=== PATIENT | female | born 1970 | race Caucasian/White ===

== ENCOUNTER → 2017-05-01 16:10 | Outpatient (CLI) | payer OTHER, SELFPAY ==
[2017-05-01 18:08] LABS: Amphetamine Urine VISTA NEGATIVE (<1000 ng/mL); Barbiturate Urine VISTA NEGATIVE (< 200 ng/mL); Benzodiazepine Urine VISTA NEGATIVE (< 200 ng/mL); Cocaine Urine VISTA NEGATIVE (< 300 ng/mL); Ecstacy Urine VISTA NEGATIVE (< 500 ng/mL); Methadone Urine VISTA NEGATIVE (< 300 ng/mL); PCP Urine VISTA NEGATIVE (< 25 ng/mL); THC Urine VISTA NEGATIVE (< 50 ng/mL); Vista UDS pH Range 5
[2017-05-02 08:36] LABS: OXY Internal Control LINE = VALID (VALID); Oxycodone Drug Screen Negative (<100 ng/mL)
== END ==
PROVIDERS: Family Provider Family Medicine; PCP Family Medicine; Visit Provider Family Medicine
DX: Z51.81 Encounter for therapeutic drug level monitoring (principal); Z79.899 Other long term (current) drug therapy
CPT/HCPCS: 80307; 80365; G0480

== ENCOUNTER → 2017-06-27 15:26 | Outpatient (CLI) | payer OTHER, SELFPAY ==
--- NOTE | 2017-06-27 15:30 | RAD_ITS ---
STUDY: X-RAY - ABDOMEN/PELVIS REASON FOR EXAM: Female, 46 years old. Left upper quadrant pain TECHNIQUE: Single AP view of the abdomen / pelvis. COMPARISON: None. FINDINGS: Normal visualized lung bases. There is an unremarkable bowel gas pattern. There is no demonstrated free abdominal air. The visualized liver, spleen and kidneys are grossly normal in size and morphology. Normal soft tissue structures. Normal visualized osseous structures. RAD/Abdomen Single View IMPRESSION: Normal x-ray examination of the abdomen and pelvis. Electronically Signed: Al Grady MD at 23:57 EDT , Service support ,
--- NOTE | 2017-06-27 15:30 | RAD_ITS ---
STUDY: X-RAY CHEST REASON FOR EXAM: Female, 46 years old. Short of breath and asthma. TECHNIQUE: Frontal and lateral views of the chest. COMPARISON: 02/16/2017. FINDINGS: The lungs are clear and expanded. There is no demonstrated pleural abnormality. Normal size heart. Normal mediastinum and jose. Normal visualized pulmonary arteries. Normal visualized aortic arch and descending thoracic aorta. There are diffuse degenerative changes of the visualized thoracic spine. Normal visualized ribs, clavicles, and shoulders. There is no demonstrated abnormality of the visualized soft tissue structures of the upper abdomen. RAD/Chest PA and Lateral IMPRESSION: No acute chest disease. Electronically Signed: Al Grady MD at 23:56 EDT , Service support ,
[2017-06-27 18:11] LABS: Absolute Lymphocyte Count 2.86 X10^3/ul (0.83-4.51); Absolute Neutrophil Count 4.2 X10^3/uL (2.0-7.7); Basophil# 0.03 X10^3/uL; Basophil% 0.4 % (0-1); Eosinophil# 0.32 X10^3/uL; Hematocrit 39.5 % (37-47); Hemoglobin 13.1 g/dl (12.0-15.0); Lymphocyte # 2.86 X10^3/ul (4.0); Lymphocyte % 35.3 % (19-41); Mean Corp Hgb Conc 33.2 g/gl (32-36); Mean Corpuscular Hgb 29.7 pg (27.0-32.0); Mean Corpuscular Volume 89.6 fL (81-99); Mean Platelet Vol. 9.1 fl (6.2-12.0); Monocyte# 0.62 X10^3/uL; Monocyte% 7.7 % (0-10); Neutrophil # 4.24 X10^3/uL (2.7-7.7); Neutrophil % 52.2 % (47-70); Platelet Count 344 K/mm3 (150-450); RBC Distribution Width CV 13.3 % (11.6-14.6); RBC Distribution Width SD 43.5 fl (35.1-43.9); Red Blood Count 4.41 M/mm3 (4.2-5.4); White Blood Count 8.1 K/mm3 (4.4-11.0)
[2017-06-27 18:17] LABS: AST(SGOT) 18 U/L (15-37); Alanine Aminotransfer ALT/SGPT 23 U/L (13-56); Albumin, Serum 3.9 g/dL (3.2-5.0); Alkaline Phosphatase 66 U/L (45-117); Anion Gap 9 (5-15); BUN 22 mg/dL (7-18); BUN/Creat Ratio 33.6 RATIO (10-20); CRP 4.38 mg/L (0.0-3.0); Calcium,Total 8.9 mg/dL (8.5-10.1); Chloride 104 mmol/L (98-107); Cholesterol 206 mg/dL (200); Creatinine, Serum 0.66 mg/dL (0.55-1.02); EST Glomerular Filtration Rate 104 mL/min (>60); Est Glom Filt Rate - Afr Amer 126 mL/min (>60); Glucose 122 mg/dL (74-106); High Density Lipoprotein 61 mg/dL; Potassium 3.5 mmol/L (3.5-5.1); Protein, Total 7.9 g/dL (6.4-8.2); Sodium Level 140 mmol/L (136-145); Triglycerides 251 mg/dL; Very Low Density Lipoprotein 50 mg/dL (5-40)
[2017-06-27 18:29] LABS: POSITIVE COUNT NO; POSITIVE DIFFERENTIAL NO; POSITIVE MORPHOLOGY NO
== END ==
LOC: MTRAD 15:28
PROVIDERS: Family Provider Family Medicine; PCP Family Medicine; Visit Provider Family Medicine
DX: J45.909 Unspecified asthma, uncomplicated (principal); R10.9 Unspecified abdominal pain; E78.5 Hyperlipidemia, unspecified; Z79.899 Other long term (current) drug therapy
CPT/HCPCS: 36415; 71046; 74018; 80053; 80061; 85025; 86140

== ENCOUNTER → 2017-07-10 10:50 | Outpatient (CLI) | payer OTHER, SELFPAY ==
--- NOTE | 2017-07-10 10:50 | DT_ITS ---
This patient was seen during an EMR downtime July 10, 2017 - July 17, 2017. This patient may have a combination of paper and electronic documentation or all paper documentation. All documentation is viewable within the e-chart portion of [employer] for each patient visit.
[2017-07-16 03:04] LABS: AST(SGOT) 20 U/L (15-37); Alanine Aminotransfer ALT/SGPT 28 U/L (13-56); Albumin, Serum 3.8 g/dL (3.2-5.0); Alkaline Phosphatase 62 U/L (45-117); BUN 15 mg/dL (7-18); BUN/Creat Ratio 23.1 RATIO (10-20); Calcium,Total 8.8 mg/dL (8.5-10.1); Creatinine, Serum 0.65 mg/dL (0.55-1.02); EST Glomerular Filtration Rate 105 mL/min (>60); Est Glom Filt Rate - Afr Amer 127 mL/min (>60); Glucose 104 mg/dL (74-106); Protein, Total 7.8 g/dL (6.4-8.2)
[2017-07-16 03:05] LABS: Anion Gap 7 (5-15); CRP 3.16 mg/L (0.0-3.0); Chloride 107 mmol/L (98-107); Cholesterol 252 mg/dL (200); High Density Lipoprotein 72 mg/dL; Potassium 3.9 mmol/L (3.5-5.1); Sodium Level 142 mmol/L (136-145); Triglycerides 263 mg/dL; Very Low Density Lipoprotein 53 mg/dL (5-40)
[2017-07-16 04:05] LABS: Absolute Neutrophil Count 5.4 X10^3/uL (2.0-7.7); Basophil% 0.5 % (0-1); Eosinophils% 2.1 % (0-5); Hematocrit 41.9 % (37-47); Hemoglobin 13.4 g/dl (12.0-15.0); Lymphocyte % 28.2 % (19-41); Mean Corpuscular Hgb 29.5 pg (27.0-32.0); Mean Corpuscular Volume 92.3 fL (81-99); Mean Platelet Vol. 9.7 fl (6.2-12.0); Monocyte% 7.4 % (0-10); Neutrophil # 5.43 X10^3/uL (2.7-7.7); Neutrophil % 61.3 % (47-70); POSITIVE COUNT NO; POSITIVE DIFFERENTIAL NO; POSITIVE MORPHOLOGY NO; Platelet Count 386 K/mm3 (150-450); RBC Distribution Width CV 13.9 % (11.6-14.6); RBC Distribution Width SD 46.3 fl (35.1-43.9); Red Blood Count 4.54 M/mm3 (4.2-5.4); White Blood Count 8.8 K/mm3 (4.4-11.0)
[2017-07-16 04:06] LABS: Absolute Lymphocyte Count 2.49 X10^3/ul (0.83-4.51); Basophil# 0.04 X10^3/uL; Eosinophil# 0.19 X10^3/uL; Lymphocyte # 2.49 X10^3/ul (4.0); Monocyte# 0.65 X10^3/uL
== END ==
PROVIDERS: Family Provider Family Medicine; PCP Family Medicine; Visit Provider Family Medicine
DX: R10.9 Unspecified abdominal pain (principal); E78.5 Hyperlipidemia, unspecified; Z79.899 Other long term (current) drug therapy
CPT/HCPCS: 36415; 80053; 80061; 85025; 86140

== ENCOUNTER → 2017-10-19 09:30 | Outpatient (CLI) | payer OTHER, SELFPAY | LOC: BFHLAB 09:30 | PROVIDERS: Family Provider Family Medicine; PCP Family Medicine; Visit Provider Family Medicine | DX: N39.0 Urinary tract infection, site not specified (principal) | CPT/HCPCS: 87086; 87088; 87186 ==

== ENCOUNTER 2017-11-01 21:37 | Emergency (ER) | payer OTHER, SELFPAY ==
[2017-11-01 21:37] VITALS: BP 138/87; PULSE 74; RESP 18; TEMP 36.6; O2SAT 98; BMI 26.4
[2017-11-01 22:10] LABS: Bacteria 0 SEEN /hpf (None Seen); Mucous, Urine 0 SEEN /hpf (<or=2+); White Blood Cells 0 SEEN /hpf (0-5)
[2017-11-01 22:15] LABS: Absolute Lymphocyte Count 2.97 X10^3/ul (0.83-4.51); Basophil# 0.03 X10^3/uL; Basophil% 0.3 % (0-1); Eosinophil# 0.25 X10^3/uL; Eosinophils% 2.8 % (0-5); Hematocrit 39.7 % (37-47); Hemoglobin 13.1 g/dl (12.0-15.0); Lymphocyte # 2.97 X10^3/ul (4.0); Lymphocyte % 33.3 % (19-41); Mean Corpuscular Hgb 29.6 pg (27.0-32.0); Mean Corpuscular Volume 89.8 fL (81-99); Mean Platelet Vol. 8.8 fl (6.2-12.0); Monocyte# 0.68 X10^3/uL; Monocyte% 7.6 % (0-10); Neutrophil # 4.98 X10^3/uL (2.7-7.7); Neutrophil % 55.8 % (47-70); POSITIVE COUNT NO; POSITIVE DIFFERENTIAL NO; POSITIVE MORPHOLOGY NO; Platelet Count 310 K/mm3 (150-450); RBC Distribution Width CV 12.8 % (11.6-14.6); RBC Distribution Width SD 42.1 fl (35.1-43.9); Red Blood Count 4.42 M/mm3 (4.2-5.4); White Blood Count 8.9 K/mm3 (4.4-11.0)
[2017-11-01 22:16] LABS: Color, Urine Yellow (Yellow); Glucose, Dipstick Normal (Normal); Ketone-Dipstick Negative (Negative); Leukocyte Esterase-Dipstick 25 /ul (Negative); Nitrite-Dipstick Negative (Negative); Occult Blood-Urine 150 /ul (Negative); Protein-Dipstick 15 mg/dl (Negative); Urine Bilirubin Dipstick Negative (Negative); Urine Clarity Clear (Clear); Urine Urobilinogen 1 mg/dl (Normal)
[2017-11-01 22:21] LABS: Red Blood Cells-Urine 0-5 SEEN /hpf (0-5); Squamous Epithelial Cells - UA 0-5 SEEN /hpf (5-10)
[2017-11-01 22:25] LABS: Anion Gap 6 (5-15); BUN 14 mg/dL (7-18); BUN/Creat Ratio 17.3 RATIO (10-20); Chloride 105 mmol/L (98-107); Creatinine, Serum 0.81 mg/dL (0.55-1.02); EST Glomerular Filtration Rate 81 mL/min (>60); Est Glom Filt Rate - Afr Amer 98 mL/min (>60); Estimated Creatinine Clearance 75.74 ml/min; Glucose 107 mg/dL (74-106); Potassium 3.7 mmol/L (3.5-5.1); Sodium Level 140 mmol/L (136-145)
[2017-11-01 22:30] LABS: Pregnancy, Serum, hCG Quali. NEGATIVE Negative (0-9 Nonpreg)
[2017-11-01] MEDS: Mag Hydrox/Al Hydrox/Simeth 30 ML UDC PO (22:44)
[2017-11-01 22:52] LABS: AST(SGOT) 17 U/L (15-37); Alanine Aminotransfer ALT/SGPT 24 U/L (13-56); Albumin, Serum 3.9 g/dL (3.2-5.0); Alkaline Phosphatase 58 U/L (45-117); Bilirubin, Direct 0.08 mg/dL (0.00-0.30); Globulin 3.9 g/dL (2.2-4.2); Protein, Total 7.8 g/dL (6.4-8.2)
[2017-11-01 22:56] LABS: Lipase 109 U/L (73-393)
--- NOTE | 2017-11-01 23:06 | ED.VISSUMM ---
- ER Visit Summary Date of Service: 11/01/17 Chief Complaint: Abdominal pain History of Present Illness: The patient is a 47 F who presents with abdominal pain. Over the past 3 weeks she complains of sharp epigastric and left upper quadrant abdominal pain. She currently rates this as a 7 out of 10. It is sometimes worse with food. She has noted some urinary frequency but no other urinary symptoms such as dysuria urgency or hematuria. She denies nausea vomiting or diarrhea. She does complain of feeling bloated. She complains of increased heartburn. She takes Zantac and occasionally takes Prilosec. She does note that she takes anti-inflammatories daily. She endorses occasional alcohol use but not frequent or daily use. He has a history of prior similar symptoms. No fevers. Physical Examination: Afebrile vitals are normal Resting comfortably in no distress Moist mucous membranes Heart regular rate and rhythm Lungs are clear Abdomen soft and nondistended she does have some epigastric tenderness without guarding without rebound no hepatosplenomegaly Test Results: CBC CMP lipase are all normal. Urinalysis shows 25 leukocyte esterase but otherwise normal. is negative. Emergency Department Course and Treatment: Patient was given a GI cocktail here. She really did not have much change in her symptoms. Given her description of symptoms and daily anti-inflammatory use I do believe this is gastritis. She was instructed on supportive care. She was advised to stop anti-inflammatories and stick to a bland diet. She was advised of the possible need for further outpatient workup if symptoms continue such as H pylori testing and/or EGD. He understands to return for new or worsening symptoms. She has Prilosec at home. She was advised to begin taking this daily. She is comfortable with this plan, all questions answered bedside, patient discharged Treatment Plan: [] Disposition: Discharge Impression: Gastritis This note was generated with [employer] dictation software. It may contain incorrect words, spelling, and punctuation that were not noted in review of the chart prior to signing ED Disposition - Plan for ED Patient: Chief Complaint: Abd Pain Referrals: Raad Armendariz DO [Primary Care Provider] -
--- NOTE | 2017-11-01 23:09 | ED.DEP ---
ED Disposition - Plan for ED Patient: Chief Complaint: Abd Pain Instructions: ED Gastritis Referrals: Raad Armendariz DO [Primary Care Provider] -
== END 2017-11-01 23:24 | disposition home or self-care (01) ==
PROVIDERS: Emergency Provider Emergency Medicine; Family Provider Family Medicine; PCP Family Medicine
DX: K29.70 Gastritis, unspecified, without bleeding (principal); J45.909 Unspecified asthma, uncomplicated; E78.00 Pure hypercholesterolemia, unspecified; M79.7 Fibromyalgia; Z72.0 Tobacco use; Z79.1 Long term (current) use of non-steroidal anti-inflammatories (NSAID); Z79.899 Other long term (current) drug therapy; Z79.51 Long term (current) use of inhaled steroids
CPT/HCPCS: 80048; 80076; 81001; 83690; 84703; 85025; 99284; J7030; A4216

== ENCOUNTER 2018-01-22 16:08 | Emergency (ER) | payer OTHER, SELFPAY ==
[2018-01-22 16:10] VITALS: BP 123/91; PULSE 88; RESP 16; TEMP 36.8; O2SAT 97; BMI 25.4
--- NOTE | 2018-01-22 16:55 | RAD_ITS ---
STUDY: X-RAY - UNILATERAL RIBS ( LEFT ) WITH CHEST REASON FOR EXAM: Female, 47 years old. Trauma TECHNIQUE - RIBS: 4 view(s) of the ribs. TECHNIQUE - CHEST: Single PA view of the chest. COMPARISON: Previous chest of 06/27/2017 FINDINGS - RIBS: Normal visualized ribs without a demonstrated fracture. FINDINGS - CHEST: The lungs are clear and expanded. There is no demonstrated pleural abnormality. Normal size heart. Normal mediastinum and jose. Normal visualized pulmonary arteries. Normal visualized aortic arch and descending thoracic aorta. Normal visualized thoracic spine. Normal visualized ribs, clavicles, and shoulders. There is no demonstrated abnormality of the visualized soft tissue structures of the upper abdomen. RAD/Ribs Uni Min 3V w/PA Chest IMPRESSION: RIBS: Normal x-ray examination of the ribs. CHEST: Normal x-ray examination of the chest. Electronically Signed: Mayco Cheek MD at 17:25 EST , Service support ,
[2018-01-22] MEDS: Lidocaine 5% Patch 1 PATCH TOPICAL (17:44)
--- NOTE | 2018-01-22 18:00 | ED.VISSUMM ---
- ER Visit Summary Date of Service: 01/22/18 Chief Complaint: Rib injury History of Present Illness: The patient is a 47 F presenting for evaluation secondary to a rib injury. Patient reports that she was lifting someone at work 6 days ago and suffered a injury to her left ribs where she felt a pop. She reports she has had continuous pain there that is worse with movement and palpation. Patient reports that she developed a cough in the last couple of days which is caused the pain to get worse. She denies any fevers or shortness of breath. Physical Examination: Physical exam unremarkable except for examination of the chest. Heart was regular rate and rhythm, lungs sounds were clear and equal. Left anterior chest tenderness to palpation over approximately the sixth to eighth ribs without crepitus step-off deformity or abnormal chest excursion Test Results: Rib series is negative Emergency Department Course and Treatment: Patient presented secondary to rib pain. X-ray was negative. Patient was recommended conservative treatment with ibuprofen heat and ice Disposition: Discharge Impression: 1. Left-sided rib sprain This note was generated with [employer] dictation software. It may contain incorrect words, spelling, and punctuation that were not noted in review of the chart prior to signing ED Disposition - Plan for ED Patient: Disposition: Home or Assisted Living Chief Complaint: Chest Other Diagnosis: Rib sprain Instructions: ED Strain Chest Wall Referrals: [facility] [GROUP OF PHYSICIANS] - As Needed
[2018-01-22 18:04] VITALS: PULSE 78; RESP 14; O2SAT 96
--- OUTSIDE RECORDS SUMMARY | 2018-04-26 09:41 | XMS RPT_ITS ---
:1970 Author Organization OH[employer] Name Relationship Address Phone [place] Unavailable [address] + [place] [address] JERAD FOYRICK Unavailable [address] + [place] [address] [place] Unavailable [address] + [place] [address] JERAD FOYRICK Unavailable [address] + [place] [address] [place] Unavailable [address] + [place] [address] JERAD FOYRICK Unavailable [address] + [place] [address] [place] Unavailable [address] + [place] [address] JERAD FOYRICK Unavailable [address] + [place] [address] [place] Unavailable [address] + [place] [address] JERAD FOYRICK Unavailable [address] + [place] [address] [place] Unavailable [address] + [place] [address] JERAD FOYRICK Unavailable [address] + [place] [address] [place] Unavailable [address] + [place] [address] JERAD FOYRICK Unavailable [address] + [place] [address] [place] Unavailable [address] + [place] [address] MARKO FOY Unavailable [address] + [place] [address] Care Team Providers Name Role Phone Raad Armendariz Primary Care Unavailable Anastacio Kiser Attending Unavailable Kala, Raad Attending Unavailable Kala, Raad Primary Care Unavailable Cielo Crump Attending Unavailable Kala, Raad Referring Unavailable Kala, Raad Primary Care Unavailable Kala, Raad Attending Unavailable Kala, Raad Referring Unavailable Kala, Raad Primary Care Unavailable Kala, Raad Attending Unavailable Kala, Raad Attending Unavailable Kala, Raad Referring Unavailable Kala, Raad Primary Care Unavailable Kala, Raad Attending Unavailable Kala, Raad Primary Care Unavailable Kala, Raad Primary Care Unavailable Tom Winchester Attending Unavailable PROBLEMS PROBLEMS DATE TYPE CONDITION / CODE ATTENDING STATUS SOURCE 10/19/2017 Unknown N39.0 - Urinary Raad Armendariz Active [place] tract infection, Community site not specified Hospital / N39.0(ICD-10) Repository 08/02/2017 Unknown R10.9 - Unspecified KalaRaad swift Active [place] abdominal pain / Community R10.9(ICD-10) Hospital Repository 06/27/2017 Unknown J45.909 - KalaRaad swift Active [place] Unspecified asthma, Community uncomplicated / Hospital J45.909(ICD-10) Repository 06/27/2017 Unknown Z79.899 - Other Raad Armendariz Active [facility] (current) Community drug therapy / Hospital Z79.899(ICD-10) Repository 06/27/2017 Unknown E78.5 - KalaRaad swift Active [facility] Hyperlipidemia, Community unspecified / Hospital E78.5(ICD-10) Repository 05/01/2017 Unknown Z51.81 - Encounter Raad Armendariz Active [place] for therapeutic Community drug level Hospital monitoring / Repository Z51.81(ICD-10) PROCEDURES PROCEDURES No Procedure Records FoundRESULTS RESULTS EMERGENCY DEPARTMENT Observed: 01/23/2018 Status: F Source: [place] SUMMARY 12:19 AM [facility] REPOSITORY Medical Records Department [address] [place] [address] Emergency Department Summary 01/22/18 1800 MR#: [id number] Acct: [id number] Name: ANNEL FOY Rep #: [id number] : 1970 47 From: Anastacio Kiser MD PCP: Raad Armendariz DO Status: DEP ER - ER Visit Summary Date of Service: 01/22/18 Chief Complaint: Rib injury History of Present Illness: The patient is a 47 F presenting for evaluation secondary to a rib injury. Patient reports that she was lifting someone at work 6 days ago and suffered a injury to her left ribs where she felt a pop. She reports she has had continuous pain there that is worse with movement and palpation. Patient reports that she developed a cough in the last couple of days which is caused the pain to get worse. She denies any fevers or shortness of breath. Physical Examination: Physical exam unremarkable except for examination of the chest. Heart was regular rate and rhythm, lungs sounds were clear and equal. Left anterior chest tenderness to palpation over approximately the sixth to eighth ribs without crepitus step-off deformity or abnormal chest excursion Test Results: Rib series is negative Emergency Department Course and Treatment: Patient presented secondary to rib pain. X-ray was negative. Patient was recommended conservative treatment with ibuprofen heat and ice Disposition: Discharge Impression: 1. Left-sided rib sprain This note was generated with [employer] dictation software. It may contain incorrect words, spelling, and punctuation that were not noted in review of the chart prior to signing ED Disposition - Plan for ED Patient: Disposition: Home or Assisted Living Chief Complaint: Chest Other Diagnosis: Rib sprain Instructions: ED Strain Chest Wall Referrals: [facility] [GROUP OF PHYSICIANS] - As Needed What to do if you have Problems For any increased pain, shortness of breath, bleeding, nausea or vomiting, chest pain, or any unexpected problems, contact your Primary Care Provider. Call [facility] ([phone]) or report to the closest Emergency Room. Call 911 if necessary. 01/23/18 0019 <Electronically signed by Anastacio Kiser MD> Date Anastacio Kiser MD Cosigner Signature (If Indicated): Date CC: Raad Armendariz DO RIBS UNI MIN 3V Observed: 01/22/2018 Status: F Source: [place] W/PA CHEST 4:42 PM [facility] REPOSITORY [place] [address] Ribs Uni Min 3V w/PA Chest MR#: [id number] Acct: [id number] Name: ANNEL FOY Rep #: [id number] : 1970 F 47 From: Mayco Cheek MD PCP: Raad Armendariz DO Status: REG ER Study: Ribs Uni Min 3V w/PA Chest Date of Exam: 01/22/18 Exam# [id number] Ordering Dr: Anastacio Kiser MD STUDY: X-RAY - UNILATERAL RIBS ( LEFT ) WITH CHEST REASON FOR EXAM: Female, 47 years old. Trauma TECHNIQUE - RIBS: 4 view(s) of the ribs. TECHNIQUE - CHEST: Single PA view of the chest. COMPARISON: Previous chest of 06/27/2017 FINDINGS - RIBS: Normal visualized ribs without a demonstrated fracture. FINDINGS - CHEST: The lungs are clear and expanded. There is no demonstrated pleural abnormality. Normal size heart. Normal mediastinum and jose. Normal visualized pulmonary arteries. Normal visualized aortic arch and descending thoracic aorta. Normal visualized thoracic spine. Normal visualized ribs, clavicles, and shoulders. There is no demonstrated abnormality of the visualized soft tissue structures of the upper abdomen. RAD/Ribs Uni Min 3V w/PA Chest IMPRESSION: RIBS: Normal x-ray examination of the ribs. CHEST: Normal x-ray examination of the chest. Electronically Signed: Mayco Cheek MD at 17:25 EST , Service support , CC: Raad Armendariz DO; Anastacio Kiser [employer] Guide: Signed EMERGENCY DEPARTMENT Observed: 11/01/2017 Status: F Source: [place] SUMMARY 11:09 PM [facility] REPOSITORY Medical Records Department [address] [place] [address] Emergency Department Summary 11/01/17 2306 MR#: [id number] Acct: [id number] Name: ANNEL FOY Rep #: [id number] : 1970 47 From: Tom Winchester MD PCP: Raad Armendariz DO Status: REG ER - ER Visit Summary Date of Service: 11/01/17 Chief Complaint: Abdominal pain History of Present Illness: The patient is a 47 F who presents with abdominal pain. Over the past 3 weeks she complains of sharp epigastric and left upper quadrant abdominal pain. She currently rates this as a 7 out of 10. It is sometimes worse with food. She has noted some urinary frequency but no other urinary symptoms such as dysuria urgency or hematuria. She denies nausea vomiting or diarrhea. She does complain of feeling bloated. She complains of increased heartburn. She takes Zantac and occasionally takes Prilosec. She does note that she takes anti-inflammatories daily. She endorses occasional alcohol use but not frequent or daily use. He has a history of prior similar symptoms. No fevers. Physical Examination: Afebrile vitals are normal Resting comfortably in no distress Moist mucous membranes Heart regular rate and rhythm Lungs are clear Abdomen soft and nondistended she does have some epigastric tenderness without guarding without rebound no hepatosplenomegaly Test Results: CBC CMP lipase are all normal. Urinalysis shows 25 leukocyte esterase but otherwise normal. is negative. Emergency Department Course and Treatment: Patient was given a GI cocktail here. She really did not have much change in her symptoms. Given her description of symptoms and daily anti-inflammatory use I do believe this is gastritis. She was instructed on supportive care. She was advised to stop anti-inflammatories and stick to a bland diet. She was advised of the possible need for further outpatient workup if symptoms continue such as H pylori testing and/or EGD. He understands to return for new or worsening symptoms. She has Prilosec at home. She was advised to begin taking this daily. She is comfortable with this plan, all questions answered bedside, patient discharged Treatment Plan: [] Disposition: Discharge Impression: Gastritis This note was generated with [employer] dictation software. It may contain incorrect words, spelling, and punctuation that were not noted in review of the chart prior to signing ED Disposition - Plan for ED Patient: Chief Complaint: Abd Pain Referrals: Raad Armendariz DO [Primary Care Provider] - What to do if you have Problems For any increased pain, shortness of breath, bleeding, nausea or vomiting, chest pain, or any unexpected problems, contact your Primary Care Provider. Call [facility] ([phone]) or report to the closest Emergency Room. Call 911 if necessary. 11/01/172308 <Electronically signed by Tom Winchester MD> Date oTm Winchester MD Cosigner Signature (If Indicated): Date CC: Raad Armendariz DO DISCHARGE INSTRUCTION Observed: 11/01/2017 Status: F Source: [place] 11:09 PM [facility] REPOSITORY Medical Records Department [address] [place] [address] Discharge Instruction 11/01/172308 MR#: [id number] Acct: [id number] Name: ANNEL FOY Rep #: [id number] : 1970 47 From: Tom Winchester MD PCP: Raad Armendariz DO Status: REG ER ED Disposition - Plan for ED Patient: Chief Complaint: Abd Pain Instructions: ED Gastritis Referrals: Raad Armendariz DO [Primary Care Provider] - What to do if you have Problems For any increased pain, shortness of breath, bleeding, nausea or vomiting, chest pain, or any unexpected problems, contact your Primary Care Provider. Call [facility] ([phone]) or report to the closest Emergency Room. Call 911 if necessary. 11/01/172308 <Electronically signed by Tom Winchester MD> Date Tom [place] Signature (If Indicated): Date CC: Raad Armendariz DO LIVER PROFILE Collected: 11/01/2017 Status: F Source: [place] 10:03 PM [facility] REPOSITORY TYPE CODE TESTS RESULT OUT OF RANGE REFERENCE UNITS LAB L501.1500 6.4-8.2 g/dL Normal T PROT 7.8 LAB L501.1800 3.2-5.0 g/dL Normal ALB 3.9 LAB L501.1950 2.2-4.2 g/dL Normal GLOB 3.9 LAB L501.4100 15-37 U/L Normal AST 17 LAB L501.4305 45-117 U/L Normal ALK P 58 LAB L501.4405 13-56 U/L Normal ALT 24 LAB L501.4600 0.20-1.00 mg/dL Normal T BILI 0.30 LAB L501.4700 0.00-0.30 mg/dL Normal D BILI 0.08 Performed By: #### L500.3400 #### [facility] [address] [place], [place], [address] LIPASE Collected: 11/01/2017 Status: F Source: [place] 10:03 PM [facility] REPOSITORY TYPE CODE TESTS RESULT OUT OF RANGE REFERENCE UNITS LAB L501.2450 73-393 U/L Normal LIPASE 109 Performed By: #### L501.2450 #### [facility] [address] [place], [address] CBC W/DIFF, AUTOMATED Collected: 11/01/2017 Status: F Source: [place] 9:53 PM [facility] REPOSITORY TYPE CODE TESTS RESULT OUT OF RANGE REFERENCE UNITS LAB L100.1000 4.4-11.0 K/mm3 Normal WBC 8.9 LAB L100.1200 4.2-5.4 M/mm3 Normal RBC 4.42 LAB L100.1300 12.0-15.0 g/dl Normal HGB 13.1 LAB L100.1400 37-47 % Normal HCT 39.7 LAB L100.1500 81-99 fL Normal MCV 89.8 LAB L100.1600 27.0-32.0 pg Normal MCH 29.6 LAB L100.1700 32-36 g/gl Normal MCHC 33.0 LAB L100.1810 11.6-14.6 % Normal RDW CV 12.8 LAB L100.1820 35.1-43.9 fl Normal RDW SD 42.1 LAB L100.1900 150-450 K/mm3 Normal PLT 310 LAB L100.2000 6.2-12.0 fl Normal MPV 8.8 LAB L100.2100 47-70 % Normal NEUT% 55.8 LAB L100.2200 19-41 % Normal LY% 33.3 LAB L100.2300 0-10 % Normal MONO% 7.6 LAB L100.2400 0-5 % Normal EO% 2.8 LAB L100.2500 0-1 % Normal BASO% 0.3 LAB L100.2550 0.0-0.9 % Normal IM GRAN % 0.200 Result Comment: IG% - Immature Granulocytes (promyelocytes, myelocytes and metamyelocytes) > 1% indicates that a LEFT SHIFT is Present. LAB L100.2620 2.0-7.7 X10 3/uL Normal Absolute Neut 5.0 LAB L100.2720 0.83-4.51 X10 3/ul Normal Absolute Lymph 2.97 Performed By: #### L100.0100 #### [facility] [address] [place], [address] URINALYSIS, COMPLETE Collected: 11/01/2017 Status: F Source: [place] 9:53 PM [facility] REPOSITORY Order Comment: Order Date: 11/01/17 How was Urine Obtained? MATERIAL [employer]OL ASSOCIATE TO SPECIFY TYPE CODE TESTS RESULT OUT OF RANGE REFERENCE UNITS LAB L400.3000 Yellow COLOR Normal Yellow LAB L400.3050 Clear Normal CLARITY Clear LAB L400.3200 Normal mg/dl Normal GLUCOSE, UR Normal LAB L400.3300 Negative mg/dL Normal BILIRUBIN URINE Negative LAB L400.3400 Negative mg/dl Normal KETONE UR Negative LAB L400.3465 1.002-1.030 Normal SP.GR. DIPSTX 1.020 LAB L400.3550 5.0 - 8.0 pH UR Normal 6.0 LAB L400.3600 Negative mg/dl High PROT 15 DIPSTX LAB L400.3700 Normal mg/dl High 1 UROBILI LAB L400.3750 Negative Normal NITRITE UR Negative LAB L400.3780 Negative /ul High OCCULT BLOOD-UR 150 LAB L400.3800 Negative /ul High LEUK 25 ESTERASE LAB L400.4050 0-5 /hpf WBC 0 Normal SEEN LAB L400.4100 0-5 /hpf Normal RBC-UA 0-5 SEEN LAB L400.4150 5-10 /hpf SQUAM Normal EPI 0-5 SEEN LAB L400.4300 None Seen /hpf 0 Normal BACTERIA SEEN LAB L400.4350 <or=2+ /hpf 0 Normal MUCUS, URINE SEEN Performed By: #### L400.0001 #### [facility] [address] [place], [address] BASIC METABOLIC Collected: 11/01/2017 Status: F Source: [place] PROFILE ([facility]) 9:53 PM [facility] REPOSITORY TYPE CODE TESTS RESULT OUT OF RANGE REFERENCE UNITS LAB L501.0100 74-106 mg/dL High GLU 107 Result Comment: Fasting Glucose result from 100 to 125 mg/dL suggests IMPAIRED HOMEOSTASIS per A.D.A. criteria. Please note revised GLUCOSE reference range effective 2017. LAB L501.1000 7-18 mg/dL Normal BUN 14 LAB L501.1100 0.55-1.02 mg/dL Normal CREAT,SERUM 0.81 Result Comment: The validity of the calculated GFR AND GFRAA in patients over 70 years has not been determined. Clinical correlation is essential. LAB L501.1110 >60 mL/min Normal EST GFR 81 Result Comment: Non- GFR Calc LAB L501.1115 >60 mL/min Normal EST GFR - AA 98 Result Comment: GFR Calc LAB L501.1255 ml/min Normal Estimated CRCL 75.74 LAB L501.1300 10-20 RATIO Normal BUN/CRE 17.3 LAB L501.2200 8.5-10 mg/dL Normal .1 CA 9.0 LAB L501.5300 136-14 mmol/L Normal 5 NA 140 LAB L501.5600 3.5-5. mmol/L Normal 1 K 3.7 LAB L501.5900 98-107 mmol/L Normal CL 105 LAB L501.6100 21.0-3 mmol/L Normal 2.0 CO2 29.0 LAB L501.6200 5-15 Normal GAP 6 Performed By: #### L500.2500 #### [facility] [address] [place], [address] ,SERUM,HCG QUALI. Collected: Status: F Source: [place] 11/01/2017 9:53 PM [facility] REPOSITORY TYPE CODE TESTS RESULT OUT OF REFERENCE UNITS RANGE LAB L700.7000 0-9 Nonpreg Negative Normal HCGSQUAL NEGATIVE LAB L700.6700 =>Qualitative mIU/mL Normal HCG Qual 3 triggr Performed By: #### L700.6800 #### [facility] [address] [facility] [place], [address] Observed: 10/19/2017 Status: F Source: [place] CULTURE, URINE 9:32 AM [facility] REPOSITORY Urine Culture ORGANISM 1: Presumptive E. coli Austin Count 25,000-50,000 Presumptive E. coli: REACTION Amoxacillin/Clavulanic Acid $ <=2 S Ampicillin $ <=2 S Ampicillin/Sulbactam $ <=2 S Cefazolin $ <=4 S Cefepime $ <=1 S Ceftriaxone $ <=1 S Ciprofloxacin $ <=0.25 S ESBL - Ertapenim $$$ <=0.5 S Gentamicin $ <=1 S Imipenem *NF <=0.25 S Levofloxacin $ <=0.12 S Nitrofurantoin $ <=16 S Piperacillin/Tazobactam $$ <=4 S Tobramycin $ <=1 S Trimethoprim/Sulfametho $ <=20 S (NF) indicates non-formulary drug at [facility]. Approval by Infectious Disease Specialist required before non-formulary drugs may be ordered and/or dispensed. Performed By: #### M100.0650 #### [facility] [address] [place], [address] DOWNTIME REPORT Observed: 07/27/2017 Status: F Source: [place] 1:14 PM [facility] REPOSITORY Medical Records Department [address] [place] [address] Downtime Report MR#: [id number] Acct: [id number] Name: ANNEL FOY Rep #: [id number] : 1970 46 From: Jeremy Monge PCP: Raad Armendariz DO Status: REG CLI This patient was seen during an EMR downtime July 10, 2017 - July 17, 2017. This patient may have a combination of paper and electronic documentation or all paper documentation. All documentation is viewable within the e-chart portion of [facility] for each patient visit. MISCELLANEOUS LAB Collected: 07/10/2017 Status: F Source: [place] PROCEDURE 10:50 AM [facility] REPOSITORY Order Comment: Comments: LC# [id number], DRUG SCREEN 16, WHOLE BLOOD Test(s) Ordered: LC# [id number], DRUG SCREEN 16, WHOLE BLOOD TYPE CODE TESTS RESULT OUT OF RANGE REFERENCE UNITS LAB L801.1541 Normal [facility] LAB TEST Result Comment: TEST RESULT UNITS REF INTERVAL Drug Screen 16 w/Conf, WB AMPHETAMINES, [place] Negative ng/mL Cutoff:50 BARBITURATES, [place] Negative ug/mL Cutoff:0.1 BENZODIAZEPINES, [place] Negative ng/mL Cutoff:20 COCAINE/METABOLITE,[place] Negative ng/mL Cutoff:25 PHENCYCLIDINE, [place] Negative ng/mL Cutoff:8 THC (MARIJUANA) MTB,[place] Negative ng/mL Cutoff:5 OPIATES, [place] ++POSITIVE++ ng/mL Cutoff:5 OXYCODONES, [place] Negative ng/mL Cutoff:5 METHADONE, [place] Negative ng/mL Cutoff:25 FENTANYL, [place] Negative ng/mL Cutoff:1.0 BUPRENORPHINE, [place] Negative ng/mL Cutoff:1.0 PROPOXYPHENE, [place] Negative ng/mL Cutoff:50 MEPERIDINE, [place] Negative ng/mL Cutoff:100 TRAMADOL, [place] Negative ng/mL Cutoff:50 GABAPENTIN, [place] Negative ug/mL Cutoff:1.0 CARISOPRODOL, [place] Negative ug/mL Cutoff:0.5 This test was developed and its performance characteristics determined by [facility]. It has not been cleared or approved by the Food and Drug Administration. OPIATES,MS,WB/SP RFX Opiate Confirmation Positive Codeine Negative ng/mL Morphine Negative ng/mL 6-Acetylmorphine Negative Hydrocodone 24.3 ng/mL Hydromorphone Negative ng/mL Dihydrocodeine 2.2 ng/mL Confirmation threshold: 1.0 ng/mL OXYCODONES,MS,WB/SP RFX Oxycodones Confirmation Negative Oxycodone Negative ng/mL Oxymorphone Negative ng/mL Confirmation threshold: 1.0 ng/mL TESTING PERFORMED AT [facility]. ORIGINAL REPORT ON FILE IN LAB CONTAINS ADDITIONAL TEST SITE INFORMATION. Performed By: #### L801.1541 #### [facility] [address] [place], [address] COMPREHENSIVE METABOLIC Collected: 07/10/2017 Status: F Source: [facility] 10:50 AM [facility] REPOSITORY Order Comment: RESULT(S) PREVIOUSLY REPORTED ON MANUAL REQUISITION DURING DOWNTIME. Comments: # [id number], DRUG SCREEN 16, WHOLE BLOOD TYPE CODE TESTS RESULT OUT OF RANGE REFERENCE UNITS LAB L501.0100 74-106 mg/dL Normal GLU 104 Result Comment: Fasting Glucose result from 100 to 125 mg/dL suggests IMPAIRED HOMEOSTASIS per A.D.A. criteria. Please note revised GLUCOSE reference range effective 2017. LAB L501.1000 7-18 mg/dL Normal BUN 15 LAB L501.1100 0.55-1.02 mg/dL Normal CREAT,SERUM 0.65 Result Comment: The validity of the calculated GFR AND GFRAA in patients over 70 years has not been determined. Clinical correlation is essential. LAB L501.1110 >60 mL/min Normal EST GFR 105 LAB L501.1115 >60 mL/min Normal EST GFR - AA 127 LAB L501.1300 10-20 RATIO High BUN/CRE 23.1 LAB L501.1500 6.4-8.2 g/dL Normal T PROT 7.8 LAB L501.1800 3.2-5.0 g/dL Normal ALB 3.8 LAB L501.1950 2.2-4.2 g/dL Normal GLOB 4.0 LAB L501.2000 0.9-2.4 RATIO Normal A/G 1.0 LAB L501.2200 8.5-10.1 mg/dL Normal CA 8.8 LAB L501.4100 15-37 U/L Normal AST 20 LAB L501.4305 45-117 U/L Normal ALK P 62 LAB L501.4405 13-56 U/L Normal ALT 28 LAB L501.4600 0.20-1.00 mg/dL Normal T BILI 0.30 LAB L501.5300 136-145 mmol/L Normal NA 142 LAB L501.5600 3.5-5.1 mmol/L Normal K 3.9 LAB L501.5900 98-107 mmol/L Normal CL 107 LAB L501.6100 21.0-32.0 mmol/L Normal CO2 28.0 LAB L501.6200 5-15 Normal GAP 7 Performed By: #### L500.4050, L500.4100, L501.6710 #### [facility] [address] [place], [address] LIPID PROFILE Collected: 07/10/2017 Status: F Source: [place] 10:50 AM [facility] REPOSITORY Order Comment: RESULT(S) PREVIOUSLY REPORTED ON MANUAL REQUISITION DURING DOWNTIME. Comments: # [id number], DRUG SCREEN 16, WHOLE BLOOD TYPE CODE TESTS RESULT OUT OF RANGE REFERENCE UNITS LAB L501.4900 200 mg/dL High CHOL 252 Result Comment: <200 mg/dL Desirable 200-240 mg/dL Borderline >240 mg/dL High Risk LAB L501.5000 mg/dL High TRIG 263 Result Comment: The drugs N-Acetylcysteine and Metamizole may falsely depress this assay. Serum Triglycerides Reference Interval Normal <150 mg/dL Borderline high 150 - 199 mg/dL High 200 - 499 mg/dL Very High > or = 500 mg/dL LAB L501.6400 mg/dL Normal HDL 72 Result Comment: The drugs N-Acetylcysteine and Metamizole may falsely depress this assay. Reference Range HDL <40 mg/dL Low HDL Cholesterol HDL >or= 60 mg/dL High HDL Cholesterol LAB L501.6500 0-130 mg/dL Normal LDL 127 LAB L501.6600 5-40 mg/dL High VLDL 53 Performed By: #### L500.4050, L500.4100, L501.6710 #### [facility] [address] [place], [address] CRP Collected: 07/10/2017 Status: F Source: [place] 10:50 AM [facility] REPOSITORY Order Comment: RESULT(S) PREVIOUSLY REPORTED ON MANUAL REQUISITION DURING DOWNTIME. Comments: # [id number], DRUG SCREEN 16, WHOLE BLOOD TYPE CODE TESTS RESULT OUT OF RANGE REFERENCE UNITS LAB L501.6710 0.0-3.0 mg/L High 3.16 C-REACTIVE PROT Result Comment: C-Reactive Protein (CRP) provides useful information for the diagnosis, therapy and monitoring of inflammatory processes and associated diseases. For the evaluation of Relative Risk for Cardiovascular Disease, a High Sensitivity CRP (HSCRP) should be ordered. Performed By: #### L500.4050, L500.4100, L501.6710 #### [facility] [address] [place], [place], [address] CBC W/DIFF, AUTOMATED Collected: 07/10/2017 Status: F Source: [place] 10:50 AM [facility] REPOSITORY Order Comment: RESULT(S) PREVIOUSLY REPORTED ON MANUAL REQUISITION DURING DOWNTIME. TYPE CODE TESTS RESULT OUT OF RANGE REFERENCE UNITS LAB L100.1000 4.4-11.0 K/mm3 Normal WBC 8.8 LAB L100.1200 4.2-5.4 M/mm3 Normal RBC 4.54 LAB L100.1300 12.0-15.0 g/dl Normal HGB 13.4 LAB L100.1400 37-47 % Normal HCT 41.9 LAB L100.1500 81-99 fL Normal MCV 92.3 LAB L100.1600 27.0-32.0 pg Normal MCH 29.5 LAB L100.1700 32-36 g/gl Normal MCHC 32.0 LAB L100.1810 11.6-14.6 % Normal RDW CV 13.9 LAB L100.1820 35.1-43.9 fl High RDW SD 46.3 LAB L100.1900 150-450 K/mm3 Normal PLT 386 LAB L100.2000 6.2-12.0 fl Normal MPV 9.7 LAB L100.2100 47-70 % Normal NEUT% 61.3 LAB L100.2200 19-41 % Normal LY% 28.2 LAB L100.2300 0-10 % Normal MONO% 7.4 LAB L100.2400 0-5 % Normal EO% 2.1 LAB L100.2500 0-1 % Normal BASO% 0.5 LAB L100.2550 0.0-0.9 % Normal IM GRAN % 0.500 Result Comment: IG% - Immature Granulocytes (promyelocytes, myelocytes and metamyelocytes) > 1% indicates that a LEFT SHIFT is Present. LAB L100.2620 2.0-7.7 X10 3/uL Normal Absolute Neut 5.4 LAB L100.2720 0.83-4.51 X10 3/ul Normal Absolute Lymph 2.49 Performed By: #### L100.0100 #### [facility] [address] [place], [address] CHEST PA AND LATERAL Observed: 06/27/2017 Status: F Source: [place] 3:30 PM [facility] REPOSITORY Imaging Services [address] [place] [address] Chest PA and Lateral MR#: [id number] Acct: [id number] Name: ANNEL FOY Joaquin Rep #: [id number] : 1970 F 46 From: Al Grady MD PCP: Raad Armendariz DO Status: REG CLI Study: Chest PA and Lateral Date of Exam: 06/27/17 Exam# [id number] Ordering Dr: Raad Armendariz DO STUDY: X-RAY CHEST REASON FOR EXAM: Female, 46 years old. Short of breath and asthma. TECHNIQUE: Frontal and lateral views of the chest. COMPARISON: 02/16/2017. FINDINGS: The lungs are clear and expanded. There is no demonstrated pleural abnormality. Normal size heart. Normal mediastinum and jose. Normal visualized pulmonary arteries. Normal visualized aortic arch and descending thoracic aorta. There are diffuse degenerative changes of the visualized thoracic spine. Normal visualized ribs, clavicles, and shoulders. There is no demonstrated abnormality of the visualized soft tissue structures of the upper abdomen. RAD/Chest PA and Lateral IMPRESSION: No acute chest disease. Electronically Signed: Al Grady MD at 23:56 EDT , Service support , CC: Raad Armendariz DO Sea Kayaking Guide: Signed ABDOMEN SINGLE VIEW Observed: 06/27/2017 Status: F Source: [place] 3:30 PM [facility] REPOSITORY Imaging Services [address] [place] [address] Abdomen Single View MR#: [id number] Acct: [id number] Name: GRACIASONYANNEL Rep #: [id number] : 1970 F 46 From: Al Grady MD PCP: Raad Armendariz DO Status: REG CLI Study: Abdomen Single View Date of Exam: 06/27/17 Exam# [id number] Ordering Dr: Raad Armendariz DO STUDY: X-RAY - ABDOMEN/PELVIS REASON FOR EXAM: Female, 46 years old. Left upper quadrant pain TECHNIQUE: Single AP view of the abdomen / pelvis. COMPARISON: None. FINDINGS: Normal visualized lung bases. There is an unremarkable bowel gas pattern. There is no demonstrated free abdominal air. The visualized liver, spleen and kidneys are grossly normal in size and morphology. Normal soft tissue structures. Normal visualized osseous structures. RAD/Abdomen Single View IMPRESSION: Normal x-ray examination of the abdomen and pelvis. Electronically Signed: Al Grady MD at 23:57 EDT , Service support , CC: Raad Armendariz DO Sea Kayaking Guide: Signed COMPREHENSIVE METABOLIC Collected: 06/27/2017 Status: F Source: [place] MINAY[place] 3:29 PM [facility] REPOSITORY TYPE CODE TESTS RESULT OUT OF RANGE REFERENCE UNITS LAB L501.0100 74-106 mg/dL High GLU 122 Result Comment: Fasting Glucose result from 100 to 125 mg/dL suggests IMPAIRED HOMEOSTASIS per A.D.A. criteria. Please note revised GLUCOSE reference range effective 2017. LAB L501.1000 7-18 mg/dL High BUN 22 LAB L501.1100 0.55-1.02 mg/dL Normal CREAT,SERUM 0.66 Result Comment: The validity of the calculated GFR AND GFRAA in patients over 70 years has not been determined. Clinical correlation is essential. LAB L501.1110 >60 mL/min Normal EST GFR 104 Result Comment: Non- GFR Calc LAB L501.1115 >60 mL/min Normal EST GFR - AA 126 Result Comment: GFR Calc LAB L501.1300 10-20 RATIO High BUN/CRE 33.6 LAB L501.1500 6.4-8.2 g/dL T Normal PROT 7.9 LAB L501.1800 3.2-5.0 g/dL Normal ALB 3.9 LAB L501.1950 2.2-4.2 g/dL Normal GLOB 4.0 LAB L501.2000 0.9-2.4 RATIO Normal A/G 1.0 LAB L501.2200 8.5-10.1 mg/dL CA Normal 8.9 LAB L501.4100 15-37 U/L Normal AST 18 LAB L501.4305 45-117 U/L Normal ALK P 66 LAB L501.4405 13-56 U/L Normal ALT 23 LAB L501.4600 0.20-1.00 mg/dL T Normal BILI 0.20 LAB L501.5300 136-145 mmol/L NA Normal 140 LAB L501.5600 3.5-5.1 mmol/L K Normal 3.5 LAB L501.5900 98-107 mmol/L CL Normal 104 LAB L501.6100 21.0-32.0 mmol/L Normal CO2 27.0 LAB L501.6200 5-15 Normal GAP 9 Performed By: #### L500.4050, L500.4100, L501.6710 #### [facility] [address] [place], [place], [id number] LIPID PROFILE Collected: 06/27/2017 Status: F Source: [place] 3:29 PM [facility] REPOSITORY TYPE CODE TESTS RESULT OUT OF RANGE REFERENCE UNITS LAB L501.4900 200 mg/dL High CHOL 206 Result Comment: <200 mg/dL Desirable 200-240 mg/dL Borderline >240 mg/dL High Risk LAB L501.5000 mg/dL High TRIG 251 Result Comment: The drugs N-Acetylcysteine and Metamizole may falsely depress this assay. Serum Triglycerides Reference Interval Normal <150 mg/dL Borderline high 150 - 199 mg/dL High 200 - 499 mg/dL Very High > or = 500 mg/dL LAB L501.6400 mg/dL Normal HDL 61 Result Comment: The drugs N-Acetylcysteine and Metamizole may falsely depress this assay. Reference Range HDL <40 mg/dL Low HDL Cholesterol HDL >or= 60 mg/dL High HDL Cholesterol LAB L501.6500 0-130 mg/dL Normal LDL 95 LAB L501.6600 5-40 mg/dL High VLDL 50 Performed By: #### L500.4050, L500.4100, L501.6710 #### [facility] [address] [place], [place], [id number] CRP Collected: 06/27/2017 Status: F Source: [place] 3:29 PM [facility] REPOSITORY TYPE CODE TESTS RESULT OUT OF RANGE REFERENCE UNITS LAB L501.6710 0.0-3.0 mg/L High 4.38 C-REACTIVE PROT Result Comment: C-Reactive Protein (CRP) provides useful information for the diagnosis, therapy and monitoring of inflammatory processes and associated diseases. For the evaluation of Relative Risk for Cardiovascular Disease, a High Sensitivity CRP (HSCRP) should be ordered. Performed By: #### L500.4050, L500.4100, L501.6710 #### [facility] [address] [place], [place], [address] CBC W/DIFF, AUTOMATED Collected: 06/27/2017 Status: F Source: [place] 3:29 PM [facility] REPOSITORY TYPE CODE TESTS RESULT OUT OF RANGE REFERENCE UNITS LAB L100.1000 4.4-11.0 K/mm3 Normal WBC 8.1 LAB L100.1200 4.2-5.4 M/mm3 Normal RBC 4.41 LAB L100.1300 12.0-15.0 g/dl Normal HGB 13.1 LAB L100.1400 37-47 % Normal HCT 39.5 LAB L100.1500 81-99 fL Normal MCV 89.6 LAB L100.1600 27.0-32.0 pg Normal MCH 29.7 LAB L100.1700 32-36 g/gl Normal MCHC 33.2 LAB L100.1810 11.6-14.6 % Normal RDW CV 13.3 LAB L100.1820 35.1-43.9 fl Normal RDW SD 43.5 LAB L100.1900 150-450 K/mm3 Normal PLT 344 LAB L100.2000 6.2-12.0 fl Normal MPV 9.1 LAB L100.2100 47-70 % Normal NEUT% 52.2 LAB L100.2200 19-41 % Normal LY% 35.3 LAB L100.2300 0-10 % Normal MONO% 7.7 LAB L100.2400 0-5 % Normal EO% 4.0 LAB L100.2500 0-1 % Normal BASO% 0.4 LAB L100.2550 0.0-0.9 % Normal IM GRAN % 0.400 Result Comment: IG% - Immature Granulocytes (promyelocytes, myelocytes and metamyelocytes) > 1% indicates that a LEFT SHIFT is Present. LAB L100.2620 2.0-7.7 X10 3/uL Normal Absolute Neut 4.2 LAB L100.2720 0.83-4.51 X10 3/ul Normal Absolute Lymph 2.86 Performed By: #### L100.0100 #### [facility] [address] [place], [address] MISCELLANEOUS LAB Collected: 06/27/2017 Status: F Source: [place] PROCEDURE 3:29 PM [facility] REPOSITORY Order Comment: Test(s) Ordered: #[id number] WB RT ROACH/LAV/HEPARIN TUBE TYPE CODE TESTS RESULT OUT OF RANGE REFERENCE UNITS LAB L801.1541 Normal [facility] LAB TEST Result Comment: TEST RESULT UNITS REF INTERVAL Drug Screen 16 w/Conf, WB AMPHETAMINES, [place] Negative ng/mL Cutoff:50 BARBITURATES, IA Negative ug/mL Cutoff:0.1 BENZODIAZEPINES, IA Negative ng/mL Cutoff:20 COCAINE/METABOLITE,IA Negative ng/mL Cutoff:25 PHENCYCLIDINE, [place] Negative ng/mL Cutoff:8 THC (MARIJUANA) MTB,IA Negative ng/mL Cutoff:5 OPIATES, IA ++POSITIVE++ ng/mL Cutoff:5 OXYCODONES, IA Negative ng/mL Cutoff:5 METHADONE, IA Negative ng/mL Cutoff:25 FENTANYL, IA Negative ng/mL Cutoff:1.0 BUPRENORPHINE, IA Negative ng/mL Cutoff:1.0 PROPOXYPHENE, IA Negative ng/mL Cutoff:50 MEPERIDINE, IA Negative ng/mL Cutoff:100 TRAMADOL, IA Negative ng/mL Cutoff:50 GABAPENTIN, [place] Negative ug/mL Cutoff:1.0 CARISOPRODOL, [place] Negative ug/mL Cutoff:0.5 This test was developed and its performance characteristics determined by [facility]. It has not been cleared or approved by the Food and Drug Administration. OPIATES,MS,WB/SP RFX Opiate Confirmation Positive Codeine Negative ng/mL Morphine Negative ng/mL 6-Acetylmorphine Negative Hydrocodone 5.1 ng/mL Hydromorphone Negative ng/mL Dihydrocodeine Negative ng/mL Confirmation threshold: 1.0 ng/mL OXYCODONES,MS,WB/SP RFX Oxycodones Confirmation Negative Oxycodone Negative ng/mL Oxymorphone Negative ng/mL Confirmation threshold: 1.0 ng/mL TESTING PERFORMED AT [facility]. ORIGINAL REPORT ON FILE IN LAB CONTAINS ADDITIONAL TEST SITE INFORMATION. Performed By: #### L801.1541 #### [facility] [address] [place], [address] DESULPHURIZER OPERATOR OFFICE VISIT Observed: 06/14/2017 Status: F Source: [place] REPORT 4:08 PM [facility] REPOSITORY [facility] [address] [place] [address] OFFICE VISIT Date of Service: 06/14/17 MR#: [id number] Acct: [id number] Name: ANNEL FOY Rep #: [id number] : 1970 Provider: LUKAS Crump Age/Sex: 46/F Location: [facility] Status: Signed Intake Vital Signs06/14/17 Height 5 ft 4 in 06/14/17 Weight: 147 lb 2 oz 06/14/17 Body Mass Index (BMI) 25.2 06/14/17 Blood Pressure 128/81 Intake Visit Reasons: painful vaginal bump Chief Complaint: Vaginal Irritation/Bump [employer]ra[employer] Worker Required: No Is patient in pain?: Yes Allergies diphenhydramine HCl [From Benadryl] Adverse Reaction (Verified 06/14/17 15:35) Other gabapentin [From Neurontin] Adverse Reaction (Verified 06/14/17 15:35) Other MUSCLE RELAXERS Adverse Reaction (Uncoded 06/14/17 15:35) Other Medications Omeprazole [Prilosec] 20 mg PO DAILY 01/26/13 [History Confirmed 06/14/17] Zolpidem Tartrate [Ambien] 10 mg PO QHS 01/17/14 [History Confirmed 06/14/17] Pravastatin [Pravachol] 40 mg PO QHS 09/03/14 [History Confirmed 06/14/17] albuterol sulfate HFA 90 mcg/actuation aerosol inhaler 2 puff INHALATION Q6H PRN 06/14/17 [History Confirmed 06/14/17] cephalexin 500 mg capsule 500 mg PO Q12H 7 Days #14 cap 06/14/17 [Rx Confirmed 06/14/17] Is last menstrual period known: No Post menopausal: No Patient : No : No PFSH Medical History Depression (Acute) Surgical History delivery delivered (Acute) History of tonsillectomy (Acute) Hx of appendectomy (Acute) brain tumor removed (Acute) Family History Mother Cancer lung Father Cancer lung Brother Cancer lung Sister Breast cancer Social History Smoking Status: Current some day smoker alcohol intake: current details: social substance use type: does not use caffeine: Yes what type of physical activity do you participate in: walking seatbelt use: always do you feel safe at home: Yes additional social history: Paul Stoddard Patient works at [employer] HPI painful vaginal bump: Details: ANNEL FOY is a 46 year old who presents for pain and swelling of labia X 2 days. history of lichen sclerosis and not using clobetesol, having some itching to labia Pregancy History 3 Elective abortions Hx Para 3 Spontaneous abortions Past Pregnancies Del. DatName GA/WeeksOutcome [facility] L[facility]FOB e ht en tn Unknown 1991 Jerrod h Unknown 1992 Dev in Unknown 2001 Anastacia h Exam Other: Left labia erythmatous and edematous. Small area of induration. Tender. Silver whitening noted around clitoral pena. Assessment AND Plan Problems 1. Vulvar abscess N76.4 2. Lichen sclerosus L90.0 Plan Keflex, naproxen, warm soaks. Restart clobetesol thin layer bid X 2 weeks then daily X 2 weeks Call if increase in size/pain of abscess. Medications New: Discontinued: Coding Level of Care Code Off vis,est,level 3 Diagnoses Vulvar abscess N76.4 Lichen sclerosus L90.0 06/14/17 1608 <Electronically signed by Cielo MANE> Date Cielo MANE Cosigner Signature: Date (if applicable) CC: URINE DRUG SCREEN Collected: 05/01/2017 Status: F Source: [place] (SANDRATA) 4:12 PM [facility] REPOSITORY Order Comment: List of Drugs Taken or Suspected? UNKNOWN TYPE CODE TESTS RESULT OUT OF RANGE REFERENCE UNITS LAB L505.0075 TO BE Normal CONFIRMED Result Comment: CONFIRMATORY TESTING FOR ALL POSITIVE URINE DRUG SCREEN RESULTS WILL ONLY BE SENT OUT UPON PHYSICIAN ORDER. VISTA Urine Drug Screen methods provide only preliminary analytical test results. A more specific alternate chemical method must be used in order to obtain a confirmed analytical result. Gas chromatography/mass spectrometery (GC/MS) is the preferred confirmatory method. Clinical consideration and professional judgement should be applied to any drug of abuse test result, particularly when preliminary positive results are used. URINE TCA TESTING MUST BE ORDERED SEPARATELY. USE TEST MNEMONIC: [facility] LAB L505.5005 VISTA UDS PH 5 Normal LAB L505.5015 <1000 ng/mL AMPHETAMINES Normal NEGATIVE LAB L505.5025 < 200 ng/mL BARBITIURATES Normal NEGATIVE LAB L505.5035 < 200 ng/mL BENZODIAZIPINE Normal NEGATIVE LAB L505.5045 < 300 ng/mL COCAINE Normal NEGATIVE LAB L505.5055 < 500 ng/mL ECSTACY Normal NEGATIVE LAB L505.5065 < 300 ng/mL METHADONE Normal NEGATIVE LAB L505.5075 < 300 ng/mL OPIATES Normal NEGATIVE LAB L505.5085 < 25 ng/mL PCP Normal NEGATIVE LAB L505.5095 < 50 ng/mL THC Normal NEGATIVE Performed By: #### L505.5000, L505.6200 #### [facility] [address] [place], [place], [address] OXYCODONE URINE DRUG Collected: 05/01/2017 Status: F Source: [place] SCREEN 4:12 PM [facility] REPOSITORY Order Comment: List of Drugs Taken or Suspected? UNKNOWN TYPE CODE TESTS RESULT OUT OF RANGE REFERENCE UNITS LAB L505.6210 TO BE Normal CONFIRMED Result Comment: CONFIRMATORY TESTING FOR ALL POSITIVE URINE DRUG SCREEN RESULTS WILL ONLY BE SENT OUT UPON PHYSICIAN ORDER. The results of Urine Drug Screen methods provide only preliminary analytical test results. A more specific alternate chemical method must be used in order to obtain a confirmed analytical result. Gas chromatography/mass spectrometery (GC/MS) is the preferred confirmatory method. Clinical consideration and professional judgement should be applied to any drug of abuse test result, particularly when preliminary positive results are used. LAB L505.6230 <100 ng/mL Normal OXY DRG Negative SCREEN Performed By: #### L505.5000, L505.6200 #### [facility] [address] [place], [address] ALLERGIES ALLERGIES DATE TYPE / CODE NAME / CODE REACTION SEVERITY SOURCE Drug diphenhydramine Other Unknown [place] 8 Allergy/999834007( HCl/[id number](RXNOR [facility] SNOMED CT) M) Hospital Repository Miscellaneous MUSCLE RELAXERS Other Unknown [place] [facility]60814613[facility] Drug gabapentin/[id number] Other Unknown [facility] 8 Allergy/406766394( 5(RXNORM) [facility] [place] ENCOUNTERS ENCOUNTERS ADMIT/DISCHARGE ACCOUNT ADMITTING ENCOUNTER LOCATION SOURCE NUMBER CLASS 01/22/2018/ [id number] Emergency [facility] [place] 8 5 [facility] ing:ED Repository 11/01/2017/ [id number] Emergency [place] [facility] [facility] 9 [facility] ing:ED Repository 10/19/2017 [id number] Ambulatory [facility] [place] 5 [facility] ing:BFHLAB Repository 07/10/2017 [id number] Ambulatory [facility] [facility] 3 [facility] ing:BFHLAB Repository 06/29/2017 [id number] Ambulatory [place] [facility] 6 [facility] ing:LAB.FUTUR Repository E 06/27/2017 [id number] Ambulatory [place] 1 [facility] ing:MTRAD Repository 06/14/2017/ [id number] Ambulatory BMSBuilding:B [facility] 8 9 [facility] Repository 05/01/2017 [id number] Ambulatory [place] [facility] 5 [facility] ing:BFHLAB Repository PAYERS PAYERS ENCOUNTER GUARANTOR PAYER SUBSCRIBER SOURCE 01/22/2018 ANNEL Nuñez Primary ANNEL Keys [id number] Insurance:OB EDINGERDOB: [address] Number: [id number] [id number] Repository [address]Pea: [phone]) Date:6938-32-19SC [phone] (HP) [id number], [place] [address]OA: 01/22/2018 Secondary Marko [place] Insurance:MEDICAL EdingerDOB: [facility] [id number] Hospital Number: Repository [id number] Date:9484-92-79KS [address] [place] [address]KM: 01/22/2018 Tertiary NOT GIVENUNK [place] Insurance:SELF PAY [facility] Number: Effective Repository Date:2018-01-22 11/01/2017 ANNEL Nuñez Primary Marko Choudhuryoster [id number] Insurance:MEDICAL EdingerDOB: [facility] [id number] Number: Repository [id number]: [phone] [id number] [phone] () Date:1887-47-28VV [address] [place] [phone]: 11/01/2017 Secondary NOT GIVENUNK [place] Insurance:SELF PAY [facility] Number: Effective Repository Date:2017-11-01 10/19/2017 ANNEL Nuñez Primary Marko Keys [id number] Insurance:MEDICAL EdingerDOB: [facility] [id number] Number: Repository [id number]: [phone] [id number] [phone] () Date:6296-91-07WK [address] [place] [address]TJ: 10/19/2017 Secondary NOT GIVENUNK [place] Insurance:SELF PAY [facility] Number: Effective Repository Date:2017-10-19 07/10/2017 ANNEL Nuñez Primary Marko [place] [id number] Insurance:MEDICAL EdingerDOB: [facility] [id number] Number: Repository [id number]: [phone] [id number] [phone] (HP) Date:0063-56-65JF [address] [address]JH: 07/10/2017 Secondary NOT GIVENUNK [place] Insurance:SELF PAY [facility] Number: Effective Repository Date:2017-07-10 06/29/2017 ANNEL Nuñez Primary Marko [place] [id number] Insurance:MEDICAL EdingerDOB: [facility] [id number] Number: Repository [id number]: [phone] [id number] [phone] (HP) Date:4024-67-05QS [address] [address]ET: 06/29/2017 Secondary NOT GIVENUNK [place] Insurance:SELF PAY [facility] Number: Effective Repository Date:2017-06-29 06/27/2017 ANNEL Nuñez Primary Marko [place] [id number] Insurance:MEDICAL EdingerDOB: [address] Number: Repository [id number]: [phone] [id number] [phone] (HP) Date:3157-03-74EX [address] [address]JY: 06/27/2017 Secondary NOT GIVENUNK [place] Insurance:SELF PAY [facility] Number: Effective Repository Date:2017-06-27 06/14/2017 ANNEL Nuñez Primary Marko [facility] [id number] Insurance:MEDICAL EdingerDOB: [address] Number: Repository [id number]: [phone] [id number] [phone] (HP) Date:5764-80-51FZ [address] [address]BP: 06/14/2017 Secondary NOT GIVENUNK [place] Insurance:SELF PAY [facility] Number: Effective Repository Date:2017-06-14 05/01/2017 Annel Bhardwaj Marko [place] [id number] Insurance:MEDICAL EdingerDOB: [facility] [id number] Number: Repository [id number]: [phone] [id number] [phone] () Date:5334-53-00[address], [place] [address]NM: 05/01/2017 Secondary NOT GIVENUNK [place] Insurance:SELF PAY [facility] Number: Effective Repository Date:2017-05-01
== END 2018-01-22 18:13 | disposition home or self-care (01) ==
PROVIDERS: Emergency Provider Emergency Medicine; Family Provider Family Medicine; PCP Family Medicine
DX: S23.41XA Sprain of ribs, initial encounter (principal); J44.9 Chronic obstructive pulmonary disease, unspecified; J45.909 Unspecified asthma, uncomplicated; Z79.51 Long term (current) use of inhaled steroids; Z79.899 Other long term (current) drug therapy; X50.0XXA Overexertion from strenuous movement or load, initial encounter; Y93.89 Activity, other specified; Y92.89 Other specified places as the place of occurrence of the external cause; Y99.0 Civilian activity done for income or pay
CPT/HCPCS: 71101; 99283

== ENCOUNTER 2018-05-25 10:54 | Emergency (ER) | payer OTHER, SELFPAY ==
[2018-05-25 10:56] VITALS: BP 105/78; PULSE 112; RESP 18; TEMP 36.2; O2SAT 98; BMI 24.0
--- NOTE | 2018-05-25 11:14 | ED.VIS.GEN ---
History of Present Illness Chief Complaint: Abd Pain Informant: Patient Onset: Weeks - Several weeks Timing: Intermittent, Waxes and wanes Quality: Pain and fullness Location: Left upper quadrant Current Severity: Mild Maximum Severity: Severe Worsened by: Possibly p.o. intake Relieved by: Nothing Associated Symptoms: Nausea Narrative: Patient is a middle-aged woman who smokes 1 cigarette at night and drinks a sixpack every other weekend. She presents with intermittent left upper quadrant pain for the past several weeks. There is family history of cirrhosis, cholelithiasis and pancreatitis. She denies history of any. She is status post appendectomy. She has had 3 C-sections. She is postmenopausal. She denies dysuria, frequency, urgency or hematuria. She denies history of renal ureterolithiasis. Prior similar symptoms: No Recent Illness/Hospitalization: No - Past Medical History (1) History of COPD Status: Chronic Past Medical History - Allergies and Home Meds Allergies/Adverse Reactions: Allergies diphenhydramine HCl [From Benadryl] Adverse Reaction (Verified 05/25/18 10:55) Other RESTLESS LEG GETS WORSE MUSCLE RELAXERS Adverse Reaction (Uncoded 05/25/18 10:55) Other RESTLESSNESS Primary Care Physician: Raad Armendariz DO [Primary Care Provider] - 3-5 Days Prior records reviewed: Yes Surgical History: appendectomy, - - , craniotomy removed meningioma Lives: Spouse/ Significant Other Smoking Status: Current some day smoker Alcohol: Occasional Drugs: None Review of Systems General: Denies: Chills, Fever, Sweats, Weight loss Eyes: Denies: Visual changes - bilaterally, Blurred Vision - bilaterally, Diplopia ENT: Denies: Rhinorrhea, Sore throat Cardiovascular: Denies: Chest pain, Palpitations Respiratory: Denies: Dyspnea, Cough, Dyspnea on exertion Gastrointestinal: Reports: Abdominal pain, Nausea. Denies: Vomiting, Diarrhea, Constipation, Melena, Hematochezia, -, - Genitourinary: Denies: Dysuria, Hematuria, Frequency Musculoskeletal: Denies: Myalgias, Arthralgias, Neck pain, Back pain, Extremity Pain Skin: Denies: Rash, Wounds Neurological: Denies: Headache, Weakness, Numbness Hematologic: Denies: Easy bruising, Easy bleeding Allergy: Denies: Uticaria Physical Exam Vital Signs/Narrative: Vital Signs Temp Pulse Resp BP Pulse Ox 05/25/18 10:56 97.2 F L 112 H 18 105/78 98 Inital Vital Signs reviewed: Yes General: Well nourished, Well developed, No Acute Distress Head: Normocephalic, Atraumatic Eyes: Perrl, EOMI ENT: Moist mucous membranes, No rhinorrhea Neck: Supple, Nontender Cardiovascular: Regular rate, Regular rhythm, No murmurs Respiratory: No distress, CTA bilaterally, Chest nontender Abdomen: Soft, Nondistended, Normal bowel sounds, Tender - Minimal discomfort to deep palpation left upper quadrant. Negative for: Hepatomegaly, Splenomegaly, Mass, Pulsatile mass, Ventral hernia, Umbilical hernia Back: Nontender, Normal Inspection. Negative for: CVA tenderness Extremities: Nontender, No edema Skin: Normal color, No rash Neurological: Alert, Oriented x3, Cranial nerves II-XII grossly intact, Normal Strength, Normal Sensation Psychological: Normal Mood, Depressed Diagnostic/Tx/Re-eval Laboratory Results 05/25/18 05/25/18 11:20 11:20 WBC 7.5 RBC 4.74 Hgb 13.8 Hct 41.7 MCV 88.0 MCH 29.1 MCHC 33.1 RDW 13.7 RDW Differential 44.0 H Plt Count 338 MPV 8.6 Immature Gran % (Auto) 0.300 Neut % (Auto) 55.2 Lymph % (Auto) 34.9 Bent % (Auto) 6.8 Eos % (Auto) 2.5 Baso % (Auto) 0.3 Absolute Neuts (auto) 4.1 Absolute Lymphs (auto) 2.60 Total Counted Not Reportable Sodium 142 Potassium 3.9 Chloride 109 H Carbon Dioxide 26.0 Anion Gap 7 BUN 14 Creatinine 0.62 Estim Creat Clear Calc 98.95 Est GFR (MDRD) Af Amer 134 Est GFR (MDRD) Non-Af 111 BUN/Creatinine Ratio 22.6 H Glucose 98 Calcium 8.8 Total Bilirubin 0.30 Direct Bilirubin 0.07 AST 16 ALT 24 Alkaline Phosphatase 61 Total Protein 8.4 H Albumin 4.2 Globulin 4.2 Lipase 98 - Medical Decision Making With history of left upper quadrant pain and alcohol use will obtain lipase to assess for pancreatitis. With family history cholelithiasis and symptoms made worse with food will obtain hepatic. Differential would include alcoholic cirrhosis, pancreatitis, peptic ulcer disease, cholelithiasis, cholecystitis. Patient was informed her workup did not show any abnormality. She was informed the cause of her pain is unknown. ED Disposition - Plan for ED Patient: Disposition: Home or Assisted Living Diagnosis: Abdominal pain, acute, left upper quadrant Instructions: ED Abdominal Pain Unkn Cause Prescriptions: Ondansetron [Zofran Odt] 4 mg PO Q8H PRN PRN #10 tablet PRN Reason: Nausea Dicyclomine HCl [Bentyl] 20 mg PO TIDAC #20 capsule Referrals: Raad Armendariz DO [Primary Care Provider] - 3-5 Days Additional Instructions: [facility] [place]
[2018-05-25] MEDS: Ondansetron 4 MG/2 ML Vial IV (11:27)
[2018-05-25 11:32] LABS: Absolute Neutrophil Count 4.1 X10^3/uL (2.0-7.7); Basophil# 0.02 X10^3/uL; Basophil% 0.3 % (0-1); Eosinophil# 0.19 X10^3/uL; Eosinophils% 2.5 % (0-5); Hematocrit 41.7 % (37-47); Hemoglobin 13.8 g/dl (12.0-15.0); Lymphocyte % 34.9 % (19-41); Mean Corp Hgb Conc 33.1 g/gl (32-36); Mean Corpuscular Hgb 29.1 pg (27.0-32.0); Mean Platelet Vol. 8.6 fl (6.2-12.0); Monocyte# 0.51 X10^3/uL; Monocyte% 6.8 % (0-10); Neutrophil # 4.12 X10^3/uL (2.7-7.7); Neutrophil % 55.2 % (47-70); Platelet Count 338 K/mm3 (150-450); RBC Distribution Width CV 13.7 % (11.6-14.6); Red Blood Count 4.74 M/mm3 (4.2-5.4); White Blood Count 7.5 K/mm3 (4.4-11.0)
[2018-05-25 11:33] LABS: POSITIVE COUNT NO; POSITIVE DIFFERENTIAL NO; POSITIVE MORPHOLOGY NO
[2018-05-25 11:46] LABS: AST(SGOT) 16 U/L (15-37); Alanine Aminotransfer ALT/SGPT 24 U/L (13-56); Albumin, Serum 4.2 g/dL (3.2-5.0); Alkaline Phosphatase 61 U/L (45-117); Anion Gap 7 (5-15); BUN 14 mg/dL (7-18); BUN/Creat Ratio 22.6 RATIO (10-20); Bilirubin, Direct 0.07 mg/dL (0.00-0.30); Calcium,Total 8.8 mg/dL (8.5-10.1); Chloride 109 mmol/L (98-107); Creatinine, Serum 0.62 mg/dL (0.55-1.02); EST Glomerular Filtration Rate 111 mL/min (>60); Est Glom Filt Rate - Afr Amer 134 mL/min (>60); Estimated Creatinine Clearance 98.95 ml/min; Globulin 4.2 g/dL (2.2-4.2); Glucose 98 mg/dL (74-106); Lipase 98 U/L (73-393); Potassium 3.9 mmol/L (3.5-5.1); Protein, Total 8.4 g/dL (6.4-8.2); Sodium Level 142 mmol/L (136-145)
[2018-05-25 13:06] VITALS: BP 134/95; PULSE 94; RESP 16; O2SAT 95
== END 2018-05-25 13:06 | disposition home or self-care (01) ==
PROVIDERS: Emergency Provider Emergency Medicine; Family Provider Family Medicine; PCP Family Medicine
DX: R10.12 Left upper quadrant pain (principal); F17.210 Nicotine dependence, cigarettes, uncomplicated; J44.9 Chronic obstructive pulmonary disease, unspecified; Z79.51 Long term (current) use of inhaled steroids
CPT/HCPCS: 80048; 80076; 83690; 85025; 96374; 99283; A4216; J2405

== ENCOUNTER → 2018-10-19 | Outpatient (CLI) | payer OTHER, SELFPAY ==
[2018-10-19 15:59] LABS: T4 Free Direct 0.91 ng/dL (0.76-1.46); Thyroid Stim Hormone (TSH) 1.81 uIU/mL (0.358-3.74)
== END | disposition home or self-care (01) ==
PROVIDERS: Family Provider Family Medicine; PCP Family Medicine; Visit Provider Family Medicine
DX: L65.9 Nonscarring hair loss, unspecified (principal); R53.83 Other fatigue
CPT/HCPCS: 36415; 84439; 84443

== ENCOUNTER 2019-01-11 15:04 | Emergency (ER) | payer OTHER, SELFPAY ==
[2019-01-11 15:05] VITALS: BP 123/85; PULSE 111; RESP 17; TEMP 37.1; O2SAT 97; BMI 24.0
[2019-01-11 15:09] VITALS: RESP 20; O2SAT 96
--- NOTE | 2019-01-11 15:10 | EKG12_ITS ---
Test Reason : CHEST TIGHTNESS/SOB Blood Pressure : / mmHG Vent. Rate : 107 BPM Atrial Rate : 107 BPM P-R Int : 146 ms QRS Dur : 076 ms QT Int : 322 ms P-R-T Axes : 073 050 062 degrees QTc Int : 429 ms Sinus tachycardia Nonspecific T wave abnormality Abnormal ECG Confirmed by CONNIE YOUNG, SARA ([id number]), fan mail editor LASHELL GUTIERRES ([id number]) on 01/13/2019 9:37:31 AM Referred By: VINICIO/ILDEFONSO Confirmed By:GREG ROSALES MD
--- NOTE | 2019-01-11 15:10 | RAD_ITS ---
STUDY: X-RAY CHEST REASON FOR EXAM: Female, 48 years old. Cough and shortness of breath. Intermittent fevers. TECHNIQUE: COMPARISON: Comparison is made with prior study dated January 22, 2018. FINDINGS: There now is evidence of focal infiltrate in the right upper lobe as well as in the lingular segment of the left upper lobe follow-up is recommended. There is no demonstrated pleural abnormality. Normal size heart. Normal mediastinum and jose. Normal visualized pulmonary arteries. Normal visualized aortic arch and descending thoracic aorta. Normal visualized thoracic spine. Normal visualized ribs, clavicles, and shoulders. There is no demonstrated abnormality of the visualized soft tissue structures of the upper abdomen. RAD/Chest 1 View IMPRESSION: Focal right upper lobe and lingular infiltrates. Follow-up is recommended. Electronically Signed: Andrew Demarco, at 15:33 EST , Service support ,
--- NOTE | 2019-01-11 15:58 | ED.VISSUMM ---
- ER Visit Summary Date of Service: 01/11/19 Chief Complaint: [Fever and cough] History of Present Illness: The patient is a 48 F [presents to the emergency department with a fever that started yesterday. Patient also started with a cough today. Cough is mostly nonproductive. Patient's been using an inhaler intermittently and nebulizer at home. Patient has history of COPD as well as asthma. She had a fever yesterday up to 102. Patient also states that her sons had a cough about 3 weeks at home. She does complain of body aches and headache as well.] Physical Examination: [HEENT-PERRLA, EOMI. Cranial nerves II through XII grossly intact. TMs clear. Mucous membranes moist. No adenopathy. Cardiovascular-regular and tachycardic. No murmurs auscultated. Lungs-aeration bilaterally with expiratory wheezes bilaterally. No accessory muscle use or retractions. No conversational dyspnea. Abdomen-normoactive bowel sounds, soft, nontender, no rebound or rigidity, no peritoneal signs. Extremities-intact ?4, normal range of motion, normal pulses, atraumatic] Test Results: [Chest x-ray obtained was read by radiology as right upper lobe and lingular patchy infiltrates.] Emergency Department Course and Treatment: [He was given a DuoNeb aerosol. Patient was given prednisone 40 mg p.o. Patient was started on Levaquin 750 mg p.o.] Treatment Plan: [Patient looks well and nontoxic appearing I suspect she can be treated as an outpatient at this time. She will be advised to return if increasing shortness of breath or condition should worsen anyway. Patient will be treated with prednisone as well as Levaquin.] Disposition: [Discharged home in stable condition] Impression: [Pneumonia] This note was generated with [employer] dictation software. It may contain incorrect words, spelling, and punctuation that were not noted in review of the chart prior to signing ED Disposition - Plan for ED Patient: Referrals: Raad Armendariz DO [Primary Care Provider] -
--- NOTE | 2019-01-11 16:01 | ED.DEP ---
ED Disposition - Plan for ED Patient: Instructions: PNEUMONIA (Adult) Prescriptions: Prednisone [Deltasone] 20 mg PO BID #10 tab Prescription Printed Levofloxacin [Levaquin] 750 mg PO DAILY #7 tab Prescription Printed Referrals: Raad Armendariz DO [Primary Care Provider] - 3-5 Days
[2019-01-11] MEDS: predniSONE 20 MG Tablet 40 MG PO (16:11)
[2019-01-11] MEDS: levoFLOXacin 750 MG Tablet PO (16:11)
== END 2019-01-11 16:26 | disposition home or self-care (01) ==
LOC: ED 15:30
PROVIDERS: Emergency Provider Emergency Medicine; Family Provider Family Medicine; PCP Family Medicine
DX: J18.9 Pneumonia, unspecified organism (principal); J44.0 Chronic obstructive pulmonary disease with (acute) lower respiratory infection; Z72.0 Tobacco use
CPT/HCPCS: 71045; 87804; 93005; 94760; 99283

== ENCOUNTER 2019-08-13 05:17 | Emergency (ER) | payer OTHER, SELFPAY ==
[2019-08-13 05:17] VITALS: BP 155/99; PULSE 93; RESP 16; TEMP 36.4; O2SAT 97; BMI 23.9
--- NOTE | 2019-08-13 05:21 | EKG12_ITS ---
Test Reason : CHEST PAIN Blood Pressure : / mmHG Vent. Rate : 086 BPM Atrial Rate : 086 BPM P-R Int : 144 ms QRS Dur : 072 ms QT Int : 374 ms P-R-T Axes : 042 036 054 degrees QTc Int : 447 ms Normal sinus rhythm Normal ECG Confirmed by KASSIE YOUNG, DARRYL ([id number]), offline editor GORDO SCHMITT ([id number]) on 08/14/2019 10:15:04 AM Referred By: BRENDAN Confirmed By:DARRYL FERNANDO MD
--- NOTE | 2019-08-13 05:21 | RAD_ITS ---
STUDY: X-RAY CHEST REASON FOR EXAM: Female, 48 years old. Intermittent rt sided cp for a day or so TECHNIQUE: Single AP portable view of the chest. COMPARISON: January 11, 2019 chest x-ray FINDINGS: The lungs are clear and expanded. There is no demonstrated pleural abnormality. Normal size heart. Normal mediastinum and jose. Normal visualized pulmonary arteries. Normal visualized aortic arch and descending thoracic aorta. There are diffuse degenerative changes of the visualized thoracic spine. Normal visualized ribs, clavicles, and shoulders. There is no demonstrated abnormality of the visualized soft tissue structures of the upper abdomen. RAD/Chest 1 View (Portable) IMPRESSION: No demonstrated acute cardiopulmonary process. Electronically Signed: Avis Moore MD at 5:54 EDT Tel , Service support ,
[2019-08-13 05:29] LABS: Absolute Lymphocyte Count 3.33 X10^3/uL (0.83-4.51); Absolute Neutrophil Count 5.1 X10^3/uL (2.0-7.7); Basophil# 0.06 X10^3/uL; Basophil% 0.6 % (0-1); Eosinophil# 0.59 X10^3/uL; Hematocrit 44.4 % (37-47); Hemoglobin 14.6 g/dL (12.0-15.0); Lymphocyte # 3.33 X10^3/ul (4.0); Lymphocyte % 34.1 % (19-41); Mean Corp Hgb Conc 32.9 g/dL (32-36); Mean Corpuscular Hgb 30.3 pg (27.0-32.0); Mean Corpuscular Volume 92.1 fL (81-99); Mean Platelet Vol. 8.7 fl (6.2-12.0); Monocyte% 6.1 % (0-10); NRBC Flagged by Analyzer 0 % (0-5); Neutrophil # 5.14 X10^3/uL (2.7-7.7); Neutrophil % 52.8 % (47-70); Platelet Count 341 K/mm3 (150-450); RBC Distribution Width CV 12.9 % (11.6-14.6); Red Blood Count 4.82 M/mm3 (4.2-5.4); White Blood Count 9.8 K/mm3 (4.4-11.0)
--- NOTE | 2019-08-13 05:29 | ED.DCSUM_ITS ---
History of Present Illness Chief Complaint: Chest Pain Informant: Patient Onset: Yesterday Context: Gradual Onset Timing: Waxes and wanes Current Severity: Mild Maximum Severity: Moderate Narrative: Patient presents with right-sided chest pain that started last evening. She describes it as sharp in nature. She does report some shortness of breath. She recently injured her right shoulder and was not sure if this was related. She denies any personal history of cardiac disease but states her brother did have a heart attack at age of 50. She denies risk factors for DVT or PE. - Past Medical History (1) GERD (gastroesophageal reflux disease) Status: Chronic (2) Asthma Status: Chronic (3) History of COPD Status: Chronic (4) Tobacco use Status: Chronic Past Medical History - Allergies and Home Meds Allergies/Adverse Reactions: Allergies diphenhydramine HCl [From Benadryl] Adverse Reaction (Verified 08/13/19 05:21) Other RESTLESS LEG GETS WORSE MUSCLE RELAXERS Adverse Reaction (Uncoded 08/13/19 05:21) Other RESTLESSNESS Primary Care Physician: Raad Armendariz DO [Primary Care Provider] - Prior records reviewed: Yes Surgical History: appendectomy, - - , craniotomy removed meningioma Smoking Status: Current some day smoker Review of Systems General: Denies: Chills, Fever Eyes: Denies: Visual changes - bilaterally ENT: Denies: Bilateral ear pain Cardiovascular: Reports: Chest pain Respiratory: Reports: Dyspnea. Denies: Cough Gastrointestinal: Denies: Abdominal pain, Vomiting, Diarrhea Musculoskeletal: Reports: Extremity Pain Skin: Denies: Rash Neurological: Denies: Headache Hematologic: Denies: Easy bruising, Easy bleeding Allergy: Denies: Uticaria Physical Exam Vital Signs/Narrative: Vital Signs Temp Pulse Resp BP Pulse Ox 08/13/19 05:17 97.6 F L 93 16 155/99 H 97 Inital Vital Signs reviewed: Yes General: Well nourished, Well developed Head: Normocephalic ENT: Moist mucous membranes Neck: Supple Cardiovascular: Regular rate, Regular rhythm Respiratory: No distress, CTA bilaterally, Chest nontender Abdomen: Soft, Nontender Skin: Normal color Neurological: Alert, Oriented x3 Psychological: Normal affect Diagnostic/Tx/Re-eval Impressions Chest X-Ray 08/13/19 05:21 IMPRESSION: No demonstrated acute cardiopulmonary process. Electronically Signed: Avis Moore MD at 5:54 EDT Tel , Service support , 08/13/19 05:21 Chest 1 View (Portable) [RAD] Stat Laboratory Results 08/13/19 08/13/19 08/13/19 05:22 05:22 05:22 WBC 9.8 RBC 4.82 Hgb 14.6 Hct 44.4 MCV 92.1 MCH 30.3 MCHC 32.9 RDW Std Deviation 43.0 RDW Coeff of [place] 12.9 Plt Count 341 MPV 8.7 Immature Gran % (Auto) 0.400 Neut % (Auto) 52.8 Lymph % (Auto) 34.1 [place] % (Auto) 6.1 Eos % (Auto) 6.0 H Baso % (Auto) 0.6 Absolute Neuts (auto) 5.1 Absolute Lymphs (auto) 3.33 Nucleated RBC % 0 D-Dimer Quant (PE/DVT) <= 0.27 Sodium 136 Potassium 3.5 Chloride 101 Carbon Dioxide 29.0 Anion Gap 6 BUN 13 Creatinine 0.70 Estim Creat Clear Calc 86.72 Est GFR (MDRD) Af Amer 116 Est GFR (MDRD) Non-Af 96 BUN/Creatinine Ratio 18.7 Glucose 109 H Calcium 8.9 Troponin I < 0.015 - EKG Initial EKG Interpretation: Sinus Rhythm - Sinus 86 with no acute ischemia. - Medical Decision Making Patient was given aspirin on arrival. Test results are discussed with her. She is reassured with these findings. My suspicion is that this is related to her shoulder injury. She will be given a work note for today. She is to follow-up with her primary care physician in the next 3 to 5 days if not improving. She is given return instructions. ED Disposition - Plan for ED Patient: Disposition: Home or Assisted Living Diagnosis: Atypical chest pain Instructions: ED Chest Pain Atypical Unkn Cause Referrals: Raad Armendariz, DO [Primary Care Provider] - 3-5 Days if not improving
[2019-08-13] MEDS: Aspirin 81 MG TAB.CHEW 324 MG PO (05:30)
[2019-08-13 05:43] LABS: D-Dimer Quantitative (DVT/PE) <= 0.27 FEU/ug/m (0.27-0.49)
[2019-08-13] MEDS: 0.9% Normal Saline 1,000 ML 150 ML IV (05:45)
[2019-08-13 05:48] LABS: Anion Gap 6 (5-15); BUN 13 mg/dL (7-18); BUN/Creat Ratio 18.7 RATIO (10-20); Calcium,Total 8.9 mg/dL (8.5-10.1); Chloride 101 mmol/L (98-107); EST Glomerular Filtration Rate 96 mL/min (>60); Est Glom Filt Rate - Afr Amer 116 mL/min (>60); Estimated Creatinine Clearance 86.72 ml/min; Glucose 109 mg/dL (74-106); Potassium 3.5 mmol/L (3.5-5.1); Sodium Level 136 mmol/L (136-145)
[2019-08-13 06:08] VITALS: BP 129/83; PULSE 96; RESP 16; O2SAT 97
== END 2019-08-13 06:08 | disposition home or self-care (01) ==
PROVIDERS: Emergency Provider Emergency Medicine; PCP Family Medicine
DX: R07.89 Other chest pain (principal); F17.200 Nicotine dependence, unspecified, uncomplicated
CPT/HCPCS: 71045; 80048; 84484; 85025; 85379; 93005; 99285

== ENCOUNTER → 2019-11-20 | Outpatient (CLI) | payer OTHER, SELFPAY ==
--- NOTE | 2019-11-20 11:14 | RAD_ITS ---
HISTORY: pain, no injury ADDITIONAL HISTORY: None provided. EXAMINATION/TECHNIQUE: XR Spine Lumbar Min 4 Views Number of images including paperwork: 5 COMPARISON: None FINDINGS: VERTEBRAE: No acute fracture. VERTEBRAL ALIGNMENT: No traumatic subluxation. DISKS AND JOINTS: Disc heights are maintained. SOFT TISSUES: Unremarkable paraspinous soft tissues. RAD/L/S Spine Min 4 Views IMPRESSION: Unremarkable lumbar spine. at 0735 Reported and signed by: Edwina Arroyo MD Electronically Signed: Edwina Arroyo MD at 7:35 EDT Tel , Service support ,
--- NOTE | 2019-11-20 11:14 | RAD_ITS ---
HISTORY: pain particularly at night, no injury ADDITIONAL HISTORY: None provided. EXAMINATION/TECHNIQUE: XR Hips Bilateral with Pelvis when performed; 2 Views Bilateral Number of images including paperwork: 5 COMPARISON: CT 01/17/2014 FINDINGS: BONES: No acute fracture. Sclerosis in the femoral head bilaterally with some lucency on the left, unchanged compared to previous CT and compatible with remote avascular necrosis. JOINTS: No subluxation. No significant joint space narrowing. SOFT TISSUES: No distinct foreign body. Tubal ligation clip on the left. RAD/Hips B/L min 2 views w/ Pelvis IMPRESSION: No acute osseous abnormality. 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 at 0732 Reported and signed by: Edwina Arroyo MD Electronically Signed: Edwina Arroyo MD at 7:32 EDT Tel , Service support ,
--- NOTE | 2019-11-20 11:14 | RAD_ITS ---
STUDY: X-RAY - RIGHT ELBOW REASON FOR EXAM: Female, 49 years old. Pain, no injury TECHNIQUE: 3 view(s) of the elbow. COMPARISON: None. FINDINGS: Normal visualized humerus, radius and ulna. Normal radiocapitellar and ulnotrochlear articulations. The soft tissue structures are unremarkable. RAD/Elbow min 3 Views IMPRESSION: Normal x-ray examination of the elbow. Electronically Signed: Avis Moore MD at 4:30 EDT Tel , Service support ,
--- NOTE | 2019-11-20 11:15 | RAD_ITS ---
STUDY: X-RAY - CERVICAL SPINE REASON FOR EXAM: Female, 49 years old. Pain, no injury TECHNIQUE: 5 view(s) of the cervical spine were obtained. COMPARISON: February 21, [address] FINDINGS: There are degenerative changes of the anterior atlantoaxial articulation. Normal odontoid process. Normal cervical lordosis. There is multi-level endplate spondylosis, C4 C5 C5 C6 C6 C7.. Normal disc space heights. Allowing for the amount of obliquity there is a suggestion of mild narrowing of the left greater than right neural foramen. The soft tissue structures are unremarkable. RAD/Cerv Spine 4 or 5 Views IMPRESSION: Degenerative change. No significant interval change since prior study. Electronically Signed: Avis Moore MD at 6:24 EDT Tel , Service support ,
== END | disposition home or self-care (01) ==
PROVIDERS: PCP Family Medicine; Referring Provider Family Medicine; Visit Provider Family Medicine
DX: M25.521 Pain in right elbow (principal); M25.552 Pain in left hip; M25.551 Pain in right hip; M54.2 Cervicalgia
CPT/HCPCS: 72050; 72110; 73080; 73521

== ENCOUNTER 2020-10-16 08:39 | Emergency (ER) | payer OTHER, SELFPAY ==
[2020-10-16 08:39] VITALS: BP 142/93; PULSE 75; RESP 20; TEMP 36.6; BMI 23.8
--- NOTE | 2020-10-16 08:52 | EKG12_ITS ---
Test Reason : CP Blood Pressure : / mmHG Vent. Rate : 067 BPM Atrial Rate : 067 BPM P-R Int : 140 ms QRS Dur : 080 ms QT Int : 382 ms P-R-T Axes : 041 042 051 degrees QTc Int : 403 ms Normal sinus rhythm Normal ECG Confirmed by KASSIE YOUNG, DARRYL ([id number]), primer expeditor and drier JOSE CHAVARRIA ([id number]) on 10/19/2020 2:13:13 PM Referred By: Confirmed By:DARRYL FERNANDO MD
[2020-10-16 08:59] VITALS: O2SAT 94
--- NOTE | 2020-10-16 09:07 | EDS_ITS ---
HPI History of Present Illness Chief Complaint: Chest Pain Informant: patient Narrative Narrative: Persistent right-sided chest pain for the past 10 days. Pain worse to the back and worse with laying down. Denies dyspnea or cough. States today pain going to the left side. History of COPD and asthma reports occasional tobacco. Denies family history of MIs at a young age. Denies hypertension, diabetes. History of hypercholesterolemia. Denies family history of MIs at young age. However states multiple family members with lung cancer. No recent travel, surgeries, or immobilizations. No history of PE or DVT. Denies any trauma or any heavy lifting. Prior Similar Symptoms: No PFSH PFSH Medical History Depression Home Medications zolpidem 10 mg PO QHS 01/17/14 [History Last Taken 07/27/15] pravastatin 40 mg PO QHS 09/03/14 [History Last Taken 07/27/15] albuterol sulfate 90 mcg/actuation aerosol inhaler 2 puff INHALATION Q6H PRN 06/14/17 [History Last Taken Unknown] hydrocodone-acetaminophen [[place] 5-325 Tablet] 1 ea PO DAILY PRN PRN 05/25/18 [ History Last Taken Unknown] Allergy/AdvReac Type Severity Reaction Status Date / Time diphenhydramine HCl AdvReac Other Verified 10/16/20 08:52 [From Benadryl] MUSCLE RELAXERS AdvReac Other Uncoded 10/16/20 08:52 Family History (Updated 06/14/17 @ 15:38 by Edwina Whitlock) Mother Cancer lung Father Cancer lung Brother Cancer lung Sister Breast cancer Surgical History brain tumor removed delivery delivered History of tonsillectomy Hx of appendectomy Social History (Updated 06/14/17 @ 16:08 by Cielo Crump NP, PROTOZOOLOGIST-C) Smoking Status: Current some day smoker tobacco type: cigarettes alcohol intake: current details: social substance use type: does not use caffeine: Yes what type of physical activity do you participate in: walking seatbelt use: always do you feel safe at home: Yes additional social history: Paul Stoddard Patient works at [employer] ROS ROS ED Constitutional Constitutional ED: Denies chills, fever(s) or sweats Eyes Eyes: Denies change in vision ENT ENT ED: Denies dysphagia or sore throat Cardiovascular Cardiovascular: Reports chest pain; Denies leg edema, palpitations or racing heartbeat Respiratory/Chest Respiratory/Chest: Denies cough, dyspnea or dyspnea on exertion Gastrointestinal Gastrointestinal: Denies abdominal pain, diarrhea, nausea or vomiting Genitourinary Genitourinary ED: Denies dysuria, hematuria or urinary frequency Musculoskeletal Musculoskeletal: Denies back pain, extremity pain or neck pain Integumentary Denies rash or wounds Neurologic Neurologic: Denies headache(s), paresthesias or weakness EXAM Physical Exam Const Vital Signs: 10/16/20 08:39 10/16/20 08:59 Temperature 97.8 F Temperature Source Oral Pulse Rate 75 Respiratory Rate 20 H Blood Pressure 142/93 H Blood Pressure Mean 109 Pulse Ox 94 Oxygen Delivery Method Room Air Positive well nourished and well developed General Appearance ED: well developed and NAD HEENT Reports moist mucous membranes normocephalic and atraumatic Eyes PERRL, EOMs intact bilaterally and conjunctivae normal General Eye ED: Yes normal appearance of both eyes Neck no lymphadenopathy and supple General: Negative for tenderness Chest Wall Chest Narrative: There is right upper chest wall tenderness there is no rash or ecchymosis. No crepitus. Chest: tenderness Resp normal respiratory effort and normal air movement Effort and Inspection: symmetric chest movement; Negative for respiratory distress Cardio regular rate, regular rhythm and no murmurs Peripheral Pulses: pulses 2+ throughout GI normal to inspection, nondistended, normoactive bowel sounds and non-tender Palpation: Negative for guarding or rebound tenderness present Back/Spine no CVA tenderness and no thoracic nor lumbar tenderness Extremity normal to inspection General Extremety ED: Negative for edema or tenderness General Extremity: Negative for edema Neuro oriented x3 and no sensory deficits noted Sensorium / Orientation: awake and alert Skin no rashes or lesions noted and no wounds Heart Score History: Slightly/Non-Suspicious ECG: Normal Age: >45 - <65 years Risk Factors: 1 or 2 Risk Factors Troponin: </= Normal Limit Score: 2 MDM MDM MDM Narrative Medical decision making narrative: Patient right-sided chest pain reporting pleuritic symptoms. Also smoking history with strong family history of cancers. Work-up initiated. Chest x-ray negative. EKG sinus rhythm. Cardiac work-up high-sensitivity troponin negative x2. D-dimer negative. She is given Toradol. Discussed using NSAIDs as needed with follow-up instructions. Return precautions. All questions answered. Lab Data Attestation: I reviewed the patient's lab results. Labs: Laboratory Results - last 24 hr 10/16/20 10/16/20 10/16/20 09:25 09:25 09:25 WBC 8.7 RBC 4.39 Hgb 13.3 Hct 40.4 MCV 92.0 MCH 30.3 MCHC 32.9 RDW Std Deviation 43.1 RDW Coeff of [place] 12.8 Plt Count 339 MPV 8.9 Immature Gran % (Auto) 0.600 Neut % (Auto) 65.3 Lymph % (Auto) 22.4 [place] % (Auto) 5.9 Eos % (Auto) 5.3 H Baso % (Auto) 0.5 Absolute Neuts (auto) 5.7 Absolute Lymphs (auto) 1.96 Nucleated RBC % 0 D-Dimer Quant (PE/DVT) <= 0.27 Sodium 139 Potassium 4.2 Chloride 105 Carbon Dioxide 30.0 Anion Gap 4 L BUN 12 Creatinine 0.61 Estim Creat Clear Calc 97.39 Est GFR (MDRD) Af Amer 135 Est GFR (MDRD) Non-Af 111 BUN/Creatinine Ratio 19.7 Glucose 104 Calcium 8.7 Troponin I High Sens 4 Serum , Qual 10/16/20 10/16/20 09:25 11:38 WBC RBC Hgb Hct MCV MCH MCHC RDW Std Deviation RDW Coeff of [place] Plt Count MPV Immature Gran % (Auto) Neut % (Auto) Lymph % (Auto) [place] % (Auto) Eos % (Auto) Baso % (Auto) Absolute Neuts (auto) Absolute Lymphs (auto) Nucleated RBC % D-Dimer Quant (PE/DVT) Sodium Potassium Chloride Carbon Dioxide Anion Gap BUN Creatinine Estim Creat Clear Calc Est GFR (MDRD) Af Amer Est GFR (MDRD) Non-Af BUN/Creatinine Ratio Glucose Calcium Troponin I High Sens 5 Serum , Qual NEGATIVE Radiography Chest X-Ray - ED: 1 View, Read by ED Physician and Read by Radiologist Diagnostic Testing: Radiology Impression Chest X-Ray 10/16/20 09:40 IMPRESSION: Normal x-ray examination of the chest. Electronically Signed: David Cerrato MD at 9:58 EDT Tel , Service support , EKG Initial EKG: Attestation: I personally reviewed and interpreted this EKG as follows: Comments: Sinus rate of 67, no ST or T wave changes. Discharge Plan Triage Chief Complaint: Chest Pain ED Provider: Humberto Castro Dx/Rx/DC Orders Clinical Impression: Chest pain, pleuritic Instructions: ED Chest Pain, Noncardiac, ED Pleurisy Prescriptions: No Action albuterol sulfate [ProAir HFA] 90 mcg/actuation HFA aerosol inhaler 2 puff INHALATION Q6H PRN (Reason: Sob &/Or Wheezing) RF: 0 zolpidem 10 MG tablet 10 mg PO QHS RF: 0 pravastatin 40 MG tablet 40 mg PO QHS RF: 0 hydrocodone-acetaminophen [[place]] 1 EACH tablet 1 ea PO DAILY PRN PRN (Reason: Pain) RF: 0 Stand Alone Forms: ED Work / School Excuse Primary Care Provider: Raad Armendariz Referrals: Raad Armendariz DO [Primary Care Provider] - 3-5 Days Disposition Disposition: Home, Self Care
[2020-10-16 09:34] LABS: Absolute Lymphocyte Count 1.96 X10^3/uL (0.83-4.51); Absolute Neutrophil Count 5.7 X10^3/uL (2.0-7.7); Basophil# 0.04 X10^3/uL; Basophil% 0.5 % (0-1); Eosinophil# 0.46 X10^3/uL; Eosinophils% 5.3 % (0-5); Hematocrit 40.4 % (37-47); Hemoglobin 13.3 g/dL (12.0-15.0); Lymphocyte # 1.96 X10^3/ul (0.83-4.51); Lymphocyte % 22.4 % (19-41); Mean Corp Hgb Conc 32.9 g/dL (32-36); Mean Corpuscular Hgb 30.3 pg (27.0-32.0); Mean Platelet Vol. 8.9 fl (6.2-12.0); Monocyte# 0.52 X10^3/uL; Monocyte% 5.9 % (0-10); NRBC Flagged by Analyzer 0 % (0-5); Neutrophil # 5.71 X10^3/uL (2.7-7.7); Neutrophil % 65.3 % (47-70); Platelet Count 339 K/mm3 (150-450); RBC Distribution Width CV 12.8 % (11.6-14.6); RBC Distribution Width SD 43.1 fl (35.1-43.9); Red Blood Count 4.39 M/mm3 (4.2-5.4); White Blood Count 8.7 K/mm3 (4.4-11.0)
--- NOTE | 2020-10-16 09:40 | RAD_ITS ---
STUDY: X-RAY CHEST REASON FOR EXAM: Female, 50 years old. chest pain TECHNIQUE: Single AP portable view of the chest. COMPARISON: 08/13/2019 FINDINGS: The lungs are clear and expanded. There is no demonstrated pleural abnormality. Normal size heart. Normal mediastinum and jose. Normal visualized pulmonary arteries. Normal visualized aortic arch and descending thoracic aorta. Normal visualized thoracic spine. Normal visualized ribs, clavicles, and shoulders. There is no demonstrated abnormality of the visualized soft tissue structures of the upper abdomen. RAD/Chest 1 View (Portable) IMPRESSION: Normal x-ray examination of the chest. Electronically Signed: David Cerrato MD at 9:58 EDT Tel , Service support ,
[2020-10-16 09:45] LABS: Internal QC Validated? YES +Cl - CLEAR BKGD; Pregnancy, Serum, hCG Quali. NEGATIVE Negative
[2020-10-16 09:46] LABS: D-Dimer Quantitative (DVT/PE) <= 0.27 FEU/ug/m (0.27-0.49)
[2020-10-16 09:49] LABS: Anion Gap 4 (5-15); BUN 12 mg/dL (7-18); BUN/Creat Ratio 19.7 RATIO (10-20); Calcium,Total 8.7 mg/dL (8.5-10.1); Chloride 105 mmol/L (98-107); Creatinine, Serum 0.61 mg/dL (0.55-1.02); EST Glomerular Filtration Rate 111 mL/min (>60); Est Glom Filt Rate - Afr Amer 135 mL/min (>60); Estimated Creatinine Clearance 97.39 ml/min; Glucose 104 mg/dL (74-106); Potassium 4.2 mmol/L (3.5-5.1); Sodium Level 139 mmol/L (136-145); Troponin-I HS 4 pg/mL (3.0-54.0)
[2020-10-16] MEDS: Ketorolac 15 MG/ML Vial IV (10:01)
[2020-10-16 12:08] LABS: Troponin-I HS 5 pg/mL (3.0-54.0)
[2020-10-16 12:48] VITALS: BP 134/79; PULSE 81; RESP 16; O2SAT 97
--- NOTE | 2020-10-16 12:49 | ED.RN ---
THIS NURSE REVIEWED D/C INSTRUCTIONS WITH PT. PT VERBALIZED UNDERSTANDING OF INSTRUCTIONS. IV D/C. IV CATHETER INTACT. PT TOLERATED WELL. PT DENIES FURTHER NEEDS OR QUESTIONS AT THIS TIME. PT AMBULATES FROM ROOM ON OWN WITHOUT ASSISTANCE FROM STAFF
== END 2020-10-16 12:50 | disposition home or self-care (01) ==
PROVIDERS: Emergency Provider Emergency Medicine; PCP Family Medicine
DX: R07.81 Pleurodynia (principal); J45.909 Unspecified asthma, uncomplicated; E78.00 Pure hypercholesterolemia, unspecified; F32.9 Major depressive disorder, single episode, unspecified; F17.210 Nicotine dependence, cigarettes, uncomplicated; Z79.51 Long term (current) use of inhaled steroids; Z79.899 Other long term (current) drug therapy
CPT/HCPCS: 71045; 80048; 84484; 84703; 85025; 85379; 93005; 96374; 99284; A4216

== ENCOUNTER 2021-04-29 16:25 | Outpatient (CLI) | payer OTHER, SELFPAY ==
--- NOTE | 2021-04-29 16:29 | RAD_ITS ---
STUDY: CHEST SERIES-CHEST PA AND LATERAL VIEWS OF 1633 HOURS ON 04/29/2021 REASON FOR EXAM: 50-year-old female with dyspnea. TECHNIQUE: A standard 2 view chest x-ray series was performed per protocol. COMPARISON: 10/16/2020. FINDINGS: The osseous and surrounding soft tissue structures, heart, jose, diaphragm, and lungs have a normal appearance. No infiltrates, atelectasis, or effusion. No pulmonary mass lesions. No emphysema. No significant fibrotic changes. No interval change since previous study of 10/16/2020. RAD/Chest PA and Lateral IMPRESSION: 1. No active cardiopulmonary disease. 2. No evidence of emphysema. 3. No interval change since previous study of 10/16/2020. Electronically Signed: Emmanuel Montana MD at 0:56 EDT ,
[2021-04-29 17:51] LABS: D-Dimer Quantitative (DVT/PE) < 0.27 FEU/ug/m (0.27-0.49)
== END 2021-04-29 23:59 | disposition home or self-care (01) ==
LOC: MTLAB 16:27
PROVIDERS: PCP Family Medicine; Referring Provider Family Medicine; Visit Provider Family Medicine
DX: R06.00 Dyspnea, unspecified (principal); J45.909 Unspecified asthma, uncomplicated; Z86.16 Personal history of COVID-19
CPT/HCPCS: 36415; 71046; 85379

== ENCOUNTER 2021-05-17 16:06 | Outpatient (CLI) | payer OTHER, SELFPAY ==
--- NOTE | 2021-05-17 16:10 | RAD_ITS ---
EXAM: XR LUMBOSACRAL SPINE, 4 OR 5 VIEWS CLINICAL INDICATION: LUMBAR DISCOGENIC PAIN TECHNIQUE: Frontal, lateral and bilateral oblique views of the lumbar spine. This report was created using [employer] report generation technology. COMPARISON: None. FINDINGS: VERTEBRAE: Unremarkable. Preserved vertebral body height. No fracture. No spondylolisthesis. Preservation of the normal lumbar lordosis. No significant facet arthropathy. DISC SPACES: No acute findings. Disc spaces are maintained. GASTROINTESTINAL TRACT: Unremarkable as visualized. Included bowel gas pattern is non-obstructive. Metallic clip identified in the left pelvis. RAD/L/S Spine Min 4 Views IMPRESSION: No evidence of lumbar spinal fracture or spondylolisthesis. Electronically Signed: Iglesia Holloway MD at 4:58 EDT ,
== END 2021-05-17 23:59 | disposition home or self-care (01) ==
LOC: MTRAD 16:08
PROVIDERS: PCP Family Medicine; Referring Provider Nurse Practitioner Family; Visit Provider Nurse Practitioner Family
DX: M51.26 Other intervertebral disc displacement, lumbar region (principal)
CPT/HCPCS: 72110

== ENCOUNTER 2021-06-14 11:15 | Emergency (ER) | payer OTHER, SELFPAY ==
[2021-06-14 11:16] VITALS: BP 135/81; PULSE 103; RESP 16; TEMP 37; O2SAT 95; BMI 24.2
[2021-06-14 11:28] VITALS: BP 115/83; PULSE 100; RESP 16; O2SAT 90
--- NOTE | 2021-06-14 11:29 | ED.VIS.GI ---
HPI <Dr. Tre Hankins MD - Last Filed: 06/14/21 14:26> HPI - GI History of Present Illness Chief Complaint: Abd Pain Detail of Chief Complaint: Epigastric right upper quadrant pain radiating through the back and heartbu Informant: patient Abdominal Pain/Flank Pain Onset: Days (Monday evening at 10 PM) Context: Sudden Onset Timing: Continuous Quality: Aching (Right upper quadrant) and Burning (Burning pain is in the mid central chest) Location: Epigastric, RUQ and - (And burning pain in chest) Current Severity: Mild Maximum Severity: Moderate Worsened by: Food Relieved by: Nothing Nausea/Vomiting/Emesis GI Symptom: Positive for Nausea and Vomiting (Vomited several times on Monday) Onset: Days (Monday and Monday) Severity: Mild Diarrhea/Melena/Hematochezia GI Symptom: Positive for Diarrhea; Negative for Melena and Hematochezia Associated Symptoms Associated Symptoms: Negative for Dysuria, Frequency and Hematuria LMP: 6 years ago, patient postmenopausal Narrative Narrative: Patient is a 50-year-old woman who smokes 1 cigarette before going to bed. She also admits to drinking a couple times a week On Monday she had 3 beers. She presents because of epigastric right upper quadrant pain that radiates to her back. She reports intolerance to greasy and fried foods. Twin brother had a cholecystectomy. She denies black or maroon-colored stool. She does endorse nausea, vomiting diarrhea. She denies headache, visual, ocular auditory symptoms. She denies trouble with speech or swallowing. She denies shortness of breath. She denies dysuria, frequency, urgency or hematuria. She denies history of renal or ureterolithiasis. She denies history of trauma. She does endorse history of GERD and on medication. Prior similar symptoms: No Recent Illness/Hospitalization: No PFSH <Dr. Tre Hankins MD - Last Filed: 06/14/21 14:26> PFS Medical History Depression Home Medications zolpidem 10 mg PO QHS 01/17/14 [History Last Taken 07/27/15] pravastatin 40 mg PO QHS 09/03/14 [History Last Taken 07/27/15] albuterol sulfate 90 mcg/actuation aerosol inhaler 2 puff INHALATION Q6H PRN 06/14/17 [History Last Taken Unknown] hydrocodone-acetaminophen [[place] 5-325 Tablet] 1 ea PO DAILY PRN PRN 05/25/18 [History Last Taken Unknown] pantoprazole 20 mg PO DAILY 06/14/21 [History Last Taken Unknown] Allergy/AdvReac Type Severity Reaction Status Date / Time amitriptyline AdvReac Other Verified 06/14/21 11:18 diphenhydramine HCl AdvReac Other Verified 06/14/21 11:18 [From Benadryl] MUSCLE RELAXERS AdvReac Other Uncoded 06/14/21 11:18 Family History (Updated 06/14/17 @ 15:38 by Edwina Whitlock) Mother Cancer lung Father Cancer lung Brother Cancer lung Sister Breast cancer Surgical History brain tumor removed delivery delivered History of tonsillectomy Hx of appendectomy Social History (Updated 06/14/17 @ 16:08 by Cielo Crump NP, PHARMACY CUSTOMER CARE SPECIALIST-C) Smoking Status: Current some day smoker tobacco type: cigarettes alcohol intake: current details: social substance use type: does not use caffeine: Yes what type of physical activity do you participate in: walking seatbelt use: always do you feel safe at home: Yes additional social history: Paul Stoddard Patient works at [employer] [[email or web address]] ROS <Dr. Tre Hankins MD - Last Filed: 06/14/21 14:26> ROS ED Constitutional Constitutional ED: Denies chills, fever(s), subjective, sweats or weight loss ENT ENT ED: Denies ear pain, rhinorrhea or sore throat Cardiovascular Cardiovascular: Denies chest pain, orthopnea, palpitations or racing heartbeat Respiratory/Chest Respiratory/Chest: Denies cough, dyspnea, dyspnea on exertion, orthopnea or sputum Gastrointestinal Gastrointestinal: Reports abdominal pain, diarrhea, nausea and vomiting; Denies constipation or melena Genitourinary Genitourinary ED: Denies dysuria, hematuria or urinary frequency Musculoskeletal Musculoskeletal: Reports back pain; Denies arthralgias, myalgias or neck pain Integumentary Denies Abrasions or rash Neurologic Neurologic: Denies headache(s), paresthesias or weakness Hematologic/Lymphatic Hematologic/Lymphatic: Denies easy bleeding or easy bruising EXAM <Dr. Tre Hankins MD - Last Filed: 06/14/21 14:26> Physical Exam Const Vital Signs: 06/14/21 11:16 06/14/21 11:28 06/14/21 16:00 Temperature 98.6 F Temperature Source Temporal Pulse Rate 103 H 100 79 Respiratory Rate 16 16 16 Blood Pressure 135/81 H 115/83 H 107/68 Blood Pressure Mean 99 93 81 Pulse Ox 95 90 94 Oxygen Delivery Method Room Air Room Air Positive well nourished and well developed General Appearance ED: well developed and NAD; Negative for pallor HEENT Reports TM's clear and moist mucous membranes HEENT Narrative: Uvula midline. There is no erythema or exudate. normocephalic and atraumatic Tympanic Membrane ED: Yes TM's clear Eyes PERRL and EOMs intact bilaterally General Eye ED: Negative for pale conjunctiva or scleral icterus Neck no lymphadenopathy, supple and no JVD Resp normal respiratory effort and clear to auscultation bilaterally Cardio regular rate, regular rhythm, S1 normal heart sound, S2 normal heart sound and no murmurs GI non-distended and no masses; Negative for non-tender Inspection: Negative for abdominal distention Auscultation: hypoactive bowel sounds; Negative for normoactive bowel sounds or hyperactive bowel sounds Palpation: soft, tender epigastric and RUQ and guarding RUQ; Negative for rigid, hepatomegaly, splenomegaly, hernia, mass, pulsatile mass or rebound tenderness present Back/Spine no CVA tenderness Cervical Spine: Negative for cervical spine tenderness Thoracic Spine / Upper Back: Negative for thoracic spinal tenderness Lumbar Spine / Lower Back: Negative for lumbar spinal tenderness Extremity full ROM General Extremety ED: Negative for edema or tenderness General Extremity: Negative for edema Neuro CN's II-XII intact bilaterally and no sensory deficits noted Sensorium / Orientation: alert, oriented to person, oriented to place and oriented to time Motor Exam: strength 5/5 throughout Psych mental status grossly normal and thought process normal Skin no wounds General Skin Exam: Negative for jaundice or pallor Lesions: no lesions Rashes: no rashes <Dr. Tyler Marsh DO - Last Filed: 06/14/21 18:08> Physical Exam Const Vital Signs: 06/14/21 11:16 06/14/21 11:28 06/14/21 16:00 Temperature 98.6 F Temperature Source Temporal Pulse Rate 103 H 100 79 Respiratory Rate 16 16 16 Blood Pressure 135/81 H 115/83 H 107/68 Blood Pressure Mean 99 93 81 Pulse Ox 95 90 94 Oxygen Delivery Method Room Air Room Air [facility] <Dr. Tre Hankins MD - Last Filed: 06/14/21 14:26> [facility] Narrative Medical decision making narrative: Differential diagnosis would be abdominal pain unknown etiology, biliary colic due to cholelithiasis, a calculus cholecystitis, gastritis/esophagitis. Not able to obtain ultrasound until 4 PM since patient had chicken noodle soup approximately 1 hour prior to presentation. The chicken noodle soup that was homemade made her pain worse. I was informed at 1425 by patient's nurse that she was still having pain and that the Toradol had no effect. 4 mg of morphine was ordered. Lab Data Attestation: I reviewed the patient's lab results. Lab results narrative: Laboratory tests are remarkable for elevated glucose of 152. There is no family history of diabetes. Patient had no improvement after GI cocktail. She still has pain in the right upper quadrant with tenderness in the right upper quadrant. Ultrasound was ordered of the gallbladder to be performed after 1600. Labs: Laboratory Results - last 24 hr 06/14/21 06/14/21 11:20 11:20 WBC 8.8 RBC 4.67 Hgb 13.8 Hct 42.5 MCV 91.0 MCH 29.6 MCHC 32.5 RDW Std Deviation 44.2 H RDW Coeff of [place] 13.2 Plt Count 322 MPV 9.0 Immature Gran % (Auto) 0.200 Neut % (Auto) 52.3 Lymph % (Auto) 34.2 [place] % (Auto) 9.3 Eos % (Auto) 3.7 Baso % (Auto) 0.3 Absolute Neuts (auto) 4.6 Absolute Lymphs (auto) 3.02 Nucleated RBC % 0 Sodium 138 Potassium 3.5 Chloride 105 Carbon Dioxide 27.0 Anion Gap 6 BUN 14 Creatinine 0.78 Estim Creat Clear Calc 76.17 Est GFR (MDRD) Af Amer 101 Est GFR (MDRD) Non-Af 83 BUN/Creatinine Ratio 17.9 Glucose 152 H Calcium 8.8 Total Bilirubin 0.40 AST 21 ALT 24 Alkaline Phosphatase 55 Total Protein 7.8 Albumin 3.7 Globulin 4.1 Albumin/Globulin Ratio 0.9 Lipase 134 Radiography Diagnostic Testing: Clinical Impression(s) from Imaging Studies Gallbladder Ultrasound 06/14/21 16:00 IMPRESSION: Small echogenic debris/sludge in the gallbladder. No evidence of biliary obstruction or cholecystitis. Electronically Signed: Benedict Baker MD ([place]) at 17:19 EDT , <Dr. Tyler Marsh, DO - Last Filed: 06/14/21 18:08> [facility] Narrative Medical decision making narrative: Care of the patient was turned over to me pending gallbladder ultrasound. This was obtained and showed small echogenic debris/sludge in the gallbladder. There is no evidence of biliary obstruction or cholecystitis. This was interpreted by the radiologist and reviewed by myself. Patient was advised of her findings. Since her labs are all normal as well, I do not feel the patient needs to be admitted for emergent cholecystectomy. Patient was given a prescription for a short course of [place]. Patient was instructed to avoid fried foods fatty foods, greasy foods. Patient was instructed to follow-up with her primary care physician in 3 to 5 days. Patient understood and was agreeable with the plan. All questions were answered. Lab Data Labs: Laboratory Results - last 24 hr 06/14/21 06/14/21 11:20 11:20 WBC 8.8 RBC 4.67 Hgb 13.8 Hct 42.5 MCV 91.0 MCH 29.6 MCHC 32.5 RDW Std Deviation 44.2 H RDW Coeff of [place] 13.2 Plt Count 322 MPV 9.0 Immature Gran % (Auto) 0.200 Neut % (Auto) 52.3 Lymph % (Auto) 34.2 [place] % (Auto) 9.3 Eos % (Auto) 3.7 Baso % (Auto) 0.3 Absolute Neuts (auto) 4.6 Absolute Lymphs (auto) 3.02 Nucleated RBC % 0 Sodium 138 Potassium 3.5 Chloride 105 Carbon Dioxide 27.0 Anion Gap 6 BUN 14 Creatinine 0.78 Estim Creat Clear Calc 76.17 Est GFR (MDRD) Af Amer 101 Est GFR (MDRD) Non-Af 83 BUN/Creatinine Ratio 17.9 Glucose 152 H Calcium 8.8 Total Bilirubin 0.40 AST 21 ALT 24 Alkaline Phosphatase 55 Total Protein 7.8 Albumin 3.7 Globulin 4.1 Albumin/Globulin Ratio 0.9 Lipase 134 Radiography Diagnostic Testing: Clinical Impression(s) from Imaging Studies Gallbladder Ultrasound 06/14/21 16:00 IMPRESSION: Small echogenic debris/sludge in the gallbladder. No evidence of biliary obstruction or cholecystitis. Electronically Signed: Benedict Baker MD ([place]) at 17:19 EDT Reading Location ID and State: [facility] / [place] , Service support , Discharge Plan Triage Chief Complaint: Abd Pain ED Provider: Tre Hankins Dx/Rx/DC Orders Clinical Impression: Right upper quadrant abdominal pain, History of COPD Instructions: ED Abdominal Pain Gallstone Poss Prescriptions: No Action albuterol sulfate [ProAir HFA] 90 mcg/actuation HFA aerosol inhaler 2 puff INHALATION Q6H PRN (Reason: Sob &/Or Wheezing) RF: 0 zolpidem 10 MG tablet 10 mg PO QHS RF: 0 pravastatin 40 MG tablet 40 mg PO QHS RF: 0 hydrocodone-acetaminophen [[place]] 1 EACH tablet 1 ea PO DAILY PRN PRN (Reason: Pain) RF: 0 pantoprazole 20 mg Tablet,Delayed Release (Dr/Ec) 20 mg PO DAILY RF: 0 Primary Care Provider: Raad Armendariz Referrals: Raad Armendariz DO [Primary Care Provider] - 3-5 Days Activity Restrictions/Additional Instructions: Continue to take the [place] that was prescribed for you 1 week ago as needed for pain. Avoid fried foods, fatty foods, and greasy foods. Disposition Disposition: Home, Self Care
[2021-06-14] MEDS: Mag Hydrox/Al Hydrox/Simeth 30 ML UDC PO (11:38)
[2021-06-14 11:40] LABS: Absolute Lymphocyte Count 3.02 X10^3/uL (0.83-4.51); Absolute Neutrophil Count 4.6 X10^3/uL (2.0-7.7); Basophil# 0.03 X10^3/uL; Basophil% 0.3 % (0-1); Eosinophil# 0.33 X10^3/uL; Eosinophils% 3.7 % (0-5); Hematocrit 42.5 % (37-47); Hemoglobin 13.8 g/dL (12.0-15.0); Lymphocyte # 3.02 X10^3/ul (0.83-4.51); Lymphocyte % 34.2 % (19-41); Mean Corp Hgb Conc 32.5 g/dL (32-36); Mean Corpuscular Hgb 29.6 pg (27.0-32.0); Monocyte# 0.82 X10^3/uL; Monocyte% 9.3 % (0-10); NRBC Flagged by Analyzer 0 % (0-5); Neutrophil % 52.3 % (47-70); Platelet Count 322 K/mm3 (150-450); RBC Distribution Width CV 13.2 % (11.6-14.6); RBC Distribution Width SD 44.2 fl (35.1-43.9); Red Blood Count 4.67 M/mm3 (4.2-5.4); White Blood Count 8.8 K/mm3 (4.4-11.0)
[2021-06-14 11:56] LABS: ALB/GLOB Ratio 0.9 RATIO (0.9-2.4); AST(SGOT) 21 U/L (15-37); Alanine Aminotransfer ALT/SGPT 24 U/L (13-56); Albumin, Serum 3.7 g/dL (3.2-5.0); Alkaline Phosphatase 55 U/L (45-117); Anion Gap 6 (5-15); BUN 14 mg/dL (7-18); BUN/Creat Ratio 17.9 RATIO (10-20); Calcium,Total 8.8 mg/dL (8.5-10.1); Chloride 105 mmol/L (98-107); Creatinine, Serum 0.78 mg/dL (0.55-1.02); EST Glomerular Filtration Rate 83 mL/min (>60); Est Glom Filt Rate - Afr Amer 101 mL/min (>60); Estimated Creatinine Clearance 76.17 ml/min; Globulin 4.1 g/dL (2.2-4.2); Glucose 152 mg/dL (74-106); Lipase 134 U/L (73-393); Potassium 3.5 mmol/L (3.5-5.1); Protein, Total 7.8 g/dL (6.4-8.2); Sodium Level 138 mmol/L (136-145)
[2021-06-14] MEDS: Ketorolac 15 MG/ML Vial IV (13:00)
[2021-06-14] MEDS: Morphine 4 MG/ML Syringe IV (14:28)
[2021-06-14 16:00] VITALS: BP 107/68; PULSE 79; RESP 16; O2SAT 94
--- NOTE | 2021-06-14 16:00 | US_ITS ---
EXAM: US ABDOMEN LIMITED, RIGHT UPPER QUADRANT CLINICAL INDICATION: Right upper quadrant pain, intolerance to greasy food TECHNIQUE: Real-time ultrasound of the right upper quadrant with image documentation. This report was created using [employer] report [employer] technology. COMPARISON: None. FINDINGS: LIVER: Unremarkable. There is normal echotexture. No focal hepatic lesion. No intrahepatic biliary ductal dilation. GALLBLADDER: Small echogenic debris/sludge in the gallbladder. No shadowing gallstone. No gallbladder wall thickening is demonstrated. No pericholecystic fluid. Negative sonographic Alvarenga''s sign. COMMON BILE DUCT: Unremarkable as visualized. The proximal common bile duct is within normal limits for the patient''s age. PANCREAS: Unremarkable as visualized. No focal abnormality is demonstrated in the pancreas. No pancreatic ductal dilatation. RIGHT KIDNEY: Unremarkable. There is no hydronephrosis. No shadowing calculus. No focal lesion or perinephric collection is demonstrated. US/Gallbladder IMPRESSION: Small echogenic debris/sludge in the gallbladder. No evidence of biliary obstruction or cholecystitis. Electronically Signed: Benedict Baker MD ([place]) at 17:19 EDT ,
== END 2021-06-14 18:17 | disposition home or self-care (01) ==
PROVIDERS: Emergency Provider Emergency Medicine; PCP Family Medicine; Visit Provider Emergency Medicine
DX: R10.11 Right upper quadrant pain (principal); J44.9 Chronic obstructive pulmonary disease, unspecified; R19.7 Diarrhea, unspecified; F17.210 Nicotine dependence, cigarettes, uncomplicated; Z79.899 Other long term (current) drug therapy; K83.8 Other specified diseases of biliary tract
CPT/HCPCS: 76705; 80053; 83690; 85025; 96374; 96375; 99284

== ENCOUNTER 2021-07-06 07:00 | Day surgery (SDC) | payer OTHER, SELFPAY ==
[2021-07-06 07:20] VITALS: BP 139/98; PULSE 98; RESP 18; TEMP 36.4; O2SAT 100; BMI 24.6
--- NOTE | 2021-07-06 07:20 | PCM.HP.BLA ---
History and Physical Date of Admission: 07/06/21 Intake Visit Reasons: UPPER ENDOSCOPY; UNCONTROLLED REFLUX Chief Complaint: EGD Consult/Epigastric pain/GERD Pants Busheler Required: No Is patient in pain?: Yes Allergies amitriptyline Adverse Reaction (Verified 07/02/21 12:54) Other diphenhydramine HCl [From Benadryl] Adverse Reaction (Verified 07/02/21 12:54) Other MUSCLE RELAXERS Adverse Reaction (Uncoded 06/14/21 11:18) Other Medications albuterol sulfate 90 mcg/actuation aerosol inhaler 2 puff INHALATION Q6H PRN 06/14/17 [History Confirmed 07/02/21] famotidine 40 mg tablet 40 mg PO DAILY 07/02/21 [History Confirmed 07/02/21] hydrocodone-acetaminophen 5-325mg 5mg-325mg 1 tab PO TID PRN tab 07/02/21 [History Confirmed 07/02/21] pantoprazole 20 mg tablet,delayed release 40 mg PO DAILY tab 07/02/21 [History Confirmed 07/02/21] pravastatin 40 mg tablet 10 mg PO QHS tab 07/02/21 [History Confirmed 07/02/21] PFS Medical History Depression Surgical History (Updated 07/02/21 @ 12:50 by Shelia Martin) brain tumor removed delivery delivered History of dermoid cyst excision History of excision of mass History of tonsillectomy Hx of appendectomy Family History (Updated 07/02/21 @ 12:52 by Shelia Martin) Mother Cancer lung Father Cancer lung Brother Cancer lung Diabetes Heart disease Sister Breast cancer Brother Heart disease Hypertension High cholesterol Social History (Updated 06/14/17 @ 16:08 by Cielo Crump NP, [employer] ENGINEER-C) Smoking Status: Current some day smoker tobacco type: cigarettes alcohol intake: current details: social substance use type: does not use caffeine: Yes what type of physical activity do you participate in: walking seatbelt use: always do you feel safe at home: Yes additional social history: Marko- Marleymiguelina Patient works at [employer] HPI HPI HPI: CANDY FOY, is a 50 F who presents to the office today for surgical consultation regarding reflux disease. The patient is referred by Dr. Raad Armendariz and a written compromise surgical consult recommendations will return to him. The patient's been complaining of epigastric pain and uncontrolled reflux disease. Pertinent problem list includes asthma, chronic pain syndrome, chronic opioid use, cervical spinal stenosis, cervical radiculopathy. Her previous abdominal surgery includes an appendectomy and C-sections x3. By medication list she is on pantoprazole 40 mg twice daily. She does smoke cigarettes. She was seen in the emergency room gallbladder ultrasound showed a very small amount of sludge. Spaghetti sauce aggravated her condition. She was started on Carafate at that time. As of her emergency room visit June 14, 2021 her white blood cell count was 8.8 with a hemoglobin 13.8 hematocrit 42.5 and a platelet count of 322,000. BUN 14 and creatinine 0.78. Liver function tests were normal. Patient states that she currently takes pantoprazole 40 mg daily and famotidine 40 mg daily however despite this has intractable heartburn and reflux. She elevates the head of her bed. She tries not to eat within 2 hours of going to sleep. She was prescribed Carafate but when she went to the store apparently it was approximately $500 and she could not afford that so she actually is not currently on that medication. She infrequently takes NSAIDs. She states that her twin brother had gallbladder disease. But this does not particularly correlate with her symptoms of retrosternal discomfort. She does not make comment of any particular treatment that helps alleviate this discomfort. ROS General General: Yes weight change and fatigue; No appetite, colon cancer, breast cancer or weakness HEENT HEENT: No difficulty swallowing, eye injury, eye surgery, swollen glands or hoarseness Endo Endocrine: No thyroid disease, diabetes mellitus, thyroid cancer, Hair loss, heat intolerance or cold intolerance Skin Skin: No rash or changing moles Breast Breast: No left breast lump, right breast lump, nipple discharge, breast pain, abnormal mammogram, abnormal US or breast enlargement Musc Musculoskeletal: Yes back problems, arthritis and rheumatoid arthritis; No gout or joint pain Cardio Cardiovascular: No murmur, pacemaker, heart disease, atrial fibrillation, high blood pressure, heart attack, heart stent, palpitations, shortness of breat with exertion or chest pain Psych Psychiatric: Yes depression; No anxiety or hearing voices Resp Respiratory: Yes shortness of breath, No sleep apnea, Yes cough, Yes COPD, Yes asthma, No emphysema and No wheezing Gastro Gastrointestinal: Yes abdominal pain, No nausea or vomiting, No diarrhea, Yes constipation, Yes blood in stool, Yes acid reflux, No hemorrhoids, No ulcers, No gallbladder problem and No black,tarry stools Gómez Hematologic: No blood thinners, No blood disorders, No bleeding, No anemia and No blood clots Neuro Neurologic: No system reviewed and no additional complaints, except as documented, No as per HPI, No abnormal gait, No abnormal hearing, No abnormal movements, No abnormal speech, No behavioral changes, No burning sensations, No confusion, No convulsions, No disequilibrium, No dizziness, No localized weakness, No frequent falls, No headache(s), No lack of coordination, No loss of vision, No memory loss, Yes numbness, No other visual disturbances, No radicular pain, No restless legs, No sensory deficit, No syncope, Yes tingling, No tremor(s), No weakness and No other Exam Const General: cooperative, comfortable and no acute distress Nutritional Appearance: overweight Orientation: alert and awake [facility] Head: normal to inspection Eyes General: appearance normal, both eyes and all related structures Resp Effort & Inspection: normal respiratory effort Auscultation: clear to auscultation bilaterally Cardio Rate: regular rate Rhythm: regular rhythm GI Palpation: soft and no hepatosplenomegaly Auscultation: normal bowel sounds Musc Cervical Spine: normal cervical lordosis Skin Other: Multiple tiny scratches bilateral forearms reportedly secondary to young dogs Neuro General: patient alert Extrem General: no calf tenderness Psych Appearance: grossly normal Assessment and Plan Assessment and Plan (1) GERD (gastroesophageal reflux disease): Status: Acute Qualifiers: Esophagitis presence: esophagitis presence not specified Qualified Code(s): K21.9 - Gastro-esophageal reflux disease without esophagitis (2) Right upper quadrant abdominal pain: Status: Inactive Plan - Dr. Zafar Carney MD: The patient's symptoms certainly sound like gastroesophageal reflux disease but it seems quite odd that a PPI and H2 derrick failed to make any improvement in her discomfort. She had a mild finding on gallbladder ultrasound with minimal sludge. She has a twin brother who required previous cholecystectomy. I recommend to her that we obtain a hepatobiliary scan as well as recommend proceeding with esophagogastroduodenoscopy with possible biopsy or polypectomy as indicated. She is aware of the technique, benefit, risk, alternatives. As noted above she is unable to afford the Carafate. It is not clear to me what therapeutic option we will have if severe reflux is truly identified. We will clearly be inspecting for potential H. pylori and or fungus and/or if need be eosinophilic esophagitis. I appreciate the opportunity of assisting with the surgical care Copy: Dr. Raad Carney M.D., F.A.C.S. I have re-examined the patient. There are no clinical changes since date of exam.
[2021-07-06] MEDS: Lactated Ringers 1,000 ML 15 ML IV (07:28)
[2021-07-06 07:55] VITALS: BP 111/95; BP 139/98; PULSE 103; RESP 18; TEMP 36.4; O2SAT 98
--- NOTE | 2021-07-06 07:58 | OP.EGD_ITS ---
Patient Name: Annel Heard Procedure Date: 07/06/2021 7:28 AM Date of : 1970 Age: 50 Procedure: Upper GI endoscopy Indications: Heartburn Providers: Zafar Carney MD Medicines: See the Anesthesia note for documentation of the administered medications Complications: No immediate complications. Procedure: Pre-Anesthesia Assessment: - Prior to the procedure, a History and Physical was performed, and patient medications and allergies were reviewed. The patient's tolerance of previous anesthesia was also reviewed. The risks and benefits of the procedure and the sedation options and risks were discussed with the patient. All questions were answered, and informed consent was obtained. Prior Anticoagulants: The patient has taken no previous anticoagulant or antiplatelet agents. ASA Grade Assessment: II - A patient with mild systemic disease. After reviewing the risks and benefits, the patient was deemed in satisfactory condition to undergo the procedure. After obtaining informed consent, the endoscope was passed under direct vision. Throughout the procedure, the patient's blood pressure, pulse, and oxygen saturations were monitored continuously. The Endoscope was introduced through the mouth, and advanced to the second part of duodenum. The upper GI endoscopy was accomplished without difficulty. The patient tolerated the procedure well. Scope In: 7:38:54 AM Scope Out: 7:50:07 AM Total Procedure Duration Time 0 hours 11 minutes 13 seconds Findings: LA Grade A (one or more mucosal breaks less than 5 mm, not extending between tops of 2 mucosal folds) esophagitis with no bleeding was found 38 cm from the incisors. Biopsies were taken with a cold forceps for histology. One superficial esophageal ulcer with no bleeding and no stigmata of recent bleeding was found 32 cm from the incisors. The lesion was 4 mm in largest dimension. Biopsies were taken with a cold forceps for histology. Verification of patient identification for the specimen was done. A small hiatal hernia was present. Diffuse mildly erythematous mucosa without bleeding was found in the gastric antrum. Biopsies were taken with a cold forceps for histology. A single 6 mm papule (nodule) with no bleeding and no stigmata of recent bleeding was found in the gastric antrum. Biopsies were taken with a cold forceps for histology. A single 5 mm sessile polyp with no bleeding and no stigmata of recent bleeding was found in the gastric antrum. The polyp was removed with a cold biopsy forceps. Resection and retrieval were complete. The examined duodenum was normal. Biopsies were taken with a cold forceps for histology. Impression: - LA Grade A reflux esophagitis. Biopsied. - Non-bleeding esophageal ulcer. Biopsied. Very superficial and c/w reflux. - Small hiatal hernia. - Erythematous mucosa in the antrum. Biopsied. - A single papule (nodule) found in the stomach. Biopsied. - A single gastric polyp. Resected and retrieved. - Normal examined duodenum. Biopsied. Recommendation: - Await pathology results. - Repeat upper endoscopy after studies are complete for surveillance based on pathology results. - Telephone my office for pathology results in 1 week. Pt very tearful at start of procedure. Suspect very sensitive. - Continue present medications. Procedure Code(s): --- Professional --- 82415, Esophagogastroduodenoscopy, flexible, transoral; with biopsy, single or multiple Diagnosis Code(s): --- Professional --- K21.0, Gastro-esophageal reflux disease with esophagitis K22.10, Ulcer of esophagus without bleeding K44.9, Diaphragmatic hernia without obstruction or gangrene K31.89, Other diseases of stomach and duodenum K31.7, Polyp of stomach and duodenum R12, Heartburn CPT copyright 2017 [employer]. All rights reserved. The codes documented in this report are preliminary and upon chute loader review may be revised to meet current compliance requirements. Zafar Carney MD 07/06/2021 7:57:56 AM This report has been signed electronically. Number of Addenda: 0 Note Initiated On: 07/06/2021 7:28 AM
--- NOTE | 2021-07-06 07:59 | OP.CCLET_ITS ---
07/06/2021 Raad Armendariz [address] [facility] [place] [address] Re : Upper GI endoscopy procedure for Annel Heard Dear Dr. Armendariz This procedure was performed on Tuesday, July 06, 2021. My impressions and recommendations are as follows: Impressions : - LA Grade A reflux esophagitis. Biopsied. - Non-bleeding esophageal ulcer. Biopsied. Very superficial and c/w reflux. - Small hiatal hernia. - Erythematous mucosa in the antrum. Biopsied. - A single papule (nodule) found in the stomach. Biopsied. - A single gastric polyp. Resected and retrieved. - Normal examined duodenum. Biopsied. Recommendations : - Await pathology results. - Repeat upper endoscopy after studies are complete for surveillance based on pathology results. - Telephone my office for pathology results in 1 week. Pt very tearful at start of procedure. Suspect very sensitive. - Continue present medications. My findings are described in the full procedure note, which is enclosed. If I can be of further assistance, please feel free to contact me at Doctor phone number(s): Work: . Sincerely, Zafar Carney MD 07/06/2021 7:57:56 AM This report has been signed electronically.
[2021-07-06 08:00] VITALS: BP 108/74; BP 139/98; PULSE 95; RESP 18; O2SAT 100
[2021-07-06 08:05] VITALS: BP 108/81; BP 139/98; PULSE 88; RESP 18; O2SAT 98
[2021-07-06 08:10] VITALS: BP 116/86; BP 139/98; PULSE 90; RESP 18; TEMP 36.3; O2SAT 97
--- NOTE | 2021-07-06 08:15 | IMM_PTH ---
PATIENT: CANDY FOY LOC: [facility] U#:[id number] AGE/SX: 50/F ROOM: RE07/06/[address]: Dr. Zafar Carney MD : 1970 BED: DIS: 07/06/2021 SPEC #: [id number] RECD: 07/06/21 11:28 STATUS: YUMIKO RENirav #: [id number] MIGUELANGEL: 07/06/21 08:[address]: Zafar Carney DEPT: IMMUNOHISTOCHEMISTRY RECD BY: Nati Rapp ENTERED: 07/06/21 11:29 SP TYPE: IMMUNO OTHR DR: Dr. Raad Armendariz, Tissues: C - Stomach, NOS Procedures: H Pylori (initial) PHYSICIAN & INSTITUTION [place] [id number] SPECIMEN INFORMATION: Tissue Source: C ? Antrum biopsy Clinical Info: GERD, right upper quadrant abdominal pain Specimen Number: [id number] CPT code: 52053 METHODOLOGY: Deparaffinized sections of prefer/formalin-fixed tissue or PAP/DQ stained slides are incubated with monoclonal/polyclonal antibodies/oligonucleotide probes. Localization is made via biotin free immunoperoxidase method. Appropriate controls are performed and reacted as expected. Results on target cell population are indicated in the following table: RESULTS: ANTIBODY / CLONE RESULT Block C H Pylori (polyclonal) negative These tests were developed and their performance characteristics determined by [facility]. They may not have been cleared or approved by the U.S. Food and Drug Administration. The FDA has determined that such clearance or approval is not necessary. The above immunohistochemical/dualISH markers are ordered and reviewed by the Pathologist. INTERPRETATION: C. Antrum, biopsy: Negative for Helicobacter pylori organisms. AM:hari 07/07/2021
--- NOTE | 2021-07-06 08:15 | EGD_PTH ---
PATIENT: CANDY FOY LOC: [facility] U#:[id number] AGE/SX: 50/F ROOM: RE07/06/[address]: Dr. Zafar Carney MD : 1970 BED: DIS: 07/06/2021 SPEC #: [id number] RECD: 07/06/21 09:39 STATUS: YUMIKO SÁNCHEZ #: [id number] MIGUELANGEL: 07/06/21 08:[address]: Zafar Carney DEPT: SURGICAL PATHOLOGY RECD BY: Haydee Nicholas ENTERED: 07/06/21 10:43 SP TYPE: EGD BIOPSY OT DR: Dr. Raad Armendariz DO Tissues: A - Duodenum, NOS B - COLON BIOPSY C - Gastric mucous membrane D - Gastric mucous membrane E - Esophagus, NOS F - Esophagus, NOS G - Esophagus, NOS Procedures: Special Stain Group II Surgery Specimen Level IV Alcian Blue/PAS (control) HEADER OPERATION: EGD with biopsy and polypectomy (MAC) PRE-OP DIAGNOSIS: GERD, right upper quadrant abdominal pain TISSUE SUBMITTED: A ? Duodenal biopsy, B ? Pancreatic rest biopsy, C ? Antrum biopsy for H. pylori and path, D ? Antrum polyp, E ? Distal esophagus biopsy, F ? Mid distal esophagus biopsy, G ? Proximal esophagus biopsy MICROSCOPIC DIAGNOSIS A. Duodenum, biopsy: No pathologic change. B. Pancreatic rest, biopsy: Fragment of gastric mucosa with mild chronic inflammation. C. Gastric antrum, biopsy: Minimal chronic inflammation. See comment. D. Gastric antral polyp, biopsy: Polypoid fragment of benign gastric mucosa with mild chronic inflammation. E. Distal esophagus, biopsy: Gastroesophageal junctional mucosa with mild chronic inflammation. Focal changes of reflux. No evidence of goblet cell metaplasia. See comment. F. Mid distal esophagus, biopsy: Focal changes of reflux. G. Proximal esophagus, biopsy: No pathologic change. AM:hari 07/07/2021 COMMENT C. The results of immunohistochemistry for Helicobacter pylori will be reported separately ([id number]). E. Alcian blue/PAS stain with matched control supports the above diagnosis. MICROSCOPIC DESCRIPTION Slides are reviewed. GROSS DESCRIPTION A - Received in fixative is one container labeled with the patient's name and designated duodenum biopsy. The specimen consists of one irregular fragment of light robb soft tissue that measures 0.5 x 0.3 x 0.1 cm. The specimen is totally submitted in one cassette. B - Received in fixative is one container labeled with the patient's name and designated pancreatic rest biopsy. The specimen consists of one irregular fragment of light robb soft tissue that measures 0.5 x 0.2 x 0.1 cm. The specimen is totally submitted in one cassette. C - Received in fixative is one container labeled with the patient's name and designated gastric antrum. The specimen consists of one irregular fragment of light robb soft tissue that measures 0.5 x 0.3 x 0.1 cm. The specimen is totally submitted in one cassette. D - Received in fixative is one container labeled with the patient's name and designated antrum polyp. The specimen consists of one irregular fragment of light robb soft tissue that measures 0.5 x 0.3 x 0.1 cm. The specimen is totally submitted in one cassette. E - Received in fixative is one container labeled with the patient's name and designated distal esophagus. The specimen consists of multiple irregular fragments of light robb soft tissue that in aggregate measure 1.5 x 0.7 x 0.1 cm. The specimen is totally submitted in one cassette. F - Received in fixative is one container labeled with the patient's name and designated mid distal esophagus. The specimen consists of one irregular fragment of light robb soft tissue that measures 0.8 x 0.3 x 0.1 cm. The specimen is totally submitted in one cassette. G - Received in fixative is one container labeled with the patient's name and designated proximal esophagus. The specimen consists of one irregular fragment of light robb soft tissue that measures 0.7 x 0.2 x 0.1 cm. The specimen is totally submitted in one cassette. / AM:hari 07/06/2021 TC:3 CPT: 18805 x7, 24044
[2021-07-06 08:28] VITALS: BP 139/98
== END 2021-07-06 08:29 | disposition home or self-care (01) ==
LOC: EN 07:01 → AC 07:02
PROVIDERS: PCP Family Medicine; Referring Provider Family Medicine; Visit Provider Surgery
PROC: 0DJ08ZZ Inspection of Upper Intestinal Tract, Via Natural or Artificial Opening Endoscopic (ICD-10-PCS; CPT 43235; principal; 2021-07-06 08:10)
DX: R10.11 Right upper quadrant pain (principal); K21.00 Gastro-esophageal reflux disease with esophagitis, without bleeding; K83.8 Other specified diseases of biliary tract; K22.10 Ulcer of esophagus without bleeding; J45.909 Unspecified asthma, uncomplicated; G89.4 Chronic pain syndrome; F17.210 Nicotine dependence, cigarettes, uncomplicated; K44.9 Diaphragmatic hernia without obstruction or gangrene; M54.12 Radiculopathy, cervical region; M48.02 Spinal stenosis, cervical region; K31.7 Polyp of stomach and duodenum
CPT/HCPCS: 43239; 88305; 88313; 88342; J7120; J2405

== ENCOUNTER 2021-11-02 00:09 | Emergency (ER) | payer OTHER, SELFPAY ==
[2021-11-02 00:13] VITALS: BP 126/83; PULSE 110; RESP 20; TEMP 36.7; O2SAT 93; BMI 25.4
[2021-11-02 00:16] VITALS: O2SAT 96
--- NOTE | 2021-11-02 00:21 | EDS_ITS ---
HPI History of Present Illness Chief Complaint: Asthma Informant: patient Narrative Narrative: 51-year-old female presenting to the emergency room with shortness of breath. Patient states that she was sleeping and woke up gasping. She states that she took a couple breathing treatments primary inhaler and a nebulizer. EMS gave 2 duo nebs. She states that lately she has been using her rescue inhaler a lot more than normal. She states that she is unable to afford her previous regimen and has now been using an inhaler about every 2 weeks. She states her and her doctor have tried numerous ways to get her the medication but has been prohibitively expensive. She denies any fevers. She states that she is feeling better than what she did at home. EMS notes that she was 87% at home. [facility] Medical History Abdominal pain Alcohol use Arthritis Asthma Bipolar disorder COPD (chronic obstructive pulmonary disease) Depression Easy bruising Epigastric pain Gastric reflux GERD (gastroesophageal reflux disease) High cholesterol History of back problems History of COPD History of diverticulitis History of IBS Hypercholesterolemia Restless legs Shortness of breath on exertion Smoker Tobacco use Wears glasses Home Medications albuterol sulfate 90 mcg/actuation aerosol inhaler (ProAir HFA) 2 puff inhalation Q6H PRN Sob &/Or Wheezing 06/14/17 [History Last Taken Unknown] famotidine 40 mg tablet (Pepcid) 40 mg PO DAILY 07/02/21 [History Last Taken Unknown] hydrocodone-acetaminophen 5-325mg 5mg-325mg ([place]) 1 tab PO TID 07/02/21 [History Last Taken Unknown] pravastatin 40 mg tablet 10 mg PO QHS 07/02/21 [History Last Taken Unknown] zolpidem 10 mg tablet 10 mg PO QHS 07/02/21 [History Last Taken Unknown] albuterol sulfate 2.5 mg/3 mL (0.083 %) solution for nebulization 2.5 mg (3 mL) inhalation Q4H PRN #25 vials 11/02/21 [Rx Last Taken Unknown] prednisone 20 mg tablet See Rx Instructions .Route .COMPLEX #24 TABLETS 11/02/21 [Rx Last Taken Unknown] Allergy/AdvReac Type Severity Reaction Status Date / Time amitriptyline AdvReac Other Verified 07/06/21 07:18 diphenhydramine HCl AdvReac Other Verified 07/06/21 07:18 [From Benadryl] MUSCLE RELAXERS AdvReac Other Uncoded 07/06/21 07:18 Family History Mother Cancer lung Father Cancer lung Brother Cancer lung Diabetes Heart disease Sister Breast cancer Brother Heart disease Hypertension High cholesterol Surgical History brain tumor removed delivery delivered History of dermoid cyst excision History of excision of mass History of tonsillectomy Hx of appendectomy Social History Smoking Status: Current some day smoker tobacco type: cigarettes alcohol intake: current details: social substance use type: does not use caffeine: Yes what type of physical activity do you participate in: walking seatbelt use: always do you feel safe at home: Yes additional social history: Paul Stoddard Patient works at [employer] ROS ROS ED Constitutional Constitutional ED: Denies chills or weight loss Eyes Eyes: Denies change in vision or diplopia ENT ENT ED: Denies ear pain, rhinorrhea or sore throat Cardiovascular Cardiovascular: Denies chest pain, orthopnea, palpitations or racing heartbeat Respiratory/Chest Respiratory/Chest: Reports dyspnea; Denies cough or orthopnea Gastrointestinal Gastrointestinal: Denies abdominal pain, diarrhea, nausea or vomiting Genitourinary Genitourinary ED: Denies dysuria, hematuria or urinary frequency Musculoskeletal Musculoskeletal: Denies arthralgias or myalgias Integumentary Denies abscess or rash Neurologic Neurologic: Denies headache(s) or weakness Psychiatric Psychiatric: Denies anxiety, depression, suicidal ideation or suicidal thoughts Endocrine Endocrinology: Denies polydipsia, polyphagia or polyuria Allergic/Immunologic Allergic/Immunologic ED: Denies mouth swelling, tongue swelling or urticaria EXAM Physical Exam Const Vital Signs: 11/02/21 00:13 11/02/21 00:16 11/02/21 00:28 Temperature 98.0 F Temperature Source Oral Pulse Rate 110 H 95 Respiratory Rate 20 H 12 Respiratory Effort Non-Labored Respiratory Depth Normal Respiratory Pattern Normal Blood Pressure 126/83 H 126/83 H Blood Pressure Mean 97 97 Pulse Ox 93 94 Oxygen Delivery Method Room Air Room Air Room Air 11/02/21 00:45 Temperature Temperature Source Pulse Rate 96 Respiratory Rate 11 L Respiratory Effort Respiratory Depth Respiratory Pattern Blood Pressure Blood Pressure Mean Pulse Ox Oxygen Delivery Method Positive well nourished and well developed General Appearance ED: well developed HEENT Reports normocephalic, head/scalp atraumatic and moist mucous membranes Eyes PERRL and EOMs intact bilaterally Neck no lymphadenopathy, supple and no JVD Resp normal respiratory effort Auscultation: wheezes expiratory wheezes and throughout and diminished lung sounds Cardio regular rate, regular rhythm and no murmurs Rate: tachycardic GI normal to inspection, nondistended, normoactive bowel sounds and non-tender Palpation: soft Back/Spine no CVA tenderness and normal ROM Extremity normal to inspection General Extremety ED: Negative for edema General Extremity: Negative for edema Neuro oriented x3 and CN's II-XII intact bilaterally Sensorium / Orientation: alert Motor Exam: strength 5/5 throughout Psych mental status grossly normal Mood & Affect: Negative for depressed or tearful Skin no rashes or lesions noted and no wounds MDM MDM MDM Narrative Medical decision making narrative: My interpretation of the plain film of the chest x-ray is no acute process. Radiology concurs. Patient received prednisone and a DuoNeb. Repeat examination shows her lungs are now clear she is doing much better. She is not currently 95% on room air. We will place her on a prednisone taper and also write for her to have some more albuterol solution. She has access to a new inhaler tomorrow. Radiography Diagnostic Testing: Clinical Impression(s) from Imaging Studies Chest X-Ray 11/02/21 00:21 IMPRESSION: No radiographic evidence of acute cardiopulmonary disease. Electronically Signed: Iglesia Holloway MD at 0:42 EDT , Discharge Plan Triage Chief Complaint: Asthma ED Provider: Tay Rosario Dx/Rx/DC Orders Clinical Impression: Asthma exacerbation, Acute dyspnea Instructions: ED Asthma, Acute (Adult) Prescriptions: New prednisone 20 mg tablet See Rx Instructions .ROUTE .COMPLEX Qty: 24 0RF Rx Instructions: 3 tabs p.o. daily days 1 through 4, then 2 tabs p.o. daily days 5 through 8, then 1 tab p.o. daily day 9 through 12 albuterol sulfate 2.5 mg /3 mL (0.083 %) solution for nebulization 2.5 mg inhalation Q4H PRN Qty: 25 0RF Rx Instructions: Use q4 hours and PRN for wheezing No Action albuterol sulfate [ProAir HFA] 90 mcg/actuation HFA aerosol inhaler 2 puff INHALATION Q6H PRN (Reason: Sob &/Or Wheezing) famotidine [Pepcid] 40 mg tablet 40 mg PO DAILY pravastatin 40 mg tablet 10 mg PO QHS hydrocodone-acetaminophen [[place]] 5-325 mg tablet 1 tab PO TID zolpidem 10 mg tablet 10 mg PO QHS Label Comments: TAKE 1 TABLET BY MOUTH EVERYDAY AT BEDTIME Primary Care Provider: Raad Armendariz Referrals: Raad Armendariz DO [Primary Care Provider] - As Needed Disposition Disposition: Home, Self Care
--- NOTE | 2021-11-02 00:21 | RAD_ITS ---
EXAM: XR CHEST, 1 VIEW CLINICAL INDICATION: dyspnea TECHNIQUE: Frontal view of the chest. This report was created using [employer] report generation technology. COMPARISON: 04/29/2021 FINDINGS: LUNGS AND PLEURAL SPACES: Unremarkable. No consolidation or edema. No pneumothorax. No effusion. HEART: Unremarkable. Cardiac silhouette not enlarged. MEDIASTINUM: Central airways and mediastinal contour are unremarkable. BONES/JOINTS: Unremarkable. SOFT TISSUES: Unremarkable. RAD/Chest 1 View (Portable) IMPRESSION: No radiographic evidence of acute cardiopulmonary disease. Electronically Signed: Iglesia Holloway MD at 0:42 EDT ,
[2021-11-02] MEDS: predniSONE 20 MG Tablet 60 MG PO (00:27)
[2021-11-02 00:28] VITALS: BP 126/83; PULSE 95; RESP 12; O2SAT 94
[2021-11-02] MEDS: Ipratropium/Albuterol Sulfate 3 ML AMPUL.NEB INHALATION (00:44)
[2021-11-02 00:45] VITALS: PULSE 96; RESP 11
[2021-11-02 01:22] VITALS: BP 127/83; PULSE 90; RESP 15; O2SAT 94
== END 2021-11-02 01:22 | disposition home or self-care (01) ==
LOC: ED 00:52
PROVIDERS: Emergency Provider Emergency Medicine; PCP Family Medicine; Visit Provider Emergency Medicine
DX: J45.901 Unspecified asthma with (acute) exacerbation (principal); J44.9 Chronic obstructive pulmonary disease, unspecified; E78.00 Pure hypercholesterolemia, unspecified; F17.210 Nicotine dependence, cigarettes, uncomplicated; R06.02 Shortness of breath; Z79.52 Long term (current) use of systemic steroids; Z79.899 Other long term (current) drug therapy
CPT/HCPCS: 71045; 94640; 99284

== ENCOUNTER 2022-04-03 12:30 | Emergency (ER) | payer OTHER, SELFPAY ==
[2022-04-03] VITALS (7 sets, daily range): BP systolic 121–133; BP diastolic 74–91; PULSE 76–104; RESP 11–22; TEMP 36.1–36.8; O2SAT 87–99; BMI 25.0
[2022-04-03] MEDS: predniSONE 20 MG Tablet 60 MG PO (13:45)
--- NOTE | 2022-04-03 13:49 | EX.ED.DYSGE1 ---
HPI <ALHAJI Rios - Last Filed: 04/03/22 14:20> History of Present Illness Chief Complaint: Shortness of Breath Narrative Narrative: Patient is a 51-year-old female with history of GERD, asthma, COPD who still smokes occasionally presents to the emergency department with 1 to 2 hours of worsening cough, increased shortness of breath. Patient states she used her inhalers however she did not have any relief. She denies any specific chest pain. Patient states that she just felt like she could not get enough air. She denies any recent fever, chills, infectious-like symptoms. Patient denies any nausea or vomiting. Patient is not been on steroids for several months. PFSH <ALHAJI Rios - Last Filed: 04/03/22 14:20> [facility] Medical History Abdominal pain Alcohol use Arthritis Asthma Bipolar disorder COPD (chronic obstructive pulmonary disease) Depression Easy bruising Epigastric pain Gastric reflux GERD (gastroesophageal reflux disease) High cholesterol History of back problems History of COPD History of diverticulitis History of IBS Hypercholesterolemia Restless legs Shortness of breath on exertion Smoker Tobacco use Wears glasses Home Medications albuterol sulfate 90 mcg/actuation aerosol inhaler (ProAir HFA) 2 puff inhalation Q6H PRN Sob &/Or Wheezing 06/14/17 [History Last Taken Unknown] famotidine 40 mg tablet (Pepcid) 40 mg PO DAILY 07/02/21 [History Last Taken Unknown] hydrocodone-acetaminophen 5-325mg 5mg-325mg ([place]) 1 tab PO TID 07/02/21 [History Last Taken Unknown] pravastatin 40 mg tablet 10 mg PO QHS 07/02/21 [History Last Taken Unknown] zolpidem 10 mg tablet 10 mg PO QHS 07/02/21 [History Last Taken Unknown] albuterol sulfate 2.5 mg/3 mL (0.083 %) solution for nebulization 2.5 mg (3 mL) inhalation Q4H PRN #25 vials 11/02/21 [Rx Last Taken Unknown] prednisone 20 mg tablet See Rx Instructions .Route .COMPLEX #24 TABLETS 11/02/21 [Rx Last Taken Unknown] prednisone 50 mg tablet 50 mg PO DAILY #5 tabs 04/03/22 [Rx Last Taken Unknown] Allergy/AdvReac Type Severity Reaction Status Date / Time amitriptyline AdvReac Other Verified 04/03/22 12:47 diphenhydramine HCl AdvReac Other Verified 04/03/22 12:47 [From Benadryl] MUSCLE RELAXERS AdvReac Other Uncoded 04/03/22 12:47 Family History Mother Cancer lung Father Cancer lung Brother Cancer lung Diabetes Heart disease Sister Breast cancer Brother Heart disease Hypertension High cholesterol Surgical History brain tumor removed delivery delivered History of dermoid cyst excision History of excision of mass History of tonsillectomy Hx of appendectomy Social History Smoking Status: Current some day smoker tobacco type: cigarettes alcohol intake: current details: social substance use type: does not use caffeine: Yes what type of physical activity do you participate in: walking seatbelt use: always do you feel safe at home: Yes additional social history: Paul Stoddard Patient works at [employer] ROS <ALHAJI Rios - Last Filed: 04/03/22 14:20> [facility] ROS Narrative Constitutional: Negative for fever, chills, weight loss, weakness Eyes: Negative for vision loss, vision change, double vision ENT: Negative for any sore throat, ear pain, congestion Cardiovascular: Negative for any chest pain, tightness, palpitations Respiratory: Negative for any cough, sputum production, hemoptysis. Positive for dyspnea, dyspnea on exertion Gastrointestinal: Negative for any abdominal pain, nausea, vomiting, diarrhea, constipation, blood in stool, blood in vomit : Negative for any urinary frequency, dysuria, retention, blood in urine Muscle skeletal: Negative for any muscle joint pain, stiffness, myalgias, arthralgias, neck pain, back pain Neurological: Negative for any headache, syncope, numbness or tingling, dizziness Skin: Negative for any rashes, lumps, itching, abrasions, lacerations Psychiatric: Negative for any depression, anxiety, stress, suicidal ideation, homicidal ideation Hematologic: Negative for any easy bruising, excessive bruising, easy bleeding Allergies: Negative for any eczema, hives, rash EXAM <Rogelio RosalesLUKAS verdugo-C - Last Filed: 04/03/22 14:20> Physical Exam Narrative Exam Narrative: Vital signs reviewed. Patient is 97% on room air. Patient is in no obvious distress. HEET: Head normocephalic atraumatic, TMs clear bilaterally. Posterior pharynx is clear, moist mucous membranes. Nares clear bilaterally. Neck: Supple with no lymphadenopathy or tenderness. No signs of meningismus, negative jolt sign. Cardiac: Regular rate and rhythm no murmurs gallops or rubs, equal peripheral pulses bilaterally. Respiratory: Patient had expiratory wheeze to the left middle lobe. Diminished lung sounds in bilateral bases.. No chest tenderness. Abdomen: Soft, nontender, nondistended. No abdominal bruit or pulsatile masses. No hepatosplenomegaly Extremities: No peripheral edema, no signs of gross trauma or deformity. Active full range of motion of all extremities. Neuro: Cranial nerves II through XII intact, no focal neurological deficits. Skin: Clean dry and intact with no rash, purpura, petechiae, vesicles or pustules. Backs/flank: No CVA tenderness, no midline spinal tenderness, no deformity. Psych: Normal mood and affect. No SI, HI or acute psychosis. Const Vital Signs: 04/03/22 12:30 04/03/22 12:46 04/03/22 12:46 Temperature 96.9 F L Temperature Source Temporal Pulse Rate 104 H Respiratory Rate 22 H Respiratory Effort Respiratory Depth Respiratory Pattern Blood Pressure 121/87 H Blood Pressure Mean 98 Pulse Ox 93 87 99 Oxygen Delivery Method Room Air Room Air Nasal Cannula Oxygen Flow Rate (L/min) 2 04/03/22 12:46 04/03/22 12:48 04/03/22 12:49 Temperature 96.9 F L Temperature Source Temporal Pulse Rate 92 91 Respiratory Rate 12 11 L Respiratory Effort Short of Breath Labored Accessory Muscle Use Respiratory Depth Normal Respiratory Pattern Normal Blood Pressure 133/91 H 133/91 H Blood Pressure Mean 105 105 Pulse Ox 99 94 Oxygen Delivery Method Nasal Cannula Nasal Cannula Nasal Cannula Oxygen Flow Rate (L/min) 1 1 1 04/03/22 13:44 04/03/22 13:56 04/03/22 14:23 Temperature 98.3 F Temperature Source Oral Pulse Rate 90 76 93 Respiratory Rate 14 12 12 Respiratory Effort Respiratory Depth Respiratory Pattern Blood Pressure 123/74 H 124/75 H Blood Pressure Mean 90 Pulse Ox 95 94 Oxygen Delivery Method Room Air Oxygen Flow Rate (L/min) Positive well nourished and well developed General Appearance ED: well developed <Dr. Humberto Castro DO - Last Filed: 04/03/22 22:39> Physical Exam Const Vital Signs: 04/03/22 12:30 04/03/22 12:46 04/03/22 12:46 Temperature 96.9 F L Temperature Source Temporal Pulse Rate 104 H Respiratory Rate 22 H Respiratory Effort Respiratory Depth Respiratory Pattern Blood Pressure 121/87 H Blood Pressure Mean 98 Pulse Ox 93 87 99 Oxygen Delivery Method Room Air Room Air Nasal Cannula Oxygen Flow Rate (L/min) 2 04/03/22 12:46 04/03/22 12:48 04/03/22 12:49 Temperature 96.9 F L Temperature Source Temporal Pulse Rate 92 91 Respiratory Rate 12 11 L Respiratory Effort Short of Breath Labored Accessory Muscle Use Respiratory Depth Normal Respiratory Pattern Normal Blood Pressure 133/91 H 133/91 H Blood Pressure Mean 105 105 Pulse Ox 99 94 Oxygen Delivery Method Nasal Cannula Nasal Cannula Nasal Cannula Oxygen Flow Rate (L/min) 1 1 1 04/03/22 13:44 04/03/22 13:56 04/03/22 14:23 Temperature 98.3 F Temperature Source Oral Pulse Rate 90 76 93 Respiratory Rate 14 12 12 Respiratory Effort Respiratory Depth Respiratory Pattern Blood Pressure 123/74 H 124/75 H Blood Pressure Mean 90 Pulse Ox 95 94 Oxygen Delivery Method Room Air Oxygen Flow Rate (L/min) [facility] <ALHAJI Rios - Last Filed: 04/03/22 14:20> [facility] Treatment and Re-Evaluation Narrative: All radiologic examinations were read, reviewed by the emergency department attending. From these reads, a plan of care will be put in place. Patient appears generally well, patient is in no distress. Patient presents emergency department for worsening shortness of breath over the last 1 to 2 hours. Patient does have history of asthma and believes she is having exacerbation. Patient's physical examination yields no red flag signs, there is no evidence of suspect any infectious process such as pneumonia or influenza or COVID-19. Patient was given breathing treatments, steroids here. On reassessment, the patient felt much better. She does have breathing treatments as well as albuterol inhaler at home, I will add prednisone 50 mg for 5 days. Patient will follow-up closely with her PCP. She was given return precaution. Patient is happy with the plan of care and is stable for discharge. <Dr. Humberto Castro, DO - Last Filed: 04/03/22 22:39> MDM MDM Narrative Medical decision making narrative: Interventions / MDM: Differential diagnosis: Asthma exacerbation, URI Diagnosis considered but do not suspect: Pneumonia however no rales My EKG interpretation: N/A Imaging independently reviewed and interpreted by myself: N/A External documents reviewed: N/A Test considered but not ordered:N/A ED course: Attending note: Patient seen and evaluated with environmental professional. I perform my own [id number] evaluation. I agree with the plan of work-up. Sudden dyspnea wheeze 2 hours prior to arrival tobacco history. History of asthma. No history of diabetes. Examined after breathing treatment steroids no current wheezing clinically improved symptoms. Discharged with burst steroids. She has nebulizer inhaler to use as needed. Return precautions. Tobacco cessation. All questions were answered. Re-evaluation: stable Disposition discussed with patient/family/significant other: Patient Case discussed with consulting clinician: N/A. Discharge Plan Triage Chief Complaint: Shortness of Breath ED Midlevel Provider: Rogelio Vela ED Provider: Humberto Castro Dx/Rx/DC Orders Clinical Impression: Asthma Instructions: Asthma and COPD Prescriptions: New prednisone 50 mg tablet 50 mg PO DAILY Qty: 5 0RF No Action albuterol sulfate [ProAir HFA] 90 mcg/actuation HFA aerosol inhaler 2 puff INHALATION Q6H PRN (Reason: Sob &/Or Wheezing) famotidine [Pepcid] 40 mg tablet 40 mg PO DAILY pravastatin 40 mg tablet 10 mg PO QHS hydrocodone-acetaminophen [[place]] 5-325 mg tablet 1 tab PO TID zolpidem 10 mg tablet 10 mg PO QHS Label Comments: TAKE 1 TABLET BY MOUTH EVERYDAY AT BEDTIME prednisone 20 mg tablet See Rx Instructions .ROUTE .COMPLEX Qty: 24 0RF Rx Instructions: 3 tabs p.o. daily days 1 through 4, then 2 tabs p.o. daily days 5 through 8, then 1 tab p.o. daily day 9 through 12 albuterol sulfate 2.5 mg /3 mL (0.083 %) solution for nebulization 2.5 mg inhalation Q4H PRN Qty: 25 0RF Rx Instructions: Use q4 hours and PRN for wheezing Primary Care Provider: Raad Armendariz Referrals: Raad Armendariz, DO [Primary Care Provider] - Activity Restrictions/Additional Instructions: Please take prednisone until finished. Use your inhalers. Return for any worsening symptoms Disposition Disposition: Home, Self Care Discharge Date/Time: 04/03/22 14:27
[2022-04-03] MEDS: Ipratropium/Albuterol Sulfate 3 ML AMPUL.NEB INHALATION (13:55)
[2022-04-03] MEDS: Albuterol 2.5 MG/3 ML VIAL.NEB. INHALATION (13:55)
--- NOTE | 2022-04-03 14:11 | ED.RN ---
PER DR. DEAL, OKAY TO DISCONTINUE SEPSIS CHECKS.
== END 2022-04-03 14:27 | disposition home or self-care (01) ==
PROVIDERS: Emergency Provider Emergency Medicine; PCP Family Medicine; Visit Provider Emergency Medicine
DX: J44.9 Chronic obstructive pulmonary disease, unspecified (principal); E78.00 Pure hypercholesterolemia, unspecified; F17.210 Nicotine dependence, cigarettes, uncomplicated; Z79.52 Long term (current) use of systemic steroids
CPT/HCPCS: 94640; 99252; 99283; G0463

== ENCOUNTER → 2022-09-09 | Outpatient (CLI) | payer OTHER, SELFPAY ==
[2022-09-12 13:07] LABS: ANTINUCLEAR ANTIBODIES DIRECT Negative (Negative)
== END | disposition home or self-care (01) ==
LOC: MTLAB 10:50
PROVIDERS: PCP Family Medicine; Referring Provider Family Medicine; Visit Provider Family Medicine
DX: R23.1 Pallor (principal); R21 Rash and other nonspecific skin eruption
CPT/HCPCS: 36415; 86038; 86225; 86235

== ENCOUNTER 2023-02-15 10:57 | Emergency (ER) | payer OTHER, SELFPAY ==
[2023-02-15 10:58] VITALS: BP 128/90; PULSE 75; RESP 18; TEMP 35.5; O2SAT 96; BMI 25.4
--- NOTE | 2023-02-15 12:18 | EDS_ITS ---
HPI History of Present Illness Chief Complaint: Abscess Narrative Narrative: Presents with a lesion on her nose for about 3 days. No fevers chills. No drainage. No known trauma. She states it started crusty and yellow. Now it seems more red and discomfort. No nausea vomiting. PFSH PFSH Medical History Abdominal pain Alcohol use Arthritis Asthma Bipolar disorder COPD (chronic obstructive pulmonary disease) Depression Easy bruising Epigastric pain Gastric reflux GERD (gastroesophageal reflux disease) High cholesterol History of back problems History of COPD History of diverticulitis History of IBS Hypercholesterolemia Restless legs Shortness of breath on exertion Smoker Tobacco use Wears glasses Home Medications albuterol sulfate 90 mcg/actuation aerosol inhaler (ProAir HFA) 2 puff inhalation Q6H PRN Sob &/Or Wheezing 06/14/17 [History Last Taken Unknown] famotidine 40 mg tablet (Pepcid) 40 mg PO DAILY 07/02/21 [History Last Taken Unknown] hydrocodone-acetaminophen 5-325mg 5mg-325mg ([place]) 1 tab PO TID 07/02/21 [History Last Taken Unknown] pravastatin 40 mg tablet 10 mg PO QHS 07/02/21 [History Last Taken Unknown] zolpidem 10 mg tablet 10 mg PO QHS 07/02/21 [History Last Taken Unknown] albuterol sulfate 2.5 mg/3 mL (0.083 %) solution for nebulization 2.5 mg (3 mL) inhalation Q4H PRN #25 vials 11/02/21 [Rx Last Taken Unknown] prednisone 20 mg tablet See Rx Instructions .Route .COMPLEX #24 TABLETS 11/02/21 [Rx Last Taken Unknown] prednisone 50 mg tablet 50 mg PO DAILY #5 tabs 04/03/22 [Rx Last Taken Unknown] doxycycline monohydrate 100 mg capsule 100 mg PO BID #20 CAPSULES 02/15/23 [Rx Last Taken Unknown] mupirocin 2 % topical ointment 1 applic topical BID 10 days #22 grams 02/15/23 [Rx Last Taken Unknown] Allergy/AdvReac Type Severity Reaction Status Date / Time amitriptyline AdvReac Other Verified 04/03/22 12:47 diphenhydramine HCl AdvReac Other Verified 04/03/22 12:47 [From Benshaylaryl] Family History Mother Cancer lung Father Cancer lung Brother Cancer lung Diabetes Heart disease Sister Breast cancer Brother Heart disease Hypertension High cholesterol Surgical History brain tumor removed delivery delivered History of dermoid cyst excision History of excision of mass History of tonsillectomy Hx of appendectomy Social History Smoking Status: Current some day smoker tobacco type: cigarettes alcohol intake: current details: social substance use type: does not use caffeine: Yes what type of physical activity do you participate in: walking seatbelt use: always do you feel safe at home: Yes additional social history: Paul Stoddard Patient works at [employer] ED Constitutional Constitutional ED: Denies chills or fever(s) Eyes Eyes: Denies blurry vision, change in vision or diplopia ENT ENT ED: Reports other Details: See history of present illness Cardiovascular Cardiovascular: Denies chest pain Respiratory/Chest Respiratory/Chest: Reports other Details: Patient has asthma but is not wheezing now ; Denies cough Gastrointestinal Gastrointestinal: Denies nausea or vomiting Musculoskeletal Musculoskeletal: Denies myalgias Integumentary Reports rash Neurologic Neurologic: Denies headache(s) Hematologic/Lymphatic Hematologic/Lymphatic: Denies easy bleeding or easy bruising Allergic/Immunologic Allergic/Immunologic ED: Denies urticaria EXAM Physical Exam Narrative Exam Narrative: CONSTITUTIONAL: Patient is nontoxic in appearance. The patient looks comfortable. Work of breathing looks normal. HEENT: Patient does have some crusting of a carmona nature around the naris. Really just in the center. It is erythematous. It does seem a little bit full but there is no drainable abscess. I can look up into her nasal passages pretty easily. This all seems to be distal. She has a upper denture in but I do not see any abscess under the lip. There is nothing that I can drain. No sinus tenderness. EYES: No conjunctival injection. No proptosis. No pain with motion. NECK:No JVD. No stridor. CARDIOVASCULAR: Regular rate. Regular rhythm. No notable murmur. No JVD. RESPIRATORY: No respiratory distress. Despite her history of asthma, her lungs sound very clear and her saturations are normal at 96% on room air. GASTROINTESTINAL: Not distended. Bowel sounds are normal. No tenderness. MUSCULOSKELETAL: Atraumatic. No peripheral swelling. NEUROLOGICAL: Patient is alert and appropriate. No focal deficit noted. SKIN: See above. PSYCHIATRIC: Patient is calm. Mood is appropriate. Const Vital Signs: 02/15/23 10:58 Temperature 96 F L Temperature Source Temporal Pulse Rate 75 Respiratory Rate 18 Blood Pressure 128/90 H Blood Pressure Mean 102 Pulse Ox 96 Oxygen Delivery Method Room Air MDM MDM MDM Narrative Medical decision making narrative: Patient showed me pictures when this started and was very carmona crusty. It is now a little bit more erythematous. But considering the location, the crusting, the erythema this is likely staph infection. I will start mupirocin ointment. But due to the swelling and progression over 3 days I will also initiate oral antibiotics. We discussed reasons to return that primarily would include further swelling or drainable abscess. Discharge Plan Triage Chief Complaint: Abscess ED Provider: Olegario Basilio Dx/Rx/DC Orders Clinical Impression: Staphylococcus infection of nose Instructions: ED Cellulitis, Facial Prescriptions: New doxycycline monohydrate 100 mg capsule 100 mg PO BID Qty: 20 0RF mupirocin 2 % ointment 1 applic topical BID 10 Days Qty: 22 0RF No Action albuterol sulfate [ProAir HFA] 90 mcg/actuation HFA aerosol inhaler 2 puff INHALATION Q6H PRN (Reason: Sob &/Or Wheezing) famotidine [Pepcid] 40 mg tablet 40 mg PO DAILY pravastatin 40 mg tablet 10 mg PO QHS hydrocodone-acetaminophen [[place]] 5-325 mg tablet 1 tab PO TID zolpidem 10 mg tablet 10 mg PO QHS Patient Comments: TAKE 1 TABLET BY MOUTH EVERYDAY AT BEDTIME prednisone 20 mg tablet See Rx Instructions .ROUTE .COMPLEX Qty: 24 0RF Rx Instructions: 3 tabs p.o. daily days 1 through 4, then 2 tabs p.o. daily days 5 through 8, then 1 tab p.o. daily day 9 through 12 albuterol sulfate 2.5 mg /3 mL (0.083 %) solution for nebulization 2.5 mg inhalation Q4H PRN Qty: 25 0RF Rx Instructions: Use q4 hours and PRN for wheezing prednisone 50 mg tablet 50 mg PO DAILY Qty: 5 0RF Primary Care Provider: Raad Armendariz Referrals: Raad Armendariz, [Primary Care Provider] - 3-5 Days if not improving Disposition Disposition: Home, Self Care
--- OUTSIDE RECORDS SUMMARY | 2023-02-15 13:31 | XMS RPT_ITS | CCD ---
Author Name Unknown Address [address] [place] [address] Organization [facility] Results Test Name Value Interpretation Reference Range Facil ity Summary Purpose Family History No Family History Records FoundNo Family History Records Found Advance Directives No Advanced Directives Records FoundNo Advanced Directives Records Found Additional Source Comments INFORMATION SOURCE (unrecogn ized section and content) DATE CREATED AUTHOR AUTHOR'S PO LAFLEUR 05/28/2020 [facility] ([place]) FOR RECORDS PERTAINING TO PATIENTS WHO ARE OR HAVE BEEN ENROLLED IN A CHEMICAL DEPENDENCY/SUBSTANCEABUSE PROGRAM, SOME INFORMATION MAY BE OMITTED. This clinical summary was aggregated from multiple sources. Caution should be exercised in using it in the provision of clinical care. This summary normalizes information from multiple sources, and as a consequence, information in this document may materially change the coding, format and clinical context of patient data. In addition, data may be omitted in some cases. CLINICAL DECISIONS SHOULD BE BASED ON THE PRIMARY CLINICAL RECORDS. [facility] [employer] [facility]. provides no warranty or guarantee of the accuracy or completeness of information in this document.
== END 2023-02-15 12:33 | disposition home or self-care (01) ==
LOC: ED 13:12
PROVIDERS: Emergency Provider Emergency Medicine; PCP Family Medicine; Visit Provider Emergency Medicine
DX: J34.0 Abscess, furuncle and carbuncle of nose (principal); J44.9 Chronic obstructive pulmonary disease, unspecified; F17.210 Nicotine dependence, cigarettes, uncomplicated; E78.00 Pure hypercholesterolemia, unspecified; B95.8 Unspecified staphylococcus as the cause of diseases classified elsewhere
CPT/HCPCS: 99282

== ENCOUNTER 2023-03-12 13:36 | Emergency (ER) | payer SELFPAY ==
[2023-03-12 13:37] VITALS: BP 139/96; PULSE 125; RESP 20; TEMP 36.3; O2SAT 92; BMI 24.9
[2023-03-12] MEDS: Ipratropium/Albuterol Sulfate 3 ML AMPUL.NEB INHALATION (13:59)
[2023-03-12] MEDS: Albuterol 2.5 MG/3 ML VIAL.NEB. INHALATION ×3 (14:00→14:08)
[2023-03-12 14:01] VITALS: PULSE 86; RESP 20
--- NOTE | 2023-03-12 14:09 | EX.ED.DYSGE1 ---
HPI <WINSTON Cade - Last Filed: 03/12/23 18:14> History of Present Illness Chief Complaint: Shortness of Breath Narrative Narrative: Patient presenting today due to shortness of breath and cold-like symptoms. She reports that on Monday she developed a nonproductive cough, nasal congestion, and a headache. Today, she developed a fever and began having increased coughing, wheezing, and feeling short of breath. She reports a history of COPD and asthma. She reports multiple people at work have been sick with similar symptoms. She developed some nausea today but has not had any vomiting, abdominal pain, or diarrhea. She denies any chest pain. PFS <WINSTON Cade - Last Filed: 03/12/23 18:14> [facility] Medical History Abdominal pain Alcohol use Arthritis Asthma Bipolar disorder COPD (chronic obstructive pulmonary disease) Depression Easy bruising Epigastric pain Gastric reflux GERD (gastroesophageal reflux disease) High cholesterol History of back problems History of COPD History of diverticulitis History of IBS Hypercholesterolemia Restless legs Shortness of breath on exertion Smoker Tobacco use Wears glasses Home Medications albuterol sulfate 90 mcg/actuation aerosol inhaler (ProAir HFA) 2 puff inhalation Q6H PRN Sob &/Or Wheezing 06/14/17 [History Last Taken Unknown] famotidine 40 mg tablet (Pepcid) 40 mg PO DAILY 07/02/21 [History Last Taken Unknown] hydrocodone-acetaminophen 5-325mg 5mg-325mg ([place]) 1 tab PO TID 07/02/21 [History Last Taken Unknown] pravastatin 40 mg tablet 10 mg PO QHS 07/02/21 [History Last Taken Unknown] zolpidem 10 mg tablet 10 mg PO QHS 07/02/21 [History Last Taken Unknown] albuterol sulfate 2.5 mg/3 mL (0.083 %) solution for nebulization 2.5 mg (3 mL) inhalation Q4H PRN #25 vials 11/02/21 [Rx Last Taken Unknown] prednisone 20 mg tablet See Rx Instructions .Route .COMPLEX #24 TABLETS 11/02/21 [Rx Last Taken Unknown] prednisone 50 mg tablet 50 mg PO DAILY #5 tabs 04/03/22 [Rx Last Taken Unknown] doxycycline monohydrate 100 mg capsule 100 mg PO BID #20 CAPSULES 02/15/23 [Rx Last Taken Unknown] mupirocin 2 % topical ointment 1 applic topical BID 10 days #22 grams 02/15/23 [Rx Last Taken Unknown] hydrocodone 7.5 mg-acetaminophen 325 mg tablet 1 tab PO Q6H 03/12/23 [History Last Taken Unknown] loratadine 10 mg tablet 10 mg PO Q24H 03/12/23 [History Last Taken Unknown] ondansetron 4 mg disintegrating tablet 4 mg PO Q8H PRN PRN Nausea #10 tabs 03/12/23 [Rx Last Taken Unknown] oseltamivir 75 mg capsule (Tamiflu) 75 mg PO BID 5 days #10 caps 03/12/23 [Rx Last Taken Unknown] pantoprazole 40 mg tablet,delayed release 40 mg PO Q12H 03/12/23 [History Last Taken Unknown] prednisone 20 mg tablet 40 mg (2 x 20 mg) PO DAILY 4 days #8 TABLETS 03/12/23 [Rx Last Taken Unknown] Allergy/AdvReac Type Severity Reaction Status Date / Time amitriptyline AdvReac Other Verified 03/12/23 13:39 diphenhydramine HCl AdvReac Other Verified 03/12/23 13:39 [From Benadryl] Family History Mother Cancer lung Father Cancer lung Brother Cancer lung Diabetes Heart disease Sister Breast cancer Brother Heart disease Hypertension High cholesterol Surgical History brain tumor removed delivery delivered History of dermoid cyst excision History of excision of mass History of tonsillectomy Hx of appendectomy Social History Smoking Status: Current some day smoker tobacco type: cigarettes alcohol intake: current details: social substance use type: does not use caffeine: Yes what type of physical activity do you participate in: walking seatbelt use: always do you feel safe at home: Yes additional social history: Paul Stoddard Patient works at [employer] ROS <WINSTON Cade - Last Filed: 03/12/23 18:14> ROS ED Constitutional Constitutional ED: Reports fever(s); Denies chills Cardiovascular Cardiovascular: Denies chest pain or palpitations Respiratory/Chest Respiratory/Chest: Reports cough, dyspnea on exertion and wheezing Gastrointestinal Gastrointestinal: Reports nausea; Denies abdominal pain or vomiting Musculoskeletal Musculoskeletal: Denies arthralgias or myalgias Integumentary Denies rash Neurologic Neurologic: Denies weakness EXAM <Tamanna Lema PA - Last Filed: 03/12/23 18:14> Physical Exam Const Vital Signs: 03/12/23 13:37 03/12/23 13:51 03/12/23 14:01 Temperature 97.4 F L Temperature Source Temporal Pulse Rate 125 H 86 Respiratory Rate 20 H 20 H Respiratory Effort Short of Breath Respiratory Depth Shallow Respiratory Pattern Normal Tachypnea Blood Pressure 139/96 H Blood Pressure Mean 110 Pulse Ox 92 Oxygen Delivery Method Room Air 03/12/23 14:36 03/12/23 15:36 03/12/23 17:50 Temperature Temperature Source Pulse Rate 109 H Respiratory Rate 16 16 Respiratory Effort Respiratory Depth Respiratory Pattern Blood Pressure 128/76 H 108/52 L Blood Pressure Mean 93 70 Pulse Ox 99 Oxygen Delivery Method Room Air Room Air Positive well nourished, well developed and no apparent distress General Appearance ED: well developed HEENT Reports normocephalic, head/scalp atraumatic and TM's clear Tympanic Membrane ED: Yes TM's clear bilateral Mouth ED: Yes moist mucous membranes normal Throat: posterior oropharynx normal and uvula midline Eyes PERRL and EOMs intact bilaterally Neck full ROM and supple Chest Wall inspection of chest normal Resp normal respiratory effort and clear to auscultation bilaterally Auscultation: wheezes expiratory wheezes, inspiratory wheezes and throughout Cardio regular rate and regular rhythm GI soft to palpation, non-tender, non-distended and no masses Back/Spine normal ROM and normal to inspection Extremity normal to inspection and full ROM Neuro oriented x3, CN's II-XII intact bilaterally, moves all extremities, no focal motor deficits and no sensory deficits noted Sensorium / Orientation: awake and alert Psych mental status grossly normal and thought process normal Skin no rashes or lesions noted and no wounds <Dr. Maulik Young DO - Last Filed: 03/12/23 21:44> Physical Exam Const Vital Signs: 03/12/23 13:37 03/12/23 13:51 03/12/23 14:01 Temperature 97.4 F L Temperature Source Temporal Pulse Rate 125 H 86 Respiratory Rate 20 H 20 H Respiratory Effort Short of Breath Respiratory Depth Shallow Respiratory Pattern Normal Tachypnea Blood Pressure 139/96 H Blood Pressure Mean 110 Pulse Ox 92 Oxygen Delivery Method Room Air 03/12/23 14:36 03/12/23 15:36 03/12/23 17:50 Temperature Temperature Source Pulse Rate 109 H Respiratory Rate 16 16 Respiratory Effort Respiratory Depth Respiratory Pattern Blood Pressure 128/76 H 108/52 L Blood Pressure Mean 93 70 Pulse Ox 99 Oxygen Delivery Method Room Air Room Air MDM <WINSTON Cade - Last Filed: 03/12/23 18:14> [facility] Narrative Medical decision making narrative: Patient presenting with cold-like symptoms that she has had since Monday. Multiple people have been sick in her workplace with similar symptoms. Initially, she is tachycardic and oxygen saturation is 92% on room air. She was placed on supplemental O2. She has inspiratory and expiratory wheezes on exam, Solu-Medrol and breathing treatments have been given. COVID, flu, and RSV swabs will be obtained as well as lab work to rule out ACS. During her breathing treatment she did have an episode of vomiting, she was given Zofran and IV fluids. Labs do show slight hypokalemia at 3.2. High-sensitivity troponin WNL. She is influenza B+ and within the window for Tamiflu, this will be given as well as a prescription for prednisone and Zofran. On reexamination she reports improvement of her symptoms and feels well enough to go home. She was ambulated and did not become hypoxic. Supportive care measures given, and she has been given return instructions. She will be discharged home in stable condition and is comfortable with plan. Lab Data Attestation: I reviewed the patient's lab results. Labs: Laboratory Results - last 24 hr 03/12/23 14:39 WBC 8.7 RBC 4.63 Hgb 13.5 Hct 40.1 MCV 86.6 MCH 29.2 MCHC 33.7 RDW Std Deviation 42.8 RDW Coeff of [place] 13.6 Plt Count 294 MPV 8.9 Immature Gran % (Auto) 0.300 Neut % (Auto) 73.2 H Lymph % (Auto) 16.9 L [place] % (Auto) 9.2 Eos % (Auto) 0.1 Baso % (Auto) 0.3 Absolute Neuts (auto) 6.4 Absolute Lymphs (auto) 1.47 Nucleated RBC % 0 Sodium 136 Potassium 3.2 L Chloride 104 Carbon Dioxide 26.0 Anion Gap 6 BUN 13 Creatinine 0.65 Estim Creat Clear Calc 96.69 Est GFR (MDRD) Af Amer 123 Est GFR (MDRD) Non-Af 102 BUN/Creatinine Ratio 19.9 Glucose 156 H Calcium 8.4 L Troponin I High Sens < 3 L Radiography X-Ray: Read by ED Physician and Read by Radiologist Diagnostic Testing: Clinical Impression(s) from Imaging Studies Chest X-Ray 03/12/23 14:38 IMPRESSION: No radiographic evidence of acute cardiopulmonary disease. Electronically Signed: Mayco Arellano MD at 15:03 EST , EKG Initial EKG: Comments: 107 bpm, sinus tachycardia, no ST elevation no signs of cardiac ischemia, reviewed and interpreted by attending ED physician <Dr. Maulik Young, DO - Last Filed: 03/12/23 21:44> [facility] MDM Narrative Medical decision making narrative: Patient presenting with cold-like symptoms that she has had since Monday. Multiple people have been sick in her workplace with similar symptoms. Initially, she is tachycardic and oxygen saturation is 92% on room air. She was placed on supplemental O2. She has inspiratory and expiratory wheezes on exam, Solu-Medrol and breathing treatments have been given. COVID, flu, and RSV swabs will be obtained as well as lab work to rule out ACS. During her breathing treatment she did have an episode of vomiting, she was given Zofran and IV fluids. Labs do show slight hypokalemia at 3.2. High-sensitivity troponin WNL. She is influenza B+ and within the window for Tamiflu, this will be given as well as a prescription for prednisone and Zofran. On reexamination she reports improvement of her symptoms and feels well enough to go home. She was ambulated and did not become hypoxic. We discussed her persistent tachycardia. Offered additional fluids, ED observation possible admission however patient was alert and orient x 3 and chose to be discharged home. She understood the risk of premature discharge including risk of missed diagnosis, delayed diagnosis stroke she has been capacity make medical decisions and chose to be discharged home. Supportive care measures given, and she has been given return instructions. She will be discharged home in stable condition and is comfortable with plan. Lab Data Labs: Laboratory Results - last 24 hr 03/12/23 14:39 WBC 8.7 RBC 4.63 Hgb 13.5 Hct 40.1 MCV 86.6 MCH 29.2 MCHC 33.7 RDW Std Deviation 42.8 RDW Coeff of [place] 13.6 Plt Count 294 MPV 8.9 Immature Gran % (Auto) 0.300 Neut % (Auto) 73.2 H Lymph % (Auto) 16.9 L [place] % (Auto) 9.2 Eos % (Auto) 0.1 Baso % (Auto) 0.3 Absolute Neuts (auto) 6.4 Absolute Lymphs (auto) 1.47 Nucleated RBC % 0 Sodium 136 Potassium 3.2 L Chloride 104 Carbon Dioxide 26.0 Anion Gap 6 BUN 13 Creatinine 0.65 Estim Creat Clear Calc 96.69 Est GFR (MDRD) Af Amer 123 Est GFR (MDRD) Non-Af 102 BUN/Creatinine Ratio 19.9 Glucose 156 H Calcium 8.4 L Troponin I High Sens < 3 L Radiography Diagnostic Testing: Clinical Impression(s) from Imaging Studies Chest X-Ray 03/12/23 14:38 IMPRESSION: No radiographic evidence of acute cardiopulmonary disease. Electronically Signed: Mayco Arellano MD at 15:03 EST Reading Location ID and State: [facility] / [place] , Service support , Discharge Plan Triage Chief Complaint: Shortness of Breath ED Midlevel Provider: Tamanna Lema ED Provider: Maulik Young Dx/Rx/DC Orders Clinical Impression: History of COPD, Influenza B Instructions: ED Influenza (Adult) Prescriptions: New oseltamivir [Tamiflu] 75 mg capsule 75 mg PO BID 5 Days Qty: 10 0RF prednisone 20 mg tablet 40 mg PO DAILY 4 Days Qty: 8 0RF ondansetron 4 mg tablet,disintegrating 4 mg PO Q8H PRN PRN (Reason: Nausea) Qty: 10 0RF No Action albuterol sulfate [ProAir HFA] 90 mcg/actuation HFA aerosol inhaler 2 puff INHALATION Q6H PRN (Reason: Sob &/Or Wheezing) famotidine [Pepcid] 40 mg tablet 40 mg PO DAILY pravastatin 40 mg tablet 10 mg PO QHS hydrocodone-acetaminophen [[place]] 5-325 mg tablet 1 tab PO TID zolpidem 10 mg tablet 10 mg PO QHS Patient Comments: TAKE 1 TABLET BY MOUTH EVERYDAY AT BEDTIME prednisone 20 mg tablet See Rx Instructions .ROUTE .COMPLEX Qty: 24 0RF Rx Instructions: 3 tabs p.o. daily days 1 through 4, then 2 tabs p.o. daily days 5 through 8, then 1 tab p.o. daily day 9 through 12 albuterol sulfate 2.5 mg /3 mL (0.083 %) solution for nebulization 2.5 mg inhalation Q4H PRN Qty: 25 0RF Rx Instructions: Use q4 hours and PRN for wheezing prednisone 50 mg tablet 50 mg PO DAILY Qty: 5 0RF doxycycline monohydrate 100 mg capsule 100 mg PO BID Qty: 20 0RF mupirocin 2 % ointment 1 applic topical BID 10 Days Qty: 22 0RF hydrocodone-acetaminophen 7.5-325 mg tablet 1 tab PO Q6H Rx Instructions: FOR CHRONIC INTRACTABLE PAIN loratadine 10 mg tablet 10 mg PO Q24H pantoprazole 40 mg tablet,delayed release (DR/EC) 40 mg PO Q12H Primary Care Provider: Raad Armendariz Referrals: Raad Armendariz DO [Primary Care Provider] - 3-5 Days Activity Restrictions/Additional Instructions: Please return for any worsening of your symptoms. Follow-up with your PCP. Disposition Disposition: Home, Self Care Discharge Date/Time: 03/12/23 17:54
[2023-03-12] MEDS: Ondansetron 4 MG/2 ML Vial IV (14:36)
[2023-03-12] MEDS: 0.9% Normal Saline (500mL Bag) 500 ML 999 ML IV (14:36)
--- NOTE | 2023-03-12 14:38 | RAD_ITS ---
EXAM: XR CHEST, 2 VIEWS CLINICAL INDICATION: shortness of breath TECHNIQUE: Frontal and lateral views of the chest. COMPARISON: 11.02.21 FINDINGS: LUNGS AND PLEURAL SPACES: Unremarkable. No consolidation or edema. No pneumothorax. No effusion. HEART: Unremarkable. Cardiac silhouette not enlarged. MEDIASTINUM: Central airways and mediastinal contour are unremarkable. BONES/JOINTS: Unremarkable. No acute fracture. SOFT TISSUES: Unremarkable. RAD/Chest PA and Lateral IMPRESSION: No radiographic evidence of acute cardiopulmonary disease. Electronically Signed: Mayco Arellano MD at 15:03 EST ,
[2023-03-12] MEDS: MethylPREDNISolone 125 MG/2 ML Vial IV (14:44)
[2023-03-12 14:46] LABS: Absolute Lymphocyte Count 1.47 X10^3/uL (0.83-4.51); Absolute Neutrophil Count 6.4 X10^3/uL (2.0-7.7); Basophil# 0.03 X10^3/uL; Basophil% 0.3 % (0-1); Eosinophil# 0.01 X10^3/uL; Eosinophils% 0.1 % (0-5); Hematocrit 40.1 % (37-47); Hemoglobin 13.5 g/dL (12.0-15.0); Lymphocyte # 1.47 X10^3/ul (0.83-4.51); Lymphocyte % 16.9 % (19-41); Mean Corp Hgb Conc 33.7 g/dL (32-36); Mean Corpuscular Hgb 29.2 pg (27.0-32.0); Mean Corpuscular Volume 86.6 fL (81-99); Mean Platelet Vol. 8.9 fl (6.2-12.0); Monocyte% 9.2 % (0-10); NRBC Flagged by Analyzer 0 % (0-5); Neutrophil # 6.38 X10^3/uL (2.7-7.7); Neutrophil % 73.2 % (47-70); Platelet Count 294 K/mm3 (150-450); RBC Distribution Width CV 13.6 % (11.6-14.6); RBC Distribution Width SD 42.8 fl (35.1-43.9); Red Blood Count 4.63 M/mm3 (4.2-5.4); White Blood Count 8.7 K/mm3 (4.4-11.0)
[2023-03-12 15:03] LABS: Anion Gap 6 (5-15); BUN 13 mg/dL (7-18); BUN/Creat Ratio 19.9 RATIO (10-20); Calcium,Total 8.4 mg/dL (8.5-10.1); Chloride 104 mmol/L (98-107); Creatinine, Serum 0.65 mg/dL (0.55-1.02); EST Glomerular Filtration Rate 102 mL/min (>60); Est Glom Filt Rate - Afr Amer 123 mL/min (>60); Estimated Creatinine Clearance 96.69 ml/min; Glucose 156 mg/dL (74-106); Potassium 3.2 mmol/L (3.5-5.1); Sodium Level 136 mmol/L (136-145); Troponin-I HS < 3 pg/mL (3.0-54.0)
[2023-03-12 15:36] VITALS: BP 128/76; PULSE 109; RESP 16; O2SAT 99
--- OUTSIDE RECORDS SUMMARY | 2023-03-12 15:37 | XMS RPT_ITS | CCD ---
Author Name Unknown Address [address] [place] [address] Organization [facility] Results Test Name Value Interpretation Reference Range Facil ity Summary Purpose Family History No Family History Records FoundNo Family History Records Found Advance Directives No Advanced Directives Records FoundNo Advanced Directives Records Found Additional Source Comments INFORMATION SOURCE (unrecogn ized section and content) DATE CREATED AUTHOR AUTHOR'S PO LAFLEUR 05/28/2020 [facility] ([place]) FOR RECORDS PERTAINING TO PATIENTS WHO ARE [...] BE BASED ON THE PRIMARY CLINICAL RECORDS. [facility] [employer] [facility]. provides no warranty or guarantee of the accuracy or completeness of information in this document.
[2023-03-12] MEDS: Ketorolac 15 MG/ML Vial IV (16:45)
[2023-03-12 16:47] VITALS: O2SAT 92
[2023-03-12 17:50] VITALS: BP 108/52; RESP 16
== END 2023-03-12 17:54 | disposition home or self-care (01) ==
PROVIDERS: Emergency Provider Emergency Medicine; PCP Family Medicine; Visit Provider Emergency Medicine
DX: J10.1 Influenza due to other identified influenza virus with other respiratory manifestations (principal); J44.9 Chronic obstructive pulmonary disease, unspecified; F17.210 Nicotine dependence, cigarettes, uncomplicated; E87.6 Hypokalemia; E78.00 Pure hypercholesterolemia, unspecified; Z79.899 Other long term (current) drug therapy
CPT/HCPCS: 71046; 80048; 84484; 85025; 87631; 93005; 94640; 96361; 96374; 96375; 99284; J7040; A4216; J2405

== ENCOUNTER → 2023-05-15 | Outpatient (CLI) | payer OTHER, SELFPAY | END | disposition home or self-care (01) | LOC: BFHLAB 10:42 | PROVIDERS: PCP Family Medicine; Visit Provider Family Medicine | DX: R05.9 Cough, unspecified (principal) | CPT/HCPCS: 87633; 87635 ==

== ENCOUNTER 2023-05-29 10:30 | Emergency (ER) | payer OTHER, SELFPAY ==
[2023-05-29 10:31] VITALS: BP 141/90; PULSE 84; RESP 16; TEMP 36; O2SAT 97; BMI 23.6
--- NOTE | 2023-05-29 10:46 | CT_ITS ---
STUDY: CT SOFT TISSUE NECK WITH CONTRAST REASON FOR EXAM: Female, 52 years old. Left neck mass. RADIATION DOSAGE (If Supplied By Facility): CTDIvol = ( 14.51 ) mGy, DLP = ( 373.32 ) mGycm TECHNIQUE: The patient was scanned in a multi-detector CT scanner. High resolution transaxial imaging was performed following intravenous administration of IV 75mL [id number]-300. Sagittal and coronal images were reconstructed. Individualized dose optimization techniques were used for this CT. COMPARISON: None. FINDINGS: Normal bilateral parotid glands. Normal bilateral glue spreader spaces. Normal bilateral parapharyngeal spaces. Normal bilateral carotid spaces. Normal bilateral sublingual and submandibular glands and spaces. Normal visualized nasopharynx. Normal retropharyngeal space. Normal perivertebral space. Normal visualized bilateral faucial tonsils. The visualized tongue, tongue base and oropharynx are normal. The visualized cervical lymph nodes (levels I-) are within normal size limits, and maintain normal morphology. There is no demonstrated solid or cystic mass lesion. There is no abnormal contrast enhancement. Normal epiglottis, bilateral vallecula and hypopharynx. The pre-epiglottic and paraglottic adipose spaces are normal. Normal visualized bilateral piriform sinuses, aryepiglottic folds, vocal cords, and arytenoid-cricoid articulations. Normal subglottic trachea. Diffuse heterogeneous enlargement of the left lobe of the thyroid gland with the substernal extension. This measures 2.4 cm by 2.1 cm x 2.7 cm. Normal visualized pulmonary apices. Partial opacification of the left sphenoid sinus and posterior right ethmoid sinus. There is multilevel degenerative changes of the cervical spine. Common origin of the right and left common carotid arteries. CT/Soft Tissue Neck WITH Contrast IMPRESSION: Heterogeneous diffuse enlargement of the left lobe of the thyroid gland with a substernal extension. This measures 2.4 cm x 2.1 cm x 2.7 cm. Electronically Signed: Andrew Demarco MD at 11:38 EDT ,
--- NOTE | 2023-05-29 10:47 | EDS_ITS ---
HPI History of Present Illness Chief Complaint: Sore Throat Detail of Chief Complaint: Sore throat Informant: patient Narrative Narrative: Patient with sore throat and fullness to the left neck that started about 8 or 9 days ago. Pain severe with trying to swallow. She had subjective fever over the last 2 or 3 days. Patient has had prior tonsils and adenoids resected. Denies significant cough. [facility] Medical History Abdominal pain Alcohol use Arthritis Asthma Bipolar disorder COPD (chronic obstructive pulmonary disease) Depression Easy bruising Epigastric pain Gastric reflux GERD (gastroesophageal reflux disease) High cholesterol History of back problems History of COPD History of diverticulitis History of IBS Hypercholesterolemia Restless legs Shortness of breath on exertion Smoker Tobacco use Wears glasses Home Medications albuterol sulfate 90 mcg/actuation aerosol inhaler (ProAir HFA) 2 puff inhalation Q6H PRN Sob &/Or Wheezing 06/14/17 [History Last Taken Unknown] famotidine 40 mg tablet (Pepcid) 40 mg PO DAILY 07/02/21 [History Last Taken Unknown] hydrocodone-acetaminophen 5-325mg 5mg-325mg ([place]) 1 tab PO TID 07/02/21 [History Last Taken Unknown] pravastatin 40 mg tablet 10 mg PO QHS 07/02/21 [History Last Taken Unknown] zolpidem 10 mg tablet 10 mg PO QHS 07/02/21 [History Last Taken Unknown] albuterol sulfate 2.5 mg/3 mL (0.083 %) solution for nebulization 2.5 mg (3 mL) inhalation Q4H PRN #25 vials 11/02/21 [Rx Last Taken Unknown] hydrocodone 7.5 mg-acetaminophen 325 mg tablet 1 tab PO Q6H 03/12/23 [History Last Taken Unknown] loratadine 10 mg tablet 10 mg PO Q24H 03/12/23 [History Last Taken Unknown] pantoprazole 40 mg tablet,delayed release 40 mg PO Q12H 03/12/23 [History Last Taken Unknown] Allergy/AdvReac Type Severity Reaction Status Date / Time amitriptyline AdvReac Other Verified 05/29/23 10:31 diphenhydramine HCl AdvReac Other Verified 05/29/23 10:31 [From Kavitha] Family History Mother Cancer lung Father Cancer lung Brother Cancer lung Diabetes Heart disease Sister Breast cancer Brother Heart disease Hypertension High cholesterol Surgical History brain tumor removed delivery delivered History of dermoid cyst excision History of excision of mass History of tonsillectomy Hx of appendectomy Social History Smoking Status: Current some day smoker tobacco type: cigarettes alcohol intake: current details: social substance use type: does not use caffeine: Yes what type of physical activity do you participate in: walking seatbelt use: always do you feel safe at home: Yes additional social history: Paul Stoddard Patient works at [employer] ROS ROS ED Review of Systems ROS Unobtainable: other Constitutional Constitutional ED: Reports lethargy; Denies chills, fever(s), sweats or weight loss Eyes Eyes: Denies blurry vision, change in vision or diplopia ENT ENT ED: Reports sore throat; Denies rhinorrhea Cardiovascular Cardiovascular: Denies chest pain, orthopnea or racing heartbeat Respiratory/Chest Respiratory/Chest: Denies cough, dyspnea, dyspnea on exertion, orthopnea or sputum Gastrointestinal Gastrointestinal: Denies abdominal pain, diarrhea, nausea or vomiting Genitourinary Genitourinary ED: Denies dysuria, hematuria or urinary frequency Musculoskeletal Musculoskeletal: Denies arthralgias, back pain, myalgias or neck pain Integumentary Denies abscess, Abrasions or rash Neurologic Neurologic: Denies headache(s) or weakness Psychiatric Psychiatric: Denies anxiety, depression or suicidal thoughts Endocrine Endocrinology: Denies polydipsia, polyphagia or polyuria Hematologic/Lymphatic Hematologic/Lymphatic: Denies easy bleeding, easy bruising or lymphadenopathy Allergic/Immunologic Allergic/Immunologic ED: Denies mouth swelling, tongue swelling or urticaria EXAM Physical Exam Const Vital Signs: 05/29/23 10:31 Temperature 96.8 F L Temperature Source Temporal Pulse Rate 84 Respiratory Rate 16 Blood Pressure 141/90 H Blood Pressure Mean 107 Pulse Ox 97 Oxygen Delivery Method Room Air Positive well nourished and well developed General Appearance ED: well developed and NAD HEENT Reports TM's clear and moist mucous membranes HEENT Narrative: No significant pharyngeal erythema. No trismus on exam. Evaluation of the anterior neck on the left side just superior to the clavicle there is a soft tissue mass that is tender to palpation. There is no cellulitic changes noted to the skin. No stridor on exam normocephalic and atraumatic; Negative for trauma or tenderness Tympanic Membrane ED: Yes TM's clear Eyes PERRL and EOMs intact bilaterally General Eye ED: Negative for pale conjunctiva or scleral icterus Neck no lymphadenopathy, supple and no JVD General: Negative for tenderness Chest Wall inspection of chest normal and palpation of chest normal Chest: Negative for tenderness Resp normal respiratory effort and clear to auscultation bilaterally Effort and Inspection: Negative for respiratory distress or pain with movement Auscultation: Negative for rhonchi, wheezes or diminished lung sounds Cardio regular rate, regular rhythm, S1 normal heart sound, S2 normal heart sound and no murmurs Peripheral Pulses: pulses 2+ throughout GI normal to inspection, nondistended, normoactive bowel sounds, soft to palpation, non-tender, non-distended and no masses Back/Spine no CVA tenderness and no thoracic nor lumbar tenderness Extremity normal to inspection General Extremety ED: Negative for edema General Extremity: Negative for edema Neuro oriented x3, CN's II-XII intact bilaterally, no sensory deficits noted and gait normal Sensorium / Orientation: awake, alert, oriented to person, oriented to place and oriented to time Motor Exam: strength 5/5 throughout and strength abnormal Psych mental status grossly normal Skin no rashes or lesions noted and no wounds MDM MDM MDM Narrative Medical decision making narrative: Patient presents with soft tissue swelling to the left side of the neck and painful swallowing. On exam there does seem to be a left-sided anterior neck mass. Tender to palpation. There is no cellulitic changes. IV line established. CBC with differential obtained showed a white count of 10.9 with hemoglobin 13.6 and platelet count of 398. Chemistries unremarkable. TSH obtained was normal at 2.23. Free T4 was 0.94 and free T3 was normal at 2.6. Total T3 was 0.91. Initially obtained a CT scan of the soft tissue neck to evaluate the mass. This was felt to be an enlarged left lobe of the thyroid. I discussed case with endocrinology on-call Dr. Pardeep Encarnacion who recommended obtaining a thyroid ultrasound to evaluate further. She recommended follow-up with general surgery as she may require a biopsy based on ultrasound findings. Discussed case with Dr. Sena who recommended that we refer her to Dr. Cannon or ENT to have biopsy of thyroid. Ultrasound did show a cystic mass within the left side of the thyroid and recommended tissue sampling. Patient will be given referrals. She did not anything for pain. Also will refer to Dr. Pardeep Encarnacion endocrinology. Lab Data Attestation: I reviewed the patient's lab results. Labs: Laboratory Results - last 24 hr 05/29/23 05/29/23 10:55 12:28 WBC 10.9 RBC 4.73 Hgb 13.6 Hct 42.3 MCV 89.4 MCH 28.8 MCHC 32.2 RDW Std Deviation 44.3 H RDW Coeff of [place] 13.5 Plt Count 398 MPV 9.3 Immature Gran % (Auto) 0.600 Neut % (Auto) 62.5 Lymph % (Auto) 27.6 Ransom % (Auto) 5.2 Eos % (Auto) 3.5 Baso % (Auto) 0.6 Absolute Neuts (auto) 6.8 Absolute Lymphs (auto) 3.00 Nucleated RBC % 0 Sodium 137 Potassium 4.1 Chloride 104 Carbon Dioxide 29.0 Anion Gap 4 L BUN 9 Creatinine 0.72 Estim Creat Clear Calc 80.72 Est GFR (MDRD) Af Amer 109 Est GFR (MDRD) Non-Af 90 BUN/Creatinine Ratio 12.4 Glucose 98 Calcium 9.0 TSH 2.23 Free T4 0.94 Thyroxine (T4) 8.3 Free T3 pg/dL 2.6 Total T3 0.91 Radiography Diagnostic Testing: Clinical Impression(s) from Imaging Studies Soft Tissue Neck CT 05/29/23 10:46 IMPRESSION: Heterogeneous diffuse enlargement of the left lobe of the thyroid gland with a substernal extension. This measures 2.4 cm x 2.1 cm x 2.7 cm. Electronically Signed: Andrew Demarco MD at 11:38 EDT , Discharge Plan Triage Chief Complaint: Sore Throat ED Provider: Geo Donaldson Dx/Rx/DC Orders Clinical Impression: Thyroid mass, Enlarged thyroid Instructions: Diagnosing a Thyroid Problem Prescriptions: No Action albuterol sulfate [ProAir HFA] 90 mcg/actuation HFA aerosol inhaler 2 puff INHALATION Q6H PRN (Reason: Sob &/Or Wheezing) famotidine [Pepcid] 40 mg tablet 40 mg PO DAILY pravastatin 40 mg tablet 10 mg PO QHS hydrocodone-acetaminophen [[place]] 5-325 mg tablet 1 tab PO TID zolpidem 10 mg tablet 10 mg PO QHS Patient Comments: TAKE 1 TABLET BY MOUTH EVERYDAY AT BEDTIME albuterol sulfate 2.5 mg /3 mL (0.083 %) solution for nebulization 2.5 mg inhalation Q4H PRN Qty: 25 0RF Rx Instructions: Use q4 hours and PRN for wheezing hydrocodone-acetaminophen 7.5-325 mg tablet 1 tab PO Q6H Rx Instructions: FOR CHRONIC INTRACTABLE PAIN loratadine 10 mg tablet 10 mg PO Q24H pantoprazole 40 mg tablet,delayed release (DR/EC) 40 mg PO Q12H Primary Care Provider: Raad Armendariz Referrals: Brian Rawls MD [Med Staff - Active Staff] - As soon as possible Anastacio Cannon MD [Med Staff - Active Staff] - As soon as possible Raad Armendariz DO [Primary Care Provider] - Pardeep Encarnacion MD [Med Staff - Courtesy Staff] - As Needed Disposition Disposition: Home, Self Care
[2023-05-29 11:02] LABS: Absolute Neutrophil Count 6.8 X10^3/uL (2.0-7.7); Basophil# 0.07 X10^3/uL; Basophil% 0.6 % (0-1); Eosinophil# 0.38 X10^3/uL; Eosinophils% 3.5 % (0-5); Hematocrit 42.3 % (37-47); Hemoglobin 13.6 g/dL (12.0-15.0); Lymphocyte % 27.6 % (19-41); Mean Corp Hgb Conc 32.2 g/dL (32-36); Mean Corpuscular Hgb 28.8 pg (27.0-32.0); Mean Corpuscular Volume 89.4 fL (81-99); Mean Platelet Vol. 9.3 fl (6.2-12.0); Monocyte# 0.57 X10^3/uL; Monocyte% 5.2 % (0-10); NRBC Flagged by Analyzer 0 % (0-5); Neutrophil % 62.5 % (47-70); Platelet Count 398 K/mm3 (150-450); RBC Distribution Width CV 13.5 % (11.6-14.6); RBC Distribution Width SD 44.3 fl (35.1-43.9); Red Blood Count 4.73 M/mm3 (4.2-5.4); White Blood Count 10.9 K/mm3 (4.4-11.0)
[2023-05-29 11:15] LABS: Anion Gap 4 (5-15); BUN 9 mg/dL (7-18); BUN/Creat Ratio 12.4 RATIO (10-20); Chloride 104 mmol/L (98-107); Creatinine, Serum 0.72 mg/dL (0.55-1.02); EST Glomerular Filtration Rate 90 mL/min (>60); Est Glom Filt Rate - Afr Amer 109 mL/min (>60); Estimated Creatinine Clearance 80.72 ml/min; Glucose 98 mg/dL (74-106); Potassium 4.1 mmol/L (3.5-5.1); Sodium Level 137 mmol/L (136-145)
[2023-05-29 12:13] LABS: Thyroid Stim Hormone (TSH) 2.23 uIU/mL (0.358-3.74)
--- NOTE | 2023-05-29 12:34 | US_ITS ---
STUDY: THYROID ULTRASOUND REASON FOR EXAM: Female, 52 years old. Thyroid mass/ enlargement -- SORE THROAT X 9 DAYS TECHNIQUE: Ultrasound evaluation of the thyroid was performed with real-time and static hernandez-scale imaging. COMPARISON: Comparison is made with prior CT scan of the neck done earlier today. FINDINGS: RIGHT LOBE: The right lobe of the thyroid gland measures 4.2 cm x 1.8 cm x 1.2 cm. There is a homogeneous echotexture. There are no demonstrated solid, cystic or complex lesions. LEFT LOBE: The left lobe of the thyroid gland is enlarged and measures 5.2 cm x 1.8 cm x 2.1 cm. There is a homogeneous echotexture. There is a 2.7 cm x 2.6 cm x 2.1 cm complex cystic mass in the mid and lower poles of the left lobe. Biopsy recommended. ISTHMUS: The isthmus measures 4 mm. The regional lymph nodes are normal. US/Thyroid IMPRESSION: Enlarged left lobe of the thyroid with a 2.7 cm x 2.6 cm x 2.1 cm complex cystic nodule involving the mid and lower poles. Tissue diagnosis is recommended. Electronically Signed: Andrew Demarco MD at 14:01 EDT ,
[2023-05-29 12:49] LABS: Free T3 2.6 pg/mL (2.18-3.98); T4 Free Direct 0.94 ng/dL (0.76-1.46); T4 Total, Thyroxin 8.3 ug/dL (4.8-13.9)
[2023-05-29 12:52] LABS: T3 Total - Triiodothyronine 0.91 ng/mL (0.6-1.81)
[2023-05-29 14:30] VITALS: BP 134/78; PULSE 78; RESP 16; TEMP 36.4; O2SAT 98; O2SAT 99
== END 2023-05-29 14:40 | disposition home or self-care (01) ==
PROVIDERS: Emergency Provider Emergency Medicine; PCP Family Medicine; Visit Provider Emergency Medicine
DX: E04.2 Nontoxic multinodular goiter (principal); J44.9 Chronic obstructive pulmonary disease, unspecified; F17.210 Nicotine dependence, cigarettes, uncomplicated; K21.9 Gastro-esophageal reflux disease without esophagitis; E78.00 Pure hypercholesterolemia, unspecified; I10 Essential (primary) hypertension
CPT/HCPCS: 70491; 76536; 80048; 84436; 84439; 84443; 84480; 84481; 85025; 87651; 99283; Q9967; A4216

== ENCOUNTER → 2023-06-07 | Outpatient (CLI) | payer OTHER, SELFPAY ==
--- NOTE | 2023-06-07 | FLU_PTH ---
PATIENT: CANDY FOY LOC: [facility] U#:[id number] AGE/SX: 52/F ROOM: RE06/07/[address]: Dr. Anastacio Cannon MD : 1970 BED: DIS: 06/07/2023 SPEC #: [id number] RECD: 06/07/23 13:41 STATUS: YUMIKO PRINCESS #: [id number] MIGUELANGEL: 06/07/23 00:[address]: Anastacio Cannon DEPT: CYTOLOGY RECD BY: Jason Marquez ENTERED: 06/07/23 13:42 SP TYPE: Fluid OTHR DR: Dr. Raad Armendariz DO Tissues: A - Thyroid gland, NOS B - Thyroid gland, NOS C - Thyroid gland, NOS D - Thyroid gland, NOS Procedures: Special Stain Group II Surgery Specimen Level IV Cytospin Fluid HEADER OPERATION: Fine needle aspiration of left thyroid nodule PRE-OP DIAGNOSIS: Left thyroid nodule TISSUE SUBMITTED: A- Left thyroid nodule fluid, B- Left thyroid nodule (slides), C- Left thyroid cyst, D- Left thyroid cyst DIAGNOSIS CYTOLOGY A. Fine needle aspiration, left thyroid nodule (cytospin and cellblock): Atypia of undetermined significance ([place] Category III). See comment. B. Fine needle aspiration, left thyroid nodule (smears): Suspicious for malignancy ([place] Category V). See comment. C. Fine needle aspiration, left thyroid cyst (cytospin and cellblock): Macrophages consistent with benign cyst contents. D. Fine needle aspiration left thyroid cyst (cytospin and cellblock): Consistent with benign cyst contents. AM/ 06/08/23 COMMENT A. The [place] System for thyroid diagnostic categorization was used in the evaluation of this case. Per recommendations and a clinician-approved plan (a call was made to the referring doctor about the recommendation), genomic testing (Afirma) has been submitted. Results will be reported as an addendum and faxed to clinician. B. The [place] System for thyroid diagnostic categorization was used in the evaluation of this case. Vague papillary structures are present. Focal nuclear grooving noted. Excision of lesion is recommended for definite classification. Clinical consult by Dr. Roldan. 06/15/23 CYTOLOGY STUDY Slides are reviewed. CYTOLOGY GROSS A. Received is 30 ml of pink-brown fluid labeled with the patient's name and and designated per the requisition as Left thyroid nodule. Submitted for cytology preparation including cell block. B. Received are 4 smears labeled with the patient's name and designated per the requisition as Left thyroid nodule. Submitted for staining. C. Received is 2 ml of brown cloudy fluid labeled with the patient's name and and designated per the requisition as Left thyroid cyst. Submitted for cytology preparation including cell block. D. Received is 2 ml of brown cloudy fluid labeled with the patient's name and and designated per the requisition as Left thyroid cyst. Submitted for cytology preparation including cell block. Mr 06/07/23 TC:0 CPT: [id number] x3 ADDENDUM ADDENDUM ADDENDUM ADDENDUM ADDENDUM ADDENDUM ADDENDUM 08/22/2023 08:35 ADDENDUM 08/22/2023 08:35 ADDENDUM 08/22/2023 08:35 ADDENDUM 08/22/2023 08:35 ADDENDUM 08/22/2023 08:35 AFIRMA RESULTS REPORT RESULTS INTERPRETATION: The result of this 2.7 cm [place] III nodule A is Afirma GSC suspicious which suggests a risk of cancer of approximately 50%. Please see complete report in e-chart or EMR
== END | disposition home or self-care (01) ==
LOC: LABSPEC 13:32
PROVIDERS: PCP Family Medicine; Visit Provider Surgery
DX: E04.1 Nontoxic single thyroid nodule (principal)
CPT/HCPCS: 88108; 88305; 88313

== ENCOUNTER 2023-06-20 02:53 | Emergency (ER) | payer OTHER, SELFPAY ==
--- NOTE | 2023-06-20 07:34 | EDS_ITS ---
HPI HPI - URI History of Present Illness Chief Complaint: Cold Sx Informant: patient Narrative Narrative: 53-year-old female presenting for anxiety. She states she does not have a history of panic or anxiety, however she has been very congested nasally for the past couple days is worse tonight, she was having trouble breathing through her nose and was making her panic and feel very anxious. She denies coughing. She has asthma, she has been wheezing some but controlling it with her albuterol inhaler. The nasal congestion is a much bigger issue acutely right now. She denies sinus pain, major headaches, fevers. She denies any coughing. ROS [facility] ED Constitutional Constitutional ED: Denies chills or fever(s) ENT ENT ED: Reports nasal congestion, rhinorrhea and sore throat; Denies ear pain Cardiovascular Cardiovascular: Denies chest pain or palpitations Respiratory/Chest Respiratory/Chest: Reports dyspnea and wheezing; Denies cough Gastrointestinal Gastrointestinal: Denies abdominal pain, diarrhea, nausea or vomiting Genitourinary Genitourinary ED: Denies dysuria or hematuria Musculoskeletal Musculoskeletal: Denies myalgias or neck pain Integumentary Denies abscess or rash Neurologic Neurologic: Denies headache(s), paresthesias or weakness Psychiatric Psychiatric: Reports anxiety; Denies depression or suicidal thoughts Endocrine Endocrinology: Denies polydipsia or polyuria [facility] Medical History Wears glasses Bipolar disorder Alcohol use High cholesterol Easy bruising Restless legs History of diverticulitis History of IBS Gastric reflux Smoker COPD (chronic obstructive pulmonary disease) Shortness of breath on exertion Abdominal pain Depression Arthritis History of back problems Epigastric pain Hypercholesterolemia GERD (gastroesophageal reflux disease) History of COPD Tobacco use Asthma Home Medications ?Medication ?Instructions ?Recorded ?Last Taken ?Type albuterol sulfate 90 mcg/actuation 2 puff inhalation Q6H PRN Sob &/Or 06/14/17 Unknown History aerosol inhaler (ProAir HFA) Wheezing famotidine 40 mg tablet (Pepcid) 40 mg PO DAILY 07/02/21 Unknown History hydrocodone-acetaminophen 5-325mg 1 tab PO TID 07/02/21 Unknown History 5mg-325mg ([place]) pravastatin 40 mg tablet 10 mg PO QHS 07/02/21 Unknown History zolpidem 10 mg tablet 10 mg PO QHS 07/02/21 Unknown History albuterol sulfate 2.5 mg/3 mL 2.5 mg (3 mL) inhalation Q4H PRN 11/02/21 Unknown Rx (0.083 %) solution for nebulization #25 vials hydrocodone 7.5 mg-acetaminophen 1 tab PO Q6H 03/12/23 Unknown History 325 mg tablet loratadine 10 mg tablet 10 mg PO Q24H 03/12/23 Unknown History pantoprazole 40 mg tablet,delayed 40 mg PO Q12H 03/12/23 Unknown History release Allergy/AdvReac Type Severity Reaction Status Date / Time amitriptyline AdvReac Other Verified 06/07/23 08:47 diphenhydramine HCl (From AdvReac Other Verified 06/07/23 08:47 Benadryl) Family History Mother Cancer lung Father Cancer lung Brother Cancer lung Diabetes Heart disease Sister Breast cancer Brother Heart disease Hypertension High cholesterol Surgical History brain tumor removed delivery delivered History of dermoid cyst excision History of excision of mass History of tonsillectomy Hx of appendectomy Social History Smoking Status: Current some day smoker tobacco type: cigarettes alcohol intake: current details: social substance use type: does not use caffeine: Yes what type of physical activity do you participate in: walking seatbelt use: always do you feel safe at home: Yes additional social history: Marko- Richi Patient works at [employer] EXAM Physical Exam Narrative Exam Narrative: Audible nasal congestion with bilateral nasal turbinate edema, no purulent discharge, no sinus tenderness. No cervical lymphadenopathy normal posterior pharynx. Lungs with slight end expiratory wheezes, no rales or rhonchi, no respiratory distress, speaking in full sentences. A little anxious and tearful, not suicidal. Abdomen soft nontender nondistended. No peripheral edema no JVD. Const Positive well nourished and well developed General Appearance ED: well developed and NAD HEENT Reports moist mucous membranes normocephalic and atraumatic Throat: Negative for posterior oropharynx abnormal Eyes PERRL and EOMs intact bilaterally Neck no lymphadenopathy, supple and no meningeal signs Resp normal respiratory effort and clear to auscultation bilaterally Cardio no murmurs Rate: regular rate Rhythm: regular rhythm Neuro oriented x3, CN's II-XII intact bilaterally and no sensory deficits noted Sensorium / Orientation: alert Motor Exam: strength 5/5 throughout Skin Lesions: no lesions Rashes: no rashes MDM MDM MDM Narrative Medical decision making narrative: Patient given Afrin nasal spray 2 sprays each nostril and on reevaluation she is breathing well through each side, feeling much less anxious. Reassured this is probably viral, seasonal allergies are in the differential, flaring her asthma. Her asthma exacerbation is mild. We discussed a [id number] prescription for prednisone, she agrees that is reasonable she was given a 6-day burst prescription and instructions regarding oxymetazoline use for her congestion symptoms. No clinical evidence of bacterial sinusitis at this time. Discharge Plan Triage Chief Complaint: Cold Sx ED Provider: Max Calvin Dx/Rx/DC Orders Clinical Impression: Acute asthma exacerbation, Viral URI Prescriptions: No Action albuterol sulfate [ProAir HFA] 90 mcg/actuation HFA aerosol inhaler 2 puff INHALATION Q6H PRN (Reason: Sob &/Or Wheezing) famotidine [Pepcid] 40 mg tablet 40 mg PO DAILY pravastatin 40 mg tablet 10 mg PO QHS hydrocodone-acetaminophen [[place]] 5-325 mg tablet 1 tab PO TID zolpidem 10 mg tablet 10 mg PO QHS Patient Comments: TAKE 1 TABLET BY MOUTH EVERYDAY AT BEDTIME albuterol sulfate 2.5 mg /3 mL (0.083 %) solution for nebulization 2.5 mg inhalation Q4H PRN Qty: 25 0RF Rx Instructions: Use q4 hours and PRN for wheezing hydrocodone-acetaminophen 7.5-325 mg tablet 1 tab PO Q6H Rx Instructions: FOR CHRONIC INTRACTABLE PAIN loratadine 10 mg tablet 10 mg PO Q24H pantoprazole 40 mg tablet,delayed release (DR/EC) 40 mg PO Q12H Primary Care Provider: Raad Armendariz Activity Restrictions/Additional Instructions: (Patient seen during EMR downtime and given paper discharge instructions and prescription) Print Language: Latvian Disposition Disposition: Home, Self Care Discharge Date/Time: 06/20/23 03:52
== END 2023-06-20 03:52 | disposition home or self-care (01) ==
LOC: ED 06:27
PROVIDERS: Emergency Provider Emergency Medicine; PCP Family Medicine; Visit Provider Emergency Medicine
DX: J45.901 Unspecified asthma with (acute) exacerbation (principal); F17.210 Nicotine dependence, cigarettes, uncomplicated; J06.9 Acute upper respiratory infection, unspecified; F41.9 Anxiety disorder, unspecified; K21.9 Gastro-esophageal reflux disease without esophagitis

== ENCOUNTER 2023-08-22 09:15 | Day surgery (SDC) | payer OTHER, SELFPAY ==
[2023-08-22] VITALS (13 sets, daily range): BP systolic 125–161; BP diastolic 84–110; PULSE 84–110; RESP 16–20; TEMP 36.2–36.8; O2SAT 88–99; BMI 24.2
--- NOTE | 2023-08-22 | IMM_PTH ---
PATIENT: CANDY FOY LOC: [facility] – [place] U#:[id number] AGE/SX: 52/F ROOM: RE08/22/[address]: Dr. Anastacio Cannon MD : 1970 BED: DIS: 08/22/2023 SPEC #: [id number] RECD: 08/24/23 10:45 STATUS: YUMIKO REQ #: [id number] MIGUELANGEL: 08/22/23 00:[address]: Anastacio Cannon DEPT: IMMUNOHISTOCHEMISTRY RECD BY: Noel Galeano ENTERED: 08/24/23 10:45 SP TYPE: IMMUNO OTHR DR: Dr. Raad Armendariz DO Tissues: C - Thyroid gland, NOS Procedures: HBME (initial) CD56 (add) CK19 (add) GAL-3 (add) PHYSICIAN & INSTITUTION [place] [id number] SPECIMEN INFORMATION: Tissue Source: C- Left thyroid lobe with isthmus Clinical Info: Thyroid nodule Specimen Number: [id number] CPT code: 07491,80877e5 METHODOLOGY: Deparaffinized sections of prefer/formalin-fixed tissue or PAP/DQ stained slides are incubated with monoclonal/polyclonal antibodies/oligonucleotide probes. Localization is made via biotin free immunoperoxidase method. Appropriate controls are performed and reacted as expected. Results on target cell population are indicated in the following table: RESULTS: ANTIBODY / CLONE RESULT Block C5 HBME1 (HBME-1) negative CK19 (A53-B/A2.26) positive GAL3 (9C4) negative CD56 (123C3.D5) positive These tests were developed and their performance characteristics determined by [facility]. They may not have been cleared or approved by the U.S. Food and Drug Administration. The FDA has determined that such clearance or approval is not necessary. The above immunohistochemical/dualISH markers are ordered and reviewed by the Pathologist. INTERPRETATION: C. Left thyroid lobe and isthmus, biopsy: Consistent with multinodular goiter. SJ/mr 08/25/2023 Case has been reviewed in consultation with Dr. Jimenez who concurs with the above diagnosis. IDC:[id number]
[2023-08-22] MEDS: Lactated Ringers 1,000 ML 15 ML IV (10:08)
--- NOTE | 2023-08-22 10:22 | PRE.ANES_ITS ---
ASA Classification* ASA Classification ASA Classification: 2 Assessment & Plan Anesthesia* Anesthesia Assessment Anesthesia Assessment: Discussed sedation and/or anesthesia options, risks, benefits, and alternatives with patient/parents/legal guardian/POA. Questions invited. The patient/parents/legal guardian/POA seems to understand and agrees to proceed with anesthesia plan. Reviewed the physical assessment, medical history, allergy history and patient home medications list prior to surgery/procedure/anesthetic and documented any changes. Performed airway and anesthesia risk assessments. Anesthesia Type Anesthesia Type: General History Source History Obtained from:: Patient and Chart Anesthesia Focused Assessment* Temperature: 97.2 F Pulse Rate: 91 Blood Pressure: 153/90 Respiratory Rate: 16 Pulse Ox: 99 Oxygen Delivery Method: Room Air Airway Assessment Mouth opens: >3 cm Mallampati Score: I Teeth Condition: Partial (Upper partials out) Neck Range of motion (ROM): Full ROM Pertinent Findings EKG Pertinent Findings:: March 12, 2023. Sinus tachycardia at 107 bpm. Focused Labs Anesthesia Preop lab: 2 CBC WBC 10.9 K/mm3 (4.4-11.0) 05/29/23 10:55 RBC 4.73 M/mm3 (4.2-5.4) 05/29/23 10:55 Hgb 13.6 g/dL (12.0-15.0) 05/29/23 10:55 Hct 42.3 % (37-47) 05/29/23 10:55 Plt Count 398 K/mm3 (150-450) 05/29/23 10:55 CHEMISTRY Potassium 4.1 mmol/L (3.5-5.1) 05/29/23 10:55 Sodium 137 mmol/L (136-145) 05/29/23 10:55 BUN 9 mg/dL (7-18) 05/29/23 10:55 Creatinine 0.72 mg/dL (0.55-1.02) 05/29/23 10:55 Glucose 98 mg/dL (74-106) 05/29/23 10:55 TSH 2.23 uIU/mL (0.358-3.74) 05/29/23 10:55 COAG PT 13.0 SECONDS (11.9-14.4) 01/03/12 04:30 Urine Test Negative Negative 01/17/14 17:25 Pre-Assessment Diagnosis/Proposed Procedure Planned Operative Procedure(s): LEFT THYROIDECTOMY WITH ISTHMULSECTOMY AND ULTRA OPERATIVE NERVE MONITORING Anesthesia History 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 When Was Last Pacemaker Check QUESTION #4 FULL TEXT: You/Your Family Experience fever (hyperthermia) with Anesthesia Last Oral Intake Last Oral intake: Last Oral Intake NPO since 22:00 08/22/23 10:02 Meds taken in AM with sips of No 08/22/23 10:02 water? Meds patient instructed to take am of surgery PONV PONV - business practices supervisor: PONV - business practices supervisor Female Yes 08/18/23 08:54 HX of Motion Sickness Yes 08/18/23 08:54 HX of N/V After Surgery No 08/18/23 08:54 Non-Smoker No 08/18/23 08:54 Duration of Surgery greater Yes 08/18/23 08:54 than 60 minutes Number of Risk Factors 3 08/18/23 08:54 PONV Score Moderate Risk 08/18/23 08:54 Height & Weight Height & Weight: Anesthesia: Height & Weight Height 5 ft 4 in 08/22/23 10:02 Weight: 64 kg 08/22/23 10:02 Body Mass Index (BMI) 24.2 08/22/23 10:02 Respiratory Assessment Respiratory Assessment - business practices supervisor: Respiratory Tract Infection Hx - business practices supervisor Hx Respiratory Tract Infection No 08/18/23 08:54 STOP Sleep Apnea STOP Sleep Apnea - business practices supervisor: STOP Sleep Apnea - business practices supervisor Hx Hypertension No 08/18/23 08:54 Hx Sleep Apnea No 08/18/23 08:54 CPAP BIPAP Do you snore loudly (louder No 08/18/23 08:54 than talking or can be heard Do you often feel tired/ No 08/18/23 08:54 fatigued/ sleepy during daytime? Has anyone observed you stop No 08/18/23 08:54 breathing during sleep? STOP Results Negative 08/18/23 08:54 QUESTION #5 FULL TEXT : Do you snore loudly (louder than talking or can be heard through closed doors)? 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 Specify any problems Hx of Preganancy in last 3 No 08/18/23 08:54 Months Nurse Filling Out Transfusion SFRANTZ 08/18/23 08:54 & Questions: Date: 08/18/23 08/18/23 08:54 Time: 08:58 08/18/23 08:54 Patient unable to answer at this time (ie. confused, unrespo /Reproduction History /Reproductive History - business practices supervisor: /Reproductive Hx- business practices supervisor Hx Now No 08/18/23 08:54 Gestational Age (in weeks): EDC: Hx Hx Para Hx Section SAB No 08/18/23 08:54 Active Medications Active Medications: Current Medications Generic Name Dose Route Start Last Admin Trade Name Freq PRN Reason Stop Dose Admin Lactated Ringer's 1,000 mls @ 15 mls/hr 08/22/23 09:30 08/22/23 10:08 IV 15 mls/hr .Q48H NII Administration PFSH Medical History Thyroid nodule Wears glasses Bipolar disorder Alcohol use High cholesterol Easy bruising Restless legs History of diverticulitis History of IBS Gastric reflux Smoker COPD (chronic obstructive pulmonary disease) Shortness of breath on exertion Depression Arthritis History of back problems Epigastric pain Hypercholesterolemia GERD (gastroesophageal reflux disease) History of COPD Tobacco use Asthma Home Medications ?Medication ?Instructions ?Recorded ?Last Taken ?Type albuterol sulfate 90 mcg/actuation 2 puff inhalation Q6H PRN Sob &/Or 06/14/17 08/22/23 History aerosol inhaler (ProAir HFA) Wheezing famotidine 40 mg tablet (Pepcid) 40 mg PO DAILY 07/02/21 08/21/23 History pravastatin 40 mg tablet 10 mg PO QHS 07/02/21 08/21/23 History zolpidem 10 mg tablet 10 mg PO QHS 07/02/21 08/19/23 History albuterol sulfate 2.5 mg/3 mL 2.5 mg (3 mL) inhalation Q4H PRN 11/02/21 08/21/23 Rx (0.083 %) solution for nebulization #25 vials hydrocodone 7.5 mg-acetaminophen 1 tab PO Q6H 03/12/23 08/19/23 History 325 mg tablet loratadine 10 mg tablet 10 mg PO Q24H 03/12/23 08/08/23 History Allergy/AdvReac Type Severity Reaction Status Date / Time amitriptyline AdvReac Other Verified 08/22/23 09:57 diphenhydramine HCl (From AdvReac Other Verified 08/22/23 09:57 Benadryl) Family History Mother Cancer lung Father Cancer lung Brother Cancer lung Diabetes Heart disease Sister Breast cancer Brother Heart disease Hypertension High cholesterol Surgical History History of brain surgery History of excision of mass History of dermoid cyst excision History of tonsillectomy Hx of appendectomy brain tumor removed delivery delivered Social History Smoking Status: Current some day smoker tobacco type: cigarettes alcohol intake: current details: social substance use type: does not use caffeine: Yes what type of physical activity do you participate in: walking seatbelt use: always do you feel safe at home: Yes additional social history: Paul Stoddard Patient works at [employer] Review of Systems (Anesthesia) ROS Narrative System reviewed and no additional complaints, except as documented.
--- NOTE | 2023-08-22 10:49 | HP.PCM_ITS ---
History and Physical Date of Admission: 08/22/23 Date of Service: 07/10/23 MR#: [id number] Acct: [id number] Name: CANDY HEARD Rep #: [id number] : 1970 Provider: Dr. 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 Accompanied by: Unknown Is patient in pain?: No Allergies amitriptyline Adverse Reaction (Verified 07/10/23 07:55) Otherdiphenhydramine HCl (From Benadryl) Adverse Reaction (Verified 07/10/23 07:55) Other Medications ?Medication ?Instructions ?Recorded ?Confirmed ?Type albuterol sulfate 90 mcg/actuation 2 puff inhalation Q6H PRN Sob &/Or 06/14/17 07/10/23 History aerosol inhaler (ProAir HFA) Wheezing famotidine 40 mg tablet (Pepcid) 40 mg PO DAILY 07/02/21 07/10/23 History hydrocodone-acetaminophen 5-325mg 1 tab PO TID 07/02/21 07/10/23 History 5mg-325mg ([place]) pravastatin 40 mg tablet 10 mg PO QHS 07/02/21 07/10/23 History zolpidem 10 mg tablet 10 mg PO QHS 07/02/21 07/10/23 History albuterol sulfate 2.5 mg/3 mL 2.5 mg (3 mL) inhalation Q4H PRN 11/02/21 07/10/23 Rx (0.083 %) solution for nebulization #25 vials hydrocodone 7.5 mg-acetaminophen 1 tab PO Q6H 03/12/23 07/10/23 History 325 mg tablet loratadine 10 mg tablet 10 mg PO Q24H 03/12/23 07/10/23 History pantoprazole 40 mg tablet,delayed 40 mg PO Q12H 03/12/23 07/10/23 History release PFSH Medical History Thyroid nodule Wears glasses Bipolar disorder Alcohol use High cholesterol Easy bruising Restless legs History of diverticulitis History of IBS Gastric reflux Smoker COPD (chronic obstructive pulmonary disease) Shortness of breath on exertion Abdominal pain Depression Arthritis History of back problems Epigastric pain Hypercholesterolemia GERD (gastroesophageal reflux disease) History of COPD Tobacco use Asthma Surgical History History of excision of mass History of dermoid cyst excision History of tonsillectomy Hx of appendectomy brain tumor removed delivery delivered Family History Mother Cancer lungFather Cancer lungBrother Cancer lung Diabetes Heart diseaseSister Breast cancerBrother Heart disease Hypertension High cholesterol Social History Smoking Status: Current some day smoker tobacco type: cigarettes alcohol intake: current details: social substance use type: does not use caffeine: Yes what type of physical activity do you participate in: walking seatbelt use: always do you feel safe at home: Yes additional social history: Paul Stoddard Patient works at [employer] HPI HPI HPI: Patient is a 52-year-old female who presents for evaluation of a left thyroid cyst. They are referred for surgical consultation from emergency medicine and Dr. Armendariz after an emergency room visit on 05/29/2023. This represents patient's second office visit after initial consultation visit on 06/07/2023 where she underwent FNA biopsy of the suspicious thyroid lesion. Via telephone she was communicated that both the cytopathology and the ensuing genomic sequencing assay were considered suspicious. Today she is here to discuss surgical options. She presents today with her sister as a support person. She denies any particular concerns but does have some questions related to her expected postoperative recovery and wishes to inform me that she is due to vacation in [place] starting August 10. She wishes to know whether I advise proceeding with surgery now or waiting until after she returns. Below is recapitulated from patient's prior visit for ease of review: She shares she presented to the emergency department after 9 days of not feeling very well. She notes presence of a sore throat with a cough. The sore throat was so severe that she recalls having to hold her neck simply due to the discomfort. During her exam in the ER she was noted to have some irregular swelling of her neck so a CT scan was performed followed by an ultrasound. She confirms that both the sore throat and cough are resolved at this point. She shares that she was unaware of any swelling in her neck before that point. She denies any pain to her neck at this point. Lastly she denies any sick contacts at home but confesses that she works in a [employer]. They do not experience difficulty with swallowing. They do not complain of a new cough. They do not appreciate new voice changes. They do have a history of snoring/sleep apnea. Additionally, their weight has been stable and they do not have a history of weight gain/loss or an inability to lose despite intentional effort. There is no history of recent fatigue. They do have a history of heat intolerance and sweating which they share started month ago. There is no particular time of day that this symptom is worse. Other symptoms include: Some heart racing (due to recent anxiety) and some moodiness. They do not have a family history of thyroid disorders or endocrinopathies. There is no history of prior radiation exposure. Previous work-up has included thyroid ultrasound. This study was performed on 05/29/2023 and showed a right thyroid lobe measuring 4.2 x 1.8 x 1.2 cm. Within this lobe radiology identified no nodules. The left thyroid lobe measured 5.2 x 1.8 x 2.1 cm. Within this lobe radiology identified a nodule measuring 2.7 x 2.6 x 2.1 cm with a complex cystic appearance and biopsy was recommended. An FNA has not been performed. Other tests include: TSH: 2.23 (05/29/2023) ROS General General: No weight change, appetite, fatigue, colon cancer, breast cancer or weakness HEENT HEENT: No difficulty swallowing, eye injury, eye surgery, swollen glands or hoarseness Endo Endocrine: No thyroid disease, diabetes mellitus, thyroid cancer, Hair loss, heat intolerance or cold intolerance Skin Skin: No rash or changing moles Cardio Cardiovascular: No murmur, pacemaker, heart disease, atrial fibrillation, high blood pressure, heart attack, heart stent, palpitations, shortness of breat with exertion or chest pain Psych Psychiatric: No depression, anxiety or hearing voices Resp Respiratory: Yes shortness of breath, No sleep apnea, No cough, Yes COPD, Yes asthma, No emphysema and No wheezing Gastro Gastrointestinal: No abdominal pain, No nausea or vomiting, No diarrhea, No constipation, No blood in stool, Yes acid reflux, No hemorrhoids, No ulcers, No gallbladder problem and No black,tarry stools Gó[place] Hematologic: No blood thinners, No blood disorders, No bleeding, No anemia and No blood clots Neuro Neurologic: No numbness, No tingling and No weakness Exam Const General: cooperative and anxious Neck Other: No signs of bruising or evidence from prior biopsy. Patient's left thyroid lobe is not noticeably enlarged. There is no tenderness with palpation. Assessment and Plan Assessment and Plan (1) Thyroid nodule: Status: Acute Comment: Patient is a 52-year-old, euthyroid, patient who presents with signs and symptoms of an acute onset left thyroid cystic mass. Given patient's antecedent history this is suspicious for a subacute thyroiditis versus involuted level 6 lymph node. The mass was indeed predominantly fluid?filled on ultrasound. I extended radiology's recommendation to pursue tissue diagnosis and offered a fine-needle aspiration under ultrasound guidance. Patient was receptive and procedure was undertaken in uncomplicated fashion during today's visit. I did perform a selective aspiration of the patient's cystic content to try to improve the yield for cellularity and diagnostic material. Even still only a scant specimen was obtained, grossly. This was plated and patient was given wound care instructions. Will plan to follow-up with patient regarding cytopathology and cytology once resulted. Update 07/10/2023: Patient's FNA [place] cytopathology was concerning for possible malignancy but given the presence of atypia and some discordance and pathologic opinion a specimen was [facility] This result also returned suspicious and patient presented today for discussion around her surgical options. I presented those options as either left thyroid lobectomy with isthmusectomy versus total thyroidectomy. I shared with Mrs. Heard that I recommended the former as it would be oncologically?sound and also balance the risk of the operation with the results of her pathology. Despite this expressed recommendation I did try to present a balanced review of the pros and cons of each surgical option. I then discussed thyroid surgery more generally but highlighted the surgery?specific risks of recurrent laryngeal nerve injury and hypoparathyroidism. I shared that each of these risks was effectively halved by proceeding with a thyroid lobectomy but also shared the challenges with thyroid cancer surveillance (should that be determined to be the final pathology) in the setting of a lobectomy. Ultimately patient agrees with my recommendation but after being reassured that a month- long weight would not contribute serious risk to her pathology wishes to wait to undergo surgery until she returns from her vacation. Plan: Left thyroid lobectomy with isthmusectomy and intraoperative nerve monitoring to be planned for with outpatient disposition. Patient opting for an operative date following her return from vacation middle of August. I have examined the patient and the H&P has been reviewed. There are no clinical changes since date of exam. Expectations of the procedure as well as postprocedure recovery were reviewed. Patient and her family deny any questions. Proceed to the operating room for planned left thyroid lobectomy with isthmusectomy as discussed in greater detail above.
--- NOTE | 2023-08-22 12:50 | PARA_PTH ---
PATIENT: CANDY FOY [place] [facility] [place][id number] AGE/SX: 52/F ROOM: RE08/22/[address]: Dr. Anastacio Cannon MD : 1970 BED: DIS: 08/22/2023 SPEC #: [id number] RECD: 08/22/23 12:56 STATUS: YUMIKO PRINCESS #: [id number] MIGUELANGEL: 08/22/23 12:[address]: Anastacio Cannon DEPT: SURGICAL PATHOLOGY RECD BY: Noel Galeano ENTERED: 08/22/23 12:56 SP TYPE: PARATHY OTHR DR: Dr. Raad Armendariz DO Tissues: A - Parathyroid B - Parathyroid C - Thyroid gland, NOS Procedures: Frozen Section (charge) Surgery Specimen Level IV Surgery Specimen Level V HEADER OPERATION: Left thyroidectomy with isthmus and IONM PRE-OP DIAGNOSIS: Thyroid nodule TISSUE SUBMITTED: A- Parathyroid, B- Left superior parathyroid , C- Left thyroid lobe with isthmus FROZEN SECTION DIAGNOSIS A. Rule out parathyroid, biopsy: A piece of fibroadipose tissue. B. Rule out superior parathyroid, biopsy: Parathyroid tissue. / 08/22/2023 MICROSCOPIC DIAGNOSIS A. Rule out parathyroid, biopsy: A piece of fibroadipose tissue. B. Rule out superior parathyroid, biopsy: Unremarkable parathyroid tissue (0.003gm). C. Left thyroid lobe with isthmus, lobectomy and isthmectomy: Multinodular goiter. Unremarkable parathyroid tissue. Changes consistent with previous biopsy. One perithyroidal benign lymph node. See comment. / 08/25/2023 COMMENT C. Immunohistochemistry ([id number]) supports the above diagnosis. Please make reference to previous specimen [id number] fine needle aspiration left thyroid lobe fluid with diagnosis of atypia of undetermined significance and fine needle aspiration left thyroid nodule smears with diagnosis of suspicious for malignancy and fine needle aspiration left thyroid cyst with diagnosis of macrophages consistent with benign cyst content and fine needle aspiration left thyroid cyst fluid and smears with diagnosis of consistent benign cyst content. Case has been reviewed in consultation with Dr. Jimenez who concurs with the above diagnosis. IDC:AM MICROSCOPIC DESCRIPTION Slides are reviewed. GROSS DESCRIPTION A. Received fresh for frozen section diagnosis labeled with the patient's name is a specimen designated Rule out parathyroid. The specimen consists of a piece of robb-pink soft tissue weighing 0.009gm and measuring 0.2 x 0.1 x 0.1cm. The entire specimen is submitted for frozen section diagnosis in one cassette. [facility] 08/22/2023 B. Received fresh for frozen section diagnosis labeled with the patient's name is a specimen designated Rule out superior parathyroid. The specimen consists of a piece of pink soft tissue weighing 0.003gm and measuring 0.2 x 0.1 x 0.1cm. The entire specimen is submitted in one cassette. [facility] 08/22/2023 C. Received in fixative is one container labeled with the patient's name and designated Left thyroid lobe with isthmus, stitch-left superior pole. The specimen consists of a thyroid lobectomy specimen weighing 3.9gm and the right lobe measures 3.2 x 1.5 x 1.2 and the isthmus measures 1.5 x 0.5 x 0.4cm. The specimen is inked as follows: anterior surface thyroid lobe and isthmus- black, posterior surface thyroid lobe and isthmus- blue, isthmic resection margin- yellow. Sections reveal a dark red solid nodule in the lower portion of the thyroid lobe measuring 1.2 x 1.0 x 0.6cm. The entire specimen is submitted in six cassettes as follows: 1- isthmus, 2-6- thyroid lobe (cassette 2 contains the most superior portion and cassette 6 contains the most inferior portion). [facility] 08/23/2023 TC:5 CPT:[id number]
[2023-08-22] MEDS: Bupivacaine 0.25% 30 ML Vial (14:02)
[2023-08-22] MEDS: Albuterol 2.5 MG/3 ML VIAL.NEB. INHALATION (14:16)
--- NOTE | 2023-08-22 14:21 | PCM.POST.ANE ---
Anesthesia: Postop Eval I Current Vital Signs Temperature: 98.2 F Pulse Rate: 109 Blood Pressure: 151/103 Respiratory Rate: 20 Pulse Ox: 91 Oxygen Delivery Method: Room Air Assessment Airway patent: Yes Spontaneous unlabored respirations: Yes Mental status: Awake and Calm nausea: No Vomiting: No Anesthesia Complication: No Fluid Hydration Crystalloid volume administer (ml): 1,300 Total IV fluid infused: 1,300 Progress Note Anesthesia document: Postop Eval 1 completed: Yes
--- NOTE | 2023-08-22 14:45 | OP.PCM_ITS ---
Report of Operation Date of Procedure: 08/22/23 Pre-Operative Diagnosis: Biopsy?suspicious left thyroid nodule Post-Operative Diagnosis: Same Surgery/Procedure Performed:: Left thyroid lobectomy with isthmusectomy Surgeon: Anastacio Cannon industrial seamstress: Collins Forbes Anesthesiologist: Brian Bautista Specimen's removed: 1. Left thyroid lobe and isthmus 2. Rule out parathyroid 3. Rule out superior parathyroid Drains: None Estimated Blood Loss (mL): 20 Description of Procedure: After appropriate identification in the preoperative holding area, the patient was brought to the operating room where she was positioned supine on the operating room table. Induction of general endotracheal anesthetic was begun and a NIMS tube was placed under glidescope view to confirm coaptation with the vocal cords anteriorly. Tube was then secured and the patient was positioned with a shoulder roll so that her head was in extension but supported. The Nims electrodes were placed and connected to the monitor. We had appropriate resistance showing on the monitor and tapping at the level of the cricoid produce a graphical representation of the impulse on the monitor. Patient's neck was then prepped and draped in usual sterile fashion and a formal timeout was conducted from those present. The lowest skin fold to the sternal notch was sought for incision site however, this resided approximately 3 fingerbreadths cephalad to the notch and was too far cephalad for the operation so a interval skin crease was made with pressure applied to a 3-0 silk and a 4 cm cervical incision was made after instillation of local anesthetic. Electrocautery was used to deepen this incision through the level of the platysma. Subplatysmal flaps were raised with the use of electrocautery and blunt dissection. There was some slight bleeding from a branch of the anterior jugular vein that was promptly addressed with our LigaSure energy device. The strap muscles were then divided along the median raphe bringing us down to the level of the thyroid. Capsular attachments to the thyroid were divided with the use of LigaSure or bluntly swept away. Retractors were placed providing excellent visualization of the left superior pole of the thyroid. The vessels of the superior pole were sequentially ligated with the use of the LigaSure device. We then moved inferiorly and divided those polar vessels with LigaSure. What appeared to be the left inferior parathyroid gland appeared adherent to the thyroid capsule inferior laterally and I felt as though I would need to fully remove the gland and perform autotransplantation if it were to be salvaged. Given that cancer has not been excluded as patient's diagnosis I also did not want to leave behind tissue without proving via biopsy that it was benign so I elected to send a frozen section of the specimen to the lab after first placing a medium vascular clip across the lesion. Ultimately this would return is consistent with just a piece of fibrofatty tissue and a second specimen was sent to frozen section for rule out superior parathyroid gland. The second specimen did return consistent with parathyroid tissue. With the poles freed the thyroid was mobilized medially by dividing the middle thyroid vein and then bluntly the remaining strap muscle fibers from the thyroid capsule. Using blunt dissection parallel to the presumed course of the recurrent laryngeal nerve I exposed the tracheoesophageal groove. Here I encountered a positive signal for the left recurrent laryngeal nerve and was shortly thereafter able to visualize the nerve. The nerve positively identified, I relieved the attachments of the thyroid gland to the underlying trachea with the use of LigaSure. As we again approached the nerve insertion of the cricothyroid membrane, I attempted to leave a thyroid remnant but found the tissue exceptionally dense and upon rechecking the nerve signal could clearly confirm the insertion to the cricothyroid joint. Thus I resolved to use limited cautery to remove the thyroid from the anterior surface of the trachea. The area around the ligament of Brody was highly vascular and this process resulted in some oozing. The thyroid was divided beyond the isthmic portion of the gland using LigaSure and was oriented with a stitch through the left superior pole for pathology. Returning to the surgical cavity there was persistent oozing in the region of the ligament of Brody despite application of Surgicel gauze so again selective electrocautery was required for hemostasis. The recurrent laryngeal nerve signal was checked prior to application of cautery. This did result in significantly improved hemostasis and several other areas were selectively cauterized before once again irrigating placing a swatch of Surgicel into the cavity. This time the hemostatic agent remained white in color. We also confirmed the presence of both the clipped superior parathyroid gland as well as a well-functioning recurrent laryngeal nerve. Satisfied with this result, the strap muscles were closed with a running 3-0 Vicryl stitch leaving a small gap at the inferior aspect of the suture line. The platysmal flaps were closed with interrupted 3-0 Vicryl. Some additional local anesthetic was infiltrated throughout the dermis and the skin was closed in a subcuticular fashion using 4- 0 Monocryl. Steri-Strips were applied. Telfa and Tegaderm were used as a dressing. The patient was then awakened from anesthetic without event and was taken to PACU for ongoing recovery. Grafts/Implants Used: None Complications None Admit VTE Documentation VTE Mechan Device Prophylaxis: SCD's Procedures Endocrine CF Procedures [id number]: [id number] Partial thyroid excision
--- NOTE | 2023-08-22 14:47 | DCINST_ITS ---
Discharge Instructions Diet Discharge Diet: No restrictions (However recommend a liquid to soft diet initially postoperatively) Activity Discharge Activity: May Not Drive (While it remains difficult to check blind spots quickly) May shower in (days): 2 Ice area for (Minutes): 20 Lifting Restrictions: No lifting greater than 15 pounds for 2 weeks after surgery Dressing / Incision Call your doctor if your incision/area has: Continuous Slow Oozing, Sudden Increased Bleeding, Increased Pain/ Swelling, Increased Redness and Swelling at the incision site Call your doctor if you observe: Numbness or Tingling Remove Dressing in: 2 days (Please leave Steri-Strips intact until they fall off spontaneously or are taken off at your follow-up visit) Cleanse incision/area with: Soap & Water Follow Up Care Please Follow Up With: Anastacio Cannon MD When: 7-10 days postop Test Results: Test results from this visit will be discussed in further detail at your follow- up appointment, if applicable. Discharge Plan Admission Primary Reason for Your Visit: Left thyroid lobectomy Attending Provider: Anastacio Cannon Primary Care Provider: Raad Armendariz Instructions Print Language: Moroccan Discharge Orders/Prescriptions Prescriptions: Continued albuterol sulfate [ProAir HFA] 90 mcg/actuation HFA aerosol inhaler 2 puff INHALATION Q6H PRN (Reason: Sob &/Or Wheezing) famotidine [Pepcid] 40 mg tablet 40 mg PO DAILY pravastatin 40 mg tablet 10 mg PO QHS zolpidem 10 mg tablet 10 mg PO QHS Patient Comments: TAKE 1 TABLET BY MOUTH EVERYDAY AT BEDTIME albuterol sulfate 2.5 mg /3 mL (0.083 %) solution for nebulization 2.5 mg inhalation Q4H PRN Qty: 25 0RF Rx Instructions: Use q4 hours and PRN for wheezing hydrocodone-acetaminophen 7.5-325 mg tablet 1 tab PO Q6H Rx Instructions: FOR CHRONIC INTRACTABLE PAIN loratadine 10 mg tablet 10 mg PO Q24H Referrals / Follow Up: Raad Armendariz DO [Primary Care Provider] - Disposition Disposition (needs filled in before D/C Order can be placed): Home, Self Care
[2023-08-22] MEDS: Acetaminophen 500 MG Tablet 1000 MG PO (15:39)
[2023-08-22] MEDS: oxyCODONE 5 MG Tablet PO (16:32)
--- NOTE | 2023-08-22 17:02 | POSTOPAN2_ITS ---
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 Anesthesia Postop Eval I: Fluid Summary Crystalloid volume administer 1,300 08/22/23 14:23 MINING AND QUARRYING 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.SCHR (ml) Colloids volume administered ( ml) Blood Product volume administered (ml) Total IV fluid infused 1,300 08/22/23 14:23 MINING AND QUARRYING 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.SCHR Anesthesia Postop Eval I: Summary Notes Anesthesia Complication No 08/22/23 14:23 MINING AND QUARRYING 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.[facility] Anesthesia Complication Comment: Post-operative progress note Anesthesia: Postop Eval II Evaluation Mental status: Awake and Calm Pain Level: 1 nausea: No Vomiting: No Complications Anesthesia Complication: No
--- NOTE | 2023-08-22 17:02 | PCM.POSTANE2 ---
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 Spontaneous unlabored Yes 08/22/23 14:23 CRADLE SLIDE [email or web address] respirations Mental status Awake,Calm 08/22/23 14:23 CRADLE [email or web address] [email or web address] nausea No 08/22/23 14:23 CRADLE SLIDE [email or web address] Vomiting No 08/22/23 14:23 CRADLE SLIDE [email or web address] Anesthesia Postop Eval I: Fluid Summary Crystalloid volume administer 1,300 08/22/23 14:23 CRADLE SLIDE [email or web address].SCHR (ml) Colloids volume administered ( ml) Blood Product volume administered (ml) Total IV fluid infused 1,300 08/22/23 14:23 CRADLE SLIDE [email or web address] Anesthesia Postop Eval I: Summary Notes Anesthesia Complication No 08/22/23 14:23 [email or web address] Anesthesia Complication Comment: Post-operative progress note Anesthesia: Postop Eval II Evaluation Mental status: Awake and Calm Pain Level: 1 nausea: No Vomiting: No Complications Anesthesia Complication: No
== END 2023-08-22 17:04 | disposition home or self-care (01) ==
LOC: SDC 09:17 → AC 09:18
PROVIDERS: PCP Family Medicine; Referring Provider Surgery; Visit Provider Surgery
PROC: (CPT 60210; principal; 2023-08-22 10:45)
DX: E04.1 Nontoxic single thyroid nodule (principal); F31.9 Bipolar disorder, unspecified; J44.9 Chronic obstructive pulmonary disease, unspecified; F17.210 Nicotine dependence, cigarettes, uncomplicated; E78.00 Pure hypercholesterolemia, unspecified; K21.9 Gastro-esophageal reflux disease without esophagitis; Z79.51 Long term (current) use of inhaled steroids; Z79.899 Other long term (current) drug therapy
CPT/HCPCS: 60210; 00320; 88305; 88307; 88331; 88341; 88342; 94640; A4648; J7120; J2405

== ENCOUNTER 2023-12-28 15:22 | Emergency (ER) | payer OTHER, SELFPAY ==
[2023-12-28 15:22] VITALS: BP 129/82; PULSE 85; RESP 16; TEMP 37; O2SAT 96; BMI 24.3
[2023-12-28 15:24] VITALS: BP 129/82; PULSE 83; RESP 16; TEMP 37; O2SAT 98
--- NOTE | 2023-12-28 15:33 | EDS_ITS ---
HPI History of Present Illness Chief Complaint: Shortness of Breath Detail of Chief Complaint: Shortness of breath Informant: patient Narrative Narrative: Patient presents with shortness of breath that has been lingering for the last 2 weeks. Patient does have a cough that is nonproductive. She has had no fever. She was tested for COVID yesterday and was negative. She does have history of COPD and asthma. Denies recent travel or surgery. No history of PE or DVT. Her last surgery was a partial thyroidectomy in September of this year. Intermittent sharp stabbing pains with breathing but she states is not there all the time. She has been using her inhalers and nebulizer more frequently. She has an appointment to see her primary care physician tomorrow for a general checkup. [facility] Medical History Thyroid nodule Wears glasses Bipolar disorder Alcohol use High cholesterol Easy bruising Restless legs History of diverticulitis History of IBS Gastric reflux Smoker COPD (chronic obstructive pulmonary disease) Shortness of breath on exertion Depression Arthritis History of back problems Epigastric pain Hypercholesterolemia GERD (gastroesophageal reflux disease) History of COPD Tobacco use Asthma Home Medications ?Medication ?Instructions ?Recorded ?Last Taken ?Type albuterol sulfate 90 mcg/actuation 2 puff inhalation Q6H PRN Sob &/Or 06/14/17 08/22/23 History aerosol inhaler (ProAir HFA) Wheezing famotidine 40 mg tablet (Pepcid) 40 mg PO DAILY 07/02/21 08/21/23 History pravastatin 40 mg tablet 10 mg PO QHS 07/02/21 08/21/23 History zolpidem 10 mg tablet 10 mg PO QHS 07/02/21 08/19/23 History albuterol sulfate 2.5 mg/3 mL 2.5 mg (3 mL) inhalation Q4H PRN 11/02/21 08/21/23 Rx (0.083 %) solution for nebulization #25 vials hydrocodone 7.5 mg-acetaminophen 1 tab PO Q6H 03/12/23 08/19/23 History 325 mg tablet loratadine 10 mg tablet 10 mg PO Q24H 03/12/23 08/08/23 History doxycycline monohydrate 100 mg 100 mg PO BID #20 CAPSULES 12/28/23 Unknown Rx capsule prednisone 20 mg tablet 20 mg PO BID #10 tabs 12/28/23 Unknown Rx Allergy/AdvReac Type Severity Reaction Status Date / Time amitriptyline AdvReac Other Verified 12/28/23 15:22 diphenhydramine HCl (From AdvReac Other Verified 12/28/23 15:22 Benadryl) Family History Mother Cancer lung Father Cancer lung Brother Cancer lung Diabetes Heart disease Sister Breast cancer Brother Heart disease Hypertension High cholesterol Surgical History History of brain surgery History of excision of mass History of dermoid cyst excision History of tonsillectomy Hx of appendectomy brain tumor removed delivery delivered Social History Smoking Status: Current some day smoker tobacco type: cigarettes alcohol intake: current details: social substance use type: does not use caffeine: Yes what type of physical activity do you participate in: walking seatbelt use: always do you feel safe at home: Yes additional social history: Paul Stoddard Patient works at [employer] ROS ROS ED Review of Systems ROS Unobtainable: other Constitutional Constitutional ED: Reports lethargy; Denies chills, fever(s), sweats or weight loss Eyes Eyes: Denies blurry vision, change in vision or diplopia ENT ENT ED: Denies rhinorrhea or sore throat Cardiovascular Cardiovascular: Reports chest pain; Denies orthopnea or racing heartbeat Respiratory/Chest Respiratory/Chest: Reports dyspnea and dyspnea on exertion; Denies cough, orthopnea or sputum Gastrointestinal Gastrointestinal: Denies abdominal pain, diarrhea, nausea or vomiting Genitourinary Genitourinary ED: Denies dysuria, hematuria or urinary frequency Musculoskeletal Musculoskeletal: Denies arthralgias, back pain, myalgias or neck pain Integumentary Denies abscess, Abrasions or rash Neurologic Neurologic: Denies headache(s) or weakness Psychiatric Psychiatric: Denies anxiety, depression or suicidal thoughts Endocrine Endocrinology: Denies polydipsia, polyphagia or polyuria Hematologic/Lymphatic Hematologic/Lymphatic: Denies easy bleeding, easy bruising or lymphadenopathy Allergic/Immunologic Allergic/Immunologic ED: Denies mouth swelling, tongue swelling or urticaria EXAM Physical Exam Const Vital Signs: 12/28/23 15:22 12/28/23 15:24 12/28/23 15:58 Temperature 98.6 F 98.6 F Temperature Source Temporal Temporal Pulse Rate 85 83 79 Respiratory Rate 16 16 18 Respiratory Effort Respiratory Depth Respiratory Pattern Normal Blood Pressure 129/82 H 129/82 H Blood Pressure Mean 97 97 Pulse Ox 96 98 Oxygen Delivery Method Room Air Room Air 12/28/23 16:22 12/28/23 17:07 Temperature 98.2 F Temperature Source Pulse Rate 80 Respiratory Rate 19 H Respiratory Effort Normal Non-Labored Respiratory Depth Normal Respiratory Pattern Normal Blood Pressure 129/72 H Blood Pressure Mean 91 Pulse Ox 97 Oxygen Delivery Method Room Air Positive well nourished and well developed General Appearance ED: well developed and NAD HEENT Reports TM's clear and moist mucous membranes normocephalic and atraumatic; Negative for trauma or tenderness Tympanic Membrane ED: Yes TM's clear Eyes PERRL and EOMs intact bilaterally General Eye ED: Negative for pale conjunctiva or scleral icterus Neck no lymphadenopathy, supple and no JVD General: Negative for tenderness Chest Wall inspection of chest normal and palpation of chest normal Chest: Negative for tenderness Resp normal respiratory effort and clear to auscultation bilaterally Resp Narrative: No conversational dyspnea. No accessory muscle use or retractions noted. She does have expiratory wheezes noted bilaterally. No significant tachypnea. She is not hypoxic. Effort and Inspection: Negative for respiratory distress or pain with movement Auscultation: wheezes; Negative for rhonchi or diminished lung sounds Cardio regular rate, regular rhythm, S1 normal heart sound, S2 normal heart sound and no murmurs Peripheral Pulses: pulses 2+ throughout GI normal to inspection, nondistended, normoactive bowel sounds, soft to palpation, non-tender, non-distended and no masses Back/Spine no CVA tenderness and no thoracic nor lumbar tenderness Extremity normal to inspection General Extremety ED: Negative for edema General Extremity: Negative for edema Neuro oriented x3, CN's II-XII intact bilaterally, no sensory deficits noted and gait normal Sensorium / Orientation: awake, alert, oriented to person, oriented to place and oriented to time Motor Exam: strength 5/5 throughout and strength abnormal Psych mental status grossly normal Skin no rashes or lesions noted and no wounds MDM MDM MDM Narrative Medical decision making narrative: Patient presents with cough and increasing shortness of breath over the last 2 weeks. Clinically she looks well and vital signs are stable. She is not hypoxic. She does have wheezing on exam and has history of asthma and COPD. Patient had a chest x-ray that showed no evidence of infiltrate. She was given a DuoNeb aerosol and started on prednisone. I will start patient on doxycycline and treat with prednisone. She is to keep her appointment with her primary care physician tomorrow. She is advised return if increasing shortness of breath or condition should worsen anyway. Radiography Diagnostic Testing: Clinical Impression(s) from Imaging Studies Chest X-Ray 12/28/23 15:40 IMPRESSION: No radiographic evidence of acute cardiopulmonary disease. Electronically Signed: Pk Hanson DO at 17:15 EST Reading Location ID and State: [facility] / [place] Tel [phone], Service support , 2 view x-rays of the chest obtained interpreted by myself as no evidence of infiltrate or pneumothorax or acute disease process. Radiology report pending. Discharge Plan Triage Chief Complaint: Shortness of Breath ED Provider: Geo Donaldson Dx/Rx/DC Orders Clinical Impression: Asthmatic bronchitis Instructions: ED Bronchitis with Wheezing (Adult) Prescriptions: New doxycycline monohydrate 100 mg capsule 100 mg PO BID Qty: 20 0RF prednisone 20 mg tablet 20 mg PO BID Qty: 10 0RF No Action albuterol sulfate [ProAir HFA] 90 mcg/actuation HFA aerosol inhaler 2 puff INHALATION Q6H PRN (Reason: Sob &/Or Wheezing) famotidine [Pepcid] 40 mg tablet 40 mg PO DAILY pravastatin 40 mg tablet 10 mg PO QHS zolpidem 10 mg tablet 10 mg PO QHS Patient Comments: TAKE 1 TABLET BY MOUTH EVERYDAY AT BEDTIME albuterol sulfate 2.5 mg /3 mL (0.083 %) solution for nebulization 2.5 mg inhalation Q4H PRN Qty: 25 0RF Rx Instructions: Use q4 hours and PRN for wheezing hydrocodone-acetaminophen 7.5-325 mg tablet 1 tab PO Q6H Rx Instructions: FOR CHRONIC INTRACTABLE PAIN loratadine 10 mg tablet 10 mg PO Q24H Primary Care Provider: Raad Armendariz Referrals: Raad Armendariz DO [Primary Care Provider] - 1 Day Print Language: Chinese Disposition Disposition: Home, Self Care Discharge Date/Time: 12/28/23 17:08
[2023-12-28] MEDS: predniSONE 20 MG Tablet 60 MG PO (15:35)
--- NOTE | 2023-12-28 15:40 | RAD_ITS ---
INDICATION: dyspnea EXAMINATION/TECHNIQUE: X-RAY - XR Chest 2 Views COMPARISON: March 12, 2023 FINDINGS: LINES/DEVICES: None. LUNGS: No consolidation, edema or effusion. No pneumothorax. MEDIASTINUM AND CARDIOVASCULAR STRUCTURES: Cardiac silhouette not enlarged. Central airways and mediastinal contour are unremarkable. BONES AND SOFT TISSUES: Unremarkable. RAD/Chest PA and Lateral IMPRESSION: No radiographic evidence of acute cardiopulmonary disease. Electronically Signed: Pk Hanson DO at 17:15 EST ,
[2023-12-28 15:58] VITALS: PULSE 79; RESP 18
[2023-12-28] MEDS: Ipratropium/Albuterol Sulfate 3 ML AMPUL.NEB INHALATION (15:58)
[2023-12-28 16:22] VITALS: O2SAT 95
[2023-12-28] MEDS: Doxycycline 100 MG CAPSULE PO (17:05)
[2023-12-28 17:07] VITALS: BP 129/72; PULSE 80; RESP 19; TEMP 36.8; O2SAT 97
== END 2023-12-28 17:08 | disposition home or self-care (01) ==
PROVIDERS: Emergency Provider Emergency Medicine; PCP Family Medicine; Referring Provider Emergency Medicine; Visit Provider Emergency Medicine
DX: J45.909 Unspecified asthma, uncomplicated (principal); E78.00 Pure hypercholesterolemia, unspecified; E89.0 Postprocedural hypothyroidism; K21.9 Gastro-esophageal reflux disease without esophagitis; Z79.52 Long term (current) use of systemic steroids; F17.210 Nicotine dependence, cigarettes, uncomplicated; R07.9 Chest pain, unspecified
CPT/HCPCS: 71046; 94640; 99283

== ENCOUNTER → 2023-12-29 | Outpatient (CLI) | payer OTHER, SELFPAY ==
[2023-12-29 17:54] LABS: Free T3 1.5 pg/mL (2.18-3.98); T4 Free Direct 0.68 ng/dL (0.76-1.46)
== END | disposition home or self-care (01) ==
LOC: BFHLAB 16:08
PROVIDERS: Surgery; PCP Family Medicine; Referring Provider Family Medicine; Visit Provider Family Medicine
DX: E01.0 Iodine-deficiency related diffuse (endemic) goiter (principal)
CPT/HCPCS: 36415; 84439; 84443; 84481

== ENCOUNTER 2024-03-17 08:47 | Emergency (ER) | payer OTHER, SELFPAY ==
[2024-03-17] VITALS (8 sets, daily range): BP systolic 108–142; BP diastolic 76–101; PULSE 87–115; RESP 10–18; TEMP 36.1–37; O2SAT 91–97; BMI 29.9
--- NOTE | 2024-03-17 08:59 | ED.VIS.DYS ---
HPI History of Present Illness Chief Complaint: Shortness of Breath PFSH PFSH Medical History Thyroid nodule Wears glasses Bipolar disorder Alcohol use High cholesterol Easy bruising Restless legs History of diverticulitis History of IBS Gastric reflux Smoker COPD (chronic obstructive pulmonary disease) Shortness of breath on exertion Depression Arthritis History of back problems Epigastric pain Hypercholesterolemia GERD (gastroesophageal reflux disease) History of COPD Tobacco use Asthma Home Medications ?Medication ?Instructions ?Recorded ?Last Taken ?Type albuterol sulfate 90 mcg/actuation 2 puff inhalation Q6H PRN Sob &/Or 06/14/17 08/22/23 History aerosol inhaler (ProAir HFA) Wheezing famotidine 40 mg tablet (Pepcid) 40 mg PO DAILY 07/02/21 08/21/23 History pravastatin 40 mg tablet 10 mg PO QHS 07/02/21 08/21/23 History zolpidem 10 mg tablet 10 mg PO QHS 07/02/21 08/19/23 History albuterol sulfate 2.5 mg/3 mL 2.5 mg (3 mL) inhalation Q4H PRN 11/02/21 08/21/23 Rx (0.083 %) solution for nebulization #25 vials hydrocodone 7.5 mg-acetaminophen 1 tab PO Q6H 03/12/23 08/19/23 History 325 mg tablet loratadine 10 mg tablet 10 mg PO Q24H 03/12/23 08/08/23 History ipratropium 0.5 mg-albuterol 3 mg 3 ml inhalation Q4H PRN wheezing 03/17/24 Unknown Rx (2.5 mg base)/3 mL nebulization #90 mL soln prednisone 50 mg tablet 50 mg PO DAILY 5 days #5 tabs 03/17/24 Unknown Rx Allergy/AdvReac Type Severity Reaction Status Date / Time amitriptyline AdvReac Other Verified 03/17/24 08:51 diphenhydramine HCl (From AdvReac Other Verified 03/17/24 08:51 Benadryl) Family History Mother Cancer lung Father Cancer lung Brother Cancer lung Diabetes Heart disease Sister Breast cancer Brother Heart disease Hypertension High cholesterol Surgical History History of brain surgery History of excision of mass History of dermoid cyst excision History of tonsillectomy Hx of appendectomy brain tumor removed delivery delivered Social History Smoking Status: Current some day smoker tobacco type: cigarettes alcohol intake: current details: social substance use type: does not use caffeine: Yes what type of physical activity do you participate in: walking seatbelt use: always do you feel safe at home: Yes additional social history: Paul Stoddard Patient works at [employer] EXAM Physical Exam Const Vital Signs: 03/17/24 08:48 03/17/24 08:51 03/17/24 08:53 Temperature 98.6 F 98.6 F Temperature Source Oral Oral Pulse Rate 115 H 106 H Respiratory Rate 18 18 Respiratory Effort Normal Respiratory Pattern Blood Pressure 142/100 H 142/101 H Blood Pressure Mean 114 114 Pulse Ox 95 95 Oxygen Delivery Method Room Air Room Air Room Air 03/17/24 09:37 03/17/24 09:51 03/17/24 09:51 Temperature 98.6 F Temperature Source Oral Pulse Rate 93 95 Respiratory Rate 16 12 Respiratory Effort Respiratory Pattern Normal Blood Pressure 112/76 Blood Pressure Mean 88 Pulse Ox 91 Oxygen Delivery Method Room Air Room Air 03/17/24 11:00 03/17/24 12:00 03/17/24 12:00 Temperature 98.6 F 96.9 F L Temperature Source Oral Temporal Pulse Rate 90 87 Respiratory Rate 17 10 L Respiratory Effort Respiratory Pattern Blood Pressure 108/77 126/85 H 126/85 H Blood Pressure Mean 87 98 98 Pulse Ox 93 95 Oxygen Delivery Method Room Air Room Air 03/17/24 12:20 Temperature 96.9 F L Temperature Source Pulse Rate 90 Respiratory Rate 12 Respiratory Effort Respiratory Pattern Blood Pressure 129/92 H Blood Pressure Mean 104 Pulse Ox 97 Oxygen Delivery Method MDM MDM MDM Narrative Medical decision making narrative: HISTORY OF PRESENT ILLNESS: 53-year-old female history of COPD, tobacco abuse GERD hyperlipidemia presented shortness of breath. She is doing abdominal care this morning started feeling short of breath. Wheezing reported per EMS. Received DuoNeb per EMS. Patient endorses acute onset of shortness of breath occurred just prior to arrival. Denies any chest pain currently. Denies leg swelling. Denies any bleeding diathesis. Denies any sick contacts. The patient denies recent surgery in the last 4 weeks or immobilization in the last 3 days, denies previous diagnosis of DVT or PE, hemoptysis, unilateral leg swelling or malignancy with treatment the last 6 months or palliative. No estrogen use noted. Denies vomiting or diarrhea. No she last about 4 days ago. REVIEW OF SYSTEMS: Pertinent positives: Short of breath, cough Pertinent negatives: Chest pain, bleeding diathesis PHYSICAL EXAM: Nursing triage notes reviewed, Vital signs reviewed Constitutional: please see mdm HENT: MMM Eyes: Pupils equal round and reactive to light, Extraocular muscles intact Neck: No stridor, no JVD, full neck ROM Lungs: [] No increased work of breathing, no conversational dyspnea, no accessory muscle use, no nasal flaring. No respiratory distress noted Heart: Regular rate and rhythm, No murmurs, No rubs and No gallops, 2+ distal pulses (radial, femoral, posterior tibial) in all extremities Abdomen: Soft, there is no tenderness, rigidity, rebound or guarding, no obvious peritoneal signs, no palpable pulsatile abdominal masses, no auscultated abdominal bruit : No CVAT Extremities: No edema Neuro: No new focal neurological deficits, cranial nerves II through XII intact, 5/5 strength in all present extremities. Intact sensation to light touch in all present extremities, 2+ reflexes bilateral patella tendons. Skin: No rash or lesions noted MEDICAL DECISION MAKING: Chief Complaint: Short of breath External records reviewed: Reviewed prior imaging studies Factors affecting care: COPD, asthma, Social determinants of health: tobacco abuse History obtained from others: EMS Consults: none. None [facility] Narrative: Patient was initially tachycardic rate of 115 otherwise afebrile and nontoxic-appearing saturating 95% on room air. Lungs with bilateral wheezing. I considered the following differential diagnosis: COPD/asthma exacerbation, pneumonia, COVID flu, RSV, anemia, electro disturbance, ACS, arrhythmia, PE Exam most consistent with COPD/asthma exacerbation. While I considered pulmonary embolism as a potential etiology given the patient reported shortness of breath and initial tachycardia the patient low risk Wells score. Asthma/COPD exacerbation is a more possible diagnosis. I considered obtaining a CTA of the chest due to failure rule out PE however thought this was not indicated the time given history and physical exam. I continue breathing treatments here, gave 125 mg of Solu-Medrol empirically. I also obtained a broad lab and imaging workup to further elucidate the etiology of the patient's complaints. ALL IMAGES (IF OBTAINED) HAVE BEEN PERSONALLY REVIEWED AND INTERPRETED BY MYSELF. EKG with normal sinus rhythm rate 89, normal axis, normal intervals, QTc 442, no STEMI CBC without leukocytosis, severe anemia, no thrombocytopenia. BMP without evidence of significant electrolyte abnormalities, no anion gap, no acute kidney injury. High-sensitivity troponin is negative, no evidence of myocardial ischemia x 2 I have personally reviewed the patient's chest x-ray. Chest x-ray is unremarkable for pulmonary edema, pneumothorax, pneumonia or focal cardiopulmonary abnormality. After breathing treatments and steroids patient's vital signs improved with a heart rate of 90. Saturations remained stable at 93% Patient was able to ambulate here without hypoxia. Maintain saturations above 92%. She is likely suffering from a COPD exacerbation. Will prescribe prednisone and and encouraged her to continue to take inhaler as needed. Strict return precautions were discussed. The patient and/or family, caregivers express understanding. The patient and/or family, caregivers agrees with the plan. Shared decision making: I will have a discussion with the patient and or visitors regarding risk/benefits of further testing or admission. They will be made aware of of the risk/benefits inherent in this decision they will be given the opportunity to voice understanding. Total critical care time today provided was at least 0 minutes. This excludes separately billable procedures. Critical care time (if documented) is secondary to the patient having high probability of clinically significant/life threatening deterioration in the patient's condition which required my urgent intervention. Impression: 1. Acute dyspnea 2. COPD exacerbation 3. History of tobacco abuse Dispo: Discharge home This note was generated with [employer] dictation software. It may contain incorrect words, spelling, and punctuation that were not noted in review of the chart prior to signing. Lab Data Labs: Laboratory Results - last 24 hr 03/17/24 03/17/24 09:11 11:45 WBC 10.1 RBC 4.59 Hgb 13.3 Hct 41.5 MCV 90.4 MCH 29.0 MCHC 32.0 RDW Std Deviation 45.1 H RDW Coeff of Mariana 13.5 Plt Count 425 MPV 9.0 Immature Gran % (Auto) 0.400 Neut % (Auto) 57.5 Lymph % (Auto) 29.8 Mcmullen % (Auto) 6.0 Eos % (Auto) 5.6 H Baso % (Auto) 0.7 Absolute Neuts (auto) 5.8 Absolute Lymphs (auto) 2.99 Nucleated RBC % 0 Sodium 141 Potassium 3.6 Chloride 101 Carbon Dioxide 30.0 Anion Gap 10 BUN 15 Creatinine 0.84 Estim Creat Clear Calc 80.73 Est GFR (MDRD) Af Amer 91 Est GFR (MDRD) Non-Af 75 BUN/Creatinine Ratio 17.8 Glucose 155 H Calcium 8.8 Troponin I High Sens < 3 L < 3 L Radiography Diagnostic Testing: Clinical Impression(s) from Imaging Studies Chest X-Ray 03/17/24 09:58 IMPRESSION: NEGATIVE SINGLE VIEW OF THE CHEST. Reading Location: [facility] Discharge Plan Triage Chief Complaint: Shortness of Breath ED Provider: Maulik Young Dx/Rx/DC Orders Clinical Impression: Asthma Instructions: ED Asthma, Acute (Adult) Prescriptions: New ipratropium-albuterol 0.5 mg-3 mg(2.5 mg base)/3 mL solution for nebulization 3 ml inhalation Q4H PRN (Reason: wheezing) Qty: 90 0RF prednisone 50 mg tablet 50 mg PO DAILY 5 Days Qty: 5 0RF No Action albuterol sulfate [ProAir HFA] 90 mcg/actuation HFA aerosol inhaler 2 puff INHALATION Q6H PRN (Reason: Sob &/Or Wheezing) famotidine [Pepcid] 40 mg tablet 40 mg PO DAILY pravastatin 40 mg tablet 10 mg PO QHS zolpidem 10 mg tablet 10 mg PO QHS Patient Comments: TAKE 1 TABLET BY MOUTH EVERYDAY AT BEDTIME albuterol sulfate 2.5 mg /3 mL (0.083 %) solution for nebulization 2.5 mg inhalation Q4H PRN Qty: 25 0RF Rx Instructions: Use q4 hours and PRN for wheezing hydrocodone-acetaminophen 7.5-325 mg tablet 1 tab PO Q6H Rx Instructions: FOR CHRONIC INTRACTABLE PAIN loratadine 10 mg tablet 10 mg PO Q24H Primary Care Provider: Raad Armendariz Referrals: Raad Armendariz DO [Primary Care Provider] - Activity Restrictions/Additional Instructions: Thank you for trusting us with your care today! Your labs images were reassuring. There is no sign of damage to your heart, significant issue with your blood counts, signs of viral infection. I suspect you are suffering from a COPD/asthma exacerbation. This is treated with breathing treatments and steroids. Please take Tylenol (2 pills, 650 mg), ibuprofen (2 pills, 400 mg) every 6 hours as needed for pain and fever control. Please use nebulized breathing treatments as needed for wheezing. Please take prednisone as needed. Please return to the emergency department if your symptoms change or worsen. Please follow with your primary care physician for further outpatient evaluation and management. Print Language: Bengali Disposition Disposition: Home, Self Care Discharge Date/Time: 03/17/24 12:39
--- NOTE | 2024-03-17 09:37 | EKG12_ITS ---
Test Reason : SOB Blood Pressure : */* mmHG Vent. Rate : 89 BPM Atrial Rate : 89 BPM P-R Int : 168 ms QRS Dur : 66 ms QT Int : 364 ms P-R-T Axes : 62 22 59 degrees QTcB Int : 442 ms Normal sinus rhythm Normal ECG Confirmed by GORGE YOUNG, JUAN DANIEL ([id number]), commissioning editor EDMUND GIVENS ([id number]) on 03/18/2024 11:07:25 AM Referred By: Confirmed By: JUAN DANIEL PENNINGTON MD
[2024-03-17] MEDS: MethylPREDNISolone 125 MG/2 ML Vial IV (09:42)
--- NOTE | 2024-03-17 09:48 | EKG12_ITS ---
Test Reason : SOB Blood Pressure : */* mmHG Vent. Rate : 89 BPM Atrial Rate : 89 BPM P-R Int : 168 ms QRS Dur : 66 ms QT Int : 364 ms P-R-T Axes : 62 22 59 degrees QTcB Int : 442 ms Normal sinus rhythm Normal ECG When compared with ECG of 17-Mar-2024 09:48, MANUAL COMPARISON REQUIRED DATA IS UNCONFIRMED Confirmed by Anastacio Aguero ([id number]), business editor JOSE CHAVARRIA ([id number]) on 03/20/2024 7:01:25 AM Referred By: Confirmed By: Anastacio Aguero
[2024-03-17] MEDS: Ipratropium/Albuterol Sulfate 3 ML AMPUL.NEB INHALATION (09:50)
--- NOTE | 2024-03-17 09:58 | RAD_ITS ---
PROCEDURE: CHEST 1 VIEW (PORTABLE) REASON FOR EXAM: Short of breath TECHNIQUE: Frontal view of the chest. COMPARISON: None. FINDINGS: The cardiac and mediastinal contours are normal. The lungs are clear. RAD/Chest 1 View (Portable) IMPRESSION: NEGATIVE SINGLE VIEW OF THE CHEST. Reading Location: [facility]
[2024-03-17 10:00] LABS: Absolute Lymphocyte Count 2.99 X10^3/uL (0.83-4.51); Absolute Neutrophil Count 5.8 X10^3/uL (2.0-7.7); Basophil# 0.07 X10^3/uL; Basophil% 0.7 % (0-1); Eosinophil# 0.56 X10^3/uL; Eosinophils% 5.6 % (0-5); Hematocrit 41.5 % (37-47); Hemoglobin 13.3 g/dL (12.0-15.0); Lymphocyte # 2.99 X10^3/ul (0.83-4.51); Lymphocyte % 29.8 % (19-41); Mean Corpuscular Volume 90.4 fL (81-99); NRBC Flagged by Analyzer 0 % (0-5); Neutrophil # 5.79 X10^3/uL (2.7-7.7); Neutrophil % 57.5 % (47-70); Platelet Count 425 K/mm3 (150-450); RBC Distribution Width CV 13.5 % (11.6-14.6); RBC Distribution Width SD 45.1 fl (35.1-43.9); Red Blood Count 4.59 M/mm3 (4.2-5.4); White Blood Count 10.1 K/mm3 (4.4-11.0)
[2024-03-17 10:13] LABS: Anion Gap 10 (5-15); BUN 15 mg/dL (7-18); BUN/Creat Ratio 17.8 RATIO (10-20); Calcium,Total 8.8 mg/dL (8.5-10.1); Chloride 101 mmol/L (98-107); Creatinine, Serum 0.84 mg/dL (0.55-1.02); EST Glomerular Filtration Rate 75 mL/min (>60); Est Glom Filt Rate - Afr Amer 91 mL/min (>60); Estimated Creatinine Clearance 80.73 ml/min; Glucose 155 mg/dL (74-106); Potassium 3.6 mmol/L (3.5-5.1); Sodium Level 141 mmol/L (136-145); Troponin-I HS < 3 pg/mL (3.0-54.0)
[2024-03-17 12:17] LABS: Troponin-I HS < 3 pg/mL (3.0-54.0)
== END 2024-03-17 12:39 | disposition home or self-care (01) ==
PROVIDERS: Emergency Provider Emergency Medicine; PCP Family Medicine; Visit Provider Emergency Medicine
DX: J44.1 Chronic obstructive pulmonary disease with (acute) exacerbation (principal); E78.00 Pure hypercholesterolemia, unspecified; K21.9 Gastro-esophageal reflux disease without esophagitis; F17.210 Nicotine dependence, cigarettes, uncomplicated; R06.00 Dyspnea, unspecified
CPT/HCPCS: 71045; 80048; 84484; 85025; 87631; 93005; 94640; 96374; 99285; A4216

== ENCOUNTER 2024-06-22 15:53 | Emergency (ER) | payer OTHER, SELFPAY ==
[2024-06-22 15:54] VITALS: BP 133/91; PULSE 111; RESP 21; TEMP 36.6; O2SAT 96; BMI 24.0
--- NOTE | 2024-06-22 16:12 | ED.VIS.DYS ---
HPI History of Present Illness Chief Complaint: Asthma Onset/Context/Timing Onset: Today Context: gradual and onset (30 minutes prior to arrival) Timing: Continuous Quality: Positive for Wheezing Worsened by: Nothing Relieved by: Nothing Associated Symptoms Negative for cough, rhinorrhea, ear pain, fever, sore throat, chills, sweats, clear sputum, white sputum, yellow sputum or green sputum Chest Pain: Positive for None Narrative Narrative: Patient presents with shortness of breath that began approximately 30 minutes prior to arrival. Patient states she was cleaning her carpets when her breathing became worse. Patient states that she used this body cleaner in the past and denies any abnormal fumes or odors. Patient states it feels similar to prior flareups of her asthma. Patient states she took albuterol at home with minimal improvement. Patient states nothing makes her breathing better nothing makes it worse. Patient denies any cough. Patient denies any chest pain. Patient denies any fevers or chills. Patient denies any sore throat or rhinorrhea. PE Risk Factors: Negative for Cancer, OCP + Smoking + > 35, Prior DVT or PE, Recent immobilization, Recent surgery or Recent travel [facility] Medical History Thyroid nodule Wears glasses Bipolar disorder Alcohol use High cholesterol Easy bruising Restless legs History of diverticulitis History of IBS Gastric reflux Smoker COPD (chronic obstructive pulmonary disease) Shortness of breath on exertion Depression Arthritis History of back problems Epigastric pain Hypercholesterolemia GERD (gastroesophageal reflux disease) History of COPD Tobacco use Asthma Home Medications ?Medication ?Instructions ?Recorded ?Last Taken ?Type albuterol sulfate 90 mcg/actuation 2 puff inhalation Q6H PRN Sob &/Or 06/14/17 08/22/23 History aerosol inhaler (ProAir HFA) Wheezing famotidine 40 mg tablet (Pepcid) 40 mg PO DAILY 07/02/21 08/21/23 History pravastatin 40 mg tablet 10 mg PO QHS 07/02/21 08/21/23 History zolpidem 10 mg tablet 10 mg PO QHS 07/02/21 08/19/23 History albuterol sulfate 2.5 mg/3 mL 2.5 mg (3 mL) inhalation Q4H PRN 11/02/21 08/21/23 Rx (0.083 %) solution for nebulization #25 vials hydrocodone 7.5 mg-acetaminophen 1 tab PO Q6H 03/12/23 08/19/23 History 325 mg tablet loratadine 10 mg tablet 10 mg PO Q24H 03/12/23 08/08/23 History ipratropium 0.5 mg-albuterol 3 mg 3 ml inhalation Q4H PRN wheezing 03/17/24 Unknown Rx (2.5 mg base)/3 mL nebulization #90 mL soln prednisone 50 mg tablet 50 mg PO DAILY 5 days #5 tabs 03/17/24 Unknown Rx Allergy/AdvReac Type Severity Reaction Status Date / Time amitriptyline AdvReac Other Verified 06/22/24 15:56 diphenhydramine HCl (From AdvReac Other Verified 06/22/24 15:56 Benadryl) Family History Mother Cancer lung Father Cancer lung Brother Cancer lung Diabetes Heart disease Sister Breast cancer Brother Heart disease Hypertension High cholesterol Surgical History History of brain surgery History of excision of mass History of dermoid cyst excision History of tonsillectomy Hx of appendectomy brain tumor removed delivery delivered Social History Smoking Status: Current some day smoker tobacco type: cigarettes alcohol intake: current details: social substance use type: does not use caffeine: Yes what type of physical activity do you participate in: walking seatbelt use: always do you feel safe at home: Yes additional social history: [employer] Patient works at [employer] [facility] ROS ROS ED Constitutional Constitutional ED: Denies chills or fever(s) Eyes Eyes: Denies blurry vision or change in vision ENT ENT ED: Denies rhinorrhea or sore throat Cardiovascular Cardiovascular: Denies chest pain or palpitations Respiratory/Chest Respiratory/Chest: Reports dyspnea; Denies cough Gastrointestinal Gastrointestinal: Denies nausea or vomiting Genitourinary Genitourinary ED: Denies dysuria or hematuria Musculoskeletal Musculoskeletal: Denies back pain or neck pain Integumentary Denies abscess or rash Neurologic Neurologic: Denies headache(s) or weakness Allergic/Immunologic Allergic/Immunologic ED: Denies mouth swelling or urticaria EXAM Physical Exam Const Vital Signs: 06/22/24 15:53 06/22/24 15:54 06/22/24 16:25 Temperature 97.8 F Temperature Source Temporal Pulse Rate 111 H 94 Respiratory Rate 21 H 18 Respiratory Effort Normal Non-Labored Respiratory Depth Normal Respiratory Pattern Normal Normal Blood Pressure 133/91 H Blood Pressure Mean 105 Pulse Ox 96 Oxygen Delivery Method Room Air Room Air Positive well nourished and well developed General Appearance ED: well developed and NAD HEENT Reports moist mucous membranes atraumatic Neck supple and no JVD Resp normal respiratory effort Auscultation: wheezes scattered wheezes Cardio regular rhythm Rate: tachycardic GI non-tender and non-distended Palpation: soft Extremity normal to inspection Neuro oriented x3, CN's II-XII intact bilaterally and no sensory deficits noted Amira Coma Scale: document GCS findings Spontaneous Obeys Commands Oriented 15 Sensorium / Orientation: alert Speech: speech normal Motor Exam: strength 5/5 throughout Psych mental status grossly normal MDM MDM MDM Narrative Medical decision making narrative: Differential diagnosis includes asthma exacerbation, pneumonia, bronchitis, cardiac dysrhythmia, viral illness, and upper respiratory infection. EKG will be obtained to assess for cardiac dysrhythmia and cardiac ischemia. Chest x-ray will be obtained to assess for pneumonia and bronchitis. CBC will be obtained to assess for leukocytosis and anemia. Basic metabolic profile will be obtained to assess for electrolyte abnormality renal function. Lab Data Attestation: I reviewed the patient's lab results. Lab results narrative: CBC was reviewed and was within normal limits. Basic metabolic profile was reviewed and was within normal limits. Labs: Laboratory Results - last 24 hr 06/22/24 16:05 WBC 7.9 RBC 4.75 Hgb 14.0 Hct 41.9 MCV 88.2 MCH 29.5 MCHC 33.4 RDW Std Deviation 44.4 H RDW Coeff of Mariana 13.7 Plt Count 354 MPV 8.9 Immature Gran % (Auto) 0.400 Neut % (Auto) 45.6 L Lymph % (Auto) 41.3 H Williams % (Auto) 6.7 Eos % (Auto) 5.4 H Baso % (Auto) 0.6 Absolute Neuts (auto) 3.6 Absolute Lymphs (auto) 3.27 Nucleated RBC % 0 Sodium 139 Potassium 4.1 Chloride 103 Carbon Dioxide 22.6 Anion Gap 13 BUN 17 Creatinine 0.70 Estim Creat Clear Calc 82.10 Est GFR (MDRD) Non-Af 105 BUN/Creatinine Ratio 24.0 H Glucose 115 H Calcium 8.9 Radiography Diagnostic Testing: Patient declined x-ray. EKG Initial EKG: Attestation: I personally reviewed and interpreted this EKG as follows: Interpretation: No Acute Injury Pattern and Sinus Tachycardia (104) Comments: EKG was obtained. On my independent interpretation, it showed a sinus tachycardia with a rate of 104. IN interval, QRS interval, and QTc intervals were all normal. [place] was normal. There are no acute ST or T wave changes. Prior EKG tracings: available for review Prior: Unchanged (March 17, 2024) Treatment and Re-Evaluation :: Patient was given a DuoNeb aerosol here. Patient was feeling better on reevaluation. Patient does not want to have the x-ray done. Patient was instructed to continue her inhalers and aerosols at home as needed. Patient was instructed to return if worse in any way. Patient understood and was agreeable with plan. All questions were answered. Discharge Plan Triage Chief Complaint: Asthma ED Provider: Tyler Marsh Dx/Rx/DC Orders Clinical Impression: Asthma, Tobacco use Instructions: ED Asthma, Acute (Adult) Prescriptions: No Action albuterol sulfate [ProAir HFA] 90 mcg/actuation HFA aerosol inhaler 2 puff INHALATION Q6H PRN (Reason: Sob &/Or Wheezing) famotidine [Pepcid] 40 mg tablet 40 mg PO DAILY pravastatin 40 mg tablet 10 mg PO QHS zolpidem 10 mg tablet 10 mg PO QHS Patient Comments: TAKE 1 TABLET BY MOUTH EVERYDAY AT BEDTIME albuterol sulfate 2.5 mg /3 mL (0.083 %) solution for nebulization 2.5 mg inhalation Q4H PRN Qty: 25 0RF Rx Instructions: Use q4 hours and PRN for wheezing hydrocodone-acetaminophen 7.5-325 mg tablet 1 tab PO Q6H Rx Instructions: FOR CHRONIC INTRACTABLE PAIN loratadine 10 mg tablet 10 mg PO Q24H ipratropium-albuterol 0.5 mg-3 mg(2.5 mg base)/3 mL solution for nebulization 3 ml inhalation Q4H PRN (Reason: wheezing) Qty: 90 0RF prednisone 50 mg tablet 50 mg PO DAILY 5 Days Qty: 5 0RF Primary Care Provider: Raad Armendariz Referrals: Raad Armendariz DO [Primary Care Provider] - 3-5 Days Print Language: Pashto Disposition Disposition: Home, Self Care
--- NOTE | 2024-06-22 16:20 | EKG12_ITS ---
Test Reason : SOB Blood Pressure : */* mmHG Vent. Rate : 104 BPM Atrial Rate : 104 BPM P-R Int : 132 ms QRS Dur : 60 ms QT Int : 326 ms P-R-T Axes : 81 67 75 degrees QTcB Int : 428 ms Sinus tachycardia Otherwise normal ECG Confirmed by GORGE YOUNG, JUAN DANIEL ([id number]), editor house organ EDMUND GIVENS ([id number]) on 06/24/2024 9:16:39 AM Referred By: Tyler Marsh Confirmed By: JUAN DANIEL PENNINGTON MD
[2024-06-22] MEDS: Ipratropium/Albuterol Sulfate 3 ML AMPUL.NEB INHALATION (16:23)
[2024-06-22 16:25] VITALS: PULSE 94; RESP 18
[2024-06-22 16:31] LABS: Absolute Lymphocyte Count 3.27 X10^3/uL (0.83-4.51); Absolute Neutrophil Count 3.6 X10^3/uL (2.0-7.7); Basophil# 0.05 X10^3/uL; Basophil% 0.6 % (0-1); Eosinophil# 0.43 X10^3/uL; Eosinophils% 5.4 % (0-5); Hematocrit 41.9 % (37-47); Lymphocyte # 3.27 X10^3/ul (0.83-4.51); Lymphocyte % 41.3 % (19-41); Mean Corp Hgb Conc 33.4 g/dL (32-36); Mean Corpuscular Hgb 29.5 pg (27.0-32.0); Mean Corpuscular Volume 88.2 fL (81-99); Mean Platelet Vol. 8.9 fl (6.2-12.0); Monocyte# 0.53 X10^3/uL; Monocyte% 6.7 % (0-10); NRBC Flagged by Analyzer 0 % (0-5); Neutrophil # 3.61 X10^3/uL (2.7-7.7); Neutrophil % 45.6 % (47-70); Platelet Count 354 K/mm3 (150-450); RBC Distribution Width CV 13.7 % (11.6-14.6); RBC Distribution Width SD 44.4 fl (35.1-43.9); Red Blood Count 4.75 M/mm3 (4.2-5.4); White Blood Count 7.9 K/mm3 (4.4-11.0)
--- NOTE | 2024-06-22 16:38 | ED.RN ---
pt tells respiratory therapy that she feels much better after her breathing treatment and she does not want her xray because it will cost me money. pt requesting to go home at this time. dr mcdowell notified.
[2024-06-22 16:46] LABS: Anion Gap 13 (5-15); BUN 17 mg/dL (4-19); Calcium,Total 8.9 mg/dL (7.6-11.0); Carbon Dioxide 22.6 mmol/L (21.0-32.0); Chloride 103 mmol/L (98-108); EST Glomerular Filtration Rate 105 (>60); Glucose 115 mg/dL (70-99); Potassium 4.1 mmol/L (3.3-5.1); Sodium Level 139 mmol/L (133-145)
== END 2024-06-22 17:12 | disposition home or self-care (01) ==
PROVIDERS: Emergency Provider Emergency Medicine; PCP Family Medicine; Referring Provider Emergency Medicine; Visit Provider Emergency Medicine
DX: J44.9 Chronic obstructive pulmonary disease, unspecified (principal); E78.00 Pure hypercholesterolemia, unspecified; K21.9 Gastro-esophageal reflux disease without esophagitis; F17.210 Nicotine dependence, cigarettes, uncomplicated
CPT/HCPCS: 80048; 85025; 93005; 94640; 99283; A4216

== ENCOUNTER → 2024-07-30 | Outpatient (CLI) | payer OTHER, SELFPAY ==
[2024-07-30 12:21] LABS: Color, Urine Yellow (Yellow); Glucose, Dipstick Normal (Normal); Ketone-Dipstick Negative (Negative); Nitrite-Dipstick Negative (Negative); Occult Blood-Urine 150 /ul (Negative); Protein-Dipstick 15 mg/dl (Negative); Urine Bilirubin Dipstick Negative (Negative); Urine Clarity Clear (Clear); Urine Urobilinogen Normal (Normal)
[2024-07-30 12:30] LABS: Leukocyte Esterase-Dipstick 25 /ul (Negative)
[2024-07-30 13:14] LABS: Amphetamine Urine NEGATIVE (<1000 ng/mL); Barbiturate Urine NEGATIVE (< 200 ng/mL); Benzodiazepine Urine NEGATIVE (< 200 ng/mL); Buprenorphine Urine NEGATIVE (< 200 ng/mL); Cocaine Urine NEGATIVE (< 300 ng/mL); Fentanyl, Urine NEGATIVE; Methadone Urine NEGATIVE (< 300 ng/mL); Opiates Urine PRESUMPTIVE POSITIVE (< 300 ng/mL); Oxycodone, Urine NEGATIVE (< 100 ng/mL); PCP Urine NEGATIVE (< 25 ng/mL); THC Urine PRESUMPTIVE POSITIVE (< 50 ng/mL)
[2024-07-30 13:29] LABS: Cholesterol 263 mg/dL (<=200); High Density Lipoprotein 72 mg/dL; Low Density Lipoprotein Calc. 139 mg/dL; Triglycerides 263 mg/dL; Very Low Density Lipoprotein 53 mg/dL (5-40); cholesterol:hdl ratio screen 3.68
== END | disposition home or self-care (01) ==
LOC: BFHLAB 09:28
PROVIDERS: PCP Family Medicine; Visit Provider Family Medicine
DX: Z00.00 Encounter for general adult medical examination without abnormal findings (principal); R35.0 Frequency of micturition; R79.89 Other specified abnormal findings of blood chemistry; Z79.899 Other long term (current) drug therapy
CPT/HCPCS: 36415; 80061; 80307; 81002; 84439; 84443; 87077; 87086; 87088; 87186

== ENCOUNTER 2024-09-28 18:13 | Emergency (ER) | payer OTHER, SELFPAY ==
[2024-09-28 18:14] VITALS: BP 155/89; PULSE 107; RESP 16; TEMP 36.9; O2SAT 98; BMI 25.3
--- NOTE | 2024-09-28 18:40 | ED.VIS.CHEST ---
HPI History of Present Illness Chief Complaint: Chest Pain [facility] Medical History Thyroid nodule Wears glasses Bipolar disorder Alcohol use High cholesterol Easy bruising Restless legs History of diverticulitis History of IBS Gastric reflux Smoker COPD (chronic obstructive pulmonary disease) Shortness of breath on exertion Depression Arthritis History of back problems Epigastric pain Hypercholesterolemia GERD (gastroesophageal reflux disease) History of COPD Tobacco use Asthma Home Medications ?Medication ?Instructions ?Recorded ?Last Taken ?Type albuterol sulfate 90 mcg/actuation 2 puff inhalation Q6H PRN Sob &/Or 06/14/17 08/22/23 History aerosol inhaler (ProAir HFA) Wheezing famotidine 40 mg tablet (Pepcid) 40 mg PO DAILY 07/02/21 08/21/23 History pravastatin 40 mg tablet 10 mg PO QHS 07/02/21 08/21/23 History zolpidem 10 mg tablet 10 mg PO QHS 07/02/21 08/19/23 History albuterol sulfate 2.5 mg/3 mL 2.5 mg (3 mL) inhalation Q4H PRN 11/02/21 08/21/23 Rx (0.083 %) solution for nebulization #25 vials hydrocodone 7.5 mg-acetaminophen 1 tab PO Q6H 03/12/23 08/19/23 History 325 mg tablet loratadine 10 mg tablet 10 mg PO Q24H 03/12/23 08/08/23 History ipratropium 0.5 mg-albuterol 3 mg 3 ml inhalation Q4H PRN wheezing 03/17/24 Unknown Rx (2.5 mg base)/3 mL nebulization #90 mL soln prednisone 50 mg tablet 50 mg PO DAILY 5 days #5 tabs 03/17/24 Unknown Rx Allergy/AdvReac Type Severity Reaction Status Date / Time amitriptyline AdvReac Other Verified 06/22/24 15:56 diphenhydramine HCl (From AdvReac Other Verified 06/22/24 15:56 Benadryl) Family History Mother Cancer lung Father Cancer lung Brother Cancer lung Diabetes Heart disease Sister Breast cancer Brother Heart disease Hypertension High cholesterol Surgical History History of brain surgery History of excision of mass History of dermoid cyst excision History of tonsillectomy Hx of appendectomy brain tumor removed delivery delivered Social History Smoking Status: Current some day smoker tobacco type: cigarettes alcohol intake: current details: social substance use type: does not use caffeine: Yes what type of physical activity do you participate in: walking seatbelt use: always do you feel safe at home: Yes additional social history: Paul Stoddard Patient works at [employer] EXAM Physical Exam Const Vital Signs: 09/28/24 18:14 09/28/24 18:31 09/28/24 18:50 Temperature 98.5 F Temperature Source Oral Pulse Rate 107 H Respiratory Rate 16 Respiratory Effort Normal Non-Labored Blood Pressure 155/89 H Blood Pressure Mean 111 Pulse Ox 98 97 Oxygen Delivery Method Room Air Room Air 09/28/24 19:19 09/28/24 20:05 Temperature Temperature Source Pulse Rate 94 88 Respiratory Rate 18 Respiratory Effort Blood Pressure 131/88 H 112/68 Blood Pressure Mean 82 Pulse Ox 97 Oxygen Delivery Method Room Air MDM MDM MDM Narrative Medical decision making narrative: HISTORY OF PRESENT ILLNESS: Chief complaint: Chest pain 54-year-old female history of asthma, tobacco use, COPD, GERD, hyperlipidemia presents with chest pain. Has been intermittent for last few weeks however getting more frequent and more intense over the last few days. She further states [close The patient denies recent surgery in the last 4 weeks or immobilization in the last 3 days, denies previous diagnosis of DVT or PE, hemoptysis, unilateral leg swelling or malignancy with treatment the last 6 months or palliative. No estrogen use noted. Patient denies sudden onset of pain, no tearing sensation, no migratory symptoms, no new numbness, weakness or loss of sensation. Patient denies family history or personal history of Connective tissue disorders (Marfan's Syndrome, Didi Danlos etc) REVIEW OF SYSTEMS: Pertinent positives: Chest pain Pertinent negatives: As per HPI PHYSICAL EXAM: Nursing triage notes reviewed, Vital signs reviewed Constitutional: please see mdm HENT: MMM Eyes: Pupils equal round and reactive to light, Extraocular muscles intact Neck: No stridor, no JVD, full neck ROM Lungs: Slight wheezing throughout but no or rales. No increased work of breathing, no conversational dyspnea, no accessory muscle use, no nasal flaring. No respiratory distress noted Heart: Regular rate and rhythm, No murmurs, No rubs and No gallops, 2+ distal pulses (radial, femoral, posterior tibial) in all extremities Abdomen: Soft, there is no tenderness, rigidity, rebound or guarding, no obvious peritoneal signs, no palpable pulsatile abdominal masses, no auscultated abdominal bruit : No CVAT Extremities: No edema Neuro: No new focal neurological deficits, cranial nerves II through XII intact, 5/5 strength in all present extremities. Intact sensation to light touch in all present extremities, 2+ reflexes bilateral patella tendons. Skin: No rash or lesions noted MEDICAL DECISION MAKING: Chief Complaint: please see [facility] External records reviewed: Reviewed prior cardiovascular testing: No recent cardiac catheterizations, cardiograms noted in the chart Factors affecting care: as per [facility] Social determinants of health: none History obtained from others: none Consults: none [facility] Narrative: The patient was initially hemodynamically stable, afebrile and nontoxic-appearing. Exam with slight wheezing but no obvious cardiopulmonary abnormalities. No stigmata of VTE, CHF or dissection. I considered the following differential diagnosis: ACS, anemia, arrhythmia, electrolyte disturbance, pneumothorax, pericarditis, PE, aortic dissection I obtained broad lab and imaging to further determine if the patient was suffering from a life-threatening etiology. While I considered PE the patient's Wells score is low risk and as such I did not pursue CTA or D-dimer at this time. The patient history and clinical exam not consistent with aortic dissection. ALL IMAGES (IF OBTAINED) HAVE BEEN PERSONALLY REVIEWED AND INTERPRETED BY MYSELF. EKG with normal sinus rhythm rate of 99, normal axis, normal intervals, no STEMI High-sensitivity troponin is negative, no evidence of myocardial ischemiax2 CBC with leukocytosis suggestive of systemic inflammation (no evidence of pneumonia or other pulmonary infection, likely not clinically significant), no anemia or thrombocytopenia BMP with no significant electrode abnormalities, noted marginal elevation anion gap (likely not clinically significant), no MATHEUS I have personally reviewed the patient's chest x-ray. Chest x-ray is unremarkable for pulmonary edema, pneumothorax, pneumonia or focal cardiopulmonary abnormality. The synthesis of the patient's history, physical exam, labs images suggest no acute life or limb threatening etiology. Unclear recommended outpatient stress testing confirmatory testing per PCP guidance. The patient and/or family, caregivers express understanding. The patient and/or family, caregivers agrees with the plan. Shared decision making: I will have a discussion with the patient and or visitors regarding risk/benefits of further testing or admission. They will be made aware of of the risk/benefits inherent in this decision they will be given the opportunity to voice understanding. Total critical care time today provided was at least 0 minutes. This excludes separately billable procedures. Critical care time (if documented) is secondary to the patient having high probability of clinically significant/life threatening deterioration in the patient's condition which required my urgent intervention. Impression: 1. Chest pain 2. History of COPD 3. Leukocytosis Dispo: Discharge home This note was generated with [employer] dictation software. It may contain incorrect words, spelling, and punctuation that were not noted in review of the chart prior to signing. Lab Data Labs: Laboratory Results - last 24 hr 09/28/24 09/28/24 18:30 20:30 WBC 14.4 H RBC 4.57 Hgb 13.8 Hct 40.6 MCV 88.8 MCH 30.2 MCHC 34.0 RDW Std Deviation 42.7 RDW Coeff of [place] 13.2 Plt Count 392 MPV 9.0 Immature Gran % (Auto) 0.500 Neut % (Auto) 70.6 H Lymph % (Auto) 21.8 [place] % (Auto) 5.9 Eos % (Auto) 0.6 Baso % (Auto) 0.6 Absolute Neuts (auto) 10.2 H Absolute Lymphs (auto) 3.14 Nucleated RBC % 0 Sodium 139 Potassium 3.6 Chloride 99 Carbon Dioxide 23.7 Anion Gap 16 H BUN 13 Creatinine 0.65 L Estim Creat Clear Calc 95.29 Est GFR (MDRD) Non-Af 106 BUN/Creatinine Ratio 19.6 Glucose 106 H Calcium 8.9 Troponin T High Sens < 6 Troponin T Hi Sens 2 Hr < 6 Radiography Diagnostic Testing: Clinical Impression(s) from Imaging Studies Chest X-Ray 09/28/24 18:50 IMPRESSION: No acute process detected. Reading [facility] Discharge Plan Triage Chief Complaint: Chest Pain ED Provider: Maulik Young Dx/Rx/DC Orders Instructions: ED Chest Pain, Noncardiac Prescriptions: No Action albuterol sulfate [ProAir HFA] 90 mcg/actuation HFA aerosol inhaler 2 puff INHALATION Q6H PRN (Reason: Sob &/Or Wheezing) famotidine [Pepcid] 40 mg tablet 40 mg PO DAILY pravastatin 40 mg tablet 10 mg PO QHS zolpidem 10 mg tablet 10 mg PO QHS Patient Comments: TAKE 1 TABLET BY MOUTH EVERYDAY AT BEDTIME albuterol sulfate 2.5 mg /3 mL (0.083 %) solution for nebulization 2.5 mg inhalation Q4H PRN Qty: 25 0RF Rx Instructions: Use q4 hours and PRN for wheezing hydrocodone-acetaminophen 7.5-325 mg tablet 1 tab PO Q6H Rx Instructions: FOR CHRONIC INTRACTABLE PAIN loratadine 10 mg tablet 10 mg PO Q24H ipratropium-albuterol 0.5 mg-3 mg(2.5 mg base)/3 mL solution for nebulization 3 ml inhalation Q4H PRN (Reason: wheezing) Qty: 90 0RF prednisone 50 mg tablet 50 mg PO DAILY 5 Days Qty: 5 0RF Primary Care Provider: Raad Armendariz Referrals: Laureano Wesley MD [Med Staff - Active Staff] - Raad Armendariz DO [Primary Care Provider] - Activity Restrictions/Additional Instructions: Thank you for trusting us with your care today! Your labs images are reassuring. No signs of damage to your heart or heart attacks. Please return to the emergency department if your symptoms change or worsen. Please follow with your primary care physician for further outpatient evaluation and management. Specifically for echocardiogram and stress test as your PCP directs. He can also follow with cardiology for further outpatient evaluation. Print Language: [place] Disposition Disposition: Home, Self Care
[2024-09-28 18:50] VITALS: O2SAT 97
--- NOTE | 2024-09-28 18:50 | EKG12_ITS ---
Test Reason : CP Blood Pressure : */* mmHG Vent. Rate : 99 BPM Atrial Rate : 99 BPM P-R Int : 138 ms QRS Dur : 68 ms QT Int : 356 ms P-R-T Axes : 32 33 35 degrees QTcB Int : 456 ms Normal sinus rhythm Normal ECG Confirmed by GORGE YOUNG, JUAN DANIEL ([id number]), editor producer EDMUND GIVENS ([id number]) on 09/30/2024 1:05:31 PM Referred By: Confirmed By: JUAN DANIEL PNENINGTON MD
--- NOTE | 2024-09-28 18:50 | RAD_ITS ---
PROCEDURE: CHEST 1 VIEW (PORTABLE) 09/28/2024 REASON FOR EXAM: CHEST PAIN TECHNIQUE: Frontal view of the chest. COMPARISON: Chest radiograph March 17, 2024 FINDINGS: Hardware: None Heart: Normal size and appearance Lungs: Clear and expanded Bones: No bony process identified. Other: RAD/Chest 1 View (Portable) IMPRESSION: No acute process detected. Reading Location[facility]
[2024-09-28 19:19] VITALS: BP 131/88; PULSE 94
[2024-09-28] MEDS: Nitroglycerin SL (ED/IMG/CATH) 0.4 MG TABLET SL (19:19)
--- OUTSIDE RECORDS SUMMARY | 2024-09-28 19:19 | XMS RPT_ITS | CCD ---
Author Organization [facility] CliniSynh Care Team Providers Care Assistant Director Of Financial Aid Name Role Phone Dr. Raad Armendariz Primary Care Provider Dr. Raad Armendariz Referring Provider [phone] Anastacio Cannon Attending Provider Dr. Raad Armendariz DO Primary Care Provider Dr. Maulik Young DO Attending Provider Dr. Maulik Young DO Emergency Provider Dr. Tyler Marsh DO Referring Provider Dr. Tyler Marsh DO Emergency Provider Dr. Raad Armendariz DO Primary Care Provider Dr. Tyler Marsh DO Attending Provider Dr. Raad Armendariz DO Attending Provider Raad Armendariz Primary Care Unavailable Anastacio Cannon Attending Unavailable Anastacio Cannon Referring Unavailable Anastacio Cannon Consulting Unavailable KalaRaad swift Primary Care Unavailable Raad Armendariz Attending Unavailable Tyler Marsh Attending Unavailable Tyler Marsh Referring Unavailable KalaRaad swift Primary Care Unavailable KalaRaad swift Primary Care Unavailable KalaRaad swift Attending Unavailable KalaRaad swift Referring Unavailable Kala, Raad Primary Care Unavailable KalaRaad swift Attending Unavailable Kala, Raad Referring Unavailable Kala, Raad Primary Care Unavailable KalaRaad pathak Attending Unavailable KalaRaad swift Referring Unavailable Ungur, Remus Attending Unavailable Ungur, Remus Referring Unavailable Kala, Raad Primary Care Unavailable Maulik Young Attending Unavailable Kala, Raad Primary Care Unavailable Kala, Raad Primary Care Unavailable Anastacio Cannon Attending Unavailable Anastacio Cannon Referring Unavailable Raad Armendariz Referring Unavailable Raad Armendariz Primary Care Unavailable Anastacio Cannon Attending Unavailable Raad Armendariz Referring Unavailable Raad Armendariz Primary Care Unavailable Anastacio Cannon Attending Unavailable Raad Armendariz Primary Care Unavailable Anastacio Cannon Attending Unavailable Raad Armendariz Referring Unavailable Allergies Allergy Classification Reported Allergen(s) Allergy Type Date of Onset Reaction(s) Facility (13 sources) diphenhydrAMINE; Translations: [diphenhydramine HCl] Drug Allergy 1 Other [facility] Comment on above: RESTLESS LEG GETS WO RSE (5 sources) MUSCLE RELAXERS Propensity to adverse reactions 1 Other [facility] (10 sources) Amitriptyline Drug Allergy 2 [facility] Comment on above: restless legs (1 source) Amitriptyline Drug Allergy 5 [facility] Repository Medications Current Medications Medication Drug Class(es) Dates Sig (Normalized) Sig (Original) acetaminophen 325 mg / HYDROcodone bitartrate 7.5 mg oral tablet (20 sources) Opioid Agonist Start: 03-12-2023 Hydrocodone-Acetami nophen 7.5-325 mg tablet Active 1 {tbl} PO EVERY 6 HOURS March 12, 2023 1:00am FOR CHRONIC INTRACTABLE PAIN Start: 03-12-2023 take 1 tablet by yamel th every six hours for pain Hydrocodone-Acetaminophen Active 1 TABLE T PO EVERY 6 HOURS March 12, 2023 1:00am FOR CHRONIC INTRACTABLE PAIN Start: 07-02-2021 End: 08-18-2023 Hydrocodone-Acetaminophen (N orco) 5-325 mg tablet Discontinued 1 {tbl} PO THREE TIMES A DAY July 02, 2021 12:55pm August 18, 2023 8:49am Start: 05-25-2018 End: 07-02-2021 Hydrocodone-Acetaminophen (N orco 5-325 Tablet) 1 EACH tablet Discontinued 1 NMA PO DAILY NEEDED as needed for Pain May 25, 2018 12:00am July 02, 2021 12:57pm albuterol 0.83 mg/ml inhalation solution (20 sources) beta2-Adrenergic Agonist Start: 11-02-2021 take 2.5 mg by inhalation every four hours as needed for wheezing Albuterol Sulfate 2.5 mg /3 mL (0.083 %) solution for nebulization Active 2.5 mg INHALATION EVERY 4 HOURS NEEDED 25 0 November 02, 2021 12:00am Use q4 hours and PRN for wheezing Start: 06-14-2017 Albuterol Sulf ate (Proair Hfa) 90 mcg/actuation HFA aerosol inhaler Active 2 NMA INHALATION EVERY 6 HOURS as needed for Sob &/Or Wheezing June 14, 2017 12:00am Start: 06-14-2017 take 1 puff(s) by in halation every six hours Albuterol Sulfate (Proair Hfa) 90 mcg/actuation HFA aerosol inhaler Active 2 PUFF INHALATION EVERY 6 HOURS June 14, 2017 12:00am albuterol 0.833 mg/ml / ipratropium bromide 0.167 mg/ml inhalation solution (2 sources) Anticholinergic, beta2-Adrenergic Agonist Start: 03-17-2024 take 1 mL by inhalation every four hours as needed for wheezing Ipratropium-Albuterol 0.5 mg-3 mg(2.5 mg base)/3 mL solution for nebulization Active 3 mL INHALATION Q4H as needed for wheezing 90 0 March 17, 2024 1:00am famotidine 40 mg oral tablet (9 sources) Histamine-2 Receptor Antagonist Start: 07-02-2021 take 1 tablet by mouth once daily Famotidine (Pepcid) 40 mg tablet Active 40 mg PO DAILY July 02, 2021 12:00am loratadine 10 mg oral tablet (6 sources) Start: 03-12-2023 take 1 tablet by mouth every twenty-four hours Loratadine 10 mg tablet Active 10 mg PO Q24H March 12, 2023 1:00am pravastatin sodium 40 mg oral tablet (20 sources) HMG-CoA Reductase Inhibitor Start: 07-02-2021 take 10 mg by mouth at bedtime Pravastatin 40 mg tablet Active 10 mg PO AT BEDTIME July 02, 2021 12:54pm Start: 07-02-2021 take 10 mg by mouth at bedtime Pravastatin Active 10 MG PO AT BEDTIME July 02, 2021 12:54pm Start: 09-03-2014 End: 07-02-2021 take 1 tablet by mouth at bedtime Pravastatin 40 MG tablet Discontinued 40 mg PO AT BEDTIME September 03, 2014 12:00am July 02, 2021 12:57pm predniSONE 50 mg oral tablet (20 sources) Start: 03-17-2024 take 1 tablet by mouth once daily Prednisone 50 mg tablet Active 50 mg PO DAILY 5 5 0 March 17, 2024 1:00am Start: 12-28-2023 End: 03-17-2024 take 1 tablet by mouth twice daily Prednisone 20 mg tablet Discontinued 20 mg PO TWICE A DAY 10 December 28, 2023 1:00am March 17, 2024 10:59am Start: 03-12-2023 End: 05-29-2023 take 2 tablets by mouth once daily Prednisone 20 mg tablet Discontinued 40 mg PO DAILY 8 4 March 12, 2023 1:00am May 29, 2023 10:56am Start: 04-03-2022 End: 05-29-2023 take 1 tablet by mouth once daily Prednisone 50 mg tablet Discontinued 50 mg PO DAILY 5 0 April 03, 2022 1:00am May 29, 2023 10:56am Start: 11-02-2021 End: 05-29-2023 Prednisone 20 mg tablet Disc ontinued 0 .ROUTE .COMPLEX 24 0 November 02, 2021 12:00am May 29, 2023 10:56am 3 tabs p.o. daily days 1 through 4, then 2 tabs p.o. daily days 5 through 8, then 1 tab p.o. daily day 9 through 12 Start: 11-02-2021 End: 05-29-2023 take 40 mg by mouth once daily Prednisone Discontinued 40 MG PO DAILY 8 4 March 12, 2023 1:00am May 29, 2023 10:56am Start: 11-10-2014 End: 11-10-2014 take 3 tablets by mouth once daily Prednisone 20 MG tablet Discontinued 60 mg PO DAILY 15 November 10, 2014 12:00am November 10, 2014 8:12pm Start: 11-10-2014 End: 11-10-2014 take 60 mg by mouth once daily Prednisone Discontinued 60 MG PO DAILY November 10, 2014 12:00am November 10, 2014 8:12pm zolpidem tartrate 10 mg oral tablet (20 sources) gamma-Aminobutyric Acid-ergic Agonist Start: 01-17-2014 End: 07-02-2021 take 1 tablet by mouth at bedtime Zolpidem 10 mg tablet Active 10 mg PO AT BEDTIME July 02, 2021 12:00am Completed/Discontinued Medications Medication Drug Class(es) Dates Sig (Normalized) Sig (Original) cephalexin 500 mg oral capsule (12 sources) Cephalosporin Antibacterial Start: 06-14-2017 End: 06-21-2017 take 1 capsule by mouth every twelve hours Cephalexin (Keflex) 500 mg capsule Discontinued 500 mg PO Q12H 14 7 0 June 14, 2017 12:00am June 20, 2017 12:00am June 21, 2017 12:05am doxycycline monohydrate 100 mg oral capsule (9 sources) Tetracycline-class Drug Start: 12-28-2023 End: 03-17-2024 take 1 capsule by mouth twice daily Doxycycline Monohydrate 100 mg capsule Discontinued 100 mg PO TWICE A DAY December 28, 2023 1:00am March 17, 2024 11:00am Start: 02-15-2023 End: 05-29-2023 take 1 capsule by mouth twice daily Doxycycline Monohydrate 100 mg capsule Discontinued 100 mg PO TWICE A DAY February 15, 2023 1:00am May 29, 2023 10:57am mupirocin 0.02 mg/mg topical ointment (7 sources) RNA Synthetase Inhibitor Antibacterial Start: 02-15-2023 End: 05-29-2023 Mupirocin 2 % ointment Discontinued 1 NMA TOPICAL TWICE A DAY February 15, 2023 1:00am May 29, 2023 10:56am naproxen 500 mg oral tablet (12 sources) Nonsteroidal Anti-inflammatory Drug Start: 11-11-2015 End: 06-14-2017 take 1 tablet by mouth twice daily Naproxen 500 MG tablet Discontinued 500 mg PO TWICE A DAY November 11, 2015 12:00am June 14, 2017 3:36pm ondansetron 4 mg disintegrating oral tablet (6 sources) Serotonin-3 Receptor Antagonist Start: 03-12-2023 End: 05-29-2023 take 1 tablet by mouth every eight hours as needed for nausea Ondansetron 4 mg tablet,disintegra ting Discontinued 4 mg PO EVERY 8 HOURS NEEDED as needed for Nausea March 12, 2023 1:00am May 29, 2023 10:56am oseltamivir 75 mg oral capsule (6 sources) Neuraminidase Inhibitor Start: 03-12-2023 End: 05-29-2023 take 1 capsule by mouth twice daily Oseltamivir (Tamiflu) 75 mg capsule Discontinued 75 mg PO TWICE A DAY 10 5 0 March 12, 2023 1:00am May 29, 2023 10:56am oxyCODONE hydrochloride 5 mg oral tablet (2 sources) Opioid Agonist Start: 08-22-2023 End: 08-25-2023 take 1 tablet by mouth every six hours as needed for pain Oxycodone 5 mg tablet Discontinued 5 mg PO EVERY 6 HOURS as needed for pain 10 3 0 August 22, 2023 August 24, 2023 12:00am August 25, 2023 12:05am History of lobectomy of thyroid 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 pantoprazole 40 mg delayed release oral tablet (16 sources) Proton Pump Inhibitor Start: 03-12-2023 End: 08-18-2023 take 1 tablet by mouth every twelve hours Pantoprazole 40 mg tablet,delayed release (DR/EC) Discontinued 40 mg PO Q12H March 12, 2023 1:00am August 18, 2023 8:51am Start: 06-14-2021 End: 07-02-2021 take 1 tablet by mouth once daily Pantoprazole 20 mg Tablet,Delayed Release (Dr/Ec) Discontinued 20 mg PO DAILY June 14, 2021 12:00am July 02, 2021 12:57pm sucralfate 1000 mg oral tablet (9 sources) Aluminum Complex Start: 07-12-2021 End: 08-17-2021 take 1 tablet by mouth twice daily Sucralfate (Carafate) 1 gram tablet Discontinued 1 g PO TWICE A DAY 60 0 July 12, 2021 12:00am August 17, 2021 5:08am Problems Active Problems Problem Classification Problem Date Documented Date Episodic/Chronic Abdominal pain (20 sources) Left upper quadrant pain; Translations: [Left upper quadrant pain] 06-22-2021 Episodic Asthma (20 sources) Asthma; Translations: [Unspecified asthma, uncomplicated] 11-10-2021 Chronic Chronic obstructive pulmonary disease and bronchiectasis (1 source) Chronic obstructive pulmonary disease, unspecified; Translations: [Chronic obstructive pulmonary disease, unspecified] Onset: 06-26-2024 Chronic Disorders of lipid metabolism (10 sources) Hypercholesterolemia; Translations: [Pure hypercholesterolemia, unspecified] 07-02-2021 Chronic Esophageal disorders (20 sources) Gastroesophageal reflux disease; Translations: [Gastro-esophageal reflux disease without esophagitis] 07-02-2021 Chronic Influenza (6 sources) Influenza due to Influenza B virus; Translations: [Influenza due to other identified influenza virus with other respiratory manifestations] 03-12-2023 Episodic Nonspecific chest pain (12 sources) Atypical chest pain; Translations: [Other chest pain] 08-14-2019 Episodic Other lower respiratory disease (12 sources) History of chronic obstructive airway disease; Translations: [Personal history of other diseases of the respiratory system] 07-02-2021 Episodic Other lower respiratory disease (12 sources) Pleuritic pain; Translations: [Pleurodynia] 10-24-2020 Episodic Other lower respiratory disease (9 sources) Dyspnea; Translations: [Dyspnea, unspecified] 11-10-2021 Episodic Other screening for suspected conditions (not mental disorders or infectious disease) (1 source) Encounter for screening mammogram for malignant neoplasm of breast; Translations: [Encounter for screening mammogram for malignant neoplasm of breast] Onset: 08-02-2024 Episodic Other upper respiratory disease (7 sources) Nasal infection; Translations: [Other specified disorders of nose and nasal sinuses] 02-15-2023 Episodic Other upper respiratory infections (2 sources) Viral upper respiratory tract infection; Translations: [Acute upper respiratory infection, unspecified] 06-28-2023 Episodic Residual codes; unclassified (12 sources) Tobacco use and exposure - finding; Translations: [Tobacco use] 07-02-2021 Episodic Residual codes; unclassified (2 sources) History of thyroid lobectomy; Translations: [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] 09-07-2023 Episodic Comment on above: Patient is a 52-year -old female who is approximately 2 weeks status post left thyroid lobectomy with intraoperative nerve monitoring. Postoperatively she has done well and remarks of only mild, improving, postoperative discomfort. She denies any hoarseness or swallowing difficulty. She is well-healing on exam. There is some persistent swelling, however, given the appearance I would expect not only resolution of the swelling but also an excellent cosmetic result. At this point I have instructed patient to begin application of triple antibiotic ointment twice a day through the rest of this week and then begin application of either vitamin E oil or cocoa butter twice a day beginning next week. 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 She is pleased and relieved to hear this information. Lastly, I discussed with patient that I would need to see what her postoperative thyroid function testing shows at her earliest 5 weeks postop. Thus we will plan for pre-clinic lab testing and a clinic visit in 3 weeks. Sprains and strains (12 sources) Chondrocostal joint sprain; Translations: [Sprain of ribs, initial encounter] 01-23-2018 Episodic Thyroid disorders (11 sources) Goiter; Translations: [Nontoxic goiter, unspecified] Onset: 09-04-2023 05-29-2023 Chronic Comment on above: Patient is a 52-year -old, euthyroid, patient who presents with signs and symptoms of an acute onset left thyroid cystic mass. Given patient's antecedent history this is suspicious for a subacute thyroiditis versus involuted level 6 lymph node. The mass was indeed predominantly fluid filled on ultrasound. I extended radiology's recommendation to pursue tissue diagnosis and offered a fine-needle aspiration under ultrasound guidance. Patient was receptive and procedure was undertaken in uncomplicated fashion during today's visit. I did perform a selective aspiration of the patient's cystic content to try to improve the yield for cellularity and diagnostic material. Even still only a scant specimen was obtained, grossly. This was plated and patient was given wound care instructions. Will plan to follow-up with patient regarding cytopathology and cytology once resulted.Update 07/10/2023: Patient's FNA [place] cytopathology was concerning for possible malignancy but given the presence of atypia and some discordance and pathologic opinion a specimen was submitted for next generation sequencing with Aly. This result also returned suspicious and patient presented today for discussion around her surgical options. I presented those options as either left thyroid lobectomy with isthmusectomy versus total thyroidectomy. I shared with Mrs. Heard that I recommended the former as it would be oncologically sound and also balance the risk of the operation with the results of her pathology. Despite this expressed recommendation I did try to present a balanced review of the pros and cons of each surgical option. I then discussed thyroid surgery more generally but highlighted the surgery specific risks of recurrent laryngeal nerve injury and hypoparathyroidism. I shared that each of these risks was effectively halved by proceeding with a thyroid lobectomy but also shared the challenges with thyroid cancer surveillance (should that be determined to be the final pathology) in the setting of a lobectomy. Ultimately patient agrees with my recommendation but after being reassured that a month-long weight would not contribute serious risk to her pathology wishes to wait to undergo surgery until she returns from her vacation. 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; Translations: [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] Onset: 09-07-2023 Episodic Unclassified (9 sources) brain tumor removed 08-26-2021 Comment on above: 2004 Results Test Name Value Interpretation Reference Range Facility Urine Cultureon 08-01-2024 [facility] Urine Culture Escherichia coli [place] Count 80,000-100,000 Escherichia coli: REACTION Ampicillin Islt NARDA >=32 Ampicillin+Sulbac Islt NARDA 16 I Cefepime Islt NARDA <=0.12 S cefTRIAXone Islt NARDA <=0.25 S Ciprofloxacin Islt NARDA 0.5 I B-Lactamase Extended Susc Islt NEG Gentamicin Islt NARDA 2 S levoFLOXacin Islt NARDA 1 I Meropenem Islt NARDA <=0.25 S Nitrofurantoin Islt NARDA <=16 S Pip+Tazo Islt NARDA <=4 S TMP SMX Islt NARDA >=320 R Normal [facility] Comment on above: Performed By: #### L [id number], L506.0400, M100.2200, L500.4100, L400.2011, L505.5000 ####[facility] [id number] [place], [address] Amphetamine detection with 1 000 ng/mL as cutoffOrdered By: Raad Armendariz on 07-30-2024 Amphetamines Screen method >1000 ng/mL Ql (U) Negative < 200 ng/mL [facility] Bilirubin Test strip Ql (U)O rdered By: Raad Armendariz on 07-30-2024 Bilirubin Ql (U) Negative Negative [facility] Calculated very low density lipoprotein (VLDL) cholesterol measurementOrdered By: Raad Armendariz on 07-30-2024 Calculated very low density lipoprotein (VLDL) cholesterol measurement 53 mg/dL High 5-40 [facility] Ketones Test strip Ql (U)Ord ered By: Raad Armendariz on 07-30-2024 Ketones Ql (U) Negative Negative [facility] LDL calc ser/plasOrdered By: Raad Armendariz on 07-30-2024 Cholesterol in LDL [Mass/Vol] 139 mg/dL [facility] Comment on above: Cpaaawxbhj=303-066 m g/dL & Higher Pcvb=651 mg/dL or greater Lipid Profileon 07-30-2024 CHOL:HDL 3.68 Normal [facility] Comment on above: Performed By: #### L [id number], L506.0400, M100.2200, L500.4100, L400.2010, L505.5000 ####[facility] [id number] [place], [address] Cholesterol [Mass/Vol] 263 mg/dL High <=[address] [facility] Comment on above: Result Comment: Chol esterol level, Desirable <200 mg/dL Borderline high cholesterol 200-239 mg/dL High cholesterol >=240 mg/dL Recommendations of the NCEP Adult Treatment Panel for the following risk-cutoff thresholds for the [place] population. Performed By: #### L [id number], L506.0400, M100.2200, L500.4100, L400.2010, L505.5000 ####[facility] [id number] [place], [address] Cholesterol in HDL [Mass/Vol] 72 mg/dL Normal [facility] Comment on above: Result Comment: [place] onal Cholesterol Education Program (NCEP) guidelines: <40 mg/dL: Low HDL-cholesterol (major risk factor for CHD) >= 60 mg/dL: High HDL-cholesterol (negative risk factor for CHD) HDL-cholesterol is affected by a number of factors, e.g. smoking, exercise, hormones, sex and age. Performed By: #### L [id number], L506.0400, M100.2200, L500.4100, L400, L505.5000 ####[facility] [id number] [place], [address] Cholesterol in LDL [Mass/Vol] 139 mg/dL Normal [facility] Comment on above: Result Comment: Bord wirvwx=323-628 mg/dL Higher Ebzo=910 mg/dL or greater Performed By: #### L [id number], L506.0400, M100.2200, L500.4100, L4, L505.5000 ####[facility] [id number] [place], [address] Cholesterol in VLDL [Mass/Vol] 53 mg/dL High 5-40 [facility] Comment on above: Performed By: #### L [id number], L506.0400, M100.2200, L500.410, L4, L505.5000 ####[facility] [id number] [place], [address] Triglyceride [Mass/Vol] 263 mg/dL High [facility] Comment on above: Result Comment: The drugs N-Acetylcysteine and Metamizole may falsely depress this assay. Normal range: <150 mg/dL Borderline High: 150-199 mg/dL High: 200-499 mg/dL Very High: >500 mg/dL Performed By: #### L [id number], L506.0400, M100.2200, L500.4100, L400.2010, L505.5000 ####[facility] [id number] [place], [address] Nitrite Test strip Ql (U)Ord ered By: Raad Armendariz on 07-30-2024 Nitrite Ql (U) Negative Negative [facility] No Panel InformationOrdered By: Raad Armendariz on 07-30-2024 Urine Buprenorphine Qualitative Negative < 200 ng/mL [facility] Urine Oxycodone Screen Negative < 100 ng/mL [facility] Protein Test strip Ql (U)Ord ered By: Rada Armendariz on 07-30-2024 Protein Ql (U) 15 mg/dl High Negative [facility] Quantitative urine opiates m easurementOrdered By: Raad Armendariz on 07-30-2024 Opiates Ql (U) Positive < 300 ng/mL [facility] Comment on above: If confirmation test ing is needed, a separate order will be required to send out testing to the reference laboratory. Screening total cholesterol/ high density lipoprotein (HDL) cholesterol ratioOrdered By: Raad Armendariz on 07-30-2024 Cholesterol.total/Choles terol in HDL [Mass ratio] 3.68 {ratio} [facility] Screening urine fentanyl yaniv surementOrdered By: Raad Armendariz on 07-30-2024 fentaNYL Screen Ql (U) Negative [facility] Serum or plasma cholesterol in HDL measurement (mass/volume)Ordered By: Raad Armendariz on 07-30-2024 Cholesterol in HDL [Mass/Vol] 72 mg/dL >40 [facility] Comment on above: National Cholesterol Education Program (NCEP) guidelines:<40 mg/dL: Low HDL-cholesterol (major risk factor for CHD)>= 60 mg/dL: High HDL-cholesterol (negative risk factor for CHD)HDL-cholesterol is affected by a number of factors, e.g. smoking, exercise, hormones, sex and age. Serum or plasma cholesterol measurement (mass/volume)Ordered By: Rada Armendariz on 07-30-2024 Cholesterol [Mass/Vol] 263 mg/dL High <[address] [facility] Comment on above: Cholesterol level, D esirable <200 mg/dLBorderline high cholesterol 200-239 mg/dLHigh cholesterol >=240 mg/dLRecommendations of the NCEP Adult Treatment Panel for the following risk-cutoff thresholds for the [place] population. T4 Free Directon 07-30-2024 T4 FREE DIRECT 0.90 ng/dL Normal 0.76-1.46 [facility] Comment on above: Performed By: #### L [id number], L506.0400, M100.2200, L500.4100, L4, L505.5000 ####[facility] [id number] [place], [address] T4 freeOrdered By: Raad ty on 07-30-2024 Free T4 [Mass/Vol] 0.90 ng/dL 0.76-1.46 [facility] TSH DL <= 0.005 mIU/L QnOrde red By: Raad Armendariz on 07-30-2024 TSH Qn 2.550 uIU/mL 0.300-4.200 [facility] Thyroid Stim Hormone (TSH)on 07-30-2024 TSH 2.550 uIU/mL Normal 0.300-4.200 [facility] Comment on above: Performed By: #### L [id number], L506.0400, M100.2199, L500.410, L4, L5.4999 ####[facility] [id number] [place], [address] Triglycerides measurementOrd ered By: Raad Armendariz on 07-30-2024 Triglyceride [Mass/Vol] 263 mg/dL High <199 [facility] Comment on above: The drugs N-Acetylcy steine and Metamizole may falsely depress this assay. Normal range: <150 mg/dLBorderline High: 150-199 mg/dLHigh: 200-499 mg/dLVery High: >500 mg/dL Urinalysis, Routine (Dipstic k)on 07-30-2024 LEUK ESTERASE 25 /ul Abnormal Negative [facility] Comment on above: Order Comment: CLEAN CATCH Performed By: #### L 501.9520, L506.0400, M100.2200, L500.4100, L4, L505.5000 #### [facility] [address] [place], [address] BILIRUBIN URINE Negative Normal Negative [facility] Comment on above: Order Comment: CLEAN CATCH Performed By: #### L 501.9520, L506.0400, M100.2200, L500.4100, L400.2011, L505.5000 #### [facility] [address] [place], [address] Clarity (U) Clear Normal Clear [facility] Comment on above: Order Comment: CLEAN CATCH Performed By: #### L 501.9520, L506.0400, M100.2200, L500.4100, L400.2011, L505.5000 #### [facility] [address] [place], [address] Color (U) Yellow Normal Yellow [facility] Comment on above: Order Comment: CLEAN CATCH Performed By: #### L 501.9520, L506.0400, M100.2200, L500.4100, L400.2011, L505.5000 #### [facility] [address] [place], [address] GLUCOSE, UR Normal Normal Normal [facility] Comment on above: Order Comment: CLEAN CATCH Performed By: #### L 501.9520, L506.0400, M100.2200, L500.4100, L400.2010, L505.5000 #### [facility] [address] [place], [address] KETONE UR Negative Normal Negative [facility] Comment on above: Order Comment: CLEAN CATCH Performed By: #### L 501.9520, L506.0400, M100.2200, L500.4100, L400.2011, L505.5000 #### [facility] [address] [place], [address] Nitrite Ql (U) Negative Normal Negative [facility] Comment on above: Order Comment: CLEAN CATCH Performed By: #### L 501.9520, L506.0400, M100.2200, L500.4100, L400.2011, L505.5000 #### [facility] [address] [place], [address] OCCULT BLOOD-UR 150 /ul Abnormal Negative [facility] Comment on above: Order Comment: CLEAN CATCH Performed By: #### L 501.9520, L506.0400, M100.2200, L500.4100, L400.2010, L505.5000 #### [facility] [address] [place], [address] pH UR 6.0 Normal 5.0 - 8.0 [facility] Comment on above: Order Comment: CLEAN CATCH Performed By: #### L 501.9520, L506.0400, M100.2200, L500.4100, L400.2010, L505.5000 #### [facility] [address] [place], [address] PROT DIPSTX 15 mg/dl Abnormal Negative [facility] Comment on above: Order Comment: CLEAN CATCH Performed By: #### L 501.9520, L506.0400, M100.2200, L500.4100, L400.2010, L505.5000 #### [facility] [address] [place], [address] SP.GR. DIPSTX 1.020 Normal 1.002-1.030 [facility] Comment on above: Order Comment: CLEAN CATCH Performed By: #### L 501.9520, L506.0400, M100.2200, L500.4100, L400.2010, L505.5000 #### [facility] [address] [place], [address] UROBILI Normal Normal Normal [facility] Comment on above: Order Comment: CLEAN CATCH Performed By: #### L 501.9520, L506.0400, M100.2200, L500.4100, L400.2010, L505.5000 #### [facility] [address] [place], [address] Urine Drug Screen (VISTA)on 07-30-2024 AMPHETAMINES Negative Normal <1000 ng/mL [facility] Comment on above: Order Comment: MEDTO X Performed By: #### L 501.9520, L506.0400, M100.2200, L500.4100, L400.2011, L505.5000 ####[facility] [address] [place], [address] BARBITIURATES Negative Normal < 200 ng/mL [facility] Comment on above: Order Comment: MEDTO X Performed By: #### L 501.9520, L506.0400, M100.2200, L500.4100, L400.2010, L505.5000 ####[facility] [address] [place], [address] BENZODIAZIPINE Negative Normal < 200 ng/mL [facility] Comment on above: Order Comment: MEDTO X Performed By: #### L 501.9520, L506.0400, M100.2200, L500.4100, L400.2010, L505.5000 ####[facility] [address] [place], [address] BUP Ur Drug Scr Negative Normal < 200 ng/mL [facility] Comment on above: Order Comment: MEDTO X Performed By: #### L 501.9520, L506.0400, M100.2200, L500.4100, L400.2010, L505.5000 ####[facility] [address] [place], [address] COCAINE Negative Normal < 300 ng/mL [facility] Comment on above: Order Comment: MEDTO X Performed By: #### L 501.9520, L506.0400, M100.2200, L500.4100, L400.2011, L505.5000 ####[facility] [address] [place], [address] Fentanyl Negative Normal [facility] Comment on above: Order Comment: MEDTO X Performed By: #### L 501.9520, L506.0400, M100.2200, L500.4100, L400.2010, L505.5000 ####[facility] [address] [place], [address] METHADONE Negative Normal < 300 ng/mL [facility] Comment on above: Order Comment: MEDTO X Performed By: #### L 501.9520, L506.0400, M100.2200, L500.4100, L400.2010, L505.5000 ####[facility] [address] [place], [address] OPIATES Positive Normal < 300 ng/mL [facility] Comment on above: Order Comment: MEDTO X Result Comment: If c onfirmation testing is needed, a separate order will be required to send out testing to the reference laboratory. Performed By: #### L 501.9520, L506.0400, M100.2200, L500.4100, L400.2010, L505.5000 ####[facility] [address] [place], [address] OXYCODONE Negative Normal < 100 ng/mL [facility] Comment on above: Order Comment: MEDTO X Performed By: #### L 501.9520, L506.0400, M100.2200, L500.4100, L400.2010, L505.5000 ####[facility] [address] [place], [address] PCP Negative Normal < 25 ng/mL [facility] Comment on above: Order Comment: MEDTO X Performed By: #### L 501.9520, L506.0400, M100.2200, L500.4100, L400.2010, L505.5000 ####[facility] [address] [place], [address] THC Positive Normal < 50 ng/mL [facility] Comment on above: Order Comment: MEDTO X Result Comment: If c onfirmation testing is needed, a separate order will be required to send out testing to the reference laboratory. Performed By: #### L 501.9520, L506.0400, M100.2200, L500.4100, L400.2011, L505.5000 ####[facility] [address] [place], [address] Urine benzodiazepine levelOr dered By: Raad Armendariz on 07-30-2024 Benzodiazepines Ql (U) Negative < 200 ng/mL [facility] Urine clarityOrdered By: Veronica Armendariz on 07-30-2024 Clarity (U) Clear Clear [facility] Urine cocaine levelOrdered B y: Raad Armendariz on 07-30-2024 Cocaine Ql (U) Negative < 300 ng/mL [facility] Urine color determinationOrd ered By: Raad Armendariz on 07-30-2024 Color (U) Yellow Yellow [facility] Urine cultureOrdered By: Veronica Armendariz on 07-30-2024 Bacteria identified Cx Nom (U) Escherichia coli Abnormal [facility] Urine ldtek-3-dfwjfhjnejmldd abinol (THC) measurementOrdered By: Raad Armendariz on 07-30-2024 Cannabinoids Screen Ql (U) Positive < 50 ng/mL [facility] Comment on above: If confirmation test ing is needed, a separate order will be required to send out testing to the reference laboratory. Urine glucose detectionOrder ed By: Raad Armendariz on 07-30-2024 Glucose Ql (U) Normal mg/dl Normal [facility] Urine leukocyte esterase det ection by dipstickOrdered By: Raad Armendariz on 07-30-2024 Leukocyte esterase Test strip Ql (U) 25 /ul High Negative [facility] Urine pHOrdered By: Raad chen on 07-30-2024 pH (U) 6.0 [pH] 5.0 - 8.0 [facility] Urine phencyclidine (PCP) de tectionOrdered By: Raad Armendariz on 07-30-2024 Phencyclidine Ql (U) Negative < 25 ng/mL [facility] Urine specific gravity measu rementOrdered By: Raad Armendariz on 07-30-2024 Specific gravity (U) [Rel density] 1.020 1.002-1.030 [facility] Urine urobilinogen measureme ntOrdered By: Raad Armendariz on 07-30-2024 Urobilinogen Ql (U) Normal mg/dl Normal [facility] 12 Lead EKGon 06-22-2024 12 Lead EKG [facility] Services [address] [place] [address] 12 Lead EKG 06/22/24 1605 MR#: [id number] Acct: [id number] Name: CANDY HEARD Rep #: [id number] : 1970 53 From: Laureano Wesley MD Attending Dr: Status: DEP ER Ordering Dr: Tyler Marsh DO Date: 06/22/24 Location: ED Sex: F C Admitted: Test Reason : SOB Blood Pressure : */* mmHG Vent. Rate : 104 BPM Atrial Rate : 104 BPM P-R Int : 132 ms QRS Dur : 60 ms QT Int : 326 ms P-R-T Axes : 81 67 75 degrees QTcB Int : 428 ms Sinus tachycardia Otherwise normal ECG Confirmed by GORGE YOUNG, LAUREANO ([id number]), editorial director EDMUND GIVENS ([id number]) on 06/24/2024 9:16:39 AM Referred By: Tyler Marsh Confirmed By: LAUREANO WESLEY MD 06/24/24 0916 Date Laureano Wesley MD CC: Dr. Tyler Marsh DO; Dr. Raad Armendariz DO Signed Normal [facility] Absolute lymphocyte countOrd ered By: Tyler Marsh on 06-22-2024 Lymphocytes Auto (Unsp spec) [#/Vol] 3.27 10*3/uL 0.83-4.51 [facility] Absolute neutrophil countOrd ered By: Tyler Marsh on 06-22-2024 Neutrophils (Bld) [#/Vol] 3.6 10*3/uL 2.0-7.7 [facility] Anion gap in Serum or Plasma Ordered By: Tyler Marsh on 06-22-2024 Anion gap [Moles/Vol] 13 mmol/L 5-15 [facility] Automated lymphocyte count a s percentage of total leukocytesOrdered By: Tyler Marsh on 06-22-2024 Lymphocytes/100 WBC Auto (Unsp spec) 41.3 % High 19-41 [facility] BUN/creatinine ratioOrdered By: Tyler Marsh on 06-22-2024 Urea nitrogen/Creatinine [Mass ratio] 24.0 mg/mg High 10-20 [facility] Basic Metabolic Profile (BMP )on 06-22-2024 BUN/CRE 24.0 RATIO High 10- [facility] Comment on above: Performed By: #### L 500.2500, L100.0100 ####[facility] [address] [place], [address] Calcium [Mass/Vol] 8.9 mg/dL Normal 7.6-11.0 [facility] Comment on above: Performed By: #### L 500.2500, L100.0100 ####[facility] [address] [place], [address] Chloride [Moles/Vol] 103 mmol/L Normal 98-108 [facility] Comment on above: Performed By: #### L 500.2500, L100.0100 ####[facility] [address] [place], [address] CO2 [Moles/Vol] 22.6 mmol/L Normal 21.0-32.0 [facility] Comment on above: Performed By: #### L 500.2500, L100.0100 ####[facility] [address] [place], [address] Creatinine [Mass/Vol] 0.70 mg/dL Normal 0.70-1.20 [facility] Comment on above: Performed By: #### L 500.2500, L100.0100 ####[facility] [address] [place], [address] ECRCL 82.10 ml/min Normal 50-250 [facility] Comment on above: Performed By: #### L 500.2500, L100.0100 ####[facility] [address] [place], [address] GAP 13 Normal 5-15 [facility] Comment on above: Performed By: #### L 500.2500, L100.0100 ####[facility] [address] [place], [address] GFR/1.73 sq M.predicted among non-blacks MDRD (S/P/Bld) [Vol rate/Area] 105 mL/min/{1.73_m2} Normal >60 [facility] Comment on above: Result Comment: mL/m in/1.73m2 CKD-EPI Creatinine Equation (2020) Performed By: #### L 500.2500, L100.0100 ####[facility] [address] [place], [address] Glucose [Mass/Vol] 115 mg/dL High 70-99 [facility] Comment on above: Performed By: #### L 500.2500, L100.0100 ####[facility] [address] [place], [address] Potassium [Moles/Vol] 4.1 mmol/L Normal 3.3-5.1 [facility] Comment on above: Performed By: #### L 500.2500, L100.0100 ####[facility] [address] [place], [address] Sodium [Moles/Vol] 139 mmol/L Normal 133-145 [facility] Comment on above: Performed By: #### L 500.2500, L100.0100 ####[facility] [address] [place], [address] Urea nitrogen [Mass/Vol] 17 mg/dL Normal 4-19 [facility] Comment on above: Performed By: #### L 500.2500, L100.0100 ####[facility] [address] [place], [address] Basophil percentageOrdered B y: Tyler Marsh on 06-22-2024 Basophils/100 WBC (Bld) 0.6 % 0-1 [facility] CBC W/Diff, Automatedon 06-06 Absolute Lymph 3.27 X10 3/uL Normal 0.83-4.51 [facility] Comment on above: Performed By: #### L 500.2500, L100.0100 ####[facility] [address] [place], [address] Absolute Neut 3.6 X10 3/uL Normal 2.0-7.7 [facility] Comment on above: Performed By: #### L 500.2500, L100.0100 ####[facility] [address] [place], [address] Basophils/100 WBC (Bld) 0.6 % Normal 0-1 [facility] Comment on above: Performed By: #### L 500.2500, L100.0100 ####[facility] [address] [place], [address] Eosinophils/100 WBC (Bld) 5.4 % High 0-5 [facility] Comment on above: Performed By: #### L 500.2500, L100.0100 ####[facility] [address] [place], [address] Erythrocyte distribution width (RBC) [Ratio] 13.7 % Normal 11.6-14.6 [facility] Comment on above: Performed By: #### L 500.2500, L100.0100 ####[facility] [address] [place], [address] Hematocrit (Bld) [Volume fraction] 41.9 % Normal 37-47 [facility] Comment on above: Performed By: #### L 500.2500, L100.0100 ####[facility] [address] [place], [address] Hemoglobin (Bld) [Mass/Vol] 14.0 g/dL Normal 12.0-15.0 [facility] Comment on above: Performed By: #### L 500.2500, L100.0100 ####[facility] [address] [place], [address] IG% 0.400 Normal 0.0-0.9 [facility] Comment on above: Result Comment: IG% - Immature Granulocytes (promyelocytes, myelocytes and metamyelocytes) > 1% indicates that a LEFT SHIFT is Present. Performed By: #### L 500.2500, L100.0100 ####[facility] [address] [place], [address] Lymphocytes/100 WBC (Bld) 41.3 % High 19-41 [facility] Comment on above: Performed By: #### L 500.2500, L100.0100 ####[facility] [address] [place], [address] MCH (RBC) [Entitic mass] 29.5 pg Normal 27.0-32.0 [facility] Comment on above: Performed By: #### L 500.2500, L100.0100 ####[facility] [address] [place], [address] MCHC (RBC) [Mass/Vol] 33.4 g/dL Normal 32-36 [facility] Comment on above: Performed By: #### L 500.2500, L100.0100 ####[facility] [address] [place], [address] MCV (RBC) [Entitic vol] 88.2 fL Normal 81-99 [facility] Comment on above: Performed By: #### L 500.2500, L100.0100 ####[facility] [address] [place], [address] Monocytes/100 WBC (Bld) 6.7 % Normal 0-10 [facility] Comment on above: Performed By: #### L 500.2500, L100.0100 ####[facility] [address] [place], [address] Neutrophils/100 WBC (Bld) 45.6 % Low 47-70 [facility] Comment on above: Performed By: #### L 500.2500, L100.0100 ####[facility] [address] [place], [address] Nucleated RBC (Bld) [#/Vol] 0 10*3/uL Normal 0-5 [facility] Comment on above: Performed By: #### L 500.2500, L100.0100 ####[facility] [address] [place], [address] Platelet mean volume (Bld) [Entitic vol] 8.9 fL Normal 6.2-12.0 [facility] Comment on above: Performed By: #### L 500.2500, L100.0100 ####[facility] [address] [place], [address] Platelets (Bld) [#/Vol] 354 10*3/uL Normal 150-450 [facility] Comment on above: Performed By: #### L 500.2500, L100.0100 ####[facility] [address] [place], [address] RBC (Bld) [#/Vol] 4.75 10*6/uL Normal 4.2-5.4 [facility] Comment on above: Performed By: #### L 500.2500, L100.0100 ####[facility] [address] [place], [address] RDW SD 44.4 fl High 35.1-43.9 [facility] Comment on above: Performed By: #### L 500.2500, L100.0100 ####[facility] [address] [place], [address] WBC (Bld) [#/Vol] 7.9 10*3/uL Normal 4.4-11.0 [facility] Comment on above: Performed By: #### L 500.2500, L100.0100 ####[facility] [address] [place], [address] Carbon dioxide, total [Moles /volume] in Central venous bloodOrdered By: Tyler Marsh on 06-22-2024 CO2 [Moles/Vol] 22.6 mmol/L 21.0-32.0 [facility] Chloride assayOrdered By: Lars Marsh on 06-22-2024 Chloride [Moles/Vol] 103 mmol/L 98-108 [facility] Emergency Department Summary on 06-22-2024 Emergency Department Summary [facility] Medical Records Department [address] [facility] [place] [address] Emergency Department Summary 06/22/24 MR#: [id number] Acct: [id number] Name: CANDY HEARD Rep #: [id number] : 1970 53 From: Tyler Marsh DO PCP: Dr. Raad Armendariz, Status:DEP ER Location: ED HPI History of Present Illness Chief Complaint: Asthma Onset/Context/Timing Onset: Today Context: gradual and onset (30 minutes prior to arrival) Timing: Continuous Quality: Positive for Wheezing Worsened by: Nothing Relieved by: Nothing Associated Symptoms Negative for cough, rhinorrhea, ear pain, fever, sore throat, chills, sweats, clear sputum, white sputum, yellow sputum or green sputum Chest Pain: Positive for None Narrative Narrative: Patient presents with shortness of breath that began approximately 30 minutes prior to arrival. Patient states she was cleaning her carpets when her breathing became worse. Patient states that she used this hand glove cleaner in the past and denies any abnormal fumes or odors. Patient states it feels similar to prior flareups of her asthma. Patient states she took albuterol at home with minimal improvement. Patient states nothing makes her breathing better nothing makes it worse. Patient denies any cough. Patient denies any chest pain. Patient denies any fevers or chills. Patient denies any sore throat or rhinorrhea. PE Risk Factors: Negative for Cancer, OCP + Smoking + > 35, Prior DVT or PE, Recent immobilization, Recent surgery or Recent travel [facility] Medical History Thyroid nodule Wears glasses Bipolar disorder Alcohol use High cholesterol Easy bruising Restless legs History of diverticulitis History of IBS Gastric reflux Smoker COPD (chronic obstructive pulmonary disease) Shortness of breath on exertion Depression Arthritis History of back problems Epigastric pain Hypercholesterolemia GERD (gastroesophageal reflux disease) History of COPD Tobacco use Asthma Home Medications ???Medication ???Instructions ???Recorded ???Last Taken ???Type albuterol sulfate 90 mcg/actuation 2 puff inhalation Q6H PRN Sob / Or 06/14/17 08/22/23 History aerosol inhaler (ProAir HFA) Wheezing famotidine 40 mg tablet (Pepcid) 40 mg PO DAILY 07/02/21 08/21/23 H istory pravastatin 40 mg tablet 10 mg PO QHS 07/02/21 08/21/23 His tory zolpidem 10 mg tablet 10 mg PO QHS 07/02/21 08/19/23 His tory albuterol sulfate 2.5 mg/3 mL 2.5 mg (3 mL) inhalation Q4H PRN 0 11/02/21 08/21/23 Rx (0.083 %) solution for nebulization #25 vials hydrocodone 7.5 mg-acetaminophen 1 tab PO Q6H 03/12/23 08/19/23 His tory 325 mg tablet loratadine 10 mg tablet 10 mg PO Q24H 03/12/23 08/08/23 Hi story ipratropium 0.5 mg-albuterol 3 mg 3 ml inhalation Q4H PRN wheezing 03/17/24 Unknown Rx (2.5 mg base)/3 mL nebulization #90 mL soln prednisone 50 mg tablet 50 mg PO DAILY 5 days #5 tabs 10/31 Unknown Rx Allergy/AdvReac Type Severity Reaction Status Date / Time amitriptyline AdvReac Other Verified 06/22/24 15:56 diphenhydramine HCl (From AdvReac Other Verified 06/22/24 15:56 Benadryl) Family History Mother Cancer lung Father Cancer lung Brother Cancer lung Diabetes Heart disease Sister Breast cancer Brother Heart disease Hypertension High cholesterol Surgical History History of brain surgery History of excision of mass History of dermoid cyst excision History of tonsillectomy Hx of appendectomy brain tumor removed delivery delivered Social History Smoking Status: Current some day smoker tobacco type: cigarettes alcohol intake: current details: social substance use type: does not use caffeine: Yes what type of physical activity do you participate in: walking seatbelt use: always do you feel safe at home: Yes additional social history: [employer] Patient works at [employer] ROS ROS ED Constitutional Constitutional ED: Denies chills or fever(s) Eyes Eyes: Denies blurry vision or change in vision ENT ENT ED: Denies rhinorrhea or sore throat Cardiovascular Cardiovascular: Denies chest pain or palpitations Respiratory/Chest Respiratory/Chest: Reports dyspnea; Denies cough Gastrointestinal Gastrointestinal: Denies nausea or vomiting Genitourinary Genitourinary ED: Denies dysuria or hematuria Musculoskeletal Musculoskeletal: Denies back pain or neck pain Integumentary Denies abscess or rash Neurologic Neurologic: Denies headache(s) or weakness Allergic/Immunologic Allergic/Immunologic ED: Denies mouth sw (more content not included)... Normal [facility] Eosinophil percentageOrdered By: Tyler Marsh on 06-22-2024 Eosinophils/100 WBC (Bld) 5.4 % High 0-5 [facility] Erythrocyte distribution wid th ratioOrdered By: Tyler Marsh on 06-22-2024 Erythrocyte distribution width (RBC) [Ratio] 13.7 % 11.6-14.6 [facility] Erythrocyte distribution wid th standard deviationOrdered By: Tyler Marsh on 06-22-2024 Erythrocyte distribution width (RBC) [Ratio] 44.4 fl High 35.1-43.9 [facility] Glomerular filtration rate ( GFR) estimation/1.73 sq m using serum, plasma, or whole bOrdered By: Tyler Marsh on 06-22-2024 GFR/1.73 sq M.predicted among non-blacks MDRD (S/P/Bld) [Vol rate/Area] 105 mL/min/{1.73_m2} >60 [facility] Comment on above: mL/min/1.73m2 CKD-EP I Creatinine Equation (2020) Hematocrit Auto (Bld) [Volum e fraction]Ordered By: Tyler Marsh on 06-22-2024 Hematocrit (Bld) [Volume fraction] 41.9 % 37-47 [facility] [facility] Hemoglobin measurementOrdere d By: Tyler Marsh on 06-22-2024 Hemoglobin (Bld) [Mass/Vol] 14.0 g/dL 12.0-15.0 [facility] Immature granulocytes/100 WB C Auto (Bld)Ordered By: Tyler Marsh on 06-22-2024 Immature granulocytes/100 WBC (Bld) 0.400 % 0.0-0.9 [facility] Comment on above: IG% - Immature Granu locytes (promyelocytes, myelocytes and metamyelocytes) > 1% indicates that a LEFT SHIFT is Present. MCV (mean corpuscular volume ) determinationOrdered By: Tyler Marsh on 06-22-2024 MCV (RBC) [Entitic vol] 88.2 fL 81-99 [facility] Mean corpuscular hemoglobin (MCH) determinationOrdered By: Tyler Marsh on 06-22-2024 MCH (RBC) [Entitic mass] 29.5 pg 27.0-32.0 [facility] Mean corpuscular hemoglobin concentration (MCHC) determinationOrdered By: Tyler Marsh on 06-22-2024 MCHC (RBC) [Mass/Vol] 33.4 g/dL 32-36 [facility] Mean platelet volume determi nationOrdered By: Tyler Marsh on 06-22-2024 Platelet mean volume (Bld) [Entitic vol] 8.9 fL 6.2-12.0 [facility] Monocyte percentageOrdered B y: Tyler Marsh on 06-22-2024 Monocytes/100 WBC (Bld) 6.7 % 0-10 [facility] Neutrophil percentageOrdered By: Tyler Marsh on 06-22-2024 Neutrophils/100 WBC (Bld) 45.6 % Low 47-70 [facility] Nucleated red blood cell per centageOrdered By: Tyler Marsh on 06-22-2024 Nucleated RBC/100 WBC (Bld) [Ratio] 0 % 0-5 [facility] Platelet countOrdered By: Lars Marsh on 06-22-2024 Platelets (Bld) [#/Vol] 354 10*3/uL 150-450 [facility] Potassium measurement (mass/ volume)Ordered By: Tyler Marsh on 06-22-2024 Potassium (Unsp spec) [Mass/Vol] 4.1 mmol/L 3.3-5.1 [facility] RBC Auto (Bld) [#/Vol]Ordere d By: Tyler Marsh on 06-22-2024 RBC (Bld) [#/Vol] 4.75 10*6/uL 4.2-5.4 [facility] Serum creatinine measurement (mass/volume)Ordered By: Tyler Marsh on 06-22-2024 Creatinine [Mass/Vol] 0.70 mg/dL 0.70-1.20 [facility] Serum glucose measurement (m ass/volume)Ordered By: Tyler Marsh on 06-22-2024 Glucose [Mass/Vol] 115 mg/dL High 70-99 [facility] Serum or plasma calcium pablo urement (mass/volume)Ordered By: Tyler Marsh on 06-22-2024 Calcium [Mass/Vol] 8.9 mg/dL 7.6-11.0 [facility] Serum or plasma urea nitroge n measurement (mass/volume)Ordered By: Tyler Marsh on 06-22-2024 Urea nitrogen [Mass/Vol] 17 mg/dL 4-19 [facility] Sodium levelOrdered By: Tyler Marsh on 06-22-2024 Sodium [Moles/Vol] 139 mmol/L 133-145 [facility] White blood cell (WBC) count Ordered By: Tyler Marsh on 06-22-2024 WBC (Bld) [#/Vol] 7.9 10*3/uL 4.4-11.0 [facility] 12 Lead EKGon 03-17-2024 12 Lead EKG [facility] Cardiovascular Services [address] [place] [address] 12 Lead EKG 03/17/2448 MR#: [id number] Acct: [id number] Name: CANDY HEARD Rep #: [id number] : 1970 53 From: Anastacio Aguero MD Attending Dr: Status: DEP ER Ordering Dr: Maulik Young DO Date: 03/17/24 Location: ED Sex: F C Admitted: Test Reason : SOB Blood Pressure : */* mmHG Vent. Rate : 89 BPM Atrial Rate : 89 BPM P-R Int : 168 ms QRS Dur : 66 ms QT Int : 364 ms P-R-T Axes : 62 22 59 degrees QTcB Int : 442 ms Normal sinus rhythm Normal ECG When compared with ECG of 17-Mar-2024 09:48, MANUAL COMPARISON REQUIRED DATA IS UNCONFIRMED Confirmed by Anastacio Aguero ([id number]), editorial director JOSE CHAVARRIA ([id number]) on 03/20/2024 7:01:25 AM Referred By: Confirmed By: Anastacio Aguero 03/20/24700 Date Anastacio Aguero MD CC: Dr. Raad Armendariz DO; Dr. Maulik Young DO Signed Normal [facility] 12 Lead EKG [facility] Cardiovascular Services [address] [place] [address] 12 Lead EKG 03/17/2448 MR#: [id number] Acct: [id number] Name: CANDY HEARD Rep #: [id number] : 1970 53 From: Laureano Wesley MD Attending Dr: Status: DEP ER Ordering Dr: Maulik Young DO Date: 03/17/24 Location: ED Sex: F C Admitted: Test Reason : SOB Blood Pressure : */* mmHG Vent. Rate : 89 BPM Atrial Rate : 89 BPM P-R Int : 168 ms QRS Dur : 66 ms QT Int : 364 ms P-R-T Axes : 62 22 59 degrees QTcB Int : 442 ms Normal sinus rhythm Normal ECG Confirmed by LAUREANO WESLEY MD ([id number]), editorial director EDMUND GIVENS ([id number]) on 03/18/2024 11:07:25 AM Referred By: Confirmed By: LAUREANO WESLEY MD 03/18/247 Date Laureano Wesley MD CC: Dr. Raad Armendariz DO; Dr. Maulik Young DO Signed Normal [facility] Absolute lymphocyte countOrd ered By: Maulik Young on 03-17-2024 Lymphocytes Auto (Unsp spec) [#/Vol] 2.99 10*3/uL 0.83-4.51 [facility] Absolute neutrophil countOrd ered By: Maulik Young on 03-17-2024 Neutrophils (Bld) [#/Vol] 5.8 10*3/uL 2.0-7.7 [facility] Automated blood erythrocyte countOrdered By: Maulik Young on 03-17-2024 RBC (Bld) [#/Vol] 4.59 10*6/uL Normal 4.2-5.4 [facility] Comment on above: Performed By: #### L 501.4020, L500.2500, L100.0100 ####[facility] [address] [place], [address] Automated blood hematocrit ( percentage)Ordered By: Maulik Young on 03-17-2024 Hematocrit (Bld) [Volume fraction] 41.5 % Normal 37-47 [facility] Comment on above: Performed By: #### L 501.4020, L500.2500, L100.0100 ####[facility] [address] [place], [address] Automated lymphocyte count a s percentage of total leukocytesOrdered By: Maulik Young on 03-17-2024 Lymphocytes/100 WBC Auto (Unsp spec) 29.8 % 19-41 [facility] Basic Metabolic Profile (BMP )on 03-17-2024 BUN/CRE 17.8 RATIO Normal 10-20 [facility] Comment on above: Order Comment: 'TROP ' Serial specimen #1, #2 or #3: 1 Performed By: #### L 501.4020, L500.2500, L100.0100 ####[facility] [address] [place], [address] CA,Total 8.8 mg/dL Normal 8.5-10.1 [facility] Comment on above: Order Comment: 'TROP ' Serial specimen #1, #2 or #3: 1 Performed By: #### L 501.4020, L500.2500, L100.0100 ####[facility] [address] [place], [address] Chloride [Moles/Vol] 101 mmol/L Normal 98-107 [facility] Comment on above: Order Comment: 'TROP ' Serial specimen #1, #2 or #3: 1 Performed By: #### L 501.4020, L500.2500, L100.0100 ####[facility] [address] [place], [address] CO2 [Moles/Vol] 30.0 mmol/L Normal 21.0-32.0 [facility] Comment on above: Order Comment: 'TROP ' Serial specimen #1, #2 or #3: 1 Performed By: #### L 501.4020, L500.2500, L100.0100 ####[facility] [address] [place], [address] Creatinine [Mass/Vol] 0.84 mg/dL Normal 0.55-1.02 [facility] Comment on above: Order Comment: 'TROP ' Serial specimen #1, #2 or #3: 1 Result Comment: The validity of the calculated GFR GFRAA in patients over 70 years has not been determined. Clinical correlation is essential. Performed By: #### L 501.4020, L500.2500, L100.0100 ####[facility] [address] [place], [address] ECRCL 80.73 ml/min Normal [facility] Comment on above: Order Comment: 'TROP ' Serial specimen #1, #2 or #3: 1 Performed By: #### L 501.4020, L500.2500, L100.0100 ####[facility] [address] [place], [address] EST GFR - AA 91 mL/min Normal >60 [facility] Comment on above: Order Comment: 'TROP ' Serial specimen #1, #2 or #3: 1 Result Comment: Afri can Pakistani GFR Calc Performed By: #### L 501.4020, L500.2500, L100.0100 ####[facility] [address] [place], [address] GAP 10 Normal 5-15 [facility] Comment on above: Order Comment: 'TROP ' Serial specimen #1, #2 or #3: 1 Performed By: #### L 501.4020, L500.2500, L100.0100 ####[facility] [address] [place], [address] GFR/1.73 sq M.predicted among non-blacks MDRD (S/P/Bld) [Vol rate/Area] 75 mL/min/{1.73_m2} Normal >60 [facility] Comment on above: Order Comment: 'TROP ' Serial specimen #1, #2 or #3: 1 Result Comment: Non- GFR Calc Performed By: #### L 501.4020, L500.2500, L100.0100 ####[facility] [address] [place], [address] Glucose [Mass/Vol] 155 mg/dL High 74-106 [facility] Comment on above: Order Comment: 'TROP ' Serial specimen #1, #2 or #3: 1 Result Comment: Fast ing Glucose result greater than or equal to 126 mg/dL suggests DIABETES MELLITUS per A.D.A. criteria. Performed By: #### L 501.4020, L500.2500, L100.0100 ####[facility] [address] [place], [address] Potassium [Moles/Vol] 3.6 mmol/L Normal 3.5-5.1 [facility] Comment on above: Order Comment: 'TROP ' Serial specimen #1, #2 or #3: 1 Performed By: #### L 501.4020, L500.2500, L100.0100 ####[facility] [address] [place], [address] Sodium [Moles/Vol] 141 mmol/L Normal 136-145 [facility] Comment on above: Order Comment: 'TROP ' Serial specimen #1, #2 or #3: 1 Performed By: #### L 501.4020, L500.2500, L100.0100 ####[facility] [address] [place], [address] Urea nitrogen [Mass/Vol] 15 mg/dL Normal 7-18 [facility] Comment on above: Order Comment: 'TROP ' Serial specimen #1, #2 or #3: 1 Performed By: #### L 501.4020, L500.2500, L100.0100 ####[facility] [address] [place], [address] Basophil percentageOrdered B y: Maulik Young on 03-17-2024 Basophils/100 WBC (Bld) 0.7 % Normal 0-1 [facility] Comment on above: Performed By: #### L 501.4020, L500.2500, L100.0100 ####[facility] [address] [place], [address] Blood urea nitrogen (BUN)/cr eatinine ratioOrdered By: Maulik Young on 03-17-2024 Urea nitrogen/Creatinine [Mass ratio] 17.8 mg/mg 10-20 [facility] CBC W/Diff, Automatedon 02-0 9-2024 Absolute Lymph 2.99 X10 3/uL Normal 0.83-4.51 [facility] Comment on above: Performed By: #### L 501.4020, L500.2500, L100.0100 ####[facility] [address] [place], [address] Absolute Neut 5.8 X10 3/uL Normal 2.0-7.7 [facility] Comment on above: Performed By: #### L 501.4020, L500.2500, L100.0100 ####[facility] [address] [place], [address] IG% 0.400 Normal 0.0-0.9 [facility] Comment on above: Result Comment: IG% - Immature Granulocytes (promyelocytes, myelocytes and metamyelocytes) > 1% indicates that a LEFT SHIFT is Present. Performed By: #### L 501.4020, L500.2500, L100.0100 ####[facility] [address] [place], [address] Lymphocytes/100 WBC (Bld) 29.8 % Normal 19-41 [facility] Comment on above: Performed By: #### L 501.4020, L500.2500, L100.0100 ####[facility] [address] [place], [address] Nucleated RBC (Bld) [#/Vol] 0 10*3/uL Normal 0-5 [facility] Comment on above: Performed By: #### L 501.4020, L500.2500, L100.0100 ####[facility] [address] [place], [address] RDW SD 45.1 fl High 35.1-43.9 [facility] Comment on above: Performed By: #### L 501.4020, L500.2500, L100.0100 ####[facility] [address] [place], [address] Carbon dioxide measurementOr dered By: Maulik Young on 03-17-2024 CO2 [Moles/Vol] 30.0 mmol/L 21.0-32.0 [facility] Chest 1 View (Portable)on Chest 1 View (Portable) [facility] Imaging Services [address] [place] [address] Chest 1 View (Portable) MR#: [id number] Acct: [id number] Name: CANDY HEARD Rep #: [id number] : 1970 F 53 From: Mayco Mei MD PCP: Dr. Raad Armendariz DO Status: REG ER Study: Chest 1 View (Portable) Date of Exam: 03/17/24 Exam# [id number] Ordering Dr: Maulik Young DO PROCEDURE: CHEST 1 VIEW (PORTABLE) REASON FOR EXAM: Short of breath TECHNIQUE: Frontal view of the chest. COMPARISON: None. FINDINGS: The cardiac and mediastinal contours are normal. The lungs are clear. RAD/Chest 1 View (Portable) IMPRESSION: NEGATIVE SINGLE VIEW OF THE CHEST. Reading Location: [facility] CC: Dr. Raad Armendariz DO; Dr. 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 Raad Armendariz DO Status:DEP ER Location: ED HPI History of Present Illness Chief Complaint: Shortness of Breath [facility] Medical History Thyroid nodule Wears glasses Bipolar disorder Alcohol use High cholesterol Easy bruising Restless legs History of diverticulitis History of IBS Gastric reflux Smoker COPD (chronic obstructive pulmonary disease) Shortness of breath on exertion Depression Arthritis History of back problems Epigastric pain Hypercholesterolemia GERD (gastroesophageal reflux disease) History of COPD Tobacco use Asthma Home Medications ???Medication ???Instructions ???Recorded ???Last Taken ???Type albuterol sulfate 90 mcg/actuation 2 puff inhalation Q6H PRN Sob / Or 06/14/17 08/22/23 History aerosol inhaler (ProAir HFA) Wheezing famotidine 40 mg tablet (Pepcid) 40 mg PO DAILY 07/02/21 08/21/23 H istory pravastatin 40 mg tablet 10 mg PO QHS 07/02/21 08/21/23 His tory zolpidem 10 mg tablet 10 mg PO QHS 07/02/21 08/19/23 His tory albuterol sulfate 2.5 mg/3 mL 2.5 mg (3 mL) inhalation Q4H PRN 0 11/02/21 08/21/23 Rx (0.083 %) solution for nebulization #25 vials hydrocodone 7.5 mg-acetaminophen 1 tab PO Q6H 03/12/23 08/19/23 His tory 325 mg tablet loratadine 10 mg tablet 10 mg PO Q24H 03/12/23 08/08/23 Hi story ipratropium 0.5 mg-albuterol 3 mg 3 ml inhalation Q4H PRN wheezing 03/17/24 Unknown Rx (2.5 mg base)/3 mL nebulization #90 mL soln prednisone 50 mg tablet 50 mg PO DAILY 5 days #5 tabs 10/31 Unknown Rx Allergy/AdvReac Type Severity Reaction Status Date / Time amitriptyline AdvReac Other Verified 03/17/24 08:51 diphenhydramine HCl (From AdvReac Other Verified 03/17/24 08:51 Benadryl) Family History Mother Cancer lung Father Cancer lung Brother Cancer lung Diabetes Heart disease Sister Breast cancer Brother Heart disease Hypertension High cholesterol Surgical History History of brain surgery History of excision of mass History of dermoid cyst excision History of tonsillectomy Hx of appendectomy brain tumor removed delivery delivered Social History Smoking Status: Current some day smoker tobacco type: cigarettes alcohol intake: current details: social substance use type: does not use caffeine: Yes what type of physical activity do you participate in: walking seatbelt use: always do you feel safe at home: Yes additional social history: Paul Stoddard Patient works at [employer] EXAM Physical Exam Const Vital Signs: 03/17/24 08:48 03/17/24 08:51 03/17/24 08:53 Temperature 98.6 F 98.6 F Temperature Source Oral Oral Pulse Rate 115 H 106 H Respiratory Rate 18 18 Respiratory Effort Normal Respiratory Pattern Blood Pressure 142/100 H 142/101 H Blood Pressure Mean 114 114 Pulse Ox 95 95 Oxygen Delivery Method Room Air Room Air Room Air 03/17/24 09:37 03/17/24 09:51 03/17/24 09:51 Temperature 98.6 F Temperature Source Oral Pulse Rate 93 95 Respiratory Rate 16 12 Respiratory Effort Respiratory Pattern Normal Blood Pressure 112/76 Blood Pressure Mean 88 Pulse Ox 91 Oxygen Delivery Method Room Air Room Air 03/17/24 11:00 03/17/24 12:00 03/17/24 12:00 Temperature 98.6 F 96.9 F L Temperature Source Oral Temporal Pulse Rate 90 87 Respiratory Rate 17 10 L Respiratory Effort Respiratory Pattern Blood Pressure 108/77 126/85 H 126/85 H Blood Pressure Mean 87 98 98 Pulse Ox 93 95 Oxygen Delivery Method Room Air Room Air 03/17/24 12:20 Temperature 96.9 F L Temperature Source Pulse Rate 90 Respiratory Rate 12 Respiratory Effort Respiratory Pattern Blood Pressure 129/92 H Blood Pressure Mean 104 Pulse Ox 97 Oxygen Delivery Method MDM MDM MDM Narrative Medical decision making narrative: HISTORY OF PRESENT ILLNESS: 53-year-old female history of COPD, tobacco abuse GERD hyperlipidemia presented shortness of breath. She is doing abdominal care this morning started feeling short of breath. Wheezing reported per EMS. Received DuoNeb per EMS. Patient endorses acute onset of shortness of breath occurred just prior to arrival. Denies any chest pain currently. Denies leg swelli (more content not included)... Normal [facility] Eosinophil percentageOrdered By: Maulik Young on 03-17-2024 Eosinophils/100 WBC (Bld) 5.6 % High 0-5 [facility] Comment on above: Performed By: #### L 501.4020, L500.2500, L100.0100 ####[facility] [address] [place], [place], [address] Erythrocyte distribution wid th ratioOrdered By: Maulik Young on 03-17-2024 Erythrocyte distribution width (RBC) [Ratio] 13.5 % Normal 11.6-14.6 [facility] Comment on above: Performed By: #### L 501.4020, L500.2500, L100.0100 ####[facility] [address] [place], [place], [address] Erythrocyte distribution wid th standard deviationOrdered By: Maulik Young on 03-17-2024 Erythrocyte distribution width (RBC) [Ratio] 45.1 fl High 35.1-43.9 [facility] Glomerular filtration rate ( GFR) estimationOrdered By: Maulik Young on 03-17-2024 GFR/1.73 sq M.predicted among non-blacks MDRD (S/P/Bld) [Vol rate/Area] 75 mL/min/{1.73_m2} >60 [facility] Comment on above: Non- GFR Calc Glucose measurementOrdered B y: Maulik Young on 03-17-2024 Glucose [Mass/Vol] 155 mg/dL High 74-106 [facility] Comment on above: Fasting Glucose resu lt greater than or equal to 126 mg/dL suggests DIABETES MELLITUS per A.D.A. criteria. Hemoglobin measurementOrdere d By: Maulik Young on 03-17-2024 Hemoglobin (Bld) [Mass/Vol] 13.3 g/dL Normal 12.0-15.0 [facility] Comment on above: Performed By: #### L 501.4020, L500.2500, L100.0100 ####[facility] [address] [place], [address] Immature granulocytes/100 WB C Auto (Bld)Ordered By: Maulik Young on 03-17-2024 Immature granulocytes/100 WBC (Bld) 0.400 % 0.0-0.9 [facility] Comment on above: IG% - Immature Granu locytes (promyelocytes, myelocytes and metamyelocytes) > 1% indicates that a LEFT SHIFT is Present. Influenza virus A and B and SARS-CoV-2 (COVID-19) and Respiratory syncytial virus RNAOrdered By: Maulik Young on 03-17-2024 SARS-CoV-2 (COVID-19) RNA RICHAR+probe Ql (Unsp spec) [facility] L501.4020on 03-17-2024 TROPONIN-I HS < 3 Low 3.0-54.0 [facility] Comment on above: Order Comment: 'TROP ' Serial specimen #1, #2 or #3: 2 Result Comment: Plea se Note: New Test Units and Gender Specific Reference Ranges. For more information see Policy Stat Procedure [place] High Sensitivity Troponin (TNIH) and attachments. Performed By: #### L 501.4020 #### [facility] Laboratory [address] [place], [address] TROPONIN-I HS < 3 Low 3.0-54.0 [facility] Comment on above: Order Comment: 'TROP ' Serial specimen #1, #2 or #3: 1 Result Comment: Plea se Note: New Test Units and Gender Specific Reference Ranges. For more information see Policy Stat Procedure [place] High Sensitivity Troponin (TNIH) and attachments. Performed By: #### L 501.4020, L500.2500, L100.0100 ####[facility] [address] [place], [address] M100.678on 03-17-2024 M100.678 Pending SARS-CoV-2 (COVID 19) Negative INFLUENZA A Negative INFLUENZA B Negative RSV PCR Negative Normal [facility] Comment on above: Performed By: #### M 100.678 ####[facility] [address] [place], [address] MCV (mean corpuscular volume ) determinationOrdered By: Maulik Young on 03-17-2024 MCV (RBC) [Entitic vol] 90.4 fL Normal 81-99 [facility] Comment on above: Performed By: #### L 501.4020, L500.2500, L100.0100 ####[facility] [address] [place], [address] Mean corpuscular hemoglobin (MCH) determinationOrdered By: Maulik Young on 03-17-2024 MCH (RBC) [Entitic mass] 29.0 pg Normal 27.0-32.0 [facility] Comment on above: Performed By: #### L 501.4020, L500.2500, L100.0100 ####[facility] [address] [place], [address] Mean corpuscular hemoglobin concentration (MCHC) determinationOrdered By: Maulik Young on 03-17-2024 MCHC (RBC) [Mass/Vol] 32.0 g/dL Normal 32-36 [facility] Comment on above: Performed By: #### L 501.4020, L500.2500, L100.0100 ####[facility] [address] [place], [address] Mean platelet volume determi nationOrdered By: Maulik Young on 03-17-2024 Platelet mean volume (Bld) [Entitic vol] 9.0 fL Normal 6.2-12.0 [facility] Comment on above: Performed By: #### L 501.4020, L500.2500, L100.0100 ####[facility] [address] [place], [address] Monocyte percentageOrdered B y: Maulik Young on 03-17-2024 Monocytes/100 WBC (Bld) 6.0 % Normal 0-10 [facility] Comment on above: Performed By: #### L 501.4020, L500.2500, L100.0100 ####[facility] [address] [place], [address] Neutrophil percentageOrdered By: Maulik Young on 03-17-2024 Neutrophils/100 WBC (Bld) 57.5 % Normal 47-70 [facility] Comment on above: Performed By: #### L 501.4020, L500.2500, L100.0100 ####[facility] [address] [place], [address] Nucleated red blood cell per centageOrdered By: Maulik Young on 03-17-2024 Nucleated RBC/100 WBC (Bld) [Ratio] 0 % 0-5 [facility] Platelet countOrdered By: Wale Young on 03-17-2024 Platelets (Bld) [#/Vol] 425 10*3/uL Normal 150-450 [facility] Comment on above: Performed By: #### L 501.4020, L500.2500, L100.0100 ####[facility] [address] [place], [address] Potassium measurementOrdered By: Maulik Young on 03-17-2024 Potassium [Moles/Vol] 3.6 mmol/L 3.5-5.1 [facility] Serum anion gap measurementO rdered By: Maulik Young on 03-17-2024 Anion gap [Moles/Vol] 10 mmol/L 5-15 [facility] Serum or plasma calcium pablo urement (mass/volume)Ordered By: Maulik Young on 03-17-2024 Calcium [Mass/Vol] 8.8 mg/dL 8.5-10.1 [facility] Serum or plasma creatinine m easurement (mass/volume)Ordered By: Maulik Young on 03-17-2024 Creatinine [Mass/Vol] 0.84 mg/dL 0.55-1.02 [facility] Comment on above: The validity of the calculated GFR & GFRAA in patients over 70 years has not been determined. Clinical correlation is essential. Serum or plasma urea nitroge n measurement (mass/volume)Ordered By: Maulik Young on 03-17-2024 Urea nitrogen [Mass/Vol] 15 mg/dL 7-18 [facility] Sodium levelOrdered By: Germán Young on 03-17-2024 Sodium [Moles/Vol] 141 mmol/L [id number] [facility] Troponin IOrdered By: Maulik Young on 03-17-2024 Troponin I < 3 pg/mL Low 3.0-54.0 [facility] Comment on above: Please Note: [place] t Units and Gender Specific Reference Ranges. For more information see Policy Stat Procedure [place] High Sensitivity Troponin (TNIH) and attachments. White blood cell (WBC) count Ordered By: Maulik Young on 03-17-2024 WBC (Bld) [#/Vol] 10.1 10*3/uL Normal 4.4-11.0 [facility] Comment on above: Performed By: #### L 501.4020, L500.2500, L100.0100 ####[facility] [address] [place], [address] Free T3on 12-29-2023 Free T3 [Mass/Vol] 1.5 pg/mL Low 2.18-3.98 [facility] Comment on above: Performed By: #### L 501.9520, L501.31085, L506.0400 #### [facility] [address] [place], [address] T4 Free Directon 12-29-2023 T4 FREE DIRECT 0.68 ng/dL Low 0.76-1.46 [facility] Comment on above: Performed By: #### L 501.9520, L501.29476, L506.0400 #### [facility] [address] [place], [address] Thyroid Stim Hormone (TSH)on 12-29-2023 TSH 2.880 uIU/mL Normal 0.358-3.740 [facility] Comment on above: Performed By: #### L 501.9520, L501.35532, L506.0400 #### [facility] Laboratory [address] [place], [address] Chest PA and Lateralon 12-27 Chest PA and Lateral [facility] Imaging Services [address] [place] [address] Chest PA and Lateral MR#: [id number] Acct: [id number] Name: CANDY HEARD Rep #: [id number] : 1970 F 53 From: Pk Hanson DO PCP: Dr. Raad Armendariz DO Status: DEP ER Study: Chest PA and Lateral Date of Exam: 12/28/23 Exam# [id number] Ordering Dr: Geo Donaldson DO [id number] INDICATION: dyspnea EXAMINATION/TECHNIQUE: X-RAY - XR Chest 2 Views COMPARISON: March 12, 2023 FINDINGS: LINES/DEVICES: None. LUNGS: No consolidation, edema or effusion. No pneumothorax. MEDIASTINUM AND CARDIOVASCULAR STRUCTURES: Cardiac silhouette not enlarged. Central airways and mediastinal contour are unremarkable. BONES AND SOFT TISSUES: Unremarkable. RAD/Chest PA and Lateral IMPRESSION: No radiographic evidence of acute cardiopulmonary disease. Electronically Signed: Pk Hanson DO at 17:15 EST , CC: Dr. Raad Armendariz DO; Dr. 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 Raad Armendariz, DO Status:DEP ER Location: ED HPI History of Present Illness Chief Complaint: Shortness of Breath Detail of Chief Complaint: Shortness of breath Informant: patient Narrative Narrative: Patient presents with shortness of breath that has been lingering for the last 2 weeks. Patient does have a cough that is nonproductive. She has had no fever. She was tested for COVID yesterday and was negative. She does have history of COPD and asthma. Denies recent travel or surgery. No history of PE or DVT. Her last surgery was a partial thyroidectomy in September of this year. Intermittent sharp stabbing pains with breathing but she states is not there all the time. She has been using her inhalers and nebulizer more frequently. She has an appointment to see her primary care physician tomorrow for a general checkup. [facility] Medical History Thyroid nodule Wears glasses Bipolar disorder Alcohol use High cholesterol Easy bruising Restless legs History of diverticulitis History of IBS Gastric reflux Smoker COPD (chronic obstructive pulmonary disease) Shortness of breath on exertion Depression Arthritis History of back problems Epigastric pain Hypercholesterolemia GERD (gastroesophageal reflux disease) History of COPD Tobacco use Asthma Home Medications ???Medication ???Instructions ???Recorded ???Last Taken ???Type albuterol sulfate 90 mcg/actuation 2 puff inhalation Q6H PRN Sob /Or 06/14/17 08/22/23 History aerosol inhaler (ProAir HFA) Wheezing famotidine 40 mg tablet (Pepcid) 40 mg PO DAILY 07/02/21 08/21/23 History pravastatin 40 mg tablet 10 mg PO QHS 07/02/21 08/21/23 History zolpidem 10 mg tablet 10 mg PO QHS 07/02/21 08/19/23 History albuterol sulfate 2.5 mg/3 mL 2.5 mg (3 mL) inhalation Q4H PRN 11/02/21 08/21/23 Rx (0.083 %) solution for nebulization #25 vials hydrocodone 7.5 mg-acetaminophen 1 tab PO Q6H 03/12/23 08/19/23 History 325 mg tablet loratadine 10 mg tablet 10 mg PO Q24H 03/12/23 08/08/23 History doxycycline monohydrate 100 mg 100 mg PO BID #20 CAPSULES 12/28/23 Unknown Rx capsule prednisone 20 mg tablet 20 mg PO BID #10 tabs 12/28/23 Unknown Rx Allergy/AdvReac Type Severity Reaction Status Date / Time amitriptyline AdvReac Other Verified 12/28/23 15:22 diphenhydramine HCl (From AdvReac Other Verified 12/28/23 15:22 Benadryl) Family History Mother Cancer lung Father Cancer lung Brother Cancer lung Diabetes Heart disease Sister Breast cancer Brother Heart disease Hypertension High cholesterol Surgical History History of brain surgery History of excision of mass History of dermoid cyst excision History of tonsillectomy Hx of appendectomy brain tumor removed delivery delivered Social History Smoking Status: Current some day smoker tobacco type: cigarettes alcohol intake: current details: social substance use type: does not use caffeine: Yes what type of physical activity do you participate in: walking seatbelt use: always do you feel safe at home: Yes additional social history: Marko- Richi Patient works at [employer] ROS ROS ED Review of Systems ROS Unobtainable: other Constitutional Constitutional ED: Reports lethargy; Denies chills, fever(s), sweats or weight loss Eyes Eyes: Denies blurry vision, change in vision or diplopia ENT ENT ED: Denies rhinorrhea or sore throat Cardiovascular Cardiovascular: Reports chest pain; Denies orthopnea or racing heartbeat Respiratory/Chest Respiratory/Chest: Reports dyspnea and dyspnea on exertion; Denies cough, orthopnea or sputum Gastrointestinal Gastrointestinal: Denies abdominal pain, diarrhea, nausea or vomiting Genitourinary Genitourinary ED: Denies dysuria, hematuria or urinary frequency Musculoskeletal Musculoskeletal: Denies arthralgias, back pain, myalgias or neck pain Integumentary Denies abscess, Abrasions or rash Neurologic Neurologic: Denies headache(s) or weakness Psychiatric Psychiatric: Denies anxiety, depression or suicidal thoughts Endocrine Endocrinology: Denies polydipsia, polyphagia or polyuria Hematologic/Lymphatic Hematologic/Lymphatic: Denies easy bleeding, easy bruising or lymphadenopathy Allergic/Immunologic Allergic/Immunologic ED: Denies mouth swelling, tongue swelling or (more content not included)... Normal [facility] Surgery Visit Reporton 09-[address] [facility] [address] [place] [address] OFFICE VISIT Date of Service: 09/07/23 MR#: [id number] Acct: [id number] Name: CANDY HEARD Rep #: [id number] : 1970 Provider: Dr. Anastacio kwan MD Age/Sex: 52/F Location: [facility] Status: Signed Intake Vital Signs 08/22/23 10:02 Height 5 ft 4 in Intake Visit Reasons: LEFT THYRIODECTOMY DOS 08/21 Chief Complaint: Discuss thyroid surgery Allergies amitriptyline Adverse Reaction (Verified 08/22/23 09:57) Other diphenhydramine HCl (From Benadryl) Adverse Reaction (Verified 08/22/23 09:57) Other Subjective Details: Patient presents following left thyroid lobectomy on 08/22/2023. Since hospital discharge they have been doing well overall. 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 They are happy with the new role but still trying to get used to the new shift. They report fatigue at today's visit but suspect that this is related to getting used to this new shift. Importantly the confirm that there sleep quality has been good. They do report some persistent postoperative pain???particularly to touch but overall this is improving and may continue to use ice for symptomatic relief. They have not experienced symptoms of numbness and tingling. They have no wound concerns, but previously had communicated some concern for central swelling that have spontaneously improved. They are not currently supplementing calcium. Objective Details: Constitutional: Cooperative, appreciative Neck: Incision remains well-approximated beneath Steri-Strips that are curling. The strips are removed and patient's soft tissues appear mildly edematous with some tenderness upon palpation. The re is no erythema, fluctuance or drainage Coding Level of Care Code Global Post Op Diagnoses History of lobectomy of thyroid Z90.09 [facility] Medical History Thyroid nodule Wears glasses Bipolar disorder Alcohol use High cholesterol Easy bruising Restless legs History of diverticulitis History of IBS Gastric reflux Smoker COPD (chronic obstructive pulmonary disease) Shortness of breath on exertion Depression Arthritis History of back problems Epigastric pain Hypercholesterolemia GERD (gastroesophageal reflux disease) History of COPD Tobacco use Asthma Surgical History History of brain surgery History of excision of mass History of dermoid cyst excision History of tonsillectomy Hx of appendectomy brain tumor removed delivery delivered Family History Mother Cancer lung Father Cancer lung Brother Cancer lung Diabetes Heart disease Sister Breast cancer Brother Heart disease Hypertension High cholesterol Social History Smoking Status: Current some day smoker (Patient had 1 cigarette in 2 weeks ago) tobacco type: cigarettes alcohol intake: current details: social substance use type: does not use caffeine: Yes what type of physical activity do you participate in: walking seatbelt use: always do you feel safe at home: Yes additional social history: Marko- Richi Patient works at [employer] Assessment and Plan (No Qualifiers) Assessment and Plan (1) History of lobectomy of thyroid: Status: Acute Comment: Patient is a 52-year-old female who is approximately 2 weeks status post left thyroid lobectomy with intraoperative nerve monitoring. Postoperatively she has done well and remarks of only mild, improving, postoperative discomfort. She denies any hoarseness or swallowing difficulty. She is well-healing on exam. There is some persistent swelling, however, given the appearance I would expect not only resolution of the swelling but also an excellent cosmetic result. At this point I have instructed patient to begin application of triple antibiotic ointment twice a day through the rest of this week and then begin application of either vitamin E oil or cocoa butter twice a day beginning next week. 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 She is pleased and relieved to hear this information. Lastly, I discussed with patient that I would need to see what her postoperative thyroid function testing shows at her earliest 5 weeks postop. Thus we will plan for pre-clinic lab testing and a clinic visit in 3 weeks. Plan: ??? Wound care as above (more content not included)... Normal [facility] Discharge Instructionon 08-06 Discharge Instruction [facility] Medical Records Department [address] [place] [address] Instructions for Home/Discharge Instructions 08/22/23 1447 MR#: [id number] Acct: [id number] Name: CANDY HEARD Rep #: [id number] : 1970 52 From: Anastacio Cannon MD PCP: Dr. Raad Armendariz, DO [place] [facility] [place] Instructions Diet Discharge Diet: No restrictions (However recommend a liquid to soft diet initially postoperatively) Activity Discharge Activity: May Not Drive (While it remains difficult to check blind spots quickly) May shower in (days): 2 Ice area for (Minutes): 20 Lifting Restrictions: No lifting greater than 15 pounds for 2 weeks after surgery Dressing / Incision Call your doctor if your incision/area has: Continuous Slow Oozing, Sudden Increased Bleeding, Increased Pain/ Swelling, Increased Redness and Swelling at the incision site Call your doctor if you observe: Numbness or Tingling Remove Dressing in: 2 days (Please leave Steri-Strips intact until they fall off spontaneously or are taken off at your follow-up visit) Cleanse incision/area with: Soap Water Follow Up Care Please Follow Up With: Anastacio Cannon MD When: 7-10 days postop Test Results: Test results from this visit will be discussed in further detail at your follow-up appointment, if applicable. Discharge Plan Admission Primary Reason for Your Visit: Left thyroid lobectomy Attending Provider: Anastacio Cannon Primary Care Provider: Raad Armendariz Instructions Print Language: Latvian Discharge Orders/Prescriptions Prescriptions: Continued albuterol sulfate [ProAir HFA] 90 mcg/actuation HFA aerosol inhaler 2 puff INHALATION Q6H PRN (Reason: Sob /Or Wheezing) famotidine [Pepcid] 40 mg tablet 40 mg PO DAILY pravastatin 40 mg tablet 10 mg PO QHS zolpidem 10 mg tablet 10 mg PO QHS Patient Comments: TAKE 1 TABLET BY MOUTH EVERYDAY AT BEDTIME albuterol sulfate 2.5 mg /3 mL (0.083 %) solution for nebulization 2.5 mg inhalation Q4H PRN Qty: 25 0RF Rx Instructions: Use q4 hours and PRN for wheezing hydrocodone-acetaminop hen 7.5-325 mg tablet 1 tab PO Q6H Rx Instructions: FOR CHRONIC INTRACTABLE PAIN loratadine 10 mg tablet 10 mg PO Q24H Referrals / Follow Up: Raad Armendariz DO [Primary Care Provider] - Disposition Disposition (needs filled in before D/C Order can be placed): Home, Self Care 08/22/23 5434 Anastacio Cannon MD CC: Dr. Raad Armendariz DO Signed Normal [facility] Frozen Section (charge)on Frozen Section (charge) ------ ---- Patient Age/Sex Location Account Attending Physician ---- CANDY HEARD 52/[place] [facility] [id number]. Anastacio Cannon MD ---- Specimen: [id number] Received: 08/22/23 Status: YUMIKO [place] Num: [id number] Spec Type: PARATHY Subm Dr: Dr. Anastacio Cannon MD HEADER OPERATION: Left thyroidectomy with isthmus and IONM PRE-OP DIAGNOSIS: Thyroid nodule TISSUE SUBMITTED: A- Parathyroid, B- Left superior parathyroid , C- Left thyroid lobe with isthmus ---- FROZEN SECTION DIAGNOSIS A. Rule out parathyroid, biopsy: A piece of fibroadipose tissue. B. Rule out superior parathyroid, biopsy: Parathyroid tissue. / 08/22/2023 MICROSCOPIC DIAGNOSIS A. Rule out parathyroid, biopsy: A piece of fibroadipose tissue. B. Rule out superior parathyroid, biopsy: Unremarkable parathyroid tissue (0.003gm). C. Left thyroid lobe with isthmus, lobectomy and isthmectomy: Multinodular goiter. Unremarkable parathyroid tissue. Changes consistent with previous biopsy. One perithyroidal benign lymph node. See comment. /mr 08/25/2023 COMMENT C. Immunohistochemistry ([id number]) supports the above diagnosis. Please make reference to previous specimen [id number] fine needle aspiration left thyroid lobe fluid with diagnosis of atypia of undetermined significance and fine needle aspiration left thyroid nodule smears with diagnosis of suspicious for malignancy and fine needle aspiration left thyroid cyst with diagnosis of macrophages consistent with benign cyst content and fine needle aspiration left thyroid cyst fluid and smears with diagnosis of consistent benign cyst content. Case has been reviewed in consultation with Dr. Jimenez who concurs with the above diagnosis. IDC:AM ---- Patient Age/Sex Location Account Attending Physician ---- CANDY HEARD 52/[place] [id number]. Anastacio Cannon MD ---- MICROSCOPIC DESCRIPTION Slides are reviewed. GROSS DESCRIPTION A. Received fresh for frozen section diagnosis labeled with the patient's name is a specimen designated Rule out parathyroid. The specimen consists of a piece of robb-pink soft tissue weighing 0.009gm and measuring 0.2 x 0.1 x 0.1cm. The entire specimen is submitted for frozen section diagnosis in one cassette. [facility] 08/22/2023 B. Received fresh for frozen section diagnosis labeled with the patient's name is a specimen designated Rule out superior parathyroid. The specimen consists of a piece of pink soft tissue weighing 0.003gm and measuring 0.2 x 0.1 x 0.1cm. The entire specimen is submitted in one cassette. [facility] 08/22/2023 C. Received in fixative is one container labeled with the patient's name and designated Left thyroid lobe with isthmus, stitch-left superior pole. The specimen consists of a thyroid lobectomy specimen weighing 3.9gm and the right lobe measures 3.2 x 1.5 x 1.2 and the isthmus measures 1.5 x 0.5 x 0.4cm. The specimen is inked as follows: anterior surface thyroid lobe and isthmus- black, posterior surface thyroid lobe and isthmus- blue, isthmic resection margin- yellow. Sections reveal a dark red solid nodule in the lower portion of the thyroid lobe measuring 1.2 x 1.0 x 0.6cm. The entire specimen is submitted in six cassettes as follows: 1- isthmus, 2-6- thyroid lobe (cassette 2 contains the most superior portion and cassette 6 contains the most inferior portion). JERRY/ 08/23/2023 TC:5 CPT:26828i6,21668q2,88 307 ---- Patient Age/Sex Location Account Attending Physician ---- CANDY HEARD 52/[place] [id number] [place]. Anastacio Cannon MD ---- Signed (signature on file) Dr. Cruz Roldan MD 08/25/23 1157 ---- Normal [facility] Comment on above: Performed By: #### P FSC ####[facility] [address] [place], [place], [address] HBME (initial)on 08-22-2023 HBME (initial) -- ---- Patient Age/Sex Location Account Attending Physician ---- CANDY HEARD 52/[place] [id number] Dr. Anastacio Cannon MD ---- Specimen: [id number] Received: 08/24/23-1044 Status: YUMIKO [place] Num: [id number] Spec Type: IMMUNO Subm Dr: Dr. Anastacio Cannon MD PHYSICIAN INSTITUTION [facility] [address] [place] [address] SPECIMEN INFORMATION: Tissue Source: C- Left thyroid lobe with isthmus Clinical Info: Thyroid nodule Specimen Number: [id number] CPT code: 08066,[id number] METHODOLOGY: Deparaffinized sections of prefer/formalin-fixed tissue or PAP/DQ stained slides are incubated with monoclonal/polyclonal antibodies/oligonucleo tide probes. Localization is made via biotin free immunoperoxidase method. Appropriate controls are performed and reacted as expected. Results on target cell population are indicated in the following table: RESULTS: ANTIBODY / CLONE RESULT Block C5 HBME1 (HBME-1) negative CK19 (A53-B/A2.26) positive GAL3 (9C4) negative CD56 (123C3.D5) positive These tests were developed and their performance characteristics determined by [facility]. They may not have been cleared or approved by the U.S. Food and Drug Administration. The FDA has determined that such clearance or approval is not necessary. The above immunohistochemical/du alISH markers are ordered and reviewed by the Pathologist. INTERPRETATION: C. Left thyroid lobe and isthmus, biopsy: Consistent with multinodular goiter. SJ/mr 08/25/2023 Case has been reviewed in consultation with Dr. Jimenez who concurs with the above diagnosis. IDC:AM Signed (signature on file) Dr. Cruz Roldan MD 08/25/23 1158 ---- Normal [facility] Comment on above: Performed By: #### P HBME #### [facility] [address] [place] [address], [address] MR/POSTOP.Danna 08-22-2023 MR/POSTOP.ROBSON [facility] Medical Records Department [address] [place] [address] Anesthesia Postop Eval I 08/22/23 1421 MR#: [id number] Acct: [id number] Name: CANDY HEARD Rep #: [id number] : 1970 52 From: Charleen Jiang CRNA PCP: Dr. Raad Armendariz, DO Status:REG SDC Y Race: C Location: [place] [address] Anesthesia: Postop Eval I Current Vital Signs Temperature: 98.2 F Pulse Rate: 109 Blood Pressure: 151/103 Respiratory Rate: 20 Pulse Ox: 91 Oxygen Delivery Method: Room Air Assessment Airway patent: Yes Spontaneous unlabored respirations: Yes Mental status: Awake and Calm nausea: No Vomiting: No Anesthesia Complication: No Fluid Hydration Crystalloid volume administer (ml): 1,300 Total IV fluid infused: 1,300 Progress Note Anesthesia document: Postop Eval 1 completed: Yes 08/22/23 142 Date Charleen Jiang FUR FEEDER Cosigner Signature: Date CC: Signed Normal [facility] MR/[id number] [facility]-22-2023 [facility] Medical Records Department [address] [place] [address] Anesthesia Postop Eval II 08/22/23 1702 MR#: [id number] Acct: [id number] Name: CANDY HEARD Joaquin Rep #: [id number] : 1970 52 From: Brian Bautista MD PCP: Dr. Raad Armendariz, DO Status:REG SDC Y Race: C Location: [place] [address] Anesthesia Postop Eval I Sum Postop Eval Completion status Anesthesia document: Postop Eval 1 completed: Yes Anesthesia Postop Eval I Summary Anesthesia Postop Eval I Summary: Anesthesia Postop Eval I: Assessment Summary Airway patent Yes 08/22/23 14:23 FUR [email or web address].SCHR Spontaneous unlabored Yes 08/22/23 14:23 FUR [email or web address].SCHR respirations Mental status Awake,Calm 08/22/23 14:23 FUR [email or web address].SCHR nausea No 08/22/23 14:23 FUR FEEDER.SCHR Vomiting No 08/22/23 14:23 FUR [email or web address].SCHR Anesthesia Postop Eval I: Fluid Summary Crystalloid volume administer 1,300 08/22/23 14:23 FUR FEEDER.SCHR (ml) Colloids volume administered ( ml) Blood Product volume administered (ml) Total IV fluid infused 1,300 08/22/23 14:23 FUR FEEDER.SCHR Anesthesia Postop Eval I: Summary Notes Anesthesia Complication No 08/22/23 14:23 FUR [email or web address].SCHR Anesthesia Complication Comment: Post-operative progress note Anesthesia: Postop Eval II Evaluation Mental status: Awake and Calm Pain Level: 1 nausea: No Vomiting: No Complications Anesthesia Complication: No 08/22/23 1703 Date Brian Bautista MD Cosigner Signature: Date CC: Signed Normal [facility] Operative Reporton 4 Operative Report [facility] Medical Records Department [address] [place] [address] Operative Report 08/22/23 1445 MR#: [id number] Acct: [id number] Name: CANDY HEARD Joaquin Rep #: [id number] : 1970 52 From: Anastacio Cannon MD PCP: Dr. Raad Armendariz, DO Status:[facility] [place] [facility] [place] of Operation Date of Procedure: 08/22/23 Pre-Operative Diagnosis: Biopsy???suspicious left thyroid nodule Post-Operative Diagnosis: Same Surgery/Procedure Performed:: Left thyroid lobectomy with isthmusectomy Surgeon: Anastacio Cannon mechanical process engineer: Collins Forbes Anesthesiologist: Brian Bautista Specimen's removed: 1. Left thyroid lobe and isthmus 2. Rule out parathyroid 3. Rule out superior parathyroid Drains: None Estimated Blood Loss (mL): 20 Description of Procedure: After appropriate identification in the preoperative holding area, the patient was brought to the operating room where she was positioned supine on the operating room table. Induction of general endotracheal anesthetic was begun and a NIMS tube was placed under glidescope view to confirm coaptation with the vocal cords anteriorly. Tube was then secured and the patient was positioned with a shoulder roll so that her head was in extension but supported. The Nims electrodes were placed and connected to the monitor. We had appropriate resistance showing on the monitor and tapping at the level of the cricoid produce a graphical representation of the impulse on the monitor. Patient's neck was then prepped and draped in usual sterile fashion and a formal timeout was conducted from those present. The lowest skin fold to the sternal notch was sought for incision site however, this resided approximately 3 fingerbreadths cephalad to the notch and was too far cephalad for the operation so a interval skin crease was made with pressure applied to a 3-0 silk and a 4 cm cervical incision was made after instillation of local anesthetic. Electrocautery was used to deepen this incision through the level of the platysma. Subplatysmal flaps were raised with the use of electrocautery and blunt dissection. There was some slight bleeding from a branch of the anterior jugular vein that was promptly addressed with our LigaSure energy device. The strap muscles were then divided along the median raphe bringing us down to the level of the thyroid. Capsular attachments to the thyroid were divided with the use of LigaSure or bluntly swept away. Retractors were placed providing excellent visualization of the left superior pole of the thyroid. The vessels of the superior pole were sequentially ligated with the use of the LigaSure device. We then moved inferiorly and divided those polar vessels with LigaSure. What appeared to be the left inferior parathyroid gland appeared adherent to the thyroid capsule inferior laterally and I felt as though I would need to fully remove the gland and perform autotransplantation if it were to be salvaged. Given that cancer has not been excluded as patient's diagnosis I also did not want to leave behind tissue without proving via biopsy that it was benign so I elected to send a frozen section of the specimen to the lab after first placing a medium vascular clip across the lesion. Ultimately this would return is consistent with just a piece of fibrofatty tissue and a second specimen was sent to frozen section for rule out superior parathyroid gland. The second specimen did return consistent with parathyroid tissue. With the poles freed the thyroid was mobilized medially by dividing the middle thyroid vein and then bluntly the remaining strap muscle fibers from the thyroid capsule. Using blunt dissection parallel to the presumed course of the recurrent laryngeal nerve I exposed the tracheoesophageal groove. Here I encountered a positive signal for the left recurrent laryngeal nerve and was shortly thereafter able to visualize the nerve. The nerve positively identified, I relieved the attachments of the thyroid gland to the underlying trachea with the use of LigaSure. As we again approached the nerve insertion of the cricothyroid membrane, I attempted to leave a thyroid remnant but found the tissue exceptionally dense and upon rechecking the nerve signal could clearly confirm the insertion to the cricothyroid joint. Thus I resolved to use limited cautery to remove the thyroid from the anterior surface of the trachea. The area around the ligament of Brody was highly vascular and this process resulted in some oozing. The thyroid was divided beyond the isthmic portion of the gland using LigaSure and was oriented with a stitch through the left superior pole for pathology. Returning to the surgical cavity there was persistent oozing in the region of the ligament of Brody despite application of Surgicel gauze so again selective electrocautery was required for hemostasis. The recurrent lar (more content not included)... Normal [facility] Absolute lymphocyte countOrd ered By: Geo Donaldson on 05-29-2023 Lymphocytes Auto (Unsp spec) [#/Vol] 3.00 10*3/uL 0.83-4.51 [facility] Automated lymphocyte count a s percentage of total leukocytesOrdered By: Geo Donaldson on 05-29-2023 Lymphocytes/100 WBC Auto (Unsp spec) 27.6 % 19-41 [facility] Basophil percentageOrdered B y: Geo Donaldson on 05-29-2023 Basophils/100 WBC (Bld) 0.6 % 0-1 [facility] Chloride [Moles/Vol] 104 mmol/L 98-107 [facility] Eosinophils/100 WBC (Bld) 3.5 % 0-5 [facility] Glucose [Mass/Vol] 98 mg/dL 74-106 [facility] Hemoglobin (Bld) [Mass/Vol] 13.6 g/dL 12.0-15.0 [facility] Monocytes/100 WBC (Bld) 5.2 % 0-10 [facility] Neutrophils (Bld) [#/Vol] 6.8 10*3/uL 2.0-7.7 [facility] Neutrophils/100 WBC (Bld) 62.5 % 47-70 [facility] Potassium [Moles/Vol] 4.1 mmol/L 3.5-5.1 [facility] Sodium [Moles/Vol] 137 mmol/L 136-145 [facility] WBC (Bld) [#/Vol] 10.9 10*3/uL 4.4-11.0 [facility] Determination of erythrocyte mean corpuscular volume (MCV)Ordered By: Geo Donaldson on 05-29-2023 MCV (RBC) [Entitic vol] 89.4 fL 81-99 [facility] Erythrocyte distribution wid th ratioOrdered By: [place] Anika on 05-29-2023 Erythrocyte distribution width (RBC) [Ratio] 13.5 % 11.6-14.6 [facility] Erythrocyte distribution wid th standard deviationOrdered By: [place] Anika on 05-29-2023 Erythrocyte distribution width (RBC) [Entitic vol] 44.3 fL 35.1-43.9 [facility] Hematocrit Auto (Bld) [Volum e fraction]Ordered By: [facility] Toledous Donaldson on 05-29-2023 Hematocrit (Bld) [Volume fraction] 42.3 % 37-47 [facility] Immature granulocytes/100 WB C Auto (Bld)Ordered By: [facility] Donaldson on 05-29-2023 Immature granulocytes/100 WBC (Bld) 0.600 % 0.0-0.9 [facility] Comment on above: IG% - Immature Granu locytes (promyelocytes, myelocytes and metamyelocytes) > 1% indicates that a LEFT SHIFT is Present. Laboratory - Chemistry and C hemistry - challengeOrdered By: Geo Donaldson on 05-29-2023 CO2 [Moles/Vol] 29.0 mmol/L 21.0-32.0 [facility] Urea nitrogen/Creatinine [Mass ratio] 12.4 mg/mg 10-20 [facility] Laboratory - Hematology and Cell countsOrdered By: Geo Donaldson on 05-29-2023 MCH (RBC) [Entitic mass] 28.8 pg 27.0-32.0 [facility] MCHC (RBC) [Mass/Vol] 32.2 g/dL 32-36 [facility] Nucleated RBC/100 WBC (Bld) [Ratio] 0 % 0-5 [facility] Platelet mean volume (Bld) [Entitic vol] 9.3 fL 6.2-12.0 [facility] Platelets (Bld) [#/Vol] 398 10*3/uL 150-450 [facility] No Panel InformationOrdered By: Geo Donaldson on 05-29-2023 Estimated Creatinine Clearance Calc 80.72 ml/min [facility] Estimated GFR (MDRD) Amer 109 mL/min >60 [facility] Comment on above: GFR Calc Estimated GFR (MDRD) Non-Af Amer 90 mL/min >60 [facility] Comment on above: Non- GFR Calc Free Triiodothyronine (T3) pg/dL 2.6 pg/mL 2.18-3.98 [facility] RBC Auto (Bld) [#/Vol]Ordere d By: Geo Donaldson on 05-29-2023 RBC (Bld) [#/Vol] 4.73 10*6/uL 4.2-5.4 [facility] Serum or plasma calcium pablo urement (mass/volume)Ordered By: Geo Donaldson on 05-29-2023 Calcium [Mass/Vol] 9.0 mg/dL 8.5-10.1 [facility] Serum or plasma creatinine m easurement (mass/volume)Ordered By: Geo Donaldson on 05-29-2023 Creatinine [Mass/Vol] 0.72 mg/dL 0.55-1.02 [facility] Comment on above: The validity of the calculated GFR & GFRAA in patients over 70 years has not been determined. Clinical correlation is essential. Serum or plasma thyroid stim ulating hormone (TSH) measurement (units/volume)Ordered By: Geo Donaldson on 05-29-2023 TSH Qn 2.23 uIU/mL 0.358-3.74 [facility] Serum or plasma thyroxine (T 4) measurement (mass/volume)Ordered By: Geo Donaldson on 05-29-2023 T4 [Mass/Vol] 8.3 ug/dL 4.8-13.9 [facility] Serum or plasma triiodothyro nine measurement by immunoassay (mass/volume)Ordered By: [facility] Tol[facility] Donaldson on 05-29-2023 T3 IA [Mass/Vol] 0.91 ng/mL 0.6-1.81 [facility] Serum or plasma urea nitroge n measurement (mass/volume)Ordered By: [facility] on 05-29-2023 Urea nitrogen [Mass/Vol] 9 mg/dL 7-18 [facility] Streptococcus pyogenes rRNA detection in throat by DNA probeOrdered By: [facility] Tol[facility] Donaldson on 05-29-2023 S. pyogenes rRNA Probe Ql (Throat) [facility] Thin prep Papanicolaou smear with manual screeningOrdered By: Geo Donaldson on 05-29-2023 Thin prep Papanicolaou smear with manual screening 4 5-15 [facility] Thin prep Papanicolaou smear with manual screening 0.94 ng/dL 0.76-1.46 [facility] Laboratory - Microbiology an d Antimicrobial susceptibilityOrdered By: Raad Armendariz on 05-15-2023 SARS-CoV-2 (COVID-19) RNA RICHAR+probe Ql (Unsp spec) [facility] Respiratory pathogens detect ion panel by molecular detection methodOrdered By: Raad Armendariz on 05-15-2023 Respiratory pathogens DNA and RNA panel RICHAR+probe (Resp) [facility] Absolute lymphocyte countOrd ered By: Maulik Young on 03-12-2023 Lymphocytes Auto (Unsp spec) [#/Vol] 1.47 10*3/uL 0.83-4.51 [facility] Automated lymphocyte count a s percentage of total leukocytesOrdered By: Maulik Young on 03-12-2023 Lymphocytes/100 WBC Auto (Unsp spec) 16.9 % 19-41 [facility] Basophil percentageOrdered B y: Maulik Young on 03-12-2023 Basophils/100 WBC (Bld) 0.3 % 0-1 [facility] Chloride [Moles/Vol] 104 mmol/L 98-107 [facility] Eosinophils/100 WBC (Bld) 0.1 % 0-5 [facility] Glucose [Mass/Vol] 156 mg/dL 74-106 [facility] Comment on above: Fasting Glucose resu lt greater than or equal to 126 mg/dL suggests DIABETES MELLITUS per A.D.A. criteria. Hemoglobin (Bld) [Mass/Vol] 13.5 g/dL 12.0-15.0 [facility] Monocytes/100 WBC (Bld) 9.2 % 0-10 [facility] Neutrophils (Bld) [#/Vol] 6.4 10*3/uL 2.0-7.7 [facility] Neutrophils/100 WBC (Bld) 73.2 % 47-70 [facility] Potassium [Moles/Vol] 3.2 mmol/L 3.5-5.1 [facility] Sodium [Moles/Vol] 136 mmol/L 136-145 [facility] WBC (Bld) [#/Vol] 8.7 10*3/uL 4.4-11.0 [facility] Determination of erythrocyte mean corpuscular volume (MCV)Ordered By: Maulik Young on 03-12-2023 MCV (RBC) [Entitic vol] 86.6 fL 81-99 [facility] Erythrocyte distribution wid th ratioOrdered By: Maulik Young on 03-12-2023 Erythrocyte distribution width (RBC) [Ratio] 13.6 % 11.6-14.6 [facility] Erythrocyte distribution wid th standard deviationOrdered By: Maulik Young on 03-12-2023 Erythrocyte distribution width (RBC) [Entitic vol] 42.8 fL 35.1-43.9 [facility] Hematocrit Auto (Bld) [Volum e fraction]Ordered By: Maulik Young on 03-12-2023 Hematocrit (Bld) [Volume fraction] 40.1 % 37-47 [facility] Immature granulocytes/100 WB C Auto (Bld)Ordered By: Maulik Young on 03-12-2023 Immature granulocytes/100 WBC (Bld) 0.300 % 0.0-0.9 [facility] Comment on above: IG% - Immature Granu locytes (promyelocytes, myelocytes and metamyelocytes) > 1% indicates that a LEFT SHIFT is Present. Laboratory - Chemistry and C hemistry - challengeOrdered By: Maulik Young on 03-12-2023 CO2 [Moles/Vol] 26.0 mmol/L 21.0-32.0 [facility] Urea nitrogen/Creatinine [Mass ratio] 19.9 mg/mg 10-20 [facility] Laboratory - Hematology and Cell countsOrdered By: Maulik Young on 03-12-2023 MCH (RBC) [Entitic mass] 29.2 pg 27.0-32.0 [facility] MCHC (RBC) [Mass/Vol] 33.7 g/dL 32-36 [facility] Nucleated RBC/100 WBC (Bld) [Ratio] 0 % 0-5 [facility] Platelets (Bld) [#/Vol] 294 10*3/uL 150-450 [facility] Laboratory - Microbiology an d Antimicrobial susceptibilityOrdered By: Tamanna Lema on 03-12-2023 SARS-CoV-2 (COVID-19) RNA RICHAR+probe Ql (Unsp spec) Influenzae A [facility] No Panel InformationOrdered By: Maulik Young on 03-12-2023 Estimated Creatinine Clearance Calc 96.69 ml/min [facility] Estimated GFR (MDRD) Amer 123 mL/min >60 [facility] Comment on above: GFR Calc Estimated GFR (MDRD) Non-Af Amer 102 mL/min >60 [facility] Comment on above: Non- GFR Calc Troponin I High Sensitivity < 3 pg/mL 3.0-54.0 [facility] Comment on above: Please Note: [place] t Units and Gender Specific Reference Ranges. For more information see Policy Stat Procedure [place] High Sensitivity Troponin (TNIH) and attachments. Platelet mean volume Axel-Ec ker (Bld) [Entitic vol]Ordered By: Maulik Young on 03-12-2023 Platelet mean volume (Bld) [Entitic vol] 8.9 fL 6.2-12.0 [facility] RBC Auto (Bld) [#/Vol]Ordere d By: Maulik Young on 03-12-2023 RBC (Bld) [#/Vol] 4.63 10*6/uL 4.2-5.4 [facility] Serum or plasma calcium pablo urement (mass/volume)Ordered By: Maulik Young on 03-12-2023 Calcium [Mass/Vol] 8.4 mg/dL 8.5-10.1 [facility] Serum or plasma creatinine m easurement (mass/volume)Ordered By: Maulik Young on 03-12-2023 Creatinine [Mass/Vol] 0.65 mg/dL 0.55-1.02 [facility] Comment on above: The validity of the calculated GFR & GFRAA in patients over 70 years has not been determined. Clinical correlation is essential. Serum or plasma urea nitroge n measurement (mass/volume)Ordered By: Maulik Young on 03-12-2023 Urea nitrogen [Mass/Vol] 13 mg/dL 7-18 [facility] Thin prep Papanicolaou smear with manual screeningOrdered By: Maulik Young on 03-12-2023 Thin prep Papanicolaou smear with manual screening 6 5-15 [facility] Basophil percentageOrdered B y: Raad Armendariz on 09-09-2022 Basophil percentage Not Reportable [facility] No Panel InformationOrdered By: Raad Armendariz on 09-09-2022 Anti-Nuclear Antibody Screen Negative Negative [facility] Comment on above: Performed at: [address] [id number] Director: Dane Dai PhD, Phone: [phone] [employer] Antibody Not Reportable [facility] [employer] Antibody Not Reportable [facility] Serum DNA double strand anti body assay (units/volume)Ordered By: Raad Armendariz on 09-09-2022 DNA double strand Ab Qn (S) Not Reportable [facility] Serum Leslie-1 antibody assay (u nits/volume)Ordered By: Raad Armendariz on 09-09-2022 Leslie-1 extractable nuclear Ab Qn (S) Not Reportable [facility] Serum Scl-70 extractable nuc lear antibody assay (units/volume)Ordered By: Raad Armendariz on 09-09-2022 SCL-70 extractable nuclear Ab Qn (S) Not Reportable [facility] Serum Jim extractable nucl ear antibody detectionOrdered By: Raad Armendariz on 09-09-2022 Jim extractable nuclear Ab Ql (S) Not Reportable [facility] Absolute lymphocyte counton 06-14-2021 Lymphocytes Auto (Unsp spec) [#/Vol] 3.02 10*3/uL 0.83-4.51 [facility] Work Phone: Basophil percentageon 2021 Basophils/100 WBC (Bld) 0.3 % 0-1 [facility] Work Phone: Bilirubin [Mass/Vol] 0.40 mg/dL 0.20-1.00 [facility] Work Phone: Comment on above: For patients on eltr ombopag therapy, use of Dimension [place] TBIL is not recommended. Chloride [Moles/Vol] 105 mmol/L 98-107 [facility] Work Phone: Eosinophils/100 WBC (Bld) 3.7 % 0-5 [facility] Work Phone: Glucose [Mass/Vol] 152 mg/dL 74-106 [facility] Work Phone: Comment on above: Fasting Glucose resu lt greater than or equal to 126 mg/dL suggests DIABETES MELLITUS per A.D.A. criteria. Neutrophils (Bld) [#/Vol] 4.6 10*3/uL 2.0-7.7 [facility] Work Phone: Neutrophils/100 WBC (Bld) 52.3 % 47-70 [facility] Work Phone: Potassium [Moles/Vol] 3.5 mmol/L 3.5-5.1 [facility] Work Phone: Protein [Mass/Vol] 7.8 g/dL 6.4-8.2 [facility] Work Phone: Sodium [Moles/Vol] 138 mmol/L 136-145 [facility] Work Phone: WBC (Bld) [#/Vol] 8.8 10*3/uL 4.4-11.0 [facility] Work Phone: Blood erythrocytes count (nu mber/volume)on 06-14-2021 RBC (Bld) [#/Vol] 4.67 10*6/uL 4.2-5.4 [facility]: Blood hemoglobin measurement (mass/volume)on 06-14-2021 Hemoglobin (Bld) [Mass/Vol] 13.8 g/dL 12.0-15.0 [facility] Work Phone: Blood lymphocytes/100 leukoc yteson 06-14-2021 Lymphocytes/100 WBC (Bld) 34.2 % 19-41 [facility] Work Phone: [phone] Blood monocytes/100 leukocyt eson 06-14-2021 Monocytes/100 WBC (Bld) 9.3 % 0-10 [facility] Work Phone: Blood platelet mean volumeon 06-14-2021 Platelet mean volume (Bld) [Entitic vol] 9.0 fL 6.2-12.0 [facility] Work Phone: Determination of erythrocyte mean corpuscular volume (MCV)on 06-14-2021 MCV (RBC) [Entitic vol] 91.0 fL 81-99 [facility] Work Phone: Hematocrit Auto (Bld) [Volum e fraction]on 06-14-2021 Hematocrit (Bld) [Volume fraction] 42.5 % 37-47 [facility] Work Phone: Laboratory - Chemistry and C hemistry - challengeon 06-14-2021 ALP [Catalytic activity/Vol] 55 U/L 45-117 [facility] Work Phone: [phone] ALT [Catalytic activity/Vol] 24 U/L 13-56 [facility] Work Phone: [phone] CO2 [Moles/Vol] 27.0 mmol/L 21.0-32.0 [facility] Work Phone: [phone] Globulin (S) [Mass/Vol] 4.1 g/dL 2.2-4.2 [facility] Work Phone: Lipase [Catalytic activity/Vol] 134 U/L 73-393 [facility] Work Phone: [phone] Urea nitrogen/Creatinine [Mass ratio] 17.9 mg/mg 10-20 [facility] Work Phone: Laboratory - Hematology and Cell countson 06-14-2021 Erythrocyte distribution width (RBC) [Entitic vol] 44.2 fL 35.1-43.9 [facility] Work Phone: [phone] Erythrocyte distribution width (RBC) [Ratio] 13.2 % 11.6-14.6 [facility] Work Phone: Immature granulocytes/100 WBC (Bld) 0.200 % 0.0-0.9 [facility] Work Phone: [phone] Comment on above: IG% - Immature Granu locytes (promyelocytes, myelocytes and metamyelocytes) > 1% indicates that a LEFT SHIFT is Present. MCH (RBC) [Entitic mass] 29.6 pg 27.0-32.0 [facility] Work Phone: Nucleated RBC/100 WBC (Bld) [Ratio] 0 % 0-5 [facility] Work Phone: MCHC Auto (RBC) [Mass/Vol]on 06-14-2021 MCHC (RBC) [Mass/Vol] 32.5 g/dL 32-36 [facility] Work Phone: No Panel Informationon 06-14 Estimated Creatinine Clearance Calc 76.17 ml/min [facility] Work Phone: Estimated GFR (MDRD) Amer 101 mL/min >60 [facility] Work Phone: [phone] Comment on above: GFR Calc Estimated GFR (MDRD) Non-Af Amer 83 mL/min >60 [facility] Work Phone: Comment on above: Non- GFR Calc Platelets bldon 06-14-2021 Platelets (Bld) [#/Vol] 322 10*3/uL 150-450 [facility] Work Phone: Serum or plasma albumin pablo urement (mass/volume)on 06-14-2021 Albumin [Mass/Vol] 3.7 g/dL 3.2-5.0 [facility] Work Phone: Serum or plasma albumin/glob ulin mass ratioon 06-14-2021 Albumin/Globulin [Mass ratio] 0.9 {ratio} 0.9-2.4 [facility] Work Phone: Serum or plasma calcium pablo urement (mass/volume)on 06-14-2021 Calcium [Mass/Vol] 8.8 mg/dL 8.5-10.1 [facility] Work Phone: Serum or plasma creatinine m easurement (mass/volume)on 06-14-2021 Creatinine [Mass/Vol] 0.78 mg/dL 0.55-1.02 [facility] Work Phone: Comment on above: The validity of the calculated GFR & GFRAA in patients over 70 years has not been determined. Clinical correlation is essential. Serum or plasma urea nitroge n measurement (mass/volume)on 06-14-2021 Urea nitrogen [Mass/Vol] 14 mg/dL 7-18 [facility] Work Phone: Thin prep Papanicolaou smear with manual screeningon 06-14-2021 Thin prep Papanicolaou smear with manual screening 21 U/L 15-37 [facility] Work Phone: Thin prep Papanicolaou smear with manual screening 6 5-15 [facility] Work Phone: No Panel Informationon 04-29 D-Dimer Quantitative (PE/DVT) < 0.27 FEU/ug/m 0.27-0.49 [facility] Work Phone: Comment on above: NORMAL D-Dimer level (<0.50) indicates no DVT or PE. .Auto Diffon 05-25-2020 Basophil, Absolute 0.10 10 3/mcL Normal 0.00-0.19 [facility] Comment on above: Performed By: #### P REGU, UAMICAO, UA #### [address] [address] Basophils/100 WBC (Bld) 0.7 % Normal 0.0-2.5 [facility] ([place] Comment on above: Performed By: #### P REGU, UAMICAO, UA #### [address] [address] Eosinophil, Absolute 0.50 10 3/mcL High 0.00-0.40 [facility] ([place] Comment on above: Performed By: #### P REGU, UAMICAO, UA #### [address] [address] Eosinophils/100 WBC (Bld) 6.0 % Normal 0.0-7.0 [facility] ([place]) Comment on above: Performed By: #### P REGU, UAMICAO, UA #### [address] [address] Lymphocyte, Absolute 2.00 10 3/mcL Normal 0.77-3.85 [facility] ([place] Comment on above: Performed By: #### P REGU, UAMICAO, UA #### [address] [address] Lymphocytes/100 WBC (Bld) 25.5 % Normal 10.0-50.0 [facility] ([place]) Comment on above: Performed By: #### P REGU, UAMICAO, UA #### [address] [address] Monocyte, Absolute 0.50 10 3/mcL Normal 0.15-1.00 [facility] ([place]) Comment on above: Performed By: #### P REGU, UAMICAO, UA #### [address] [address] Monocytes/100 WBC (Bld) 6.0 % Normal 1.7-13.0 [facility] ([place] Comment on above: Performed By: #### P REGU, UAMICAO, UA #### [address] [address] Neutrophils/100 WBC (Bld) 61.8 % Normal 37.0-80.0 [facility] ([place]) Comment on above: Performed By: #### P REGU, UAMICAO, UA #### [address] [address] .GFRon 05-25-2020 GFR Non- 90 ml/min/1.73sqm Normal [facility] ([place]) Comment on above: Result Comment: GFR Population mean for , Non- Americans Ages 20-29 = 116 mL/min/1.73 sq.m. Ages 30-39 = 107 mL/min/1.73 sq.m. Ages 40-49 = 99 mL/min/1.73 sq.m. Ages 50-59 = 93 mL/min/1.73 sq.m. Ages 60-69 = 85 mL/min/1.73 sq.m. Ages 70+ = 75 mL/min/1.73 sq.m. Chronic Kidney Disease: Less than 60 mL/min/1.73 square meters End Stage Renal Disease: Less than 15 mL/min/1.73 square meters Performed By: #### P REGU, UAMICAO, UA #### [address] [address] GFR 109 ml/min/1.73sqm Normal [facility] ([place]) Comment on above: Result Comment: GFR Population mean for , Non- Americans Ages 20-29 = 116 mL/min/1.73 sq.m. Ages 30-39 = 107 mL/min/1.73 sq.m. Ages 40-49 = 99 mL/min/1.73 sq.m. Ages 50-59 = 93 mL/min/1.73 sq.m. Ages 60-69 = 85 mL/min/1.73 sq.m. Ages 70+ = 75 mL/min/1.73 sq.m. Chronic Kidney Disease: Less than 60 mL/min/1.73 square meters End Stage Renal Disease: Less than 15 mL/min/1.73 square meters Performed By: #### P REGU, UAMICAO, UA #### [address] [address] .NEUABSon 05-25-2020 Neutrophil, Absolute 4.80 10 3/mcL Normal 2.85-6.16 [facility] ([place] Comment on above: Performed By: #### P REGU, UAMICAO, UA #### [address] [address] BMPon 05-25-2020 BUN/Creatinine Ratio 19 ratio Normal 7-27 [facility] ([place]) Comment on above: Performed By: #### P REGU, UAMICAO, UA #### [address] [address] Calcium [Mass/Vol] 8.7 mg/dL Normal 8.4-10.2 [facility] [place] Comment on above: Performed By: #### P REGU, UAMICAO, UA #### [address] [address] Chloride [Moles/Vol] 102 mmol/L Normal 98-107 [facility] ([place]) Comment on above: Performed By: #### P REGU, UAMICAO, UA #### [address] [address] CO2 [Moles/Vol] 30 mmol/L High 22-29 [facility] ([place]) Comment on above: Performed By: #### P REGU, UAMICAO, UA #### [address] [address] Creatinine [Mass/Vol] 0.70 mg/dL Normal 0.55-1.02 [facility] ([place]) Comment on above: Performed By: #### P REGU, UAMICAO, UA #### [address] [address] Electrolyte Balance 8.0 mEq/L Normal [facility] ([place]) Comment on above: Performed By: #### P REGU, UAMICAO, UA #### [address] [address] Glucose [Mass/Vol] 123 mg/dL High 70-105 [facility] [place] Comment on above: Performed By: #### P REGU, UAMICAO, UA #### [place] [id number] Potassium [Moles/Vol] 4.0 mmol/L Normal 3.5-5.1 [facility] ([place]) Comment on above: Performed By: #### P REGU, UAMICAO, UA #### [place] [id number] Sodium [Moles/Vol] 140 mmol/L Normal 136-145 [facility] [place] Comment on above: Performed By: #### P REGU, UAMICAO, UA #### [address] [address] Urea nitrogen [Mass/Vol] 13 mg/dL Normal 7-18 [facility] ([place]) Comment on above: Performed By: #### P REGU, UAMICAO, UA #### [address] [address] CBCon 05-25-2020 Erythrocyte distribution width (RBC) [Ratio] 13.3 % Normal 11.5-14.5 [facility] ([place]) Comment on above: Performed By: #### C NANCY TORO TROPHS, ANEU, BMP #### [place] [address] #### GFR #### [place] [address] Hematocrit (Bld) [Volume fraction] 39.2 % Normal 37.0-47.0 [facility] ([place]) Comment on above: Performed By: #### C BC ADBERENICE, TROPHS, ANEU, BMP #### [place] [address] #### GFR #### [address] [address] Hgb 13.1 G/dL Normal 12.0-16.0 [facility] ([place]) Comment on above: Performed By: #### C BC ADBERENICE, TROPHS, ANEU, BMP #### [place] [address] #### GFR #### [place] [address] MCH (RBC) [Entitic mass] 30.1 pg Normal 27.0-31.2 [facility] ([place]) Comment on above: Performed By: #### C BC, ADIFF, TROPHS, ANEU, BMP #### [place] [address] #### GFR #### [place] [address] MCHC 33.3 G/dL Normal 33.0-37.0 [facility] ([place]) Comment on above: Performed By: #### C BC, ADIFF, TROPHS, ANEU, BMP #### [place] [address] #### GFR #### [place] [address] MCV (RBC) [Entitic vol] 90.2 fL Normal 80.0-94.0 [facility] ([place]) Comment on above: Performed By: #### C BC, ADIFF, TROPHS, ANEU, BMP #### [place] [address] #### GFR #### [place] [address] Platelet 355 10 3/mcL Normal 130-400 [facility] ([place]) Comment on above: Performed By: #### C BC, ADIFF, TROPHS, ANEU, BMP #### [place] [address] #### GFR #### [place] [address] Platelet mean volume (Bld) [Entitic vol] 7.1 fL Low 7.4-10.4 [facility] ([place]) Comment on above: Performed By: #### C BC, ADIFF, TROPHS, ANEU, BMP #### [place] [address] #### GFR #### [address] [address] RBC 4.34 10 6/mcL Normal 4.20-5.40 [facility] ([place]) Comment on above: Performed By: #### C BC, ADIFF, TROPHS, ANEU, BMP #### [place] [address] #### GFR #### [place] [address] WBC 7.80 10 3/mcL Normal 4.60-10.80 [facility] ([place]) Comment on above: Performed By: #### C BC, ADIFF, TROPHS, ANEU, BMP #### [place] [address] #### GFR #### [place] [address] TROPHSon 05-25-2020 Troponin I High Sensitivity <4.0 Normal 0.0-51.4 [facility] ([place]) Comment on above: Performed By: #### P REGU, UAMICAO, UA #### [place] [address] XR CHEST 1 VIEWon 05-25-2020 XR CHEST 1 VIEW ORIGINAL XR CHEST 1 VIEW CLINICAL STATEMENT: chest pain. COMPARISON: [facility] examination 02/10/2011. FINDINGS: Lungs remain clear. There is a normal cardiac and pulmonary contour. No active alveolar, interstitial or pleural process is present. The skeletal elements remain intact. IMPRESSION: 1. No acute chest process. Interpreted By: Rohith Coppola DO Preliminary Report By: Rohith Coppola DO Electronically Signed By: Rohith Coppola DO Dictated Date: 05/25/2020 9:15:08 AM Prelim Date: 05/25/2020 9:15:08 AM Sign Date: 05/25/2020 9:16:08 AM Ordering Provider:Gay Castaneda [facility] ([place]) .Auto Diffon 12-19-2019 Basophil, Absolute 0.00 10 3/mcL Normal 0.00-0.19 [facility] ([place]) Comment on above: Performed By: #### A THEE, CMP, ADIFF, GFR, LIP, CBC #### [address] [address] Basophils/100 WBC (Bld) 0.4 % Normal 0.0-2.5 [facility] [place] Comment on above: Performed By: #### A THEE, CMP, ADIFF, GFR, LIP, CBC #### [address] [address] Eosinophil, Absolute 0.50 10 3/mcL High 0.00-0.40 [facility] ([place]) Comment on above: Performed By: #### A THEE, CMP, ADIFF, GFR, LIP, CBC #### [address] [address] Eosinophils/100 WBC (Bld) 5.9 % Normal 0.0-7.0 [facility] ([place]) Comment on above: Performed By: #### A THEE, CMP, ADIFF, GFR, LIP, CBC #### [address] [address] Lymphocyte, Absolute 2.20 10 3/mcL Normal 0.77-3.85 [facility] ([place] Comment on above: Performed By: #### A THEE, CMP, ADIFF, GFR, LIP, CBC #### [address] [address] Lymphocytes/100 WBC (Bld) 25.7 % Normal 10.0-50.0 [facility] ([place]) Comment on above: Performed By: #### A THEE, CMP, ADIFF, GFR, LIP, CBC #### [address] [address] Monocyte, Absolute 0.60 10 3/mcL Normal 0.15-1.00 [facility] ([place]) Comment on above: Performed By: #### A THEE, CMP, ADIFF, GFR, LIP, CBC #### [address] [address] Monocytes/100 WBC (Bld) 7.3 % Normal 1.7-13.0 [facility] Comment on above: Performed By: #### A THEE, CMP, ADIFF, GFR, LIP, CBC #### [address] [address] Neutrophils/100 WBC (Bld) 60.7 % Normal 37.0-80.0 [facility] ([place]) Comment on above: Performed By: #### A THEE, CMP, ADIFF, GFR, LIP, CBC #### [address] [address] .GFRon 12-19-2019 GFR 109 ml/min/1.73sqm Normal [facility] ([place]) Comment on above: Result Comment: GFR Population mean for , Non- Americans Ages 20-29 = 116 mL/min/1.73 sq.m. Ages 30-39 = 107 mL/min/1.73 sq.m. Ages 40-49 = 99 mL/min/1.73 sq.m. Ages 50-59 = 93 mL/min/1.73 sq.m. Ages 60-69 = 85 mL/min/1.73 sq.m. Ages 70+ = 75 mL/min/1.73 sq.m. Chronic Kidney Disease: Less than 60 mL/min/1.73 square meters End Stage Renal Disease: Less than 15 mL/min/1.73 square meters Performed By: #### A THEE, CMP, ADIFF, GFR, LIP, CBC #### [address] [address] GFR Non- 90 ml/min/1.73sqm Normal [facility] ([place]) Comment on above: Result Comment: GFR Population mean for , Non- Americans Ages 20-29 = 116 mL/min/1.73 sq.m. Ages 30-39 = 107 mL/min/1.73 sq.m. Ages 40-49 = 99 mL/min/1.73 sq.m. Ages 50-59 = 93 mL/min/1.73 sq.m. Ages 60-69 = 85 mL/min/1.73 sq.m. Ages 70+ = 75 mL/min/1.73 sq.m. Chronic Kidney Disease: Less than 60 mL/min/1.73 square meters End Stage Renal Disease: Less than 15 mL/min/1.73 square meters Performed By: #### A THEE, CMP, ADIFF, GFR, LIP, CBC #### [place] [address] .NEUABSon 12-19-2019 Neutrophil, Absolute 5.10 10 3/mcL Normal 2.85-6.16 [facility] [place] Comment on above: Performed By: #### A THEE, CMP, ADIFF, GFR, LIP, CBC #### [place] [address] .Urinalysis Microscopic (AO) on 12-19-2019 UA Bacteria Trace Abnormal [facility] ([place]) Comment on above: Performed By: #### P REGU, UAMICAO, UA #### [place] [address] UA Mucous Trace Normal [facility] ([place]) Comment on above: Performed By: #### P REGU, UAMICAO, UA #### [place] [address] UA RBC 0-5 Abnormal None Seen [facility] ([place]) Comment on above: Performed By: #### P REGU, UAMICAO, UA #### [place] [address] UA Squam Epithelial 5-10 Abnormal None Seen [facility] ([place]) Comment on above: Performed By: #### P REGU, UAMICAO, UA #### [place] [address] UA WBC 5-10 Abnormal None Seen [facility] ([place] Comment on above: Performed By: #### P REGU, UAMICAO, UA #### [place] [address] CBCon 12-19-2019 Erythrocyte distribution width (RBC) [Ratio] 12.7 % Normal 11.5-14.5 [facility] ([place]) Comment on above: Performed By: #### A THEE, CMP, ADIFF, GFR, LIP, CBC #### [address] [address] Hematocrit (Bld) [Volume fraction] 40.3 % Normal 37.0-47.0 [facility] ([place]) Comment on above: Performed By: #### A THEE, CMP, ADIFF, GFR, LIP, CBC #### [address] [address] Hgb 13.7 G/dL Normal 12.0-16.0 [facility] ([place] Comment on above: Performed By: #### A THEE, CMP, ADIFF, GFR, LIP, CBC #### [place] [address] MCH (RBC) [Entitic mass] 30.5 pg Normal 27.0-31.2 [facility] ([place] Comment on above: Performed By: #### A THEE, CMP, ADIFF, GFR, LIP, CBC #### [place] [address] MCHC 34.0 G/dL Normal 33.0-37.0 [facility] ([place] Comment on above: Performed By: #### A THEE, CMP, ADIFF, GFR, LIP, CBC #### [place] [address] MCV (RBC) [Entitic vol] 89.7 fL Normal 80.0-94.0 [facility] ([place]) Comment on above: Performed By: #### A THEE, CMP, ADIFF, GFR, LIP, CBC #### [place] [address] Platelet 317 10 3/mcL Normal 130-400 [facility] ([place]) Comment on above: Performed By: #### A THEE, CMP, ADIFF, GFR, LIP, CBC #### [address] [address] Platelet mean volume (Bld) [Entitic vol] 7.3 fL Low 7.4-10.4 [facility] ([place]) Comment on above: Performed By: #### A THEE, CMP, ADIFF, GFR, LIP, CBC #### [address] [address] RBC 4.49 10 6/mcL Normal 4.20-5.40 [facility] ([place] Comment on above: Performed By: #### A THEE, CMP, ADIFF, GFR, LIP, CBC #### [address] [address] WBC 8.40 10 3/mcL Normal 4.60-10.80 [facility] ([place] Comment on above: Performed By: #### A THEE, CMP, ADIFF, GFR, LIP, CBC #### [address] [address] CMPon 12-19-2019 Albumin Level 4.0 G/dL Normal 3.5-5.0 [facility] ([place] Comment on above: Performed By: #### A THEE, CMP, ADIFF, GFR, LIP, CBC #### [address] [address] Albumin/Globulin [Mass ratio] 1.2 {ratio} Normal 1.1-2.5 [facility] ([place] Comment on above: Performed By: #### A THEE, CMP, ADIFF, GFR, LIP, CBC #### [address] [address] ALP [Catalytic activity/Vol] 49 U/L Normal 40-135 [facility] ([place] Comment on above: Performed By: #### A THEE, CMP, ADIFF, GFR, LIP, CBC #### [address] [address] ALT [Catalytic activity/Vol] 23 U/L Normal 14-59 [facility] ([place] Comment on above: Performed By: #### A THEE, CMP, ADIFF, GFR, LIP, CBC #### [address] [address] AST [Catalytic activity/Vol] 18 U/L Normal 10-40 [facility] ([place]) Comment on above: Performed By: #### A THEE, CMP, ADIFF, GFR, LIP, CBC #### [address] [address] Bili Total 0.4 mg/dL Normal 0.2-1.0 [facility] ([place]) Comment on above: Result Comment: Use of this assay is not recommended for patients undergoing treatment with eltrombopag due to the potential for falsely elevated results. Performed By: #### A THEE, CMP, ADIFF, GFR, LIP, CBC #### [address] [address] BUN/Creatinine Ratio 20 ratio Normal 7-27 [facility] ([place] Comment on above: Performed By: #### A THEE, CMP, ADIFF, GFR, LIP, CBC #### [address] [address] Calcium [Mass/Vol] 9.0 mg/dL Normal 8.4-10.2 [facility] [place] Comment [place] above: Performed By: #### A THEE, CMP, ADIFF, GFR, LIP, CBC #### [address] [address] Chloride [Moles/Vol] 103 mmol/L Normal 98-107 [facility] ([place] Comment on above: Performed By: #### A THEE, CMP, ADIFF, GFR, LIP, CBC #### [address] [address] CO2 [Moles/Vol] 27 mmol/L Normal 22-29 [facility] ([place] Comment on above: Performed By: #### A THEE, CMP, ADIFF, GFR, LIP, CBC #### [address] [address] Creatinine [Mass/Vol] 0.70 mg/dL Normal 0.55-1.02 [facility] ([place] Comment on above: Performed By: #### A THEE, CMP, ADIFF, GFR, LIP, CBC #### [address] [address] Electrolyte Balance 10.0 mEq/L Normal [facility] ([place] Comment on above: Performed By: #### A THEE, CMP, ADIFF, GFR, LIP, CBC #### [address] [address] Globulin 3.2 G/dL Normal [facility] ([place] Comment on above: Performed By: #### A THEE, CMP, ADIFF, GFR, LIP, CBC #### [address] [address] Glucose [Mass/Vol] 107 mg/dL High 70-105 [facility] [place] Comment [place] above: Performed By: #### A THEE, CMP, ADIFF, GFR, LIP, CBC #### [address] [address] Potassium [Moles/Vol] 3.9 mmol/L Normal 3.5-5.1 [facility] ([place] Comment on above: Performed By: #### A THEE, CMP, ADIFF, GFR, LIP, CBC #### [address] [address] Sodium [Moles/Vol] 140 mmol/L Normal 136-145 [facility] [place] Comment [place] above: Performed By: #### A THEE, CMP, ADIFF, GFR, LIP, CBC #### [address] [address] Total Protein 7.2 G/dL Normal 6.4-8.2 [facility] ([place] Comment on above: Performed By: #### A THEE, CMP, ADIFF, GFR, LIP, CBC #### [address] [address] Urea nitrogen [Mass/Vol] 14 mg/dL Normal 7-18 [facility] ([place] Comment on above: Performed By: #### A THEE, CMP, ADIFF, GFR, LIP, CBC #### [address] [address] LIPon 12-19-2019 Lipase Level 119 U/L Normal 73-393 [facility] ([place] Comment on above: Performed By: #### A THEE, CMP, ADIFF, GFR, LIP, CBC #### [address] [address] PREGUon 12-19-2019 HCG ( test) Ql (U) Negative Normal [facility] ([place]) Comment on above: Performed By: #### P REGU, UAMICAO, UA #### [place] [address] test (u) int Not detected Invalid Interpretation Code [facility] ([place]) Comment on above: Performed By: #### P REGU, UAMICAO, UA #### [place] [id number] UAon 12-19-2019 Color (U) Yellow Normal [facility] ([place]) Comment on above: Performed By: #### P REGU, UAMICAO, UA #### [place] [address] Glucose (U) [Mass/Vol] Negative Normal Negative [facility] ([place]) Comment on above: Performed By: #### P REGU, UAMICAO, UA #### [place] [address] Ketones Ql (U) Negative Normal Negative [facility] ([place] Comment on above: Performed By: #### P REGU, UAMICAO, UA #### [place] [address] UA Appear Slightly Cloudy Abnormal Clear [facility] ([place] Comment on above: Performed By: #### P REGU, UAMICAO, UA #### [place] [id number] UA Blood Moderate Abnormal Negative [facility] ([place] Comment on above: Performed By: #### P REGU, UAMICAO, UA #### [place] [address] UA Leuk Est Small Abnormal Negative [facility] ([place] Comment on above: Performed By: #### P REGU, UAMICAO, UA #### [place] [id number] UA Nitrite Negative Normal Negative [facility] ([place] Comment on above: Performed By: #### P REGU, UAMICAO, UA #### [address] [address] UA pH 5.5 Normal 5.0 - 8.0 [facility] ([place] Comment on above: Performed By: #### P REGU, UAMICAO, UA #### [address] [address] UA Protein Negative Normal Negative [facility] ([place] Comment on above: Performed By: #### P REGU, UAMICAO, UA #### [address] [address] UA Spec Grav >=1.030 Abnormal 1.015-1.025 [facility] ([place] Comment on above: Performed By: #### P REGU, UAMICAO, UA #### [address] [address] UA Specimen Type Clean Catch Normal [facility] ([place] Comment on above: Performed By: #### P REGU, UAMICAO, UA #### [address] [address] UA Urobilinogen 0.2 E.U./dL Normal 0.2-1.0 [facility] ([place] Comment on above: Performed By: #### P REGU, UAMICAO, UA #### [address] [address] Urobilinogen (U) [Mass/Vol] Negative Normal Negative [facility] ([place] Comment on above: Performed By: #### P REGU, UAMICAO, UA #### [address] [address] COVID PCR, SCREENING CONGREG ATEon 08-01-2019 CORONAVIRUS 2019,PCR NOT DETECTED Normal Not Detected [facility] Comment on above: Result Comment: This assay is designed to detect the N, ORF1ab and/or S genes of SARS-CoV-2 via nucleic acid amplification. A Negative (NOT DETECTED) result does not preclude 2019-nCoV infection since the adequacy of sample collection and/or low viral burden may result in presence of viral nucleic acids below the clinical sensitivity of this test method. Negative (NOT DETECTED) result should not be used as the sole basis for treatment or other patient management decisions. Rather negative results should be combined with clinical observations, patient history, and epidemiological information to make patient management decisions. Fact sheet for providers: https://www.fda.gov/media/853800/download Fact sheet for patients: https://www.fda.gov/media/889503/download This test has received FDA Emergency Use Authorization (EUA) and has been verified by [facility] ([facility]). This test is only authorized for the duration of time that circumstances exist to justify the authorization of the emergency use of in vitro diagnostic tests for the detection of SARS-CoV-2 virus and/or diagnosis of COVID-19 infection under section 564(b)(1) of the Act, 21 U.S.C. 360bbb-3(b)(1), unless the authorization is terminated or revoked sooner. [facility] ([facility]) is certified under CLIA-88 as qualified to perform high complexity testing. This tests analytical performance characteristics have been determined by [facility]. Testing is performed at [facility] is located at [address] [place] [address] (CLIA License #[id number], CAP #[id number]). Performed By: #### C VCLA #### [facility] [address] [place] [address] COVID PCR, SCREENING CONGREG ATEon 07-31-2019 Lab Specimen Source Nasal, Nasopharyngeal Normal [facility] Comment on above: Performed By: #### C VCLA #### [facility] [address] [place] [address] Vital Signs Date Time Vital Sign Value Performing Clinician Mane ramachandran 06-22-2024 16:25-0400 Heart rate 94 /min Dr. Raad Armendariz DO Work Phone: [facility] 06-22-2024 16:25-0400 Respiratory rate 18 /min Dr. Raad Armendariz DO Work Phone: [facility] 06-22-2024 15:54-0400 Body height 162.[address] Raad Armendariz DO Work Phone: [facility] 06-22-2024 15:54-0400 Body mass index (BMI) [Ratio] 24 kg/m2 Dr. Raad Armendariz DO Work Phone: [facility] 06-22-2024 15:54-0400 Body temperature 97.8 [degF] Dr. Raad Armendariz DO Work Phone: [facility] 06-22-2024 15:54-0400 Body weight 63.[address] Raad Armendariz DO Work Phone: [facility] 06-22-2024 15:54-0400 Diastolic blood pressure 91 mm[Hg] Dr. Raad Armendariz DO Work Phone: [facility] 06-22-2024 15:54-0400 SaO2% (BldA) [Mass fraction] 96 % Dr. Raad Armendariz DO Work Phone: [facility] 06-22-2024 15:54-0400 Systolic blood pressure 133 mm[Hg] Dr. Raad Armendariz DO Work Phone: [facility] 03-17-2024 12:20-0500 Body temperature 96.9 [degF] Dr. Raad Armendariz DO Work Phone: [facility] 03-17-2024 12:20-0500 Diastolic blood pressure 92 mm[Hg] Dr. Raad Armendariz DO Work Phone: [facility] 03-17-2024 12:20-0500 Heart rate 90 /min Dr. Raad Armendariz DO Work Phone: [facility] 03-17-2024 12:20-0500 Respiratory rate 12 /min Dr. Raad Armendariz DO Work Phone: [facility] 03-17-2024 12:20-0500 SaO2% (BldA) [Mass fraction] 97 % Dr. Raad Armendariz DO Work Phone: [facility] 03-17-2024 12:20-0500 Systolic blood pressure 129 mm[Hg] Dr. Raad Armendariz DO Work Phone: [facility] 03-17-2024 08:48-0500 Body mass index (BMI) [Ratio] 29.9 kg/m2 Dr. Raad Armendariz DO Work Phone: [facility] 03-17-2024 08:48-0500 Body weight 79.[address] Raad Armendariz DO Work Phone: [facility] 06-07-2023 08:46-0400 Body height 162.[address] Raad Armendariz Work Phone: [facility] 06-07-2023 08:46-0400 Body mass index (BMI) [Ratio] 23.8 kg/m2 Dr. Raad Armendariz Work Phone: [facility] 06-07-2023 08:46-0400 Body temperature 97.6 [degF] Dr. Raad Armendariz Work Phone: [facility] 06-07-2023 08:46-0400 Body weight 63.[address] Raad Armendariz Work Phone: [facility] 06-07-2023 08:46-0400 Diastolic blood pressure 90 mm[Hg] Dr. Raad Armendariz Work Phone: [facility] 06-07-2023 08:46-0400 Heart rate 83 /min Dr. Raad Armendariz Work Phone: [facility] 06-07-2023 08:46-0400 Respiratory rate 18 /min Dr. Raad Armendariz Work Phone: [facility] 06-07-2023 08:46-0400 SaO2% (BldA) [Mass fraction] 96 % Dr. Raad Armendariz Work Phone: [facility] 06-07-2023 08:46-0400 Systolic blood pressure 128 mm[Hg] Dr. Raad Armendariz Work Phone: [facility] 05-29-2023 14:30-0400 Body temperature 97.6 [degF] [facility] 05-29-2023 14:30-0400 Diastolic blood pressure 78 mm[Hg] [facility] 05-29-2023 14:30-0400 Heart rate 78 /min [facility] 05-29-2023 14:30-0400 Respiratory rate 16 /min [facility] 05-29-2023 14:30-0400 SaO2% (BldA) [Mass fraction] 99 % [facility] 05-29-2023 14:30-0400 Systolic blood pressure 134 mm[Hg] [facility] 05-29-2023 10:31-0400 Body height 162.56 cm [facility] 05-29-2023 10:31-0400 Body mass index (BMI) [Ratio] 23.6 kg/m2 [facility] 05-29-2023 10:31-0400 Body weight 62.59 kg [facility] 03-12-2023 17:50-0500 Diastolic blood pressure 52 mm[Hg] [facility] 03-12-2023 17:50-0500 Respiratory rate 16 /min [facility] 03-12-2023 17:50-0500 Systolic blood pressure 108 mm[Hg] [facility] 03-12-2023 15:36-0500 Heart rate 109 /min [facility] 03-12-2023 15:36-0500 SaO2% (BldA) [Mass fraction] 99 % [facility] 03-12-2023 13:37-0500 Body height 162.56 cm [facility] 03-12-2023 13:37-0500 Body mass index (BMI) [Ratio] 24.9 kg/m2 [facility] 03-12-2023 13:37-0500 Body temperature 97.4 [degF] [facility] 03-12-2023 13:37-0500 Body weight 65.82 kg [facility] 02-15-2023 10:58-0500 Body height 162.56 cm [facility] 02-15-2023 10:58-0500 Body mass index (BMI) [Ratio] 25.4 kg/m2 [facility] 02-15-2023 10:58-0500 Body temperature 96 [degF] [facility] 02-15-2023 10:58-0500 Body weight 67.13 kg [facility] 02-15-2023 10:58-0500 Diastolic blood pressure 90 mm[Hg] [facility] 02-15-2023 10:58-0500 Heart rate 75 /min [facility] 02-15-2023 10:58-0500 Respiratory rate 18 /min [facility] 02-15-2023 10:58-0500 SaO2% (BldA) [Mass fraction] 96 % [facility] 02-15-2023 10:58-0500 Systolic blood pressure 128 mm[Hg] [facility] 04-03-2022 14:23-0500 Diastolic blood pressure 75 mm[Hg] [facility] 04-03-2022 14:23-0500 Heart rate 93 /min [facility] 04-03-2022 14:23-0500 Respiratory rate 12 /min [facility] 04-03-2022 14:23-0500 SaO2% (BldA) [Mass fraction] 94 % [facility] 04-03-2022 14:23-0500 Systolic blood pressure 124 mm[Hg] [facility] 04-03-2022 13:44-0500 Body temperature 98.3 [degF] [facility] 04-03-2022 12:49-0500 Inhaled oxygen flow rate 1 L/min [facility] 04-03-2022 12:30-0500 Body height 162.56 cm [facility] 04-03-2022 12:30-0500 Body mass index (BMI) [Ratio] 25 kg/m2 [facility] 04-03-2022 12:30-0500 Body weight 66.13 kg [facility] 06-14-2021 16:00-0400 Diastolic blood pressure 68 mm[Hg] [facility] Work Phone: 06-14-2021 16:00-0400 Heart rate 79 /min [facility] Work Phone: 06-14-2021 16:00-0400 Respiratory rate 16 /min [facility] Work Phone: 06-14-2021 16:00-0400 SaO2% (BldA) [Mass fraction] 94 % [facility] Work Phone: 06-14-2021 16:00-0400 Systolic blood pressure 107 mm[Hg] [facility] Work Phone: 06-14-2021 11:16-0400 Body height 162.56 cm [facility] Work Phone: 06-14-2021 11:16-0400 Body mass index (BMI) [Ratio] 24.2 kg/m2 [facility] Work Phone: 06-14-2021 11:16-0400 Body temperature 98.6 [degF] [facility] Work Phone: 06-14-2021 11:16-0400 Body weight 64 kg [facility] Work Phone: Encounters Encounter Date Encounter Type Care Provider Facility Start: 08-05-2024 ambulatory [facility] Facility: [facility] Start: 08-05-2024 Encounter for genera l adult medical examination without abnormal findings [facility] Start: 07-30-2024 End: 07-30-[address] Raad Armendariz DO Work Phone: -Laboratory Yuliet Bond [facility] Start: 07-30-2024 End: 07-30-[address] Raad Armendariz DO -Lexis Bond [facility] Start: 07-30-2024 End: 07-30-2024 ambulatory Raad Kala Facility:[facility] Start: 06-22-2024 End: 06-22-2024 Emergency department patient visit Dr. Raad Armendariz DO Work Phone: -Emergency Department Work Phone: Start: 03-17-2024 End: 03-17-2024 Emergency department patient visit Dr. Maulik Young DO -Emergency Department Work Phone: Start: 01-29-2024 ambulatory [facility] Facility: [facility] Start: 12-29-2023 End: 12-29-2023 ambulatory [facility] Facility:[facility] Start: 12-28-2023 End: 12-28-2023 Emergency department patient visit Geo Donaldson Facility:[facility] Start: 10-05-2023 ambulatory [facility] Facility: [facility] Start: 09-07-2023 End: 09-07-2023 ambulatory [facility] Facility:[facility] Start: 08-30-2023 ambulatory [facility]: [facility] Start: 08-22-2023 ambulatory [facility] Facility: [facility] Start: 08-22-2023 End: 08-22-2023 ambulatory [facility] Facility:[facility] Start: 06-07-2023 End: 06-07-[address] Raad Armendariz Work Phone: [facility] Work Phone: Start: 06-07-2023 End: 06-07-[address] Raad Armendariz Work Phone: [facility] Work Phone: Start: 05-29-2023 End: 05-29-2023 Emergency department patient visit [facility]-Emergency Department Work Phone: Start: 05-15-2023 End: 05-15-2023 ambulatory [facility] Work Phone: Start: 05-15-2023 End: 05-15-2023 Patient encounter procedure [facility]-Yuliet Pires [facility] Start: 03-12-2023 End: 03-12-2023 Emergency department patient visit [facility]-Emergency Department Work Phone: Start: 02-15-2023 End: 02-15-2023 Emergency department patient visit [facility]-Emergency Department Work Phone: Start: 09-09-2022 End: 09-09-2022 ambulatory [facility] Work Phone: Start: 09-09-2022 End: 09-09-2022 Patient encounter procedure [facility]-Laboratory, [place] Work Phone: Start: 04-03-2022 End: 04-03-2022 Emergency department patient visit [facility]-Emergency Department Start: 06-14-2021 End: 06-14-2021 Emergency department patient visit [facility]-Emergency Department Start: 05-17-2021 End: 05-17-2021 Patient encounter procedure [facility]-Radiology, [place] Start: 04-29-2021 End: 04-29-2021 Patient encounter procedure [facility]-Laboratory, [place] Procedures Date Procedure Procedure Detail Performing Clinician Start: 07-30-[address] Raad Armendariz DO Work Phone: Start: 07-30-2024 Methadone measuremen t, urine Dr. Raad Armendariz DO Work Phone: Start: 07-30-2024 Urnls dip stick/tabl et reagent auto microscopy Dr. Raad Armendariz DO Work Phone: Start: 06-22-[address] Raad Armendariz DO Work Phone: Start: 03-17-2024 SARS-CoV-2, Influenz a & RSV (PCR) Dr. Raad Armendariz DO Work Phone: Start: 03-17-2024 Plain chest X-ray Dr. Joaquin Armendariz DO Work Phone: Start: 03-17-[address] Raad Armendariz DO Work Phone: Start: 03-17-2024 Measurement of renal function Dr. Raad Armendariz DO Work Phone: Comment on above: GFR Calc Start: 05-29-2023 Streptococcus pyogen es rRNA assay Start: 05-29-2023 US scan of thyroid Start: 05-29-2023 CT of soft tissues o f neck with contrast Start: 05-15-2023 Coronavirus COVID-19 PCR Start: 05-15-2023 Nucleic acid assay Start: 03-12-2023 Plain chest X-ray Start: 03-12-2023 SARS-CoV-2, Influenz a & RSV (PCR) Start: 06-14-2021 US scan of gallbladder Start: 05-17-2021 X-ray of lumbosacral spine Start: 04-29-2021 Plain chest X-ray Plan of Treatment Date Care Activity Detail Author Start: 06-22-2024 [facility] Start: 03-17-2024 [facility] Start: 03-17-2024 [facility] Start: 05-29-2023 [facility] Start: 03-12-2023 [facility] Start: 03-12-2023 End: 03-12-2023 [facility] Start: 02-15-2023 [facility] Start: 04-03-2022 [facility] Patient Education [facility] Work Phone: Patient referral [facility] Work Phone: Payers Date Payer Category Payer Self-pay [id number] 2023 Unknown [id number] 2015 Unknown [id number] Private Health Insurance [id number] Unknown [id number] 2.16.8 [id number] Unknown [id number] 2.16.8 [id number] Unknown [id number] 2.16.8 [id number] Unknown [id number] 2.16.8 [id number] Unknown [id number] 2.16.8 [id number] Unknown [id number] 2.16.8 [id number] Unknown [id number] 2.16.8 [id number] Unknown [id number] 2.16.8 [id number] Unknown [id number] 2.16.8 [id number] Unknown [id number] 2.16.8 [id number] Unknown [id number] 2.16.8 [id number] Unknown [id number] 2.16.8 [id number] Social History Date Type Detail Facility Start: 10-16-2020 End: 05-29-2023 Tobacco smoking status UTIS Unknown if ever smoked [facility] Start: 05-25-2018 Occasional [facility] Start: 05-25-2018 None [facility] Start: 05-25-2018 Spouse/ Signif icant Other [facility] Start: 08-13-2019 Cigarettes [facility] Start: 1970 Sex Assigned At Female [facility] Start: 06-22-2024 Tobacco smoking status NHIS Current some day smoker [facility] NEGATED: Highlighted row [facility] Medical Equipment Procedure Code Equipment Code Equipment Original Text Equipment Identifier Dates Thyroidectomy Plant polysaccha ride haemostatic agent, bioabsorbable [id number] FDA Start: 08-22-2023 Thyroidectomy Ligation clip, metallic ( )[id number] FDA Start: 08-22-2023 Clinical Note 08-22-2023 Note Date & Type Note Facility 08-22-2023 Note [facility] Medical Records Department [address] [place] [address] History Physical Exam 08/22/23 1049 MR#: [id number] Acct: [id number] Name: CANDY HEARD Rep #: [id number] : 1970 52 From: Anastacio Cannon MD PCP: Dr. Raad Armendariz, DO Status:[facility] Location: [place] [address] History and Physical Date of Admission: 08/22/23 Date of Service: 07/10/23 MR#: [id number] Acct: [id number] Name: CANDY HEARD Rep #: [id number] : 1970 Provider: Dr. Anastacio Cannon MD Age/Sex: 52/F Location: 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 Required: No Accompanied by: Unknown Is patient in pain?: No Allergies amitriptyline Adverse Reaction (Verified 07/10/23 07:55) Otherdiphenhydramine HCl (From Benadryl) Adverse Reaction (Verified 07/10/23 07:55) Other Medications ???Medication ???Instructions ???Recorded ???Confirmed ???Type albuterol sulfate 90 mcg/actuation 2 puff inhalation Q6H PRN Sob /Or 06/14/17 07/10/23 History aerosol inhaler (ProAir HFA) Wheezing famotidine 40 mg tablet (Pepcid) 40 mg PO DAILY 07/02/21 07/10/23 History hydrocodone-acetaminophen 5-325mg 1 tab PO TID 07/02/21 07/10/23 History 5mg-325mg (Liberty) pravastatin 40 mg tablet 10 mg PO QHS 07/02/21 07/10/23 History zolpidem 10 mg tablet 10 mg PO QHS 07/02/21 07/10/23 History albuterol sulfate 2.5 mg/3 mL 2.5 mg (3 mL) inhalation Q4H PRN 11/02/21 07/10/23 Rx (0.083 %) solution for nebulization #25 vials hydrocodone 7.5 mg-acetaminophen 1 tab PO Q6H 03/12/23 07/10/23 History 325 mg tablet loratadine 10 mg tablet 10 mg PO Q24H 03/12/23 07/10/23 History pantoprazole 40 mg tablet,delayed 40 mg PO Q12H 03/12/23 07/10/23 History release PFSH Medical History Thyroid nodule Wears glasses Bipolar disorder Alcohol use High cholesterol Easy bruising Restless legs History of diverticulitis History of IBS Gastric reflux Smoker COPD (chronic obstructive pulmonary disease) Shortness of breath on exertion Abdominal pain Depression Arthritis History of back problems Epigastric pain Hypercholesterolemia GERD (gastroesophageal reflux disease) History of COPD Tobacco use Asthma Surgical History History of excision of mass History of dermoid cyst excision History of tonsillectomy Hx of appendectomy brain tumor removed delivery delivered Family History Mother Cancer lungFather Cancer lungBrother Cancer lung Diabetes Heart diseaseSister Breast cancerBrother Heart disease Hypertension High cholesterol Social History Smoking Status: Current some day smoker tobacco type: cigarettes alcohol intake: current details: social substance use type: does not use caffeine: Yes what type of physical activity do you participate in: walking seatbelt use: always do you feel safe at home: Yes additional social history: [employer] Marleym[employer]uelina Patient works at [employer] HPI HPI HPI: Patient is a 52-year-old female who presents for evaluation of a left thyroid cyst. They are referred for surgical consultation from emergency medicine and Dr. Armendariz after an emergency room visit on 05/29/2023. This represents patient's second office visit after initial consultation visit on 06/07/2023 where she underwent FNA biopsy of the suspicious thyroid lesion. Via telephone she was communicated that both the cytopathology and the ensuing genomic sequencing assay were considered suspicious. Today she is here to discuss surgical options. She presents today with her sister as a support person. She denies any particular concerns but does have some questions related to her expected postoperative recovery and wishes to inform me that she is due to vacation in [place] starting August 10. She wishes to know whether I advise proceeding with surgery now or waiting until after she returns. Below is recapitulated from patient's prior visit for ease of review: She shares sh (more content not included)... [facility] Discharge summary Note Date & Type Note Facility Discharge summary Note Date/Time February 15, 2023 12:19pm [facility] Medical Records Department [address] [place] [address] Emergency Department Summary 02/15/23 MR#: [id number] Acct: [id number] Name: CANDY HEARD Rep #:[id number] : 1970 52 From: Olegario Basilio MD PCP: Dr. Raad Armendariz, DO Status:PRE ER Location: ED HPI History of Present Illness Chief Complaint: Abscess Narrative Narrative: Presents with a lesion on her nose for about 3 days. No fevers chills. No drainage. No known trauma. She states it started crusty and yellow. Now it seems more red and discomfort. No nausea vomiting. [facility] Medical History Abdominal pain Alcohol use Arthritis Asthma Bipolar disorder COPD (chronic obstructive pulmonary disease) Depression Easy bruising Epigastric pain Gastric reflux GERD (gastroesophageal reflux disease) High cholesterol History of back problems History of COPD History of diverticulitis History of IBS Hypercholesterolemia Restless legs Shortness of breath on exertion Smoker Tobacco use Wears glasses Home Medications albuterol sulfate 90 mcg/actuation aerosol inhaler (ProAir HFA) 2 puff inhalation Q6H PRN Sob &/Or Wheezing 06/14/17 [History Last Taken Unknown] famotidine 40 mg tablet (Pepcid) 40 mg PO DAILY 07/02/21 [History Last Taken Unknown] hydrocodone-acetaminophen 5-325mg 5mg-325mg (Liberty) 1 tab PO TID 07/02/21 [History Last Taken Unknown] pravastatin 40 mg tablet 10 mg PO QHS 07/02/21 [History Last Taken Unknown] zolpidem 10 mg tablet 10 mg PO QHS 07/02/21 [History Last Taken Unknown] albuterol sulfate 2.5 mg/3 mL (0.083 %) solution for nebulization 2.5 mg (3 mL) inhalation Q4H PRN #25 vials 11/02/21 [Rx Last Taken Unknown] prednisone 20 mg tablet See Rx Instructions .Route .COMPLEX #24 TABLETS 11/02/21[Rx Last Taken Unknown] prednisone 50 mg tablet 50 mg PO DAILY #5 tabs 04/03/22 [Rx Last Taken Unknown] doxycycline monohydrate 100 mg capsule 100 mg PO BID #20 CAPSULES 02/15/23 [Rx Last Taken Unknown] mupirocin 2 % topical ointment 1 applic topical BID 10 days #22 grams 02/15/23 [Rx Last Taken Unknown] Allergy/AdvReac Type Severity Reaction Status Date / Time amitriptyline AdvReac Other Verified 04/03/22 12:47 diphenhydramine HCl AdvReac Other Verified 04/03/22 12:47 [From Benadryl] Family History Mother Cancer lung Father Cancer lung Brother Cancer lung Diabetes Heart disease Sister Breast cancer Brother Heart disease Hypertension High cholesterol Surgical History brain tumor removed delivery delivered History of dermoid cyst excision History of excision of mass History of tonsillectomy Hx of appendectomy Social History Smoking Status: Current some day smoker tobacco type: cigarettes alcohol intake: current details: social substance use type: does not use caffeine: Yes what type of physical activity do you participate in: walking seatbelt use: always do you feel safe at home: Yes additional social history: Paul Stoddard Patient works at [employer] ROS ROS ED Constitutional Constitutional ED: Denies chills or fever(s) Eyes Eyes: Denies blurry vision, change in vision or diplopia ENT ENT ED: Reports other Details: See history of present illness Cardiovascular Cardiovascular: Denies chest pain Respiratory/Chest Respiratory/Chest: Reports other Details: Patient has asthma but is not wheezingnow ; Denies cough Gastrointestinal Gastrointestinal: Denies nausea or vomiting Musculoskeletal Musculoskeletal: Denies myalgias Integumentary Reports rash Neurologic Neurologic: Denies headache(s) Hematologic/Lymphatic Hematologic/Lymphatic: Denies easy bleeding or easy bruising Allergic/Immunologic Allergic/Immunologic ED: Denies urticaria EXAM Physical Exam Narrative Exam Narrative: CONSTITUTIONAL: Patient is nontoxic in appearance. The patient looks comfortable. Work of breathing looks normal. HEENT: Patient does have some crusting of a carmona nature around the naris. Really just in the center. It is erythematous. It does seem a little bit full but there is no drainable abscess. I can look up into her nasal passages prettyeasily. This all seems to be distal. She has a upper denture in but I do not see any abscess under the lip. There is nothing that I can drain. No sinus tenderness. EYES: No conjunctival injection. No proptosis. No pain with motion. NECK:No JVD. No stridor. CARDIOVASCULAR: Regular rate. Regular rhythm. No notable murmur. No JVD. RESPIRATORY: No respiratory distress. Despite her history of asthma, her lungs sound very clear and her saturations are normal at 96% on room air. GASTROINTESTINAL: Not distended. Bowel sounds are normal. No tenderness. MUSCULOSKELETAL: Atraumatic. No peripheral swelling. NEUROLOGICAL: Patient is alert and appropriate. No focal deficit noted. SKIN: See above. PSYCHIATRIC: Patient is calm. Mood is appropriate. Const Vital Signs: 02/15/23 10:58 Temperature 96 F L Temperature Source Temporal Pulse Rate 75 Respiratory Rate 18 Blood Pressure 128/90 H Blood Pressure Mean 102 Pulse Ox 96 Oxygen Delivery Method Room Air MDM MDM MDM Narrative Medical decision making narrative: Patient showed me pictures when this started and was very carmona crusty. It is now a little bit more erythematous. But considering the location, the crusting,the erythema this is likely staph infection. I will start mupirocin ointment. But due to the swelling and progression over 3 days I will also initiate oral antibiotics. We discussed reasons to return that primarily would include further swelling or drainable abscess. Discharge Plan Triage Chief Complaint: Abscess ED Provider: Olegario Basilio Dx/Rx/DC Orders Clinical Impression: Staphylococcus infection of nose Instructions: ED Cellulitis, Facial Prescriptions: New doxycycline monohydrate 100 mg capsule 100 mg PO BID Qty: 20 0RF mupirocin 2 % ointment 1 applic topical BID 10 Days Qty: 22 0RF No Action albuterol sulfate [ProAir HFA] 90 mcg/actuation HFA aerosol inhaler 2 puff INHALATION Q6H PRN (Reason: Sob &/Or Wheezing) famotidine [Pepcid] 40 mg tablet 40 mg PO DAILY pravastatin 40 mg tablet 10 mg PO QHS hydrocodone-acetaminophen [Liberty] 5-325 mg tablet 1 tab PO TID zolpidem 10 mg tablet 10 mg PO QHS Patient Comments: TAKE 1 TABLET BY MOUTH EVERYDAY AT BEDTIME prednisone 20 mg tablet See Rx Instructions .ROUTE .COMPLEX Qty: 24 0RF Rx Instructions: 3 tabs p.o. daily days 1 through 4, then 2 tabs p.o. daily days 5 through 8, then 1 tab p.o. daily day 9 through 12 albuterol sulfate 2.5 mg /3 mL (0.083 %) solution for nebulization 2.5 mg inhalation Q4H PRN Qty: 25 0RF Rx Instructions: Use q4 hours and PRN for wheezing prednisone 50 mg tablet 50 mg PO DAILY Qty: 5 0RF Primary Care Provider: Raad Armendariz Referrals: Raad Armendariz DO [Primary Care Provider] - 3-5 Days if not improving Disposition Disposition: Home, Self Care What to do if you have Problems For any increased pain, shortness of breath, bleeding, nausea or vomiting, chestpain, or any unexpected problems, contact your Primary Care Provider. Call [facility] ([phone]) or report to the closest Emergency Room. Call 911 if necessary. 02/15/23 1226 <Electronically signed by Olegario Basilio MD> Cosigner Signature (if applicable): CC: Dr. Raad Armendariz DO ~ Signed [facility] Work Phone: Evaluation note Note Date & Type Note Facility Evaluation note No assessment information availa ble [facility] Work Phone: Evaluation note Note Date & Type Note Facility Evaluation note Diagnosis Onset Date Thyroid nodule acute [facility] Work Phone: Hospital Discharge instructions Note Date & Type Note Facility Hospital Discharge instructions Additional Instructions Please take prednisone until finished. Use your inhalers. Return for any worsening symptoms [facility] Work Phone: Hospital Discharge instructions Note Date & Type Note Facility Hospital Discharge instructions Additional Instructions Please return for any worsening of your symptoms. Follow-up with your PCP. [facility] Work Phone: Reason for referral (narrative) Note Date & Type Note Facility Reason for referral (narrative) No reason for referral information available [facility] Work Phone: Summary Purpose Family History No Family History Records Found Relationship Condition Age at Onset Recorded Date/T aliya mother Malignant neoplasm Unknown father Malignant neoplasm Unknown brother Malignant neoplasm Unknown sister Malignant neoplasm of breast Unknown Relationship Condition Age at Onset Recorded Date/T aliya mother Malignant neoplasm Unknown father Malignant neoplasm Unknown brother Malignant neoplasm Unknown Diabetes mellitus Unknown Cardiac disease Unknown sister Malignant neoplasm of breast Unknown brother Cardiac disease Unknown Hypertension Unknown High blood cholesterol Unknown Advance Directives No Advanced Directives Records Found Advance Directive Response Recorded Date/ Time Living Will No October 16, 2020 9:00am Power of Vision Rehabilitation Therapist No October 9:00am Advance Directive Response Recorded Date/ Time Living Will No June 14, 2021 11 :40am Power of Vision Rehabilitation Therapist No June 14, 2021 11:40am Advance Directive Response Recorded Date/ Time Living Will No April 03, 023 12:48pm Power of Vision Rehabilitation Therapist No April 03, 2022 12:48pm Advance Directive Response Recorded Date/ Time Living Will No April 03 023 1:48pm Power of Vision Rehabilitation Therapist No April 03, 2022 1:48pm Advance Directive Response Recorded Date/ Time Living Will No February 15 12:33pm Power of Vision Rehabilitation Therapist No February 15, 2023 12:33pm Advance Directive Response Recorded Date/ Time Living Will No March 12 1:51pm Power of Vision Rehabilitation Therapist No March 12, 2023 1:51pm Advance Directive Response Recorded Date/ Time Living Will No March 12 2:51pm Power of Vision Rehabilitation Therapist No March 12, 2023 2:51pm Advance Directive Response Recorded Date/ Time Living Will No May 29, 2023 10:30am Power of Vision Rehabilitation Therapist No May 28 10:30am Advance Directive Response Recorded Date/ Time Living Will No March 17 10:58am Do you have a Healthcare Power of Vision Rehabilitation Therapist? No March 17, 2024 10:58am Do you have a Healthcare Power of Vision Rehabilitation Therapist? No June 22, 2024 3:53pm Advance Directive Response Recorded Date/ Time Do you have a Healthcare Power of Vision Rehabilitation Therapist? No June 22, 2024 3:53pm Chief Complaint and Reason for Visit Chief Complaint abd Chief Complaint sob Chief Complaint ABSCESS Chief Complaint ABSCESS SOB Chief Complaint ABSCESS SOB SORE THROAT Chief Complaint SOB SORE THROAT THYROID M[facility], [facility] ER FU Reason for Visit Thyroid nodule Chief Complaint Admit Date SOB March 17, 2024 8 :47am SOB June 22, 2024 3:53p m Chief Complaint Admit Date SOB June 22, 2024 3:53p m Additional Source Comments INFORMATION SOURCE (unrecogn ized section and content) DATE CREATED AUTHOR 08/27/2019 [facility] [place] DATE CREATED AUTHOR AUTHOR'S ORGANIZ ATION 05/28/2020 [facility] ([place]) DATE CREATED AUTHOR AUTHOR'S ORGANIZ ATION 08/06/2024 [facility] Goals (unrecognized section and content) Goals may be documented in a n alternate sectionGoals may be documented in an alternate sectionGoals may be documented in an alternate sectionGoals may be documented in an alternate sectionGoals may be documented in an alternate sectionGoals may be documented in an alternate sectionGoals may be documented in an alternate sectionGoals may be documented in an alternate sectionGoals may be documented in an alternate sectionGoals may be documented in an alternate sectionGoals may be documented in an alternate sectionGoals may be documented in an alternate section Care Teams (unrecognized sec tion and content) Team Status: Active Member Role Status Dates Dr. Raad Armendariz , DO Family Provider Active Dr. Raad Armendariz , DO Primary Care Provider Active Team Status: Inactive Member Role Status Dates Dr. Raad Armendariz , DO Primary Care Provider Active Dr. Humberto Castro DO Emergency Provider Active Team Status: Inactive Member Role Status Dates Dr. Raad Armendariz , DO Primary Care Prov ider, Attending Provider, Referring Provider Active Team Status: Inactive Member Role Status Dates Dr. Raad Armendariz , DO Primary Care Provider Active Dr. Olegario Basilio MD Emergency Provider Active Team Status: Inactive Member Role Status Dates Dr. Raad Armendariz DO Primary Care Provider Active Dr. Olegario Basilio MD Attending Provider, Emergency Provider Active Team Status: Inactive Member Role Status Dates Dr. Raad Armendariz , DO Primary Care Provider Active Dr. Maulik Young DO Emergency Provider Active Team Status: Inactive Member Role Status Dates Dr. Raad Armendariz DO Primary Care Provider Active Dr. Maulik Young DO Attending Provider, Emergency P rotimur Active Team Status: Inactive Member Role Status Dates Dr. Raad Armendariz DO Primary Care Provider, Attendin g Provider Active Team Status: Inactive Member Role Status Dates Dr. Raad Armendariz DO Primary Care Provider Active Dr. Geo Donaldson DO Emergency Provider Active Team Status: Inactive Member Role Status Dates Dr. Raad Armendariz DO Primary Care Provider, Referrin g Provider Active Dr. Anastacio Cannon MD Attending Provider Active Team Status: Inactive Member Role Status Dates Dr. Raad Armendariz DO Primary Care Provider Active Dr. Geo Donaldson DO Attending Provider, Emergency Pro vider Active Team Status: Inactive Member Role Status Dates Dr. Raad Armendariz DO Primary Care Provider Active Dr. Anastacio Cannon MD Attending Provider Active Team Status: Active Member Role Status Dates Dr. Raad Armendariz DO Primary Care Provider Active Team Status: Inactive Member Role Status Dates Dr. Raad Armendariz DO Primary Care Provider Active Start: March 17, 2024 End: March 17, 2024 Dr. Maulik Young DO Attending Provider Active Start: March 17, 2024 End: March 17, 2024 Dr. Maulik Young DO Emergency Provider Active Start: March 17, 2024 End: March 17, 2024 Team Status: Inactive Member Role Status Dates Dr. Raad Armendariz DO Primary Care Provider Active Start: June 22, 2024 End: June 22, 2024 Dr. Tyler Marsh , DO Referring Provider Active Start: June 22, 2024 End: June 22, 2024 Dr. Tyler Marsh , DO Emergency Provider Active Start: June 22, 2024 End: June 22, 2024 Team Status: Active Member Role/Relationship Status Dates Dr. Raad Armendariz DO Primary Care Provider Active Team Status: Inactive Member Role/Relationship Status Dates Dr. Raad Armendariz DO Primary Care Provider Active Start: June 22, 2024 End: June 22, 2024 Dr. Tyler Marsh DO Attending Provider Active Start: June 22, 2024 End: June 22, 2024 Dr. Tyler Marsh DO Referring Provider Active Start: June 22, 2024 End: June 22, 2024 Dr. Tyler Marsh DO Emergency Provider Active Start: June 22, 2024 End: June 22, 2024 Team Status: Inactive Member Role/Relationship Status Dates Dr. Raad Armendariz DO Primary Care Provider Active Start: July 30, 2024 End: July 30, 2024 Dr. Raad Armendariz DO Attending Provider Active Start: July 30, 2024 End: July 30, 2024 FOR RECORDS PERTAINING TO PATIENTS WHO ARE [...] BE BASED ON THE PRIMARY CLINICAL RECORDS. [employer] provides no warranty or guarantee of the accuracy or completeness of information in this document.
[2024-09-28 19:25] LABS: Hematocrit 40.6 % (37-47); Hemoglobin 13.8 g/dL (12.0-15.0); Immature Granulocytes Count 0.070 X10^3/uL (0.0-0.0); Mean Corp Hgb Conc 34.0 g/dL (32-36); Mean Corpuscular Volume 88.8 fL (81-99); Mean Platelet Vol. 9.0 fl (6.2-12.0); NRBC Flagged by Analyzer 0 % (0-5); Platelet Count 392 K/mm3 (150-450); RBC Distribution Width CV 13.2 % (11.6-14.6); RBC Distribution Width SD 42.7 fl (35.1-43.9); Red Blood Count 4.57 M/mm3 (4.2-5.4); White Blood Count 14.4 K/mm3 (4.4-11.0)
[2024-09-28 19:27] LABS: Anion Gap 16 (5-15); BUN 13 mg/dL (4-19); BUN/Creat Ratio 19.6 RATIO (10-20); Calcium,Total 8.9 mg/dL (7.6-11.0); Carbon Dioxide 23.7 mmol/L (21.0-32.0); Chloride 99 mmol/L (98-108); Estimated Creatinine Clearance 95.29 ml/min (50-250); Glucose 106 mg/dL (70-99); Potassium 3.6 mmol/L (3.3-5.1); Troponin T High Sensitivity < 6 ng/L (<=14)
[2024-09-28 20:05] VITALS: BP 112/68; PULSE 88; RESP 18; O2SAT 97
[2024-09-28 21:08] LABS: Troponin T High Sens 2 HR < 6 ng/L (<=14)
[2024-09-28 22:00] VITALS: BP 117/71; PULSE 90; RESP 18; TEMP 36.9; O2SAT 98
[2024-09-28 22:26] VITALS: BP 117/71; PULSE 90; RESP 18; TEMP 36.9; O2SAT 98
== END 2024-09-28 22:39 | disposition home or self-care (01) ==
PROVIDERS: Emergency Provider Emergency Medicine; PCP Family Medicine; Visit Provider Emergency Medicine
DX: R07.9 Chest pain, unspecified (principal); J44.9 Chronic obstructive pulmonary disease, unspecified; E78.00 Pure hypercholesterolemia, unspecified; D72.829 Elevated white blood cell count, unspecified; K21.9 Gastro-esophageal reflux disease without esophagitis; F17.210 Nicotine dependence, cigarettes, uncomplicated
CPT/HCPCS: 71045; 80048; 84484; 85025; 93005; 99284; A4216

== ENCOUNTER 2024-10-27 17:42 | Emergency (ER) | payer OTHER, SELFPAY ==
[2024-10-27 17:43] VITALS: BP 197/107; PULSE 112; RESP 22; TEMP 36.3; O2SAT 100; BMI 26.0
--- OUTSIDE RECORDS SUMMARY | 2024-10-27 18:34 | XMS RPT_ITS | CCD ---
Author Organization [facility] Care Team Providers Care Retail Loss Prevention Investigator Name Role Phone Dr. Raad Armendariz Primary Care Provider Dr. Raad Armendariz Referring Provider Dr. Anastacio Cannon Attending Provider Dr. Raad Armendariz DO Primary Care Provider Dr. Maulik Young DO Attending Provider Dr. Maulik Young DO Emergency Provider Dr. Tyler Marsh DO Referring Provider Dr. Tyler Marsh DO Emergency Provider Dr. Raad Armendariz DO Primary Care Provider Dr. Tyler Marsh DO Attending Provider Dr. Raad Armendariz DO Attending Provider Dr. Maulik Young DO Emergency Provider Raad Armendariz Primary Care Unavailable Maulik Young Attending Unavailable Ungur, Remus Attending Unavailable Ungur, Remus [...] Attending Unavailable Kala, Raad Primary Care Unavailable Tyler Marsh Attending Unavailable Tyler Marsh Referring Unavailable Kala, Raad Primary Care Unavailable Allergies Allergy Classification Reported Allergen(s) Allergy Type Date of Onset Reaction(s) Facility (14 sources) diphenhydrAMINE; Translations: [diphenhydramine HCl] Drug Allergy 1 Other [facility] Comment on above: RESTLESS LEG GETS WO RSE (5 sources) MUSCLE RELAXERS Propensity to adverse reactions 1 Other [facility] (11 sources) Amitriptyline Drug Allergy 2 Other [facility] Comment on above: restless legs (1 source) Amitriptyline Drug Allergy 5 [facility] Repository Medications Current Medications Medication Drug [...] / ipratropium bromide 0.167 mg/ml inhalation solution (3 sources) Anticholinergic, beta2-Adrenergic Agonist Start: 03-17-2024 take 1 mL by inhalation every four hours as needed for wheezing Ipratropium-Albuterol 0.5 mg-3 mg(2.5 mg base)/3 mL solution for nebulization Active 3 mL INHALATION Q4H as needed for wheezing 90 0 March 17, 2024 1:00am famotidine 40 mg oral tablet (10 sources) Histamine-2 Receptor Antagonist Start: 07-02-2021 take 1 tablet by mouth once daily Famotidine (Pepcid) 40 mg tablet Active 40 mg PO DAILY July 02, 2021 12:00am loratadine 10 mg oral tablet (7 sources) Start: 03-12-2023 take 1 tablet by [...] 20 mg PO TWICE A DAY 10 0 December 28, 2023 1:00am March 17, 2024 10:59am Start: 03-12-2023 End: 05-29-2023 take 2 tablets by mouth once daily Prednisone 20 mg tablet Discontinued 40 mg PO DAILY 8 4 0 March 12, 2023 1:00am May 29, 2023 10:56am Start: 04-03-2022 End: 05-29-2023 take 1 tablet by mouth once daily Prednisone 50 mg tablet Discontinued 50 mg PO DAILY 5 0 April 03, 2022 1:00am May 29, 2023 10:56am Start: 11-02-2021 End: 05-29-2023 Prednisone 20 mg tablet Disc ontinued 0 .ROUTE .COMPLEX 24 November 02, 2021 12:00am May 29, 2023 [...] Sig (Original) cephalexin 500 mg oral capsule (13 sources) Cephalosporin Antibacterial Start: 06-14-2017 End: 06-21-2017 take 1 capsule by mouth every twelve hours Cephalexin (Keflex) 500 mg capsule Discontinued 500 mg PO Q12H 14 7 0 June 14, 2017 12:00am June 20, 2017 12:00am June 21, 2017 12:05am doxycycline monohydrate 100 mg oral capsule (11 sources) Tetracycline-class Drug Start: 12-28-2023 End: 03-17-2024 [...] 2023 10:57am mupirocin 0.02 mg/mg topical ointment (8 sources) RNA Synthetase Inhibitor Antibacterial Start: 02-15-2023 End: 05-29-2023 Mupirocin 2 % ointment Discontinued 1 NMA TOPICAL TWICE A DAY 22 10 February 15, 2023 1:00am May 29, 2023 10:56am naproxen 500 mg oral tablet (13 sources) Nonsteroidal Anti-inflammatory Drug Start: 11-11-2015 End: 06-14-2017 take 1 tablet by mouth twice daily Naproxen 500 MG tablet Discontinued 500 mg PO TWICE A DAY November 11, 2015 12:00am June 14, 2017 3:36pm ondansetron 4 mg disintegrating oral tablet (7 sources) Serotonin-3 Receptor Antagonist Start: 03-12-2023 End: 05-29-2023 take 1 tablet by mouth every eight hours as needed for nausea Ondansetron 4 mg tablet,disintegra ting Discontinued 4 mg PO EVERY 8 HOURS NEEDED as needed for Nausea 10 March 12, 2023 1:00am May 29, 2023 10:56am oseltamivir 75 mg oral capsule (7 sources) Neuraminidase Inhibitor Start: 03-12-2023 End: 05-29-2023 take 1 capsule by mouth twice daily Oseltamivir (Tamiflu) 75 mg capsule Discontinued 75 mg PO TWICE A DAY 10 5 March 12, 2023 1:00am May 29, 2023 10:56am oxyCODONE hydrochloride 5 mg oral tablet (3 sources) Opioid Agonist Start: 08-22-2023 End: 08-25-2023 [...] pantoprazole 40 mg delayed release oral tablet (18 sources) Proton Pump Inhibitor Start: 03-12-2023 End: [...] 2021 12:57pm sucralfate 1000 mg oral tablet (10 sources) Aluminum Complex Start: 07-12-2021 End: 08-17-2021 [...] Onset: 06-26-2024 Chronic Disorders of lipid metabolism (11 sources) Hypercholesterolemia; Translations: [Pure hypercholesterolemia, unspecified] 07-02-2021 Chronic Esophageal disorders (20 sources) Gastroesophageal reflux disease; Translations: [Gastro-esophageal reflux disease without esophagitis] 07-02-2021 Chronic Influenza (7 sources) Influenza due to Influenza B virus; Translations: [Influenza due to other identified influenza virus with other respiratory manifestations] 03-12-2023 Episodic Nonspecific chest pain (14 sources) Atypical chest pain; Translations: [Other chest pain] Onset: 10-03-2024 08-14-2019 Episodic Other lower respiratory disease (13 sources) History of chronic obstructive airway disease; Translations: [Personal history of other diseases of the respiratory system] 07-02-2021 Episodic Other lower respiratory disease (13 sources) Pleuritic pain; Translations: [Pleurodynia] 10-24-2020 Episodic Other lower respiratory disease (10 sources) Dyspnea; Translations: [Dyspnea, unspecified] 11-10-2021 Episodic Other screening for suspected conditions (not mental disorders or infectious disease) (1 source) Encounter for screening mammogram for malignant neoplasm of breast; Translations: [Encounter for screening mammogram for malignant neoplasm of breast] Onset: 08-02-2024 Episodic Other upper respiratory disease (8 sources) Nasal infection; Translations: [Other specified disorders of nose and nasal sinuses] 02-15-2023 Episodic Other upper respiratory infections (3 sources) Viral upper respiratory tract infection; Translations: [Acute upper respiratory infection, unspecified] 06-28-2023 Episodic Residual codes; unclassified (13 sources) Tobacco use and exposure - finding; Translations: [Tobacco use] 07-02-2021 Episodic Residual codes; unclassified (3 sources) History of thyroid lobectomy; Translations: [Acquired [...] visit in 3 weeks. Sprains and strains (13 sources) Chondrocostal joint sprain; Translations: [Sprain of ribs, initial encounter] 01-23-2018 Episodic Thyroid disorders (12 sources) Goiter; Translations: [Nontoxic goiter, unspecified] Onset: 01-08-2024 05-29-2023 Chronic Comment on above: Patient is [...] and cytology once resulted.Update 07/10/2023: Patient's [facility]NA [place] cytopathology was concerning for possible malignancy but given the presence of atypia and some discordance and pathologic opinion a specimen was submitted [facility] This result also returned suspicious and patient [...] she returns from her vacation. Thyroid disorders (5 sources) Mass of thyroid gland; Translations: [Disorder of thyroid, unspecified] 05-29-2023 Episodic Past or Other Problems Problem Classification Problem Date Documented Da te Episodic/Chronic Other lower respiratory disease (1 source) Shortness of breath; Translations: [Shortness of breath] Onset: 04-01-2024 Episodic Unclassified (10 sources) brain tumor removed 08-26-2021 Comment on above: 2004 Results Test Name Value Interpretation Reference Range Facility 12 Lead EKGon 09-28-2024 12 Lead EKG [facility] [address] [place] [address] 12 Lead EKG 09/28/24 1823 MR#: [id number] Acct: [id number] Name: CANDY HEARD Rep #: [id number] : 1970 54 From: Laureano Wesley MD Attending Dr: Status: DEP ER Ordering Dr: Maulik Young DO Date: 09/28/24 Location: ED Sex: F C Admitted: Test Reason : CP Blood Pressure : */* mmHG Vent. Rate : 99 BPM Atrial Rate : 99 BPM P-R Int : 138 ms QRS Dur : 68 ms QT Int : 356 ms P-R-T Axes : 32 33 35 degrees QTcB Int : 456 ms Normal sinus rhythm Normal ECG Confirmed by LAUREANO WESLEY MD ([id number]), slot editor EDMUND GIVENS ([id number]) on 09/30/2024 1:05:31 PM Referred By: Confirmed By: LAUREANO WESLEY MD 09/30/24 1305 Date Laureano Wesley MD CC: Dr. Raad Armendariz DO; Dr. Maulik Young DO Signed Normal [facility] Absolute lymphocyte countOrd ered By: Maulik Young on 09-28-2024 Lymphocytes Auto (Unsp spec) [#/Vol] 3.14 10*3/uL 0.83-4.51 [facility] Absolute neutrophil countOrd ered By: Maulik Young on 09-28-2024 Neutrophils (Bld) [#/Vol] 10.2 10*3/uL High 2.0-7.7 [facility] Anion gap in Serum or Plasma Ordered By: Maulik Young on 09-28-2024 Anion gap [Moles/Vol] 16 mmol/L High 5-15 [facility] Automated lymphocyte count a s percentage of total leukocytesOrdered By: Maulik Young on 09-28-2024 Lymphocytes/100 WBC Auto (Unsp spec) 21.8 % 19-41 [facility] BUN/creatinine ratioOrdered By: Maulik Young on 09-28-2024 Urea nitrogen/Creatinine [Mass ratio] 19.6 mg/mg 10- [facility] Basic Metabolic Profile (BMP )on 09-28-2024 BUN/CRE 19.6 RATIO Normal - [facility] Comment on above: Performed By: #### L 501.4021, L500.2500, L100.0100 #### [facility] [address] [place], [address] Calcium [Mass/Vol] 8.9 mg/dL Normal 7.6-11.0 [facility] Comment on above: Performed By: #### L 501.4021, L500.2500, L100.0100 #### [facility] [address] [place], [address] Chloride [Moles/Vol] 99 mmol/L Normal 98-108 [facility] Comment on above: Performed By: #### L 501.4021, L500.2500, L100.0100 #### [facility] [address] [place], [address] CO2 [Moles/Vol] 23.7 mmol/L Normal 21.0-32.0 [facility] Comment on above: Performed By: #### L 501.4021, L500.2500, L100.0100 #### [facility] [address] [place], [address] Creatinine [Mass/Vol] 0.65 mg/dL Low 0.70-1.20 [facility] Comment on above: Performed By: #### L 501.4021, L500.2500, L100.0100 #### [facility] [address] [place], [address] ECRCL 95.29 ml/min Normal 50-250 [facility] Comment on above: Performed By: #### L 501.4021, L500.2500, L100.0100 #### [facility] [address] [place], [address] GAP 16 High 5-15 [facility] Comment on above: Performed By: #### L 501.4021, L500.2500, L100.0100 #### [facility] [address] [place], [address] GFR/1.73 sq M.predicted among non-blacks MDRD (S/P/Bld) [Vol rate/Area] 106 mL/min/{1.73_m2} Normal >60 [facility] Comment on above: Result Comment: mL/m in/1.73m2 CKD-EPI Creatinine Equation (2020) Performed By: #### L 501.4021, L500.2500, L100.0100 #### [facility] [address] [place], [address] Glucose [Mass/Vol] 106 mg/dL High 70-99 [facility] Comment on above: Performed By: #### L 501.4021, L500.2500, L100.0100 #### [facility] [address] [place], [address] Potassium [Moles/Vol] 3.6 mmol/L Normal 3.3-5.1 [facility] Comment on above: Performed By: #### L 501.4021, L500.2500, L100.0100 #### [facility] [address] [place], [address] Sodium [Moles/Vol] 139 mmol/L Normal 133-145 [facility] Comment on above: Performed By: #### L 501.4021, L500.2500, L100.0100 #### [facility] [address] [place], [address] Urea nitrogen [Mass/Vol] 13 mg/dL Normal 4-19 [facility] Comment on above: Performed By: #### L 501.4021, L500.2500, L100.0100 #### [facility] [address] [place], [address] Basophil percentageOrdered B y: Maulik Mckeons on 09-28-2024 Basophils/100 WBC (Bld) 0.6 % 0-1 [facility] CBC W/Diff, Automatedon 09-07 Absolute Lymph 3.14 X10 3/uL Normal 0.83-4.51 [facility] Comment on above: Performed By: #### L 501.4021, L500.2500, L100.0100 #### [facility] [address] [place], [address] Absolute Neut 10.2 X10 3/uL High 2.0-7.7 [facility] Comment on above: Performed By: #### L 501.4021, L500.2500, L100.0100 #### [facility] [address] [place], [address] Basophils/100 WBC (Bld) 0.6 % Normal 0-1 [facility] Comment on above: Performed By: #### L 501.4021, L500.2500, L100.0100 #### [facility] [address] [place], [address] Eosinophils/100 WBC (Bld) 0.6 % Normal 0-5 [facility] Comment on above: Performed By: #### L 501.4021, L500.2500, L100.0100 #### [facility] [address] [place], [address] Erythrocyte distribution width (RBC) [Ratio] 13.2 % Normal 11.6-14.6 [facility] Comment on above: Performed By: #### L 501.4021, L500.2500, L100.0100 #### [facility] [address] [place], [address] Hematocrit (Bld) [Volume fraction] 40.6 % Normal 37-47 [facility] Comment on above: Performed By: #### L 501.4021, L500.2500, L100.0100 #### [facility] [address] [place], [address] Hemoglobin (Bld) [Mass/Vol] 13.8 g/dL Normal 12.0-15.0 [facility] Comment on above: Performed By: #### L 501.4021, L500.2500, L100.0100 #### [facility] [address] [place], [address] IG% 0.500 Normal 0.0-0.9 [facility] Comment on above: Result Comment: IG% - Immature Granulocytes (promyelocytes, myelocytes and metamyelocytes) > 1% indicates that a LEFT SHIFT is Present. Performed By: #### L 501.4021, L500.2500, L100.0100 #### [facility] [address] [place], [address] Lymphocytes/100 WBC (Bld) 21.8 % Normal 19-41 [facility] Comment on above: Performed By: #### L 501.4021, L500.2500, L100.0100 #### [facility] [address] [place], [address] MCH (RBC) [Entitic mass] 30.2 pg Normal 27.0-32.0 [facility] Comment on above: Performed By: #### L 501.4021, L500.2500, L100.0100 #### [facility] [address] [place], [address] MCHC (RBC) [Mass/Vol] 34.0 g/dL Normal 32-36 [facility] Comment on above: Performed By: #### L 501.4021, L500.2500, L100.0100 #### [facility] [address] [place], [address] MCV (RBC) [Entitic vol] 88.8 fL Normal 81-99 [facility] Comment on above: Performed By: #### L 501.4021, L500.2500, L100.0100 #### [facility] [address] [place], [address] Monocytes/100 WBC (Bld) 5.9 % Normal 0-10 [facility] Comment on above: Performed By: #### L 501.4021, L500.2500, L100.0100 #### [facility] [address] [place], [address] Neutrophils/100 WBC (Bld) 70.6 % High 47-70 [facility] Comment on above: Performed By: #### L 501.4021, L500.2500, L100.0100 #### [facility] [address] [place], [address] Nucleated RBC (Bld) [#/Vol] 0 10*3/uL Normal 0-5 [facility] Comment on above: Performed By: #### L 501.4021, L500.2500, L100.0100 #### [facility] [address] [place], [address] Platelet mean volume (Bld) [Entitic vol] 9.0 fL Normal 6.2-12.0 [facility] Comment on above: Performed By: #### L 501.4021, L500.2500, L100.0100 #### [facility] [address] [place], [address] Platelets (Bld) [#/Vol] 392 10*3/uL Normal 150-450 [facility] Comment on above: Performed By: #### L 501.4021, L500.2500, L100.0100 #### [facility] [address] [place], [address] RBC (Bld) [#/Vol] 4.57 10*6/uL Normal 4.2-5.4 [facility] Comment on above: Performed By: #### L 501.4021, L500.2500, L100.0100 #### [facility] [address] [place], [address] RDW SD 42.7 fl Normal 35.1-43.9 [facility] Comment on above: Performed By: #### L 501.4021, L500.2500, L100.0100 #### [facility] [address] [place], [address] WBC (Bld) [#/Vol] 14.4 10*3/uL High 4.4-11.0 [facility] Comment on above: Performed By: #### L 501.4021, L500.2500, L100.0100 #### [facility] [address] [place], [address] Carbon dioxide, total [Moles /volume] in Central venous bloodOrdered By: Maulik Young on 09-28-2024 CO2 [Moles/Vol] 23.7 mmol/L 21.0-32.0 [facility] Chest 1 View (Portable)on Chest 1 View (Portable) [facility] Imaging Services [address] [place] [address] Chest 1 View (Portable) MR#: [id number] Acct: [id number] Name: CANDY HEARD Rep #: [id number] : 1970 F 54 From: Olegario Qiu DO PCP: Dr. Raad Armendariz DO Status: REG ER Study: Chest 1 View (Portable) Date of Exam: 09/28/24 Exam# [id number] Ordering Dr: Maulik Young DO PROCEDURE: CHEST 1 VIEW (PORTABLE) 09/28/2024 REASON FOR EXAM: CHEST PAIN TECHNIQUE: Frontal view of the chest. COMPARISON: Chest radiograph March 17, 2024 FINDINGS: Hardware: None Heart: Normal size and appearance Lungs: Clear and expanded Bones: No bony process identified. Other: RAD/Chest 1 View (Portable) IMPRESSION: No acute process detected. Reading [facility] CC: Dr. Raad Armendariz DO; Dr. Maulik Young DO Drawing Kiln Supervisor: Signed Normal [facility] Chloride assayOrdered By: Wale Young on 09-28-2024 Chloride [Moles/Vol] 99 mmol/L 98-108 [facility] Emergency Department Summary on 09-28-2024 Emergency Department Summary [facility] Medical Records Department [address] [place] [address] Emergency Department Summary 09/28/24 MR#: [id number] Acct: [id number] Name: CANDY HEARD Rep #: [id number] : 1970 54 From: Maulik Young DO PCP: Dr. Raad Armendariz DO Status:REG ER Location: ED HPI History of Present Illness Chief Complaint: Chest Pain [facility] Medical History Thyroid nodule Wears glasses Bipolar disorder Alcohol use High cholesterol Easy bruising Restless legs History of diverticulitis History of IBS Gastric reflux Smoker COPD (chronic obstructive pulmonary disease) Shortness of breath on exertion Depression Arthritis History of back problems Epigastric pain Hypercholesterolem ia GERD (gastroesophageal reflux disease) History of COPD [...] social history: Paul Stoddard Patient works at [employer] EXAM Physical Exam Const Vital Signs: 09/28/24 18:14 09/28/24 18:31 09/28/24 18:50 Temperature 98.5 F Temperature Source Oral Pulse Rate 107 H Respiratory Rate 16 Respiratory Effort Normal Non-Labored Blood Pressure 155/89 H Blood Pressure Mean 111 Pulse Ox 98 97 Oxygen Delivery Method Room Air Room Air 09/28/24 19:19 09/28/24 20:05 Temperature Temperature Source Pulse Rate 94 88 Respiratory Rate 18 Respiratory Effort Blood Pressure 131/88 H 112/68 Blood Pressure Mean 82 Pulse Ox 97 Oxygen Delivery Method Room Air MDM MDM MDM Narrative Medical decision making narrative: HISTORY OF PRESENT ILLNESS: Chief complaint: Chest pain 54-year-old female history of asthma, tobacco use, COPD, GERD, hyperlipidemia presents with chest pain. Has been intermittent for last few weeks however getting more frequent and more intense over the last few days. She further states [close The patient denies recent surgery in the last 4 weeks or immobilization in the last 3 days, denies previous diagnosis of DVT or PE, hemoptysis, unilateral leg swelling or malignancy with treatment the last 6 months or palliative. No estrogen use noted. Patient denies sudden onset of pain, no tearing sensation, no migratory symptoms, no new numbness, weakness or loss of sensation. Patient denies family history or personal history of Connective tissue disorders (Marfan's Syndrome, Didi Danlos etc) REVIEW OF SYSTEMS: Pertinent positives: Chest pain Pertinent negatives: As per HPI PHYSICAL EXAM: Nursing triage notes reviewed, Vital signs reviewed Constitutional: please see mdm HENT: MMM Eyes: Pupils equal round and reactive to light, Extraocular muscles intact Neck: No stridor, no JVD, full (more content not included)... Normal [facility] Eosinophil percentageOrdered By: Maulik Young on 09-28-2024 Eosinophils/100 WBC (Bld) 0.6 % 0-5 [facility] Erythrocyte distribution wid th ratioOrdered By: Maulik Young on 09-28-2024 Erythrocyte distribution width (RBC) [Ratio] 13.2 % 11.6-14.6 [facility] Erythrocyte distribution wid th standard deviationOrdered By: Maulik Young on 09-28-2024 Erythrocyte distribution width (RBC) [Ratio] 42.7 fl 35.1-43.9 [facility] Glomerular filtration rate ( GFR) estimation/1.73 sq m using serum, plasma, or whole bOrdered By: Maulik Young on 09-28-2024 GFR/1.73 sq M.predicted among non-blacks MDRD (S/P/Bld) [Vol rate/Area] 106 mL/min/{1.73_m2} >60 [facility] Comment on above: mL/min/1.73m2 CKD-EP I Creatinine Equation (2020) Hematocrit Auto (Bld) [Volum e fraction]Ordered By: Maulik Young on 09-28-2024 Hematocrit (Bld) [Volume fraction] 40.6 % 37-47 [facility] Hemoglobin measurementOrdere d By: Maulik Young on 09-28-2024 Hemoglobin (Bld) [Mass/Vol] 13.8 g/dL 12.0-15.0 [facility] Immature granulocytes/100 WB C Auto (Bld)Ordered By: Maulik Young on 09-28-2024 Immature granulocytes/100 WBC (Bld) 0.500 % 0.0-0.9 [facility] Comment on above: IG% - Immature Granu locytes (promyelocytes, myelocytes and metamyelocytes) > 1% indicates that a LEFT SHIFT is Present. L501.4021on 09-28-2024 Trop T High Sen < 6 Normal <=14 [facility] Comment on above: Performed By: #### L 501.4021, L500.2500, L100.0100 #### [facility] [address] [place], [address] MCV (mean corpuscular volume ) determinationOrdered By: Maulik Young on 09-28-2024 MCV (RBC) [Entitic vol] 88.8 fL 81-99 [facility] Mean corpuscular hemoglobin (MCH) determinationOrdered By: Maulik Young on 09-28-2024 MCH (RBC) [Entitic mass] 30.2 pg 27.0-32.0 [facility] Mean corpuscular hemoglobin concentration (MCHC) determinationOrdered By: Maulik Young on 09-28-2024 MCHC (RBC) [Mass/Vol] 34.0 g/dL 32-36 [facility] Mean platelet volume determi nationOrdered By: Maulik Young on 09-28-2024 Platelet mean volume (Bld) [Entitic vol] 9.0 fL 6.2-12.0 [facility] Monocyte percentageOrdered B y: Maulik Young on 09-28-2024 Monocytes/100 WBC (Bld) 5.9 % 0-10 [facility] Neutrophil percentageOrdered By: Maulik Young on 09-28-2024 Neutrophils/100 WBC (Bld) 70.6 % High 47-70 [facility] Nucleated red blood cell per centageOrdered By: Maulik Young on 09-28-2024 Nucleated RBC/100 WBC (Bld) [Ratio] 0 % 0-5 [facility] Platelet countOrdered By: Wale Young on 09-28-2024 Platelets (Bld) [#/Vol] 392 10*3/uL 150-450 [facility] Potassium measurement (mass/ volume)Ordered By: Maulik Young on 09-28-2024 Potassium (Unsp spec) [Mass/Vol] 3.6 mmol/L 3.3-5.1 [facility] RBC Auto (Bld) [#/Vol]Ordere d By: Maulik Young on 09-28-2024 RBC (Bld) [#/Vol] 4.57 10*6/uL 4.2-5.4 [facility] Serum creatinine measurement (mass/volume)Ordered By: Maulik Young on 09-28-2024 Creatinine [Mass/Vol] 0.65 mg/dL Low 0.70-1.20 [facility] Serum glucose measurement (m ass/volume)Ordered By: Maulik Young on 09-28-2024 Glucose [Mass/Vol] 106 mg/dL High 70-99 [facility] Serum or plasma calcium pablo urement (mass/volume)Ordered By: Maulik Young on 09-28-2024 Calcium [Mass/Vol] 8.9 mg/dL 7.6-11.0 [facility] Serum or plasma urea nitroge n measurement (mass/volume)Ordered By: Maulik Young on 09-28-2024 Urea nitrogen [Mass/Vol] 13 mg/dL 4-19 [facility] Sodium levelOrdered By: Germán Young on 09-28-2024 Sodium [Moles/Vol] 139 mmol/L 133-145 [facility] Troponin T HS 2 HRon 025 Trop T High Sen < 6 Normal <=14 [facility] Comment on above: Performed By: #### L 499.0042 ####[facility] [address] [place], [place], [id number] Troponin T HS 4 HRon 025 Trop T High Sen Normal <=14 [facility] Comment on above: Result Comment: Canc elled via OM: Order cancelled - Patient discharged Performed By: #### L 499.0043 ####[facility] [address] [place], [place], [address] Troponin T.cardiac [Mass/vol ume] in Serum or Plasma by High sensitivity methodOrdered By: Maulik Young on 09-28-2024 Troponin T.cardiac High sensitivity method [Mass/Vol] < 6 ng/L <14 [facility] Troponin T.cardiac High sensitivity method [Mass/Vol] < 6 ng/L <14 [facility] White blood cell (WBC) count Ordered By: Maulik Young on 09-28-2024 WBC (Bld) [#/Vol] 14.4 10*3/uL High 4.4-11.0 [facility] Urine Cultureon 08-01-2024 [facility] Urine Culture Escherichia coli [place] Count 80,000-100,000 Escherichia coli: REACTION Ampicillin Islt [...] TMP SMX Islt NARDA >=320 R Normal [facility] Comment on above: Performed By: #### L 400, L505.5000, L501.9520, L506.0400, M100.2200, L500.4100 ####[facility] [address] [place], [place], [id number] Amphetamine detection with 1 000 ng/mL as cutoffOrdered By: Raad Armendariz on 07-30-2024 Amphetamines Screen method >1000 ng/mL Ql (U) Negative < 200 ng/mL [facility] Bilirubin Test strip Ql (U)O rdered By: Raad Armendariz on 07-30-2024 Bilirubin Ql (U) Negative Negative [facility] Calculated very low density lipoprotein (VLDL) cholesterol measurementOrdered By: Raad Armendariz on 07-30-2024 Calculated very low density lipoprotein (VLDL) cholesterol measurement 53 mg/dL High 5-40 [facility] Ketones Test strip Ql (U)Ord ered By: Raad Armendariz on 07-30-2024 Ketones Ql (U) Negative Negative [facility] LDL calc ser/plasOrdered By: Raad Armendariz on 07-30-2024 Cholesterol in LDL [Mass/Vol] 139 mg/dL [facility] Comment on above: Yjnpgezeyb=754-780 m g/dL & Higher Ismy=568 mg/dL or greater Lipid Profileon 07-30-2024 CHOL:HDL 3.68 Normal [facility] Comment on above: Performed By: #### L , L505.5000, L501.9520, L506.0400, M100.2200, L500.4100 ####[facility] [address] [place], [place], [id number] Cholesterol [Mass/Vol] 263 mg/dL High <=200 [facility] Comment on above: Result Comment: Chol esterol level, Desirable <200 mg/dL Borderline high cholesterol 200-239 mg/dL High cholesterol >=240 mg/dL Recommendations of the NCEP Adult Treatment Panel for the following risk-cutoff thresholds for the [place] population. Performed By: #### L 400, L505.5000, L501.9520, L506.0400, M100.2200, L500.4100 ####[facility] [address] [place], [address] Cholesterol in HDL [Mass/Vol] 72 mg/dL Normal [facility] Comment on above: Result Comment: [place] on[place] Cholesterol Education Program (NCEP) guidelines: <40 mg/dL: Low HDL-cholesterol (major risk factor for CHD) >= 60 mg/dL: High HDL-cholesterol (negative risk factor for CHD) HDL-cholesterol is affected by a number of factors, e.g. smoking, exercise, hormones, sex and age. Performed By: #### L , L505, L501.9520, L506.0400, M100.2200, L500.4100 ####[facility] [address] [place], [address] Cholesterol in LDL [Mass/Vol] 139 mg/dL Normal [facility] Comment on above: Result Comment: Bord hynimp=679-154 mg/dL Higher Jgqq=682 mg/dL or greater Performed By: #### L , L505.4999, L501.9520, L506.0400, M100.2200, L500.4100 ####[facility] [address] [place], [address] Cholesterol in VLDL [Mass/Vol] 53 mg/dL High 5-40 [facility] Comment on above: Performed By: #### L , L505.5000, L501.9520, L506.0400, M100.2200, L500.4100 ####[facility] [address] [place], [address] Triglyceride [Mass/Vol] 263 mg/dL High [facility] Comment on above: Result Comment: The drugs N-Acetylcysteine and Metamizole may falsely depress this assay. Normal range: <150 mg/dL Borderline High: 150-199 mg/dL High: 200-499 mg/dL Very High: >500 mg/dL Performed By: #### L 400.2011, L505.5000, L501.9520, L506.0400, M100.2200, L500.4100 ####[facility] [address] [place], [address] Nitrite Test strip Ql (U)Ord ered By: Raad Armendariz on 07-30-2024 Nitrite Ql (U) Negative Negative [facility] No Panel InformationOrdered By: Raad Armendariz on 07-30-2024 Urine Buprenorphine Qualitative Negative < 200 ng/mL [facility] Urine Oxycodone Screen Negative < 100 ng/mL [facility] Protein Test strip Ql (U)Ord ered By: Raad Armendariz on 07-30-2024 Protein Ql (U) 15 mg/dl High Negative [facility] Quantitative urine opiates m easurementOrdered By: Raad Armendariz on 07-30-2024 Opiates Ql (U) Positive < 300 ng/mL [facility] Comment on above: If confirmation test ing is needed, a separate order will be required to send out testing to the reference laboratory. Screening total cholesterol/ high density lipoprotein (HDL) cholesterol ratioOrdered By: Raad Armendariz on 07-30-2024 Cholesterol.total/Cholest jolene in HDL [Mass ratio] 3.68 {ratio} [facility] Screening urine fentanyl yaniv surementOrdered By: Raad Armendariz on 07-30-2024 fentaNYL Screen Ql (U) Negative [facility] Serum or plasma cholesterol in HDL measurement (mass/volume)Ordered By: Raad Armendariz on 07-30-2024 Cholesterol in HDL [Mass/Vol] 72 mg/dL >40 [facility] Comment on above: National Cholesterol Education Program (NCEP) guidelines:<40 mg/dL: Low HDL-cholesterol (major risk factor for CHD)>= 60 mg/dL: High HDL-cholesterol (negative risk factor for CHD)HDL-cholesterol is affected by a number of factors, e.g. smoking, exercise, hormones, sex and age. Serum or plasma cholesterol measurement (mass/volume)Ordered By: Raad Armendariz on 07-30-2024 Cholesterol [Mass/Vol] 263 mg/dL High <201 [facility] Comment on above: Cholesterol level, D esirable <200 mg/dLBorderline high cholesterol 200-239 mg/dLHigh cholesterol >=240 mg/dLRecommendations of the NCEP Adult Treatment Panel for the following risk-cutoff thresholds for the [place] population. T4 Free Directon 07-30-2024 T4 FREE DIRECT 0.90 ng/dL Normal 0.76-1.46 [facility] Comment on above: Performed By: #### L 400, L505.5000, L501.9520, L506.0400, M100.2200, L500.4100 ####[facility] [address] [place], [place], [id number] T4 freeOrdered By: Raad ty on 07-30-2024 Free T4 [Mass/Vol] 0.90 ng/dL 0.76-1.46 [facility] TSH DL <= 0.005 mIU/L QnOrde red By: Raad Armendariz on 07-30-2024 TSH Qn 2.550 uIU/mL 0.300-4.200 [facility] Thyroid Stim Hormone (TSH)on 07-30-2024 TSH 2.550 uIU/mL Normal 0.300-4.200 [facility] Comment on above: Performed By: #### L 400.2010, L505.5000, L501.9520, L506.0400, M100.2200, L500.4100 ####[facility] [address] [place], [place], [id number] Triglycerides measurementOrd ered By: Raad Armendariz on 07-30-2024 Triglyceride [Mass/Vol] 263 mg/dL High <199 [facility] Comment on above: The drugs N-Acetylcy steine and Metamizole may falsely depress this assay. Normal range: <150 mg/dLBorderline High: 150-199 mg/dLHigh: 200-499 mg/dLVery High: >500 mg/dL Urinalysis, Routine (Dipstic k)on 07-30-2024 LEUK ESTERASE 25 /ul Abnormal Negative [facility] Comment on above: Order Comment: CLEAN CATCH Performed By: #### L 400.2010, L505.5000, L501.9520, L506.0400, M100.2200, L500.4100 ####[facility] [address] [place], [address] BILIRUBIN URINE Negative Normal Negative [facility] Comment on above: Order Comment: CLEAN CATCH Performed By: #### L 400.2010, L505.5000, L501.9520, L506.0400, M100.2200, L500.4100 ####[facility] [address] [place], [address] Clarity (U) Clear Normal Clear [facility] Comment on above: Order Comment: CLEAN CATCH Performed By: #### L 400.2010, L505.5000, L501.9520, L506.0400, M100.2200, L500.4100 ####[facility] [address] [place], [address] Color (U) Yellow Normal Yellow [facility] Comment on above: Order Comment: CLEAN CATCH Performed By: #### L 400.2010, L505.5000, L501.9520, L506.0400, M100.2200, L500.4100 ####[facility] [address] [place], [address] GLUCOSE, UR Normal Normal Normal [facility] Comment on above: Order Comment: CLEAN CATCH Performed By: #### L 400.2010, L505.5000, L501.9520, L506.0400, M100.2200, L500.4100 ####[facility] [address] [place], [address] KETONE UR Negative Normal Negative [facility] Comment on above: Order Comment: CLEAN CATCH Performed By: #### L 400.2010, L505.5000, L501.9520, L506.0400, M100.2200, L500.4100 ####[facility] [address] [place], [address] Nitrite Ql (U) Negative Normal Negative [facility] Comment on above: Order Comment: CLEAN CATCH Performed By: #### L 400.2010, L505.5000, L501.9520, L506.0400, M100.2200, L500.4100 ####[facility] [address] [place], [address] OCCULT BLOOD-UR 150 /ul Abnormal Negative [facility] Comment on above: Order Comment: CLEAN CATCH Performed By: #### L 400.2010, L505.5000, L501.9520, L506.0400, M100.2200, L500.4100 ####[facility] [address] [place], [address] pH UR 6.0 Normal 5.0 - 8.0 [facility] Comment on above: Order Comment: CLEAN CATCH Performed By: #### L 400.2010, L505.5000, L501.9520, L506.0400, M100.2200, L500.4100 ####[facility] [address] [place], [address] PROT DIPSTX 15 mg/dl Abnormal Negative [facility] Comment on above: Order Comment: CLEAN CATCH Performed By: #### L 400.2010, L505.5000, L501.9520, L506.0400, M100.2200, L500.4100 ####[facility] [address] [place], [address] SP.GR. DIPSTX 1.020 Normal 1.002-1.030 [facility] Comment on above: Order Comment: CLEAN CATCH Performed By: #### L 400.2010, L505.5000, L501.9520, L506.0400, M100.2200, L500.4100 ####[facility] [address] [place], [address] UROBILI Normal Normal Normal [facility] Comment on above: Order Comment: CLEAN CATCH Performed By: #### L 400.2010, L505.5000, L501.9520, L506.0400, M100.2200, L500.4100 ####[facility] [address] [place], [address] Urine Drug Screen (VISTA)on 07-30-2024 AMPHETAMINES Negative Normal <1000 ng/mL [facility] Comment on above: Order Comment: MEDTO X Performed By: #### L 400.2010, L505.5000, L501.9520, L506.0400, M100.2200, L500.4100 ####[facility] [address] [place], [address] BARBITIURATES Negative Normal < 200 ng/mL [facility] Comment on above: Order Comment: MEDTO X Performed By: #### L 400.2010, L505.5000, L501.9520, L506.0400, M100.2200, L500.4100 ####[facility] [address] [place], [address] BENZODIAZIPINE Negative Normal < 200 ng/mL [facility] Comment on above: Order Comment: MEDTO X Performed By: #### L 400.2010, L505.5000, L501.9520, L506.0400, M100.2200, L500.4100 ####[facility] [address] [place], [address] BUP Ur Drug Scr Negative Normal < 200 ng/mL [facility] Comment on above: Order Comment: MEDTO X Performed By: #### L 400.2010, L505.5000, L501.9520, L506.0400, M100.2200, L500.4100 ####[facility] [address] [place], [address] COCAINE Negative Normal < 300 ng/mL [facility] Comment on above: Order Comment: MEDTO X Performed By: #### L 400.2010, L505.5000, L501.9520, L506.0400, M100.2200, L500.4100 ####[facility] [address] [place], [address] Fentanyl Negative Normal [facility] Comment on above: Order Comment: MEDTO X Performed By: #### L 400.2010, L505.5000, L501.9520, L506.0400, M100.2200, L500.4100 ####[facility] [address] [place], [address] METHADONE Negative Normal < 300 ng/mL [facility] Comment on above: Order Comment: MEDTO X Performed By: #### L 400.2010, L505.5000, L501.9520, L506.0400, M100.2200, L500.4100 ####[facility] [address] [place], [address] OPIATES Positive Normal < 300 ng/mL [facility] Comment on above: Order Comment: MEDTO X Result Comment: If c onfirmation testing is needed, a separate order will be required to send out testing to the reference laboratory. Performed By: #### L 400.2010, L505.5000, L501.9520, L506.0400, M100.2200, L500.4100 ####[facility] [address] [place], [address] OXYCODONE Negative Normal < 100 ng/mL [facility] Comment on above: Order Comment: MEDTO X Performed By: #### L 400.2010, L505.5000, L501.9520, L506.0400, M100.2200, L500.4100 ####[facility] [address] [place], [address] PCP Negative Normal < 25 ng/mL [facility] Comment on above: Order Comment: MEDTO X Performed By: #### L 400.2010, L505.5000, L501.9520, L506.0400, M100.2200, L500.4100 ####[facility] [address] [place], [address] THC Positive Normal < 50 ng/mL [facility] Comment on above: Order Comment: MEDTO X Result Comment: If c onfirmation testing is needed, a separate order will be required to send out testing to the reference laboratory. Performed By: #### L 400.2010, L505.5000, L501.9520, L506.0400, M100.2200, L500.4100 ####[facility] [address] [place], [address] Urine benzodiazepine levelOr dered By: Raad Armendariz on 07-30-2024 Benzodiazepines Ql (U) Negative < 200 ng/mL [facility] Urine clarityOrdered By: Veronica Armendariz on 07-30-2024 Clarity (U) Clear Clear [facility] Urine cocaine levelOrdered B y: Raad Armendariz on 07-30-2024 Cocaine Ql (U) Negative < 300 ng/mL [facility] Urine color determinationOrd ered By: Raad Armendariz on 07-30-2024 Color (U) Yellow Yellow [facility] Urine cultureOrdered By: Veronica Armendariz on 07-30-2024 Bacteria identified Cx Nom (U) Escherichia coli Abnormal [facility] Urine esacf-0-zlukqmknujpxlz abinol (THC) measurementOrdered By: Raad Armendariz on 07-30-2024 Cannabinoids Screen Ql (U) Positive < 50 ng/mL [facility] Comment on above: If confirmation test ing is needed, a separate order will be required to send out testing to the reference laboratory. Urine glucose detectionOrder ed By: Raad Armendariz on 07-30-2024 Glucose Ql (U) Normal mg/dl Normal [facility] Urine leukocyte esterase det ection by dipstickOrdered By: Raad Armendariz on 07-30-2024 Leukocyte esterase Test strip Ql (U) 25 /ul High Negative [facility] Urine pHOrdered By: Raad chen on 07-30-2024 pH (U) 6.0 [pH] 5.0 - 8.0 [facility] Urine phencyclidine (PCP) de tectionOrdered By: Raad Armendariz on 07-30-2024 Phencyclidine Ql (U) Negative < 25 ng/mL [facility] Urine specific gravity measu rementOrdered By: Raad Armendariz on 07-30-2024 Specific gravity (U) [Rel density] 1.020 1.002-1.030 [facility] Urine urobilinogen measureme ntOrdered By: Raad Armendariz on 07-30-2024 Urobilinogen Ql (U) Normal mg/dl Normal [facility] 12 Lead EKGon 06-22-2024 12 Lead EKG [facility] [address] [place] [address] 12 Lead EKG 06/22/24 1605 MR#: [id number] Acct: [id number] Name: CANDY HEARD Rep #: [id number] : 1970 53 From: Laureano Wesley MD [...] Sinus tachycardia Otherwise normal ECG Confirmed by LAUREANO WESLEY MD ([id number]), slot editor EDMUND GIVENS ([id number]) on 06/24/2024 9:16:39 AM Referred By: Tyler Marsh Confirmed By: LAUREANO WESLEY MD 06/24/24 0916 Date Laureano Wesley MD CC: Dr. Tyler Marsh, DO; Dr. Raad Armendariz DO Signed Normal [facility] Absolute lymphocyte countOrd ered By: Tyler Marsh on 06-22-2024 Lymphocytes Auto (Unsp spec) [#/Vol] 3.27 10*3/uL 0.83-4.51 [facility] Absolute neutrophil countOrd ered By: Tyler Marsh on 06-22-2024 Neutrophils (Bld) [#/Vol] 3.6 10*3/uL 2.0-7.7 [facility] Anion gap in Serum or Plasma Ordered By: Tyler Marsh on 06-22-2024 Anion gap [Moles/Vol] 13 mmol/L 5-15 [facility] Automated lymphocyte count a s percentage of total leukocytesOrdered By: Tyler Marsh on 06-22-2024 Lymphocytes/100 WBC Auto (Unsp spec) 41.3 % High 19-41 [facility] BUN/creatinine ratioOrdered By: Tyler Marsh on 06-22-2024 Urea nitrogen/Creatinine [Mass ratio] 24.0 mg/mg High 10-20 [facility] Basic Metabolic Profile (BMP )on 06-22-2024 BUN/CRE 24.0 RATIO High 10- [facility] Comment on above: Performed By: #### L 500.2500, L100.0100 ####[facility] [address] [place], [address] Calcium [Mass/Vol] 8.9 mg/dL Normal 7.6-11.0 [facility] Comment on above: Performed By: #### L 500.2500, L100.0100 ####[facility] [address] [place], [address] Chloride [Moles/Vol] 103 mmol/L Normal 98-108 [facility] Comment on above: Performed By: #### L 500.2500, L100.0100 ####[facility] [address] [place], [address] CO2 [Moles/Vol] 22.6 mmol/L Normal 21.0-32.0 [facility] Comment on above: Performed By: #### L 500.2500, L100.0100 ####[facility] [address] [place], [address] Creatinine [Mass/Vol] 0.70 mg/dL Normal 0.70-1.20 [facility] Comment on above: Performed By: #### L 500.2500, L100.0100 ####[facility] [address] [place], [address] ECRCL 82.10 ml/min Normal 50-250 [facility] Comment on above: Performed By: #### L 500.2500, L100.0100 ####[facility] [address] [place], [address] GAP 13 Normal 5-15 [facility] Comment on above: Performed By: #### L 500.2500, L100.0100 ####[facility] [address] [place], [address] GFR/1.73 sq M.predicted among non-blacks MDRD (S/P/Bld) [Vol rate/Area] 105 mL/min/{1.73_m2} Normal >60 [facility] Comment on above: Result Comment: mL/m in/1.73m2 CKD-EPI Creatinine Equation (2020) Performed By: #### L 500.2500, L100.0100 ####[facility] [address] [place], [address] Glucose [Mass/Vol] 115 mg/dL High 70-99 [facility] Comment on above: Performed By: #### L 500.2500, L100.0100 ####[facility] [address] [place], [address] Potassium [Moles/Vol] 4.1 mmol/L Normal 3.3-5.1 [facility] Comment on above: Performed By: #### L 500.2500, L100.0100 ####[facility] [address] [place], [address] Sodium [Moles/Vol] 139 mmol/L Normal 133-145 [facility] Comment on above: Performed By: #### L 500.2500, L100.0100 ####[facility] [address] [place], [address] Urea nitrogen [Mass/Vol] 17 mg/dL Normal 4-19 [facility] Comment on above: Performed By: #### L 500.2500, L100.0100 ####[facility] [address] [place], [address] Basophil percentageOrdered B y: Tyler Marsh on 06-22-2024 Basophils/100 WBC (Bld) 0.6 % 0-1 [facility] CBC W/Diff, Automatedon 06-06 Absolute Lymph 3.27 X10 3/uL Normal 0.83-4.51 [facility] Comment on above: Performed By: #### L 500.2500, L100.0100 ####[facility] [address] [place], [address] Absolute Neut 3.6 X10 3/uL Normal 2.0-7.7 [facility] Comment on above: Performed By: #### L 500.2500, L100.0100 ####[facility] [address] [place], [address] Basophils/100 WBC (Bld) 0.6 % Normal 0-1 [facility] Comment on above: Performed By: #### L 500.2500, L100.0100 ####[facility] [address] [place], [address] Eosinophils/100 WBC (Bld) 5.4 % High 0-5 [facility] Comment on above: Performed By: #### L 500.2500, L100.0100 ####[facility] [address] [place], [address] Erythrocyte distribution width (RBC) [Ratio] 13.7 % Normal 11.6-14.6 [facility] Comment on above: Performed By: #### L 500.2500, L100.0100 ####[facility] [address] [place], [address] Hematocrit (Bld) [Volume fraction] 41.9 % Normal 37-47 [facility] Comment on above: Performed By: #### L 500.2500, L100.0100 ####[facility] [address] [place], [address] Hemoglobin (Bld) [Mass/Vol] 14.0 g/dL Normal 12.0-15.0 [facility] Comment on above: Performed By: #### L 500.2500, L100.0100 ####[facility] [address] [place], [address] IG% 0.400 Normal 0.0-0.9 [facility] Comment on above: Result Comment: IG% - Immature Granulocytes (promyelocytes, myelocytes and metamyelocytes) > 1% indicates that a LEFT SHIFT is Present. Performed By: #### L 500.2500, L100.0100 ####[facility] [address] [place], [address] Lymphocytes/100 WBC (Bld) 41.3 % High 19-41 [facility] Comment on above: Performed By: #### L 500.2500, L100.0100 ####[facility] [address] [place], [address] MCH (RBC) [Entitic mass] 29.5 pg Normal 27.0-32.0 [facility] Comment on above: Performed By: #### L 500.2500, L100.0100 ####[facility] [address] [place], [address] MCHC (RBC) [Mass/Vol] 33.4 g/dL Normal 32-36 [facility] Comment on above: Performed By: #### L 500.2500, L100.0100 ####[facility] [address] [place], [address] MCV (RBC) [Entitic vol] 88.2 fL Normal 81-99 [facility] Comment on above: Performed By: #### L 500.2500, L100.0100 ####[facility] [address] [place], [address] Monocytes/100 WBC (Bld) 6.7 % Normal 0-10 [facility] Comment on above: Performed By: #### L 500.2500, L100.0100 ####[facility] [address] [place], [address] Neutrophils/100 WBC (Bld) 45.6 % Low 47-70 [facility] Comment on above: Performed By: #### L 500.2500, L100.0100 ####[facility] [address] [place], [address] Nucleated RBC (Bld) [#/Vol] 0 10*3/uL Normal 0-5 [facility] Comment on above: Performed By: #### L 500.2500, L100.0100 ####[facility] [address] [place], [address] Platelet mean volume (Bld) [Entitic vol] 8.9 fL Normal 6.2-12.0 [facility] Comment on above: Performed By: #### L 500.2500, L100.0100 ####[facility] [address] [place], [address] Platelets (Bld) [#/Vol] 354 10*3/uL Normal 150-450 [facility] Comment on above: Performed By: #### L 500.2500, L100.0100 ####[facility] [address] [place], [address] RBC (Bld) [#/Vol] 4.75 10*6/uL Normal 4.2-5.4 [facility] Comment on above: Performed By: #### L 500.2500, L100.0100 ####[facility] [address] [place], [address] RDW SD 44.4 fl High 35.1-43.9 [facility] Comment on above: Performed By: #### L 500.2500, L100.0100 ####[facility] [address] [place], [address] WBC (Bld) [#/Vol] 7.9 10*3/uL Normal 4.4-11.0 [facility] Comment on above: Performed By: #### L 500.2500, L100.0100 ####[facility] [address] [place], [address] Carbon dioxide, total [Moles /volume] in Central venous bloodOrdered By: Tyler Marsh on 06-22-2024 CO2 [Moles/Vol] 22.6 mmol/L 21.0-32.0 [facility] Chloride assayOrdered By: Lars Marsh on 06-22-2024 Chloride [Moles/Vol] 103 mmol/L 98-108 [facility] Emergency Department Summary on 06-22-2024 Emergency Department Summary [facility] Medical Records Department [address] [place] [address] Emergency Department Summary 06/22/24 MR#: [id number] Acct: [id number] Name: CANDY HEARD Rep #: [id number] : 1970 53 From: Tyler Marsh DO PCP: Dr. Raad Armendariz, DO Status:DEP ER Location: ED HPI History of Present Illness Chief Complaint: Asthma Onset/Context/Travon ng Onset: Today Context: gradual and onset (30 [...] worse. Patient states that she used this pillow cleaner in the past and denies any [...] Recent immobilization, Recent surgery or Recent travel [facility] Medical History Thyroid nodule Wears glasses Bipolar disorder Alcohol use High cholesterol Easy bruising Restless legs History of diverticulitis History of IBS Gastric reflux Smoker COPD (chronic obstructive pulmonary disease) Shortness of breath on exertion Depression Arthritis History of back problems Epigastric pain Hypercholesterolem ia GERD (gastroesophageal reflux disease) History of COPD [...] at home: Yes additional social history: Marko- [employer] Patient works at [employer] ROS ROS ED Constitutional Constitutional [...] rash Neurologic Neurologic: Denies headache(s) or weakness Allergic/Immunolog ic Allergic/Immunolog ic ED: Denies mouth sw (more content not included)... Normal [facility] Eosinophil percentageOrdered By: Tyler Marsh on 06-22-2024 Eosinophils/100 WBC (Bld) 5.4 % High 0-5 [facility] Erythrocyte distribution wid th ratioOrdered By: Tyler Marsh on 06-22-2024 Erythrocyte distribution width (RBC) [Ratio] 13.7 % 11.6-14.6 [facility] Erythrocyte distribution wid th standard deviationOrdered By: Tyler Marsh on 06-22-2024 Erythrocyte distribution width (RBC) [Ratio] 44.4 fl High 35.1-43.9 [facility] Glomerular filtration rate ( GFR) estimation/1.73 sq m using serum, plasma, or whole bOrdered By: Tyler Marsh on 06-22-2024 GFR/1.73 sq M.predicted among non-blacks MDRD (S/P/Bld) [Vol rate/Area] 105 mL/min/{1.73_m2} >60 [facility] Comment on above: mL/min/1.73m2 CKD-EP I Creatinine Equation (2020) Hematocrit Auto (Bld) [Volum e fraction]Ordered By: Tyler Marsh on 06-22-2024 Hematocrit (Bld) [Volume fraction] 41.9 % 37-47 [facility] Hemoglobin measurementOrdere d By: Tyler Marsh on 06-22-2024 Hemoglobin (Bld) [Mass/Vol] 14.0 g/dL 12.0-15.0 [facility] Immature granulocytes/100 WB C Auto (Bld)Ordered By: Tyler Marsh on 06-22-2024 Immature granulocytes/100 WBC (Bld) 0.400 % 0.0-0.9 [facility] Comment on above: IG% - Immature Granu locytes (promyelocytes, myelocytes and metamyelocytes) > 1% indicates that a LEFT SHIFT is Present. MCV (mean corpuscular volume ) determinationOrdered By: Tyler Marsh on 06-22-2024 MCV (RBC) [Entitic vol] 88.2 fL 81-99 [facility] Mean corpuscular hemoglobin (MCH) determinationOrdered By: Tyler Marsh on 06-22-2024 MCH (RBC) [Entitic mass] 29.5 pg 27.0-32.0 [facility] Mean corpuscular hemoglobin concentration (MCHC) determinationOrdered By: Tyler Marsh on 06-22-2024 MCHC (RBC) [Mass/Vol] 33.4 g/dL 32-36 [facility] Mean platelet volume determi nationOrdered By: Tyler Marsh on 06-22-2024 Platelet mean volume (Bld) [Entitic vol] 8.9 fL 6.2-12.0 [facility] Monocyte percentageOrdered B y: Tyler Marsh on 06-22-2024 Monocytes/100 WBC (Bld) 6.7 % 0-10 [facility] Neutrophil percentageOrdered By: Tyler Marsh on 06-22-2024 Neutrophils/100 WBC (Bld) 45.6 % Low 47-70 [facility] Nucleated red blood cell per centageOrdered By: Tyler Marsh on 06-22-2024 Nucleated RBC/100 WBC (Bld) [Ratio] 0 % 0-5 [facility] Platelet countOrdered By: Lars Marsh on 06-22-2024 Platelets (Bld) [#/Vol] 354 10*3/uL 150-450 [facility] Potassium measurement (mass/ volume)Ordered By: Tyler Marsh on 06-22-2024 Potassium (Unsp spec) [Mass/Vol] 4.1 mmol/L 3.3-5.1 [facility] RBC Auto (Bld) [#/Vol]Ordere d By: Tyler Marsh on 06-22-2024 RBC (Bld) [#/Vol] 4.75 10*6/uL 4.2-5.4 [facility] Serum creatinine measurement (mass/volume)Ordered By: Tyler Marsh on 06-22-2024 Creatinine [Mass/Vol] 0.70 mg/dL 0.70-1.20 [facility] Serum glucose measurement (m ass/volume)Ordered By: Tyler Marsh on 06-22-2024 Glucose [Mass/Vol] 115 mg/dL High 70-99 [facility] Serum or plasma calcium pablo urement (mass/volume)Ordered By: Tyler Marsh on 06-22-2024 Calcium [Mass/Vol] 8.9 mg/dL 7.6-11.0 [facility] Serum or plasma urea nitroge n measurement (mass/volume)Ordered By: Tyler Marsh on 06-22-2024 Urea nitrogen [Mass/Vol] 17 mg/dL 4-19 [facility] Sodium levelOrdered By: Tyler Marsh on 06-22-2024 Sodium [Moles/Vol] 139 mmol/L 133-145 [facility] White blood cell (WBC) count Ordered By: Tyler Marsh on 06-22-2024 WBC (Bld) [#/Vol] 7.9 10*3/uL 4.4-11.0 [facility] 12 Lead EKGon 03-17-2024 12 Lead EKG [facility] [address] [place] [address] 12 Lead EKG 03/17/24 0948 MR#: [id number] Acct: [id number] Name: CANDY HEARD Rep #: [id number] : 1970 53 From: Anastacio Aguero MD [...] DATA IS UNCONFIRMED Confirmed by Anastacio Aguero ([id number]), slot editor JOSE CHAVARRIA ([id number]) on 03/20/2024 7:01:25 AM Referred By: Confirmed By: Anastacio Aguero 03/20/24 0701 Date Anastacio Aguero MD CC: Dr. Raad Armendariz DO; Dr. Maulik Young DO Signed Normal [facility] 12 Lead EKG [facility] [address] [place] [address] 12 Lead EKG 03/17/24 0948 MR#: [id number] Acct: [id number] Name: CANDY HEARD Rep #: [id number] : 1970 53 From: Laureano Wesley MD [...] Normal sinus rhythm Normal ECG Confirmed by GORGE YOUNG, LAUREANO ([id number]), slot editor EDMUND GIVENS ([id number]) on 03/18/2024 11:07:25 AM Referred By: Confirmed By: LAUREANO WESLEY MD 03/18/24 1107 Date Laureano Wesley MD CC: Dr. Raad Armendariz DO; Dr. Maulik Young DO Signed Normal [facility] Absolute lymphocyte countOrd ered By: Maulik Young on 03-17-2024 Lymphocytes Auto (Unsp spec) [#/Vol] 2.99 10*3/uL 0.83-4.51 [facility] Absolute neutrophil countOrd ered By: Maulik Young on 03-17-2024 Neutrophils (Bld) [#/Vol] 5.8 10*3/uL 2.0-7.7 [facility] Automated blood erythrocyte countOrdered By: Maulik Young on 03-17-2024 RBC (Bld) [#/Vol] 4.59 10*6/uL Normal 4.2-5.4 [facility] Comment on above: Performed By: #### L 501.4020, L500.2500, L100.0100 #### [facility] [address] [place], [address] Automated blood hematocrit ( percentage)Ordered By: Maulik Young on 03-17-2024 Hematocrit (Bld) [Volume fraction] 41.5 % Normal 37-47 [facility] Comment on above: Performed By: #### L 501.4020, L500.2500, L100.0100 #### [facility] [address] [place], [address] Automated lymphocyte count a s percentage of total leukocytesOrdered By: Maulik Young on 03-17-2024 Lymphocytes/100 WBC Auto (Unsp spec) 29.8 % 19-41 [facility] Basic Metabolic Profile (BMP )on 03-17-2024 BUN/CRE 17.8 RATIO Normal 10-20 [facility] Comment on above: Order Comment: 'TROP ' Serial specimen #1, #2 or #3: 1 Performed By: #### L 501.4020, L500.2500, L100.0100 ####[facility] [address] [place], [address] CA,Total 8.8 mg/dL Normal 8.5-10.1 [facility] Comment on above: Order Comment: 'TROP ' Serial specimen #1, #2 or #3: 1 Performed By: #### L 501.4020, L500.2500, L100.0100 ####[facility] [address] [place], [address] Chloride [Moles/Vol] 101 mmol/L Normal 98-107 [facility] Comment on above: Order Comment: 'TROP ' Serial specimen #1, #2 or #3: 1 Performed By: #### L 501.4020, L500.2500, L100.0100 ####[facility] [address] [place], [address] CO2 [Moles/Vol] 30.0 mmol/L Normal 21.0-32.0 [facility] Comment on above: Order Comment: 'TROP ' Serial specimen #1, #2 or #3: 1 Performed By: #### L 501.4020, L500.2500, L100.0100 ####[facility] [address] [place], [address] Creatinine [Mass/Vol] 0.84 mg/dL Normal 0.55-1.02 [facility] Comment on above: Order Comment: 'TROP ' Serial specimen #1, #2 or #3: 1 Result Comment: The validity of the calculated GFR GFRAA in patients over 70 years has not been determined. Clinical correlation is essential. Performed By: #### L 501.4020, L500.2500, L100.0100 ####[facility] [address] [place], [address] ECRCL 80.73 ml/min Normal [facility] Comment on above: Order Comment: 'TROP ' Serial specimen #1, #2 or #3: 1 Performed By: #### L 501.4020, L500.2500, L100.0100 ####[facility] [address] [place], [address] EST GFR - AA 91 mL/min Normal >60 [facility] Comment on above: Order Comment: 'TROP ' Serial specimen #1, #2 or #3: 1 Result Comment: Afri can [place] GFR Calc Performed By: #### L 501.4020, L500.2500, L100.0100 ####[facility] [address] [place], [address] GAP 10 Normal 5-15 [facility] Comment on above: Order Comment: 'TROP ' Serial specimen #1, #2 or #3: 1 Performed By: #### L 501.4020, L500.2500, L100.0100 ####[facility] [address] [place], [address] GFR/1.73 sq M.predicted among non-blacks MDRD (S/P/Bld) [Vol rate/Area] 75 mL/min/{1.73_m2} Normal >60 [facility] Comment on above: Order Comment: 'TROP ' Serial specimen #1, #2 or #3: 1 Result Comment: Non- GFR Calc Performed By: #### L 501.4020, L500.2500, L100.0100 ####[facility] [address] [place], [address] Glucose [Mass/Vol] 155 mg/dL High 74-106 [facility] Comment on above: Order Comment: 'TROP ' Serial specimen #1, #2 or #3: 1 Result Comment: Fast ing Glucose result greater than or equal to 126 mg/dL suggests DIABETES MELLITUS per A.D.A. criteria. Performed By: #### L 501.4020, L500.2500, L100.0100 ####[facility] [address] [place], [address] Potassium [Moles/Vol] 3.6 mmol/L Normal 3.5-5.1 [facility] Comment on above: Order Comment: 'TROP ' Serial specimen #1, #2 or #3: 1 Performed By: #### L 501.4020, L500.2500, L100.0100 ####[facility] [address] [place], [address] Sodium [Moles/Vol] 141 mmol/L Normal 136-145 [facility] Comment on above: Order Comment: 'TROP ' Serial specimen #1, #2 or #3: 1 Performed By: #### L 501.4020, L500.2500, L100.0100 ####[facility] [address] [place], [address] Urea nitrogen [Mass/Vol] 15 mg/dL Normal 7-18 [facility] Comment on above: Order Comment: 'TROP ' Serial specimen #1, #2 or #3: 1 Performed By: #### L 501.4020, L500.2500, L100.0100 ####[facility] [address] [place], [address] Basophil percentageOrdered B y: Maulik Hector on 03-17-2024 Basophils/100 WBC (Bld) 0.7 % Normal 0-1 [facility] Comment on above: Performed By: #### L 501.4020, L500.2500, L100.0100 #### [facility] [address] [place], [address] Blood urea nitrogen (BUN)/cr eatinine ratioOrdered By: Maulik Young on 03-17-2024 Urea nitrogen/Creatinine [Mass ratio] 17.8 mg/mg 10-20 [facility] CBC W/Diff, Automatedon Absolute Lymph 2.99 X10 3/uL Normal 0.83-4.51 [facility] Comment on above: Performed By: #### L 501.4020, L500.2500, L100.0100 #### [facility] [address] [place], [address] Absolute Neut 5.8 X10 3/uL Normal 2.0-7.7 [facility] Comment on above: Performed By: #### L 501.4020, L500.2500, L100.0100 #### [facility] [address] [place], [address] IG% 0.400 Normal 0.0-0.9 [facility] Comment on above: Result Comment: IG% - Immature Granulocytes (promyelocytes, myelocytes and metamyelocytes) > 1% indicates that a LEFT SHIFT is Present. Performed By: #### L 501.4020, L500.2500, L100.0100 #### [facility] [address] [place], [address] Lymphocytes/100 WBC (Bld) 29.8 % Normal 19-41 [facility] Comment on above: Performed By: #### L 501.4020, L500.2500, L100.0100 #### [facility] [address] [place], [address] Nucleated RBC (Bld) [#/Vol] 0 10*3/uL Normal 0-5 [facility] Comment on above: Performed By: #### L 501.4020, L500.2500, L100.0100 #### [facility] [address] [place], [address] RDW SD 45.1 fl High 35.1-43.9 [facility] Comment on above: Performed By: #### L 501.4020, L500.2500, L100.0100 #### [facility] [address] [place], [address] Carbon dioxide measurementOr dered By: Maulik Young on 03-17-2024 CO2 [Moles/Vol] 30.0 mmol/L 21.0-32.0 [facility] Chest 1 View (Portable)on Chest 1 View (Portable) [facility] Imaging Services [address] [place] [address] Chest 1 View (Portable) MR#: [id number] Acct: [id number] Name: CANDY HEARD Rep #: [id number] : 1970 F 53 From: Mayco Mei MD PCP: Dr. Raad Armendariz DO Status: REG ER Study: Chest 1 View (Portable) Date of Exam: 03/17/24 Exam# [id number] Ordering Dr: Maulik Young DO PROCEDURE: CHEST 1 VIEW (PORTABLE) REASON FOR EXAM: Short of breath TECHNIQUE: Frontal view of the chest. COMPARISON: None. FINDINGS: The cardiac and mediastinal contours are normal. The lungs are clear. RAD/Chest 1 View (Portable) IMPRESSION: NEGATIVE SINGLE VIEW OF THE CHEST. Reading Location: [facility] CC: Dr. Raad Armendariz DO; Dr. Maulik Young DO Drawing Kiln Supervisor: Signed Normal [facility] Chloride measurementOrdered By: Maulik Young on 03-17-2024 Chloride [Moles/Vol] 101 mmol/L 98-107 [facility] Emergency Department Summary on 03-17-2024 Emergency Department Summary [facility] Medical Records Department [address] [place] [address] Emergency Department Summary 03/17/24 MR#: [id number] Acct: [id number] Name: CANDY HEARD Rep #: [id number] : 1970 53 From: Maulik Young DO PCP: Dr. Raad Armendariz DO Status:DEP ER Location: ED HPI History of Present Illness Chief Complaint: Shortness of Breath PFSH PFSH Medical History Thyroid nodule Wears glasses Bipolar disorder Alcohol use High cholesterol Easy bruising Restless legs History of diverticulitis History of IBS Gastric reflux Smoker COPD (chronic obstructive pulmonary disease) Shortness of breath on exertion Depression Arthritis History of back problems Epigastric pain Hypercholesterolem ia GERD (gastroesophageal reflux disease) History of COPD [...] social history: [employer] Patient works at [employer] EXAM Physical Exam Const Vital [...] leg swelli (more content not included)... Normal [facility] Eosinophil percentageOrdered By: Maulik Young on 03-17-2024 Eosinophils/100 WBC (Bld) 5.6 % High 0-5 [facility] Comment on above: Performed By: #### L 501.4020, L500.2500, L100.0100 #### [facility] [address] [place], [place], [address] Erythrocyte distribution wid th ratioOrdered By: Maulik Young on 03-17-2024 Erythrocyte distribution width (RBC) [Ratio] 13.5 % Normal 11.6-14.6 [facility] Comment on above: Performed By: #### L 501.4020, L500.2500, L100.0100 #### [facility] [address] [place], [address] Erythrocyte distribution wid th standard deviationOrdered By: Maulik Young on 03-17-2024 Erythrocyte distribution width (RBC) [Ratio] 45.1 fl High 35.1-43.9 [facility] Glomerular filtration rate ( GFR) estimationOrdered By: Maulik Young on 03-17-2024 GFR/1.73 sq M.predicted among non-blacks MDRD (S/P/Bld) [Vol rate/Area] 75 mL/min/{1.73_m2} >60 [facility] Comment on above: Non- GFR Calc Glucose measurementOrdered B y: Maulik Young on 03-17-2024 Glucose [Mass/Vol] 155 mg/dL High 74-106 [facility] Comment on above: Fasting Glucose resu lt greater than or equal to 126 mg/dL suggests DIABETES MELLITUS per A.D.A. criteria. Hemoglobin measurementOrdere d By: Maulik Young on 03-17-2024 Hemoglobin (Bld) [Mass/Vol] 13.3 g/dL Normal 12.0-15.0 [facility] Comment on above: Performed By: #### L 501.4020, L500.2500, L100.0100 #### [facility] [address] [place], [place], [address] Immature granulocytes/100 WB C Auto (Bld)Ordered By: Maulik Young on 03-17-2024 Immature granulocytes/100 WBC (Bld) 0.400 % 0.0-0.9 [facility] Comment on above: IG% - Immature Granu locytes (promyelocytes, myelocytes and metamyelocytes) > 1% indicates that a LEFT SHIFT is Present. Influenza virus A and B and SARS-CoV-2 (COVID-19) and Respiratory syncytial virus RNAOrdered By: Maulik Young on 03-17-2024 SARS-CoV-2 (COVID-19) RNA RICHAR+probe Ql (Unsp spec) [facility] L501.4020on 03-17-2024 TROPONIN-I HS < 3 Low 3.0-54.0 [facility] Comment on above: Order Comment: 'TROP ' Serial specimen #1, #2 or #3: 2 Result Comment: Cornelio chew Note: New Test Units and Gender Specific Reference Ranges. For more information see Policy Stat Procedure [place] High Sensitivity Troponin (TNIH) and attachments. Performed By: #### L 501.4020 ####[facility] [address] [place], [place], [address] TROPONIN-I HS < 3 Low 3.0-54.0 [facility] Comment on above: Order Comment: 'TROP ' Serial specimen #1, #2 or #3: 1 Result Comment: Cornelio chew Note: New Test Units and Gender Specific Reference Ranges. For more information see Policy Stat Procedure [place] High Sensitivity Troponin (TNIH) and attachments. Performed By: #### L 501.4020, L500.2500, L100.0100 ####[facility] [address] [place], [address] M100.678on 03-17-2024 M100.678 Pending SARS-CoV-2 (COVID 19) Negative INFLUENZA A Negative INFLUENZA B Negative RSV PCR Negative Normal [facility] Comment on above: Performed By: #### M 100.678 ####[facility] [address] [place], [address] MCV (mean corpuscular volume ) determinationOrdered By: Maulik Young on 03-17-2024 MCV (RBC) [Entitic vol] 90.4 fL Normal 81-99 [facility] Comment on above: Performed By: #### L 501.4020, L500.2500, L100.0100 #### [facility] [address] [place], [address] Mean corpuscular hemoglobin (MCH) determinationOrdered By: Maulik Young on 03-17-2024 MCH (RBC) [Entitic mass] 29.0 pg Normal 27.0-32.0 [facility] Comment on above: Performed By: #### L 501.4020, L500.2500, L100.0100 #### [facility] [address] [place], [address] Mean corpuscular hemoglobin concentration (MCHC) determinationOrdered By: Maulik Young on 03-17-2024 MCHC (RBC) [Mass/Vol] 32.0 g/dL Normal 32-36 [facility] Comment on above: Performed By: #### L 501.4020, L500.2500, L100.0100 #### [facility] [address] [place], [address] Mean platelet volume determi nationOrdered By: Maulik Young on 03-17-2024 Platelet mean volume (Bld) [Entitic vol] 9.0 fL Normal 6.2-12.0 [facility] Comment on above: Performed By: #### L 501.4020, L500.2500, L100.0100 #### [facility] [address] [place], [address] Monocyte percentageOrdered B y: Maulik Young on 03-17-2024 Monocytes/100 WBC (Bld) 6.0 % Normal 0-10 [facility] Comment on above: Performed By: #### L 501.4020, L500.2500, L100.0100 #### [facility] [address] [place], [address] Neutrophil percentageOrdered By: Maulik Young on 03-17-2024 Neutrophils/100 WBC (Bld) 57.5 % Normal 47-70 [facility] Comment on above: Performed By: #### L 501.4020, L500.2500, L100.0100 #### [facility] [address] [place], [address] Nucleated red blood cell per centageOrdered By: Maulik Young on 03-17-2024 Nucleated RBC/100 WBC (Bld) [Ratio] 0 % 0-5 [facility] Platelet countOrdered By: Wale Young on 03-17-2024 Platelets (Bld) [#/Vol] 425 10*3/uL Normal 150-450 [facility] Comment on above: Performed By: #### L 501.4020, L500.2500, L100.0100 #### [facility] [address] [place], [address] Potassium measurementOrdered By: Maulik Young on 03-17-2024 Potassium [Moles/Vol] 3.6 mmol/L 3.5-5.1 [facility] Serum anion gap measurementO rdered By: Maulik Young on 03-17-2024 Anion gap [Moles/Vol] 10 mmol/L 5-15 [facility] Serum or plasma calcium pablo urement (mass/volume)Ordered By: Maulik Young on 03-17-2024 Calcium [Mass/Vol] 8.8 mg/dL 8.5-10.1 [facility] Serum or plasma creatinine m easurement (mass/volume)Ordered By: Maulik Young on 03-17-2024 Creatinine [Mass/Vol] 0.84 mg/dL 0.55-1.02 [facility] Comment on above: The validity of the calculated GFR & GFRAA in patients over 70 years has not been determined. Clinical correlation is essential. Serum or plasma urea nitroge n measurement (mass/volume)Ordered By: Maulik Young on 03-17-2024 Urea nitrogen [Mass/Vol] 15 mg/dL 7-18 [facility] Sodium levelOrdered By: Germán Young on 03-17-2024 Sodium [Moles/Vol] 141 mmol/L 136-145 [facility] Troponin IOrdered By: Maulik Young on 03-17-2024 Troponin I < 3 pg/mL Low 3.0-54.0 [facility] Comment on above: Please Note: [place] t Units and Gender Specific Reference Ranges. For more information see Policy Stat Procedure [place] High Sensitivity Troponin (TNIH) and attachments. White blood cell (WBC) count Ordered By: Maulik Young on 03-17-2024 WBC (Bld) [#/Vol] 10.1 10*3/uL Normal 4.4-11.0 [facility] Comment on above: Performed By: #### L 501.4020, L500.2500, L100.0100 #### [facility] [address] [place], [place], [address] Free T3on 12-29-2023 Free T3 [Mass/Vol] 1.5 pg/mL Low 2.18-3.98 [facility] Comment on above: Performed By: #### L 501.9520, L501.55035, L506.0400 #### [facility] [address] [place], [address] T4 Free Directon 12-29-2023 T4 FREE DIRECT 0.68 ng/dL Low 0.76-1.46 [facility] Comment on above: Performed By: #### L 501.9520, L501.39617, L506.0400 #### [facility] [address] [place], [address] Thyroid Stim Hormone (TSH)on 12-29-2023 TSH 2.880 uIU/mL Normal 0.358-3.740 [facility] Comment on above: Performed By: #### L 501.9520, L501.53167, L506.0400 #### [facility] [address] [place], [address] Chest PA and Lateralon 12-27 Chest PA and Lateral [facility] [address] [place] [address] Chest PA and Lateral MR#: [id number] Acct: [id number] Name: CANDY HEARD Rep #: [id number] : 1970 F 53 From: Pk Hanson DO PCP: Dr. Raad Armendariz, DO Status: DEP ER Study: Chest PA and Lateral Date of Exam: 12/28/23 Exam# [id number] Ordering Dr: Geo Donaldson DO [id number] INDICATION: dyspnea EXAMINATION/TECHNI QUE: X-RAY - XR Chest 2 Views COMPARISON: [...] Raad Armendariz DO; Dr. Geo Donaldson DO Drawing Kiln Supervisor: Signed Normal [facility] Emergency Department Summary on 12-28-2023 Emergency Department Summary [facility] Medical Records Department [address] [place] [id number] Emergency Department Summary 12/28/23 MR#: [id number] Acct: [id number] Name: CANDY HEARD Rep #: [id number] : 1970 53 From: Geo Donaldson DO PCP: Dr. Raad Armendariz DO Status:DEP [...] care physician tomorrow for a general checkup. [facility] Medical History Thyroid nodule Wears glasses Bipolar disorder Alcohol use High cholesterol Easy bruising Restless legs History of diverticulitis History of IBS Gastric reflux Smoker COPD (chronic obstructive pulmonary disease) Shortness of breath on exertion Depression Arthritis History of back problems Epigastric pain Hypercholesterolem ia GERD (gastroesophageal reflux disease) History of COPD [...] social history: Paul Stoddard Patient works at [employer] ROS ROS ED Review of [...] Endocrine Endocrinology: Denies polydipsia, polyphagia or polyuria Hematologic/Lympha tic Hematologic/Lympha tic: Denies easy bleeding, easy bruising or lymphadenopathy Allergic/Immunolog ic Allergic/Immunolog ic ED: Denies mouth swelling, tongue swelling or (more content not included)... Normal [facility] Absolute lymphocyte countOrd ered By: Geo Donaldson on 05-29-2023 Lymphocytes Auto (Unsp spec) [#/Vol] 3.00 10*3/uL 0.83-4.51 [facility] Automated lymphocyte count a s percentage of total leukocytesOrdered By: Geo Donaldson on 05-29-2023 Lymphocytes/100 WBC Auto (Unsp spec) 27.6 % 19-41 [facility] Basophil percentageOrdered B y: Geo Donaldson on 05-29-2023 Basophils/100 WBC (Bld) 0.6 % 0-1 [facility] Chloride [Moles/Vol] 104 mmol/L 98-107 [facility] Eosinophils/100 WBC (Bld) 3.5 % 0-5 [facility] Glucose [Mass/Vol] 98 mg/dL 74-106 [facility] Hemoglobin (Bld) [Mass/Vol] 13.6 g/dL 12.0-15.0 [facility] Monocytes/100 WBC (Bld) 5.2 % 0-10 [facility] Neutrophils (Bld) [#/Vol] 6.8 10*3/uL 2.0-7.7 [facility] Neutrophils/100 WBC (Bld) 62.5 % 47-70 [facility] Potassium [Moles/Vol] 4.1 mmol/L 3.5-5.1 [facility] Sodium [Moles/Vol] 137 mmol/L 136-145 [facility] WBC (Bld) [#/Vol] 10.9 10*3/uL 4.4-11.0 [facility] Determination of erythrocyte mean corpuscular volume (MCV)Ordered By: Geo Donaldson on 05-29-2023 MCV (RBC) [Entitic vol] 89.4 fL 81-99 [facility] Erythrocyte distribution wid th ratioOrdered By: Geo Donaldson on 05-29-2023 Erythrocyte distribution width (RBC) [Ratio] 13.5 % 11.6-14.6 [facility] Erythrocyte distribution wid th standard deviationOrdered By: Geo Donaldson on 05-29-2023 Erythrocyte distribution width (RBC) [Entitic vol] 44.3 fL 35.1-43.9 [facility] Hematocrit Auto (Bld) [Volum e fraction]Ordered By: Geo Donaldson on 05-29-2023 Hematocrit (Bld) [Volume fraction] 42.3 % 37-47 [facility] Immature granulocytes/100 WB C Auto (Bld)Ordered By: Geo Donaldson on 05-29-2023 Immature granulocytes/100 WBC (Bld) 0.600 % 0.0-0.9 [facility] Comment on above: IG% - Immature Granu locytes (promyelocytes, myelocytes and metamyelocytes) > 1% indicates that a LEFT SHIFT is Present. Laboratory - Chemistry and C hemistry - challengeOrdered By: Geo Donaldson on 05-29-2023 CO2 [Moles/Vol] 29.0 mmol/L 21.0-32.0 [facility] Urea nitrogen/Creatinine [Mass ratio] 12.4 mg/mg 10-20 [facility] - Hematology and Cell countsOrdered By: Geo Donaldson on 05-29-2023 MCH (RBC) [Entitic mass] 28.8 pg 27.0-32.0 [facility] MCHC (RBC) [Mass/Vol] 32.2 g/dL 32-36 [facility] Nucleated RBC/100 WBC (Bld) [Ratio] 0 % 0-5 [facility] Platelet mean volume (Bld) [Entitic vol] 9.3 fL 6.2-12.0 [facility] Platelets (Bld) [#/Vol] 398 10*3/uL 150-450 [facility] No Panel InformationOrdered By: Geo Donaldson on 05-29-2023 Estimated Creatinine Clearance Calc 80.72 ml/min [facility] Estimated GFR (MDRD) Amer 109 mL/min >60 [facility] Comment on above: GFR Calc Estimated GFR (MDRD) Non-Af Amer 90 mL/min >60 [facility] Comment on above: Non- GFR Calc Free Triiodothyronine (T3) pg/dL 2.6 pg/mL 2.18-3.98 [facility] RBC Auto (Bld) [#/Vol]Ordere d By: Geo Donaldson on 05-29-2023 RBC (Bld) [#/Vol] 4.73 10*6/uL 4.2-5.4 [facility] Serum or plasma calcium pablo urement (mass/volume)Ordered By: Geo Donaldson on 05-29-2023 Calcium [Mass/Vol] 9.0 mg/dL 8.5-10.1 [facility] Serum or plasma creatinine m easurement (mass/volume)Ordered By: Geo Donaldson on 05-29-2023 Creatinine [Mass/Vol] 0.72 mg/dL 0.55-1.02 [facility] Comment on above: The validity of the calculated GFR & GFRAA in patients over 70 years has not been determined. Clinical correlation is essential. Serum or plasma thyroid stim ulating hormone (TSH) measurement (units/volume)Ordered By: Geo Donaldson on 05-29-2023 TSH Qn 2.23 uIU/mL 0.358-3.74 [facility] Serum or plasma thyroxine (T 4) measurement (mass/volume)Ordered By: Geo Donaldson on 04-22-2024 T4 [Mass/Vol] 8.3 ug/dL 4.8-13.9 [facility] Serum or plasma triiodothyro nine measurement by immunoassay (mass/volume)Ordered By: Geo Donaldson on 05-29-2023 T3 IA [Mass/Vol] 0.91 ng/mL 0.6-1.81 [facility] Serum or plasma urea nitroge n measurement (mass/volume)Ordered By: [facility] on 05-29-2023 Urea nitrogen [Mass/Vol] 9 mg/dL 7-18 [facility] Streptococcus pyogenes rRNA detection in throat by DNA probeOrdered By: Geo Donaldson on 05-29-2023 S. pyogenes rRNA Probe Ql (Throat) [facility] Thin prep Papanicolaou smear with manual screeningOrdered By: Geo Donaldson on 05-29-2023 Thin prep Papanicolaou smear with manual screening 4 5-15 [facility] Thin prep Papanicolaou smear with manual screening 0.94 ng/dL 0.76-1.46 [facility] - Microbiology an d Antimicrobial susceptibilityOrdered By: Raad Armendariz on 05-15-2023 SARS-CoV-2 (COVID-19) RNA RICHAR+probe Ql (Unsp spec) [facility] Respiratory pathogens detect ion panel by molecular detection methodOrdered By: Raad Armendariz on 05-15-2023 Respiratory pathogens DNA and RNA panel RICHAR+probe (Resp) [facility] Absolute lymphocyte countOrd ered By: Maulik Young on 03-12-2023 Lymphocytes Auto (Unsp spec) [#/Vol] 1.47 10*3/uL 0.83-4.51 [facility] Automated lymphocyte count a s percentage of total leukocytesOrdered By: Maulik Young on 03-12-2023 Lymphocytes/100 WBC Auto (Unsp spec) 16.9 % 19-41 [facility] Basophil percentageOrdered B y: Maulik Young on 03-12-2023 Basophils/100 WBC (Bld) 0.3 % 0-1 [facility] Chloride [Moles/Vol] 104 mmol/L 98-107 [facility] Eosinophils/100 WBC (Bld) 0.1 % 0-5 [facility] Glucose [Mass/Vol] 156 mg/dL 74-106 [facility] Comment on above: Fasting Glucose resu lt greater than or equal to 126 mg/dL suggests DIABETES MELLITUS per A.D.A. criteria. Hemoglobin (Bld) [Mass/Vol] 13.5 g/dL 12.0-15.0 [facility] Monocytes/100 WBC (Bld) 9.2 % 0-10 [facility] Neutrophils (Bld) [#/Vol] 6.4 10*3/uL 2.0-7.7 [facility] Neutrophils/100 WBC (Bld) 73.2 % 47-70 [facility] Potassium [Moles/Vol] 3.2 mmol/L 3.5-5.1 [facility] Sodium [Moles/Vol] 136 mmol/L 136-145 [facility] WBC (Bld) [#/Vol] 8.7 10*3/uL 4.4-11.0 [facility] Determination of erythrocyte mean corpuscular volume (MCV)Ordered By: Maulik Young on 03-12-2023 MCV (RBC) [Entitic vol] 86.6 fL 81-99 [facility] Erythrocyte distribution wid th ratioOrdered By: Maulik Young on 03-12-2023 Erythrocyte distribution width (RBC) [Ratio] 13.6 % 11.6-14.6 [facility] Erythrocyte distribution wid th standard deviationOrdered By: Maulik Young on 03-12-2023 Erythrocyte distribution width (RBC) [Entitic vol] 42.8 fL 35.1-43.9 [facility] Hematocrit Auto (Bld) [Volum e fraction]Ordered By: Maulik Young on 03-12-2023 Hematocrit (Bld) [Volume fraction] 40.1 % 37-47 [facility] Immature granulocytes/100 WB C Auto (Bld)Ordered By: Maulik Young on 03-12-2023 Immature granulocytes/100 WBC (Bld) 0.300 % 0.0-0.9 [facility] Comment on above: IG% - Immature Granu locytes (promyelocytes, myelocytes and metamyelocytes) > 1% indicates that a LEFT SHIFT is Present. Laboratory - Chemistry and C hemistry - challengeOrdered By: Maulik Young on 03-12-2023 CO2 [Moles/Vol] 26.0 mmol/L 21.0-32.0 [facility] Urea nitrogen/Creatinine [Mass ratio] 19.9 mg/mg 10-20 [facility] - Hematology and Cell countsOrdered By: Maulik Young on 03-12-2023 MCH (RBC) [Entitic mass] 29.2 pg 27.0-32.0 [facility] MCHC (RBC) [Mass/Vol] 33.7 g/dL 32-36 [facility] Nucleated RBC/100 WBC (Bld) [Ratio] 0 % 0-5 [facility] Platelets (Bld) [#/Vol] 294 10*3/uL 150-450 [facility] - Microbiology an d Antimicrobial susceptibilityOrdered By: Tamanna Lema on 03-12-2023 SARS-CoV-2 (COVID-19) RNA RICHAR+probe Ql (Unsp spec) Influenzae A [facility] No Panel InformationOrdered By: Maulik Young on 03-12-2023 Estimated Creatinine Clearance Calc 96.69 ml/min [facility] Estimated GFR (MDRD) Amer 123 mL/min >60 [facility] Comment on above: GFR Calc Estimated GFR (MDRD) Non-Af Amer 102 mL/min >60 [facility] Comment on above: Non- GFR Calc Troponin I High Sensitivity < 3 pg/mL 3.0-54.0 [facility] Comment on above: Please Note: [place] t Units and Gender Specific Reference Ranges. For more information see Policy Stat Procedure [place] High Sensitivity Troponin (TNIH) and attachments. Platelet mean volume Axel-Ec ker (Bld) [Entitic vol]Ordered By: Maulik Young on 03-12-2023 Platelet mean volume (Bld) [Entitic vol] 8.9 fL 6.2-12.0 [facility] RBC Auto (Bld) [#/Vol]Ordere d By: Maulik Young on 03-12-2023 RBC (Bld) [#/Vol] 4.63 10*6/uL 4.2-5.4 [facility] Serum or plasma calcium pablo urement (mass/volume)Ordered By: Maulik Young on 03-12-2023 Calcium [Mass/Vol] 8.4 mg/dL 8.5-10.1 [facility] Serum or plasma creatinine m easurement (mass/volume)Ordered By: Maulik Young on 03-12-2023 Creatinine [Mass/Vol] 0.65 mg/dL 0.55-1.02 [facility] Comment on above: The validity of the calculated GFR & GFRAA in patients over 70 years has not been determined. Clinical correlation is essential. Serum or plasma urea nitroge n measurement (mass/volume)Ordered By: Maulik Young on 03-12-2023 Urea nitrogen [Mass/Vol] 13 mg/dL 7-18 [facility] Thin prep Papanicolaou smear with manual screeningOrdered By: Maulik Young on 03-12-2023 Thin prep Papanicolaou smear with manual screening 6 5-15 [facility] Basophil percentageOrdered B y: Raad Armendariz on 09-09-2022 Basophil percentage Not Reportable [facility] No Panel InformationOrdered By: Raad Armendariz on 09-09-2022 Anti-Nuclear Antibody Screen Negative Negative [facility] Comment on above: Performed at: [facility] [place] [id number] Director: Dane Dai PhD, Phone: [phone] [employer] B Antibody Not Reportable [facility] [employer] Antibody Not Reportable [facility] Serum DNA double strand anti body assay (units/volume)Ordered By: Raad Armendariz on 09-09-2022 DNA double strand Ab Qn (S) Not Reportable [facility] Serum Leslie-1 antibody assay (u nits/volume)Ordered By: Raad Armendariz on 09-09-2022 Leslie-1 extractable nuclear Ab Qn (S) Not Reportable [facility] Serum Scl-70 extractable nuc lear antibody assay (units/volume)Ordered By: Raad Armendariz on 09-09-2022 SCL-70 extractable nuclear Ab Qn (S) Not Reportable [facility] Serum Jim extractable nucl ear antibody detectionOrdered By: Raad Armendariz on 09-09-2022 Jim extractable nuclear Ab Ql (S) Not Reportable [facility] Absolute lymphocyte counton 06-14-2021 Lymphocytes Auto (Unsp spec) [#/Vol] 3.02 10*3/uL 0.83-4.51 [facility] Work Phone: Basophil percentageon 2021 Basophils/100 WBC (Bld) 0.3 % 0-1 [facility] Work Phone: [phone] Bilirubin [Mass/Vol] 0.40 mg/dL 0.20-1.00 [facility] Work Phone: [phone] Comment on above: For patients on eltr ombopag therapy, use of Dimension [place] TBIL is not recommended. Chloride [Moles/Vol] 105 mmol/L 98-107 [facility] Work Phone: Eosinophils/100 WBC (Bld) 3.7 % 0-5 [facility] Work Phone: Glucose [Mass/Vol] 152 mg/dL 74-106 [facility] Work Phone: Comment on above: Fasting Glucose resu lt greater than or equal to 126 mg/dL suggests DIABETES MELLITUS per A.D.A. criteria. Neutrophils (Bld) [#/Vol] 4.6 10*3/uL 2.0-7.7 [facility] Work Phone: Neutrophils/100 WBC (Bld) 52.3 % 47-70 [facility] Work Phone: Potassium [Moles/Vol] 3.5 mmol/L 3.5-5.1 [facility] Work Phone: [phone] Protein [Mass/Vol] 7.8 g/dL 6.4-8.2 [facility] Work Phone: [phone] Sodium [Moles/Vol] 138 mmol/L 136-145 [facility] Work Phone: [phone] WBC (Bld) [#/Vol] 8.8 10*3/uL 4.4-11.0 [facility] Work Phone: Blood erythrocytes count (nu mber/volume)on 06-14-2021 RBC (Bld) [#/Vol] 4.67 10*6/uL 4.2-5.4 [facility]: Blood hemoglobin measurement (mass/volume)on 06-14-2021 Hemoglobin (Bld) [Mass/Vol] 13.8 g/dL 12.0-15.0 [facility] Work Phone: Blood lymphocytes/100 leukoc yteson 06-14-2021 Lymphocytes/100 WBC (Bld) 34.2 % 19-41 [facility] Work Phone: Blood monocytes/100 leukocyt eson 06-14-2021 Monocytes/100 WBC (Bld) 9.3 % 0-10 [facility] Work Phone: Blood platelet mean volumeon 06-14-2021 Platelet mean volume (Bld) [Entitic vol] 9.0 fL 6.2-12.0 [facility] Work Phone: Determination of erythrocyte mean corpuscular volume (MCV)on 06-14-2021 MCV (RBC) [Entitic vol] 91.0 fL 81-99 [facility] Work Phone: Hematocrit Auto (Bld) [Volum e fraction]on 06-14-2021 Hematocrit (Bld) [Volume fraction] 42.5 % 37-47 [facility] Work Phone: Laboratory - Chemistry and C hemistry - challengeon 06-14-2021 ALP [Catalytic activity/Vol] 55 U/L 45-117 [facility] Work Phone: ALT [Catalytic activity/Vol] 24 U/L 13-56 [facility] Work Phone: CO2 [Moles/Vol] 27.0 mmol/L 21.0-32.0 [facility] Work Phone: Globulin (S) [Mass/Vol] 4.1 g/dL 2.2-4.2 [facility] Work Phone: Lipase [Catalytic activity/Vol] 134 U/L 73-393 [facility] Work Phone: Urea nitrogen/Creatinine [Mass ratio] 17.9 mg/mg 10-20 [facility] Work Phone: Laboratory - Hematology and Cell countson 06-14-2021 Erythrocyte distribution width (RBC) [Entitic vol] 44.2 fL 35.1-43.9 [facility] Work Phone: Erythrocyte distribution width (RBC) [Ratio] 13.2 % 11.6-14.6 [facility] Work Phone: Immature granulocytes/100 WBC (Bld) 0.200 % 0.0-0.9 [facility] Work Phone: Comment on above: IG% - Immature Granu locytes (promyelocytes, myelocytes and metamyelocytes) > 1% indicates that a LEFT SHIFT is Present. MCH (RBC) [Entitic mass] 29.6 pg 27.0-32.0 [facility] Work Phone: Nucleated RBC/100 WBC (Bld) [Ratio] 0 % 0-5 [facility] Work Phone: MCHC Auto (RBC) [Mass/Vol]on 06-14-2021 MCHC (RBC) [Mass/Vol] 32.5 g/dL 32-36 [facility] Work Phone: No Panel Informationon 06-14 Estimated Creatinine Clearance Calc 76.17 ml/min [facility] Work Phone: Estimated GFR (MDRD) Amer 101 mL/min >60 [facility] Work Phone: Comment on above: GFR Calc Estimated GFR (MDRD) Non-Af Amer 83 mL/min >60 [facility] Work Phone: Comment on above: Non- GFR Calc Platelets bldon 06-14-2021 Platelets (Bld) [#/Vol] 322 10*3/uL 150-450 [facility] Work Phone: Serum or plasma albumin pablo urement (mass/volume)on 06-14-2021 Albumin [Mass/Vol] 3.7 g/dL 3.2-5.0 [facility] Work Phone: Serum or plasma albumin/glob ulin mass ratioon 06-14-2021 Albumin/Globulin [Mass ratio] 0.9 {ratio} 0.9-2.4 [facility] Work Phone: Serum or plasma calcium pablo urement (mass/volume)on 06-14-2021 Calcium [Mass/Vol] 8.8 mg/dL 8.5-10.1 [facility] Work Phone: Serum or plasma creatinine m easurement (mass/volume)on 06-14-2021 Creatinine [Mass/Vol] 0.78 mg/dL 0.55-1.02 [facility] Work Phone: Comment on above: The validity of the calculated GFR & GFRAA in patients over 70 years has not been determined. Clinical correlation is essential. Serum or plasma urea nitroge n measurement (mass/volume)on 06-14-2021 Urea nitrogen [Mass/Vol] 14 mg/dL 7-18 [facility] Work Phone: Thin prep Papanicolaou smear with manual screeningon 06-14-2021 Thin prep Papanicolaou smear with manual screening 21 U/L 15-37 [facility] Work Phone: Thin prep Papanicolaou smear with manual screening 6 5-15 [facility] Work Phone: No Panel Informationon 04-29 D-Dimer Quantitative (PE/DVT) < 0.27 FEU/ug/m 0.27-0.49 [facility] Work Phone: Comment on above: NORMAL D-Dimer level (<0.50) indicates no DVT or PE. .Auto Diffon 05-25-2020 Basophil, Absolute 0.10 10 3/mcL Normal 0.00-0.19 [facility] ([place]) Comment on above: Performed By: #### P REGU, UAMICAO, UA #### [address] [address] Basophils/100 WBC (Bld) 0.7 % Normal 0.0-2.5 A [facility] ([place]) Comment on above: Performed By: #### P REGU, UAMICAO, UA #### [address] [address] Eosinophil, Absolute 0.50 10 3/mcL High 0.00-0.40 A [facility] ([place]) Comment on above: Performed By: #### P REGU, UAMICAO, UA #### [address] [address] Eosinophils/100 WBC (Bld) 6.0 % Normal 0.0-7.0 [facility] ([place]) Comment on above: Performed By: #### P REGU, UAMICAO, UA #### [address] [address] Lymphocyte, Absolute 2.00 10 3/mcL Normal 0.77-3.85 A [facility] ([place]) Comment on above: Performed By: #### P REGU, UAMICAO, UA #### [address] [address] Lymphocytes/100 WBC (Bld) 25.5 % Normal 10.0-50.0 [facility] ([place]) Comment on above: Performed By: #### P REGU, UAMICAO, UA #### [address] [address] Monocyte, Absolute 0.50 10 3/mcL Normal 0.15-1.00 [facility] ([place]) Comment on above: Performed By: #### P REGU, UAMICAO, UA #### [address] [address] Monocytes/100 WBC (Bld) 6.0 % Normal 1.7-13.0 A [facility] ([place]) Comment on above: Performed By: #### P REGU, UAMICAO, UA #### [place] [address] [place], [place] [address] Neutrophils/100 WBC (Bld) 61.8 % Normal 37.0-80.0 [facility] ([place]) Comment on above: Performed By: #### P REGU, UAMICAO, UA #### [place] [address] [address] .GFRon 05-25-2020 GFR Non- 90 ml/min/1.73sqm Normal [facility] ([place]) Comment on above: Result Comment: GFR Population [...] #### P REGU, UAMICAO, UA #### [place] [address] [address] GFR 109 ml/min/1.73sqm Normal [facility] ([place]) Comment on above: Result Comment: GFR Population [...] By: #### P REGU, UAMICAO, UA #### [address] [address] .NEUABSon 05-25-2020 Neutrophil, Absolute 4.80 10 3/mcL Normal 2.85-6.16 A [facility] ([place]) Comment on above: Performed By: #### P REGU, UAMICAO, UA #### [address] [address] BMPon 05-25-2020 BUN/Creatinine Ratio 19 ratio Normal 7-27 [facility] ([place]) Comment on above: Performed By: #### P REGU, UAMICAO, UA #### [address] [address] Calcium [Mass/Vol] 8.7 mg/dL Normal 8.4-10.2 [facility] ([place]) Comment on above: Performed By: #### P REGU, UAMICAO, UA #### [address] [address] Chloride [Moles/Vol] 102 mmol/L Normal 98-107 [facility] ([place]) Comment on above: Performed By: #### P REGU, UAMICAO, UA #### [address] [address] CO2 [Moles/Vol] 30 mmol/L High 22-29 [facility] ([place]) Comment on above: Performed By: #### P REGU, UAMICAO, UA #### [address] [address] Creatinine [Mass/Vol] 0.70 mg/dL Normal 0.55-1.02 [facility] ([place]) Comment on above: Performed By: #### P REGU, UAMICAO, UA #### [address] [address] Electrolyte Balance 8.0 mEq/L Normal [facility] ([place]) Comment on above: Performed By: #### P REGU, UAMICAO, UA #### [address] [address] Glucose [Mass/Vol] 123 mg/dL High 70-105 [facility] ([place]) Comment on above: Performed By: #### P REGU, UAMICAO, UA #### [address] [address] Potassium [Moles/Vol] 4.0 mmol/L Normal 3.5-5.1 [facility] ([place]) Comment on above: Performed By: #### P REGU, UAMICAO, UA #### [place] [id number] Sodium [Moles/Vol] 140 mmol/L Normal 136-145 [facility] ([place]) Comment on above: Performed By: #### P REGU, UAMICAO, UA #### [address] [address] Urea nitrogen [Mass/Vol] 13 mg/dL Normal 7-18 [facility] ([place]) Comment on above: Performed By: #### P REGU, UAMICAO, UA #### [address] [address] CBCon 05-25-2020 Erythrocyte distribution width (RBC) [Ratio] 13.3 % Normal 11.5-14.5 [facility] ([place]) Comment on above: Performed By: #### C NANCY TORO TROPHS, ANEU, BMP #### [place] [address] #### GFR #### [place] [address] Hematocrit (Bld) [Volume fraction] 39.2 % Normal 37.0-47.0 [facility] ([place]) Comment on above: Performed By: #### C BCNANCY TROPHS, ANEU, BMP #### [place] [address] #### GFR #### [address] [address] Hgb 13.1 G/dL Normal 12.0-16.0 [facility] ([place]) Comment on above: Performed By: #### C BC ADIFF, TROPHS, ANEU, BMP #### [place] [address] #### GFR #### [place] [address] MCH (RBC) [Entitic mass] 30.1 pg Normal 27.0-31.2 [facility] ([place]) Comment on above: Performed By: #### C BC, ADIFF, TROPHS, ANEU, BMP #### [place] [address] #### GFR #### [place] [address] MCHC 33.3 G/dL Normal 33.0-37.0 [facility] ([place]) Comment on above: Performed By: #### C BC, ADIFF, TROPHS, ANEU, BMP #### [place] [address] #### GFR #### [place] [address] MCV (RBC) [Entitic vol] 90.2 fL Normal 80.0-94.0 A [facility] ([place]) Comment on above: Performed By: #### C BC, ADIFF, TROPHS, ANEU, BMP #### [place] [address] #### GFR #### [place] [address] Platelet 355 10 3/mcL Normal 130-400 [facility] ([place]) Comment on above: Performed By: #### C BC, ADIFF, TROPHS, ANEU, BMP #### [place] [address] #### GFR #### [place] [address] Platelet mean volume (Bld) [Entitic vol] 7.1 fL Low 7.4-10.4 [facility] ([place]) Comment on above: Performed By: #### C BC, ADIFF, TROPHS, ANEU, BMP #### [place] [address] #### GFR #### [address] [address] RBC 4.34 10 6/mcL Normal 4.20-5.40 [facility] ([place]) Comment on above: Performed By: #### C BC, ADIFF, TROPHS, ANEU, BMP #### [address] [address] #### GFR #### [address] [address] WBC 7.80 10 3/mcL Normal 4.60-10.80 [facility] ([place]) Comment on above: Performed By: #### C BC, ADIFF, TROPHS, ANEU, BMP #### [address] [address] #### GFR #### [place] [address] TROPHSon 05-25-2020 Troponin I High Sensitivity <4.0 Normal 0.0-51.4 [facility] ([place]) Comment on above: Performed By: #### P REGU, UAMICAO, UA #### [address] [address] XR CHEST 1 VIEWon 05-25-2020 XR CHEST 1 VIEW ORIGINAL XR CHEST 1 VIEW CLINICAL STATEMENT: chest pain. COMPARISON: [facility] examination 02/10/2011. FINDINGS: Lungs remain clear. There [...] 05/25/2020 9:16:08 AM Ordering Provider:Gay Castaneda [facility] ([place]) .Auto Diffon 12-19-2019 Basophil, Absolute 0.00 10 3/mcL Normal 0.00-0.19 [facility] ([place]) Comment on above: Performed By: #### A THEE, CMP, ADIFF, GFR, LIP, CBC #### [address] [address] Basophils/100 WBC (Bld) 0.4 % Normal 0.0-2.5 A [facility] ([place]) Comment on above: Performed By: #### A THEE, CMP, ADIFF, GFR, LIP, CBC #### [address] [address] Eosinophil, Absolute 0.50 10 3/mcL High 0.00-0.40 A [facility] ([place]) Comment on above: Performed By: #### A THEE, CMP, ADIFF, GFR, LIP, CBC #### [address] [address] Eosinophils/100 WBC (Bld) 5.9 % Normal 0.0-7.0 [facility] ([place]) Comment on above: Performed By: #### A THEE, CMP, ADIFF, GFR, LIP, CBC #### [address] [address] Lymphocyte, Absolute 2.20 10 3/mcL Normal 0.77-3.85 A [facility] ([place] Comment on above: Performed By: #### A THEE, CMP, ADIFF, GFR, LIP, CBC #### [address] [address] Lymphocytes/100 WBC (Bld) 25.7 % Normal 10.0-50.0 [facility] ([place]) Comment on above: Performed By: #### A THEE, CMP, ADIFF, GFR, LIP, CBC #### [address] [address] Monocyte, Absolute 0.60 10 3/mcL Normal 0.15-1.00 [facility] ([place]) Comment on above: Performed By: #### A THEE, CMP, ADIFF, GFR, LIP, CBC #### [address] [address] Monocytes/100 WBC (Bld) 7.3 % Normal 1.7-13.0 A [facility] ([place] Comment on above: Performed By: #### A THEE, CMP, ADIFF, GFR, LIP, CBC #### [address] [address] Neutrophils/100 WBC (Bld) 60.7 % Normal 37.0-80.0 [facility] ([place]) Comment on above: Performed By: #### A THEE, CMP, ADIFF, GFR, LIP, CBC #### [address] [address] .GFRon 12-19-2019 GFR 109 ml/min/1.73sqm Normal [facility] ([place]) Comment on above: Result Comment: GFR Population [...] THEE, CMP, ADIFF, GFR, LIP, CBC #### [address] [address] GFR Non- 90 ml/min/1.73sqm Normal [facility] ([place]) Comment on above: Result Comment: GFR Population [...] THEE, CMP, ADIFF, GFR, LIP, CBC #### [place] [address] .NEUABSon 12-19-2019 Neutrophil, Absolute 5.10 10 3/mcL Normal 2.85-6.16 A [facility] ([place] Comment on above: Performed By: #### A THEE, CMP, ADIFF, GFR, LIP, CBC #### [place] [address] .Urinalysis Microscopic (AO) on 12-19-2019 UA Bacteria Trace Abnormal [facility] ([place]) Comment on above: Performed By: #### P REGU, UAMICAO, UA #### [place] [address] UA Mucous Trace Normal [facility] ([place]) Comment on above: Performed By: #### P REGU, UAMICAO, UA #### [place] [address] UA RBC 0-5 Abnormal None Seen [facility] ([place]) Comment on above: Performed By: #### P REGU, UAMICAO, UA #### [place] [address] UA Squam Epithelial 5-10 Abnormal None Seen [facility] ([place]) Comment on above: Performed By: #### P REGU, UAMICAO, UA #### [place] [address] UA WBC 5-10 Abnormal None Seen [facility] ([place] Comment on above: Performed By: #### P REGU, UAMICAO, UA #### [place] [address] CBCon 12-19-2019 Erythrocyte distribution width (RBC) [Ratio] 12.7 % Normal 11.5-14.5 [facility] ([place]) Comment on above: Performed By: #### A THEE, CMP, ADIFF, GFR, LIP, CBC #### [address] [address] Hematocrit (Bld) [Volume fraction] 40.3 % Normal 37.0-47.0 [facility] ([place]) Comment on above: Performed By: #### A THEE, CMP, ADIFF, GFR, LIP, CBC #### [address] [address] Hgb 13.7 G/dL Normal 12.0-16.0 [facility] ([place] Comment on above: Performed By: #### A THEE, CMP, ADIFF, GFR, LIP, CBC #### [address] [address] MCH (RBC) [Entitic mass] 30.5 pg Normal 27.0-31.2 [facility] ([place] Comment on above: Performed By: #### A THEE, CMP, ADIFF, GFR, LIP, CBC #### [address] [address] MCHC 34.0 G/dL Normal 33.0-37.0 [facility] ([place] Comment on above: Performed By: #### A THEE, CMP, ADIFF, GFR, LIP, CBC #### [address] [address] MCV (RBC) [Entitic vol] 89.7 fL Normal 80.0-94.0 [facility] ([place]) Comment on above: Performed By: #### A THEE, CMP, ADIFF, GFR, LIP, CBC #### [address] [address] Platelet 317 10 3/mcL Normal 130-400 [facility] ([place]) Comment on above: Performed By: #### A THEE, CMP, ADIFF, GFR, LIP, CBC #### [address] [address] Platelet mean volume (Bld) [Entitic vol] 7.3 fL Low 7.4-10.4 [facility] ([place]) Comment on above: Performed By: #### A THEE, CMP, ADIFF, GFR, LIP, CBC #### [address] [address] RBC 4.49 10 6/mcL Normal 4.20-5.40 [facility] ([place]) Comment on above: Performed By: #### A THEE, CMP, ADIFF, GFR, LIP, CBC #### [address] [address] WBC 8.40 10 3/mcL Normal 4.60-10.80 [facility] ([place]) Comment on above: Performed By: #### A THEE, CMP, ADIFF, GFR, LIP, CBC #### [address] [address] CMPon 12-19-2019 Albumin Level 4.0 G/dL Normal 3.5-5.0 [facility] ([place]) Comment on above: Performed By: #### A THEE, CMP, ADIFF, GFR, LIP, CBC #### [address] [address] Albumin/Globulin [Mass ratio] 1.2 {ratio} Normal 1.1-2.5 [facility] ([place]) Comment on above: Performed By: #### A THEE, CMP, ADIFF, GFR, LIP, CBC #### [address] [address] ALP [Catalytic activity/Vol] 49 U/L Normal 40-135 [facility] ([place]) Comment on above: Performed By: #### A THEE, CMP, ADIFF, GFR, LIP, CBC #### [address] [address] ALT [Catalytic activity/Vol] 23 U/L Normal 14-59 [facility] ([place]) Comment on above: Performed By: #### A THEE, CMP, ADIFF, GFR, LIP, CBC #### [address] [address] AST [Catalytic activity/Vol] 18 U/L Normal 10-40 [facility] ([place]) Comment on above: Performed By: #### A THEE, CMP, ADIFF, GFR, LIP, CBC #### [address] [address] Bili Total 0.4 mg/dL Normal 0.2-1.0 [facility] ([place]) Comment on above: Result Comment: Use of this assay is not recommended for patients undergoing treatment with eltrombopag due to the potential for falsely elevated results. Performed By: #### A THEE, CMP, ADIFF, GFR, LIP, CBC #### [place] [address] BUN/Creatinine Ratio 20 ratio Normal 7-27 [facility] ([place]) Comment on above: Performed By: #### A THEE, CMP, ADIFF, GFR, LIP, CBC #### [place] [id number] Calcium [Mass/Vol] 9.0 mg/dL Normal 8.4-10.2 [facility] ([place]) Comment on above: Performed By: #### A THEE, CMP, ADIFF, GFR, LIP, CBC #### [place] [address] Chloride [Moles/Vol] 103 mmol/L Normal 98-107 [facility] ([place]) Comment on above: Performed By: #### A THEE, CMP, ADIFF, GFR, LIP, CBC #### [place] [id number] CO2 [Moles/Vol] 27 mmol/L Normal 22-29 [facility] ([place]) Comment on above: Performed By: #### A THEE, CMP, ADIFF, GFR, LIP, CBC #### [address] [address] Creatinine [Mass/Vol] 0.70 mg/dL Normal 0.55-1.02 [facility] ([place]) Comment on above: Performed By: #### A THEE, CMP, ADIFF, GFR, LIP, CBC #### [address] [address] Electrolyte Balance 10.0 mEq/L Normal [facility] ([place]) Comment on above: Performed By: #### A THEE, CMP, ADIFF, GFR, LIP, CBC #### [address] [address] Globulin 3.2 G/dL Normal [facility] ([place]) Comment on above: Performed By: #### A THEE, CMP, ADIFF, GFR, LIP, CBC #### [address] [address] Glucose [Mass/Vol] 107 mg/dL High 70-105 [facility] ([place] Comment on above: Performed By: #### A THEE, CMP, ADIFF, GFR, LIP, CBC #### [address] [address] Potassium [Moles/Vol] 3.9 mmol/L Normal 3.5-5.1 [facility] ([place]) Comment on above: Performed By: #### A THEE, CMP, ADIFF, GFR, LIP, CBC #### [address] [address] Sodium [Moles/Vol] 140 mmol/L Normal 136-145 [facility] ([place] Comment on above: Performed By: #### A THEE, CMP, ADIFF, GFR, LIP, CBC #### [address] [address] Total Protein 7.2 G/dL Normal 6.4-8.2 [facility] ([place] Comment on above: Performed By: #### A THEE, CMP, ADIFF, GFR, LIP, CBC #### [address] [address] Urea nitrogen [Mass/Vol] 14 mg/dL Normal 7-18 [facility] ([place] Comment on above: Performed By: #### A THEE, CMP, ADIFF, GFR, LIP, CBC #### [address] [address] LIPon 12-19-2019 Lipase Level 119 U/L Normal 73-393 [facility] ([place]) Comment on above: Performed By: #### A THEE, CMP, ADIFF, GFR, LIP, CBC #### [address] [address] PREGUon 12-19-2019 HCG ( test) Ql (U) Negative Normal [facility] ([place] Comment on above: Performed By: #### P REGU, UAMICAO, UA #### [place] [address] test (u) int Not detected Invalid Interpretation Code [facility] ([place]) Comment on above: Performed By: #### P REGU, UAMICAO, UA #### [place] [address] UAon 12-19-2019 Color (U) Yellow Normal [facility] ([place]) Comment on above: Performed By: #### P REGU, UAMICAO, UA #### [place] [address] Glucose (U) [Mass/Vol] Negative Normal Negative [facility] ([place]) Comment on above: Performed By: #### P REGU, UAMICAO, UA #### [place] [address] Ketones Ql (U) Negative Normal Negative [facility] ([place] Comment on above: Performed By: #### P REGU, UAMICAO, UA #### [place] [address] UA Appear Slightly Cloudy Abnormal Clear [facility] ([place] Comment on above: Performed By: #### P REGU, UAMICAO, UA #### [place] [address] UA Blood Moderate Abnormal Negative [facility] ([place] Comment on above: Performed By: #### P REGU, UAMICAO, UA #### [place] [address] UA Leuk Est Small Abnormal Negative [facility] ([place] Comment on above: Performed By: #### P REGU, UAMICAO, UA #### [place] [id number] UA Nitrite Negative Normal Negative [facility] ([place] Comment on above: Performed By: #### P REGU, UAMICAO, UA #### [address] [address] UA pH 5.5 Normal 5.0 - 8.0 [facility] ([place]) Comment on above: Performed By: #### P REGU, UAMICAO, UA #### [address] [address] UA Protein Negative Normal Negative [facility] ([place]) Comment on above: Performed By: #### P REGU, UAMICAO, UA #### [address] [address] UA Spec Grav >=1.030 Abnormal 1.015-1.025 [facility] ([place]) Comment on above: Performed By: #### P REGU, UAMICAO, UA #### [address] [address] UA Specimen Type Clean Catch Normal [facility] ([place]) Comment on above: Performed By: #### P REGU, UAMICAO, UA #### [address] [address] UA Urobilinogen 0.2 E.U./dL Normal 0.2-1.0 [facility] ([place]) Comment on above: Performed By: #### P REGU, UAMICAO, UA #### [address] [address] Urobilinogen (U) [Mass/Vol] Negative Normal Negative [facility] ([place]) Comment on above: Performed By: #### P REGU, UAMICAO, UA #### [address] [address] COVID PCR, SCREENING CONGREG ATEon 08-01-2019 CORONAVIRUS 2019,PCR NOT DETECTED Normal Not Detected [facility] Comment on above: Result Comment: This [...] patient management decisions. Fact sheet for providers: https://www.fda.gov/media/393095/download Fact sheet for patients: https://www.fda.gov/media/808617/download This test has received FDA Emergency Use Authorization (EUA) and has been verified by [facility] ([facility]). This test is only authorized for the duration of time that circumstances exist to justify the authorization of the emergency use of in vitro diagnostic tests for the detection of SARS-CoV-2 virus and/or diagnosis of COVID-19 infection under section 564(b)(1) of the Act, 21 U.S.C. 360bbb-3(b)(1), unless the authorization is terminated or revoked sooner. [facility] ([facility]) is certified under CLIA-88 as qualified to perform high complexity testing. This tests analytical performance characteristics have been determined by [facility]. Testing is performed at [facility] is located at [address] [place] [address] (CLIA License #[id number], CAP #[id number]). Performed By: #### C VCLA #### [facility] [address] [place] [address] COVID PCR, SCREENING CONGREG ATEon 07-31-2019 Lab Specimen Source Nasal, Nasopharyngeal Normal [facility] Comment on above: Performed By: #### C VCLA #### [facility] [address] [place] [address] Vital Signs Date Time Vital Sign Value Performing Clinician Belloi madie 09-28-2024 22:26-0400 Body temperature 98.4 [degF] Dr. Raad Armendariz DO Work Phone: [facility] 09-28-2024 22:26-0400 Diastolic blood pressure 71 mm[Hg] Dr. Raad Armendarzi DO Work Phone: [facility] 09-28-2024 22:26-0400 Heart rate 90 /min Dr. Raad Armendariz DO Work Phone: [facility] 09-28-2024 22:26-0400 Respiratory rate 18 /min Dr. Raad Armendariz DO Work Phone: [facility] 09-28-2024 22:26-0400 SaO2% (BldA) [Mass fraction] 98 % Dr. Raad Armendariz DO Work Phone: [facility] 09-28-2024 22:26-0400 Systolic blood pressure 117 mm[Hg] Dr. Raad Armendariz DO Work Phone: [facility] 09-28-2024 18:14-0400 Body height 162.[address] Raad Armendariz DO Work Phone: [facility] 09-28-2024 18:14-0400 Body mass index (BMI) [Ratio] 25.3 kg/m2 Dr. Raad Armendariz DO Work Phone: [facility] 09-28-2024 18:14-0400 Body weight 66.[address] Raad Armendariz DO Work Phone: [facility] 06-22-2024 16:25-0400 Heart rate 94 /min Dr. Raad Armendariz DO Work Phone: [facility] 06-22-2024 16:25-0400 Respiratory rate 18 /min Dr. Raad Armendariz DO Work Phone: [facility] 06-22-2024 15:54-0400 Body height 162.[address] Raad Armendariz DO Work Phone: [facility] 06-22-2024 15:54-0400 Body mass index (BMI) [Ratio] 24 kg/m2 Dr. Raad Armendariz DO Work Phone: [facility] 06-22-2024 15:54-0400 Body temperature 97.8 [degF] Dr. Raad Armendariz DO Work Phone: [facility] 06-22-2024 15:54-0400 Body weight 63.[address] Raad Armendariz DO Work Phone: [facility] 06-22-2024 15:54-0400 Diastolic blood pressure 91 mm[Hg] Dr. Raad Armendariz DO Work Phone: [facility] 06-22-2024 15:54-0400 SaO2% (BldA) [Mass fraction] 96 % Dr. Raad Armendariz DO Work Phone: [facility] 06-22-2024 15:54-0400 Systolic blood pressure 133 mm[Hg] Dr. Raad Armendariz DO Work Phone: [facility] 03-17-2024 12:20-0500 Body temperature 96.9 [degF] Dr. Raad Armendariz DO Work Phone: [facility] 03-17-2024 12:20-0500 Diastolic blood pressure 92 mm[Hg] Dr. Raad Armendariz DO Work Phone: [facility] 03-17-2024 12:20-0500 Heart rate 90 /min Dr. Raad Armendariz DO Work Phone: [facility] 03-17-2024 12:20-0500 Respiratory rate 12 /min Dr. Raad Armendariz DO Work Phone: [facility] 03-17-2024 12:20-0500 SaO2% (BldA) [Mass fraction] 97 % Dr. Raad Armendariz DO Work Phone: [facility] 03-17-2024 12:20-0500 Systolic blood pressure 129 mm[Hg] Dr. Raad Armendariz DO Work Phone: [facility] 03-17-2024 08:48-0500 Body mass index (BMI) [Ratio] 29.9 kg/m2 Dr. Raad Armendariz DO Work Phone: [facility] 03-17-2024 08:48-0500 Body weight 79.[address] Raad Armendariz DO Work Phone: [facility] 06-07-2023 08:46-0400 Body height 162.[address] Raad Armendariz Work Phone: [facility] 06-07-2023 08:46-0400 Body mass index (BMI) [Ratio] 23.8 kg/m2 Dr. Raad Armendariz Work Phone: [facility] 06-07-2023 08:46-0400 Body temperature 97.6 [degF] Dr. Raad Armendariz Work Phone: [facility] 06-07-2023 08:46-0400 Body weight 63.[address] Raad Armendariz Work Phone: [facility] 06-07-2023 08:46-0400 Diastolic blood pressure 90 mm[Hg] Dr. Raad Armendariz Work Phone: [facility] 06-07-2023 08:46-0400 Heart rate 83 /min Dr. Raad Armendariz Work Phone: [facility] 06-07-2023 08:46-0400 Respiratory rate 18 /min Dr. Raad Armendariz Work Phone: [facility] 06-07-2023 08:46-0400 SaO2% (BldA) [Mass fraction] 96 % Dr. Raad Armendariz Work Phone: [facility] 06-07-2023 08:46-0400 Systolic blood pressure 128 mm[Hg] Dr. Raad Armendariz Work Phone: [facility] 05-29-2023 14:30-0400 Body temperature 97.6 [degF] [facility] 05-29-2023 14:30-0400 Diastolic blood pressure 78 mm[Hg] [facility] 05-29-2023 14:30-0400 Heart rate 78 /min [facility] 05-29-2023 14:30-0400 Respiratory rate 16 /min [facility] 05-29-2023 14:30-0400 SaO2% (BldA) [Mass fraction] 99 % [facility] 05-29-2023 14:30-0400 Systolic blood pressure 134 mm[Hg] [facility] 05-29-2023 10:31-0400 Body height 162.56 cm [facility] 05-29-2023 10:31-0400 Body mass index (BMI) [Ratio] 23.6 kg/m2 [facility] 05-29-2023 10:31-0400 Body weight 62.59 kg [facility] 03-12-2023 17:50-0500 Diastolic blood pressure 52 mm[Hg] [facility] 03-12-2023 17:50-0500 Respiratory rate 16 /min [facility] 03-12-2023 17:50-0500 Systolic blood pressure 108 mm[Hg] [facility] 03-12-2023 15:36-0500 Heart rate 109 /min [facility] 03-12-2023 15:36-0500 SaO2% (BldA) [Mass fraction] 99 % [facility] 03-12-2023 13:37-0500 Body height 162.56 cm [facility] 03-12-2023 13:37-0500 Body mass index (BMI) [Ratio] 24.9 kg/m2 [facility] 03-12-2023 13:37-0500 Body temperature 97.4 [degF] [facility] 03-12-2023 13:37-0500 Body weight 65.82 kg [facility] 02-15-2023 10:58-0500 Body height 162.56 cm [facility] 02-15-2023 10:58-0500 Body mass index (BMI) [Ratio] 25.4 kg/m2 [facility] 02-15-2023 10:58-0500 Body temperature 96 [degF] [facility] 02-15-2023 10:58-0500 Body weight 67.13 kg [facility] 02-15-2023 10:58-0500 Diastolic blood pressure 90 mm[Hg] [facility] 02-15-2023 10:58-0500 Heart rate 75 /min [facility] 02-15-2023 10:58-0500 Respiratory rate 18 /min [facility] 02-15-2023 10:58-0500 SaO2% (BldA) [Mass fraction] 96 % [facility] 02-15-2023 10:58-0500 Systolic blood pressure 128 mm[Hg] [facility] 04-03-2022 14:23-0500 Diastolic blood pressure 75 mm[Hg] [facility] 04-03-2022 14:23-0500 Heart rate 93 /min [facility] 04-03-2022 14:23-0500 Respiratory rate 12 /min [facility] 04-03-2022 14:23-0500 SaO2% (BldA) [Mass fraction] 94 % [facility] 04-03-2022 14:23-0500 Systolic blood pressure 124 mm[Hg] [facility] 04-03-2022 13:44-0500 Body temperature 98.3 [degF] [facility] 04-03-2022 12:49-0500 Inhaled oxygen flow rate 1 L/min [facility] 04-03-2022 12:30-0500 Body height 162.56 cm [facility] 04-03-2022 12:30-0500 Body mass index (BMI) [Ratio] 25 kg/m2 [facility] 04-03-2022 12:30-0500 Body weight 66.13 kg [facility] 06-14-2021 16:00-0400 Diastolic blood pressure 68 mm[Hg] [facility] Work Phone: 06-14-2021 16:00-0400 Heart rate 79 /min [facility] Work Phone: 06-14-2021 16:00-0400 Respiratory rate 16 /min [facility] Work Phone: 06-14-2021 16:00-0400 SaO2% (BldA) [Mass fraction] 94 % [facility] Work Phone: 06-14-2021 16:00-0400 Systolic blood pressure 107 mm[Hg] [facility] Work Phone: 06-14-2021 11:16-0400 Body height 162.56 cm [facility] Work Phone: 06-14-2021 11:16-0400 Body mass index (BMI) [Ratio] 24.2 kg/m2 [facility] Work Phone: 06-14-2021 11:16-0400 Body temperature 98.6 [degF] [facility] Work Phone: 06-14-2021 11:16-0400 Body weight 64 kg [facility] Work Phone: Encounters Encounter Date Encounter Type Care Provider Facility Start: 09-28-2024 End: 09-28-2024 Emergency department patient visit Dr. Raad Armendariz DO Work Phone: -Emergency Department Work Phone: Start: 08-05-2024 ambulatory Raad Kala Facility: [facility] Start: 08-05-2024 Encounter for genera l adult medical examination without abnormal findings [facility] Start: 07-30-2024 End: 07-30-[address] Raad Armendariz DO Work Phone: -Laboratory Yuliet [facility] Start: 07-30-2024 End: 07-30-[address] Raad Armendariz DO -Laboratory [facility]uliet [facility] Start: 07-30-2024 End: 07-30-2024 ambulatory Raad Kala Facility:[facility] Start: 06-22-2024 End: 06-22-2024 Emergency department patient visit Dr. Raad Armendariz DO Work Phone: -Emergency Department Work Phone: Start: 03-17-2024 End: 03-17-2024 Emergency department patient visit Dr. Maulik Young DO -Emergency Department Work Phone: Start: 01-29-2024 ambulatory Raad Kala Facility: [facility] Start: 12-29-2023 End: 12-29-2023 ambulatory Raad Armendariz Facility:[facility] Start: 12-28-2023 End: 12-28-2023 Emergency department patient visit Geo Donaldson Facility:[facility] Start: 06-07-2023 End: 06-07-[address] Raad Armendariz Work Phone: [facility] Work Phone: Start: 06-07-2023 End: 06-07-[address] Raad Armendariz Work Phone: [facility] Work Phone: Start: 05-29-2023 End: 05-29-2023 Emergency department patient visit [facility]-Emergency Department Work Phone: Start: 05-15-2023 End: 05-15-2023 ambulatory [facility] Work Phone: Start: 05-15-2023 End: 05-15-2023 Patient encounter procedure [facility] Yuliet [facility] Start: 03-12-2023 End: 03-12-2023 Emergency department patient visit [facility]Emergency Department Work Phone: Start: 02-15-2023 End: 02-15-2023 Emergency department patient visit [facility]Emergency Department Work Phone: Start: 09-09-2022 End: 09-09-2022 ambulatory [facility] Work Phone: Start: 09-09-2022 End: 09-09-2022 [facility] Start: 04-03-2022 End: 04-03-2022 Emergency department patient visit [facility]Emergency Department Start: 06-14-2021 End: 06-14-2021 Emergency department patient visit [facility]-Emergency Department Start: 05-17-2021 End: 05-17-2021 Patient encounter procedure [facility]-Radiology, [place] Start: 04-29-2021 End: 04-29-2021 Patient encounter procedure [facility]-Laboratory, [place] Procedures Date Procedure Procedure Detail Performing Clinician Start: 09-28-2024 Plain chest X-ray Dr. Joaquin Armendariz DO Work Phone: Start: 09-28-[address] Raad Armendariz DO Work Phone: Start: 07-30-[address] Raad Armendariz [...] Treatment Date Care Activity Detail Author Start: 09-28-2024 [facility] Start: 09-28-2024 [facility] Start: 06-22-2024 [facility] Start: 03-17-2024 [facility] Start: 03-17-2024 [facility] Start: 05-29-2023 [facility] Start: 03-12-2023 [facility] Start: 03-12-2023 End: 03-12-2023 [facility] Start: 02-15-2023 [facility] Start: 04-03-2022 [facility] Patient Education [facility] Work Phone: Patient referral [facility] Work Phone: Payers Date Payer Category Payer Self-pay [id number] 2023 Unknown [id number] 2015 Unknown [id number] Private Health Insurance [id number] Unknown [id number] 2.16.8 [id number] Unknown [id number] 2.16.8 [id number] Unknown [id number] 2.16.8 [id number] Unknown [id number] 2.16.8 [id number] Unknown [id number] 2.16.8 [id number] Unknown [id number] 2.16.8 [id number] Unknown [id number] 2.16.8 [id number] Unknown [id number] 2.16.8 [id number] Social History Date Type Detail Facility Start: 10-16-2020 End: 05-29-2023 Tobacco smoking status NHIS Unknown if ever smoked [facility] Start: 05-25-2018 Occasional [facility] Start: 05-25-2018 None [facility] Start: 05-25-2018 Spouse/ Signif icant Other [facility] Start: 08-13-2019 Cigarettes [facility] Start: 1970 Sex Assigned At Female [facility] Start: 06-22-2024 End: 09-28-2024 Tobacco smoking status NHIS Current some day smoker [facility] NEGATED: Highlighted row [facility] Medical Equipment Procedure Code Equipment Code Equipment Original Text Equipment Identifier Dates Thyroidectomy Plant polysaccha ride haemostatic agent, bioabsorbable [id number] FDA Start: 08-22-2023 Thyroidectomy Ligation clip, metallic ( )[id number] FDA Start: 08-22-2023 Mental Status Date Assessment Result Facility 09-28-2024 Cognitive function Voice/Name [facility] Work Phone: Discharge summary 09-28-2024 Note Date & Type Note Facility 09-28-2024 Discharge summary [facility] Radiology Diagnostic study note 09-28-2024 Note Date & Type Note Facility 09-28-2024 Radiology Diagnostic study note [facility] [address] [place], [place] [address] Chest 1 View (Portable) MR#: [id number] Acct: [id number] Name: CANDY HEARD Rep #: [id number] : 1970 F 54 From: Pet er Peer DO PCP: Dr. Rada Armendariz, DO Status: REG ER Study:Chest 1 View (Portable) Date of Exam: 09/28/24 Exam# [id number] Ordering Dr: Melecio Young DO PROCEDURE: CHEST 1 VIEW (PORTABLE) 09/28/2024 REASON FOR EXAM: CHEST PAIN TECHNIQUE: Frontal view of the chest. COMPARISON: Chest radiograph March 17, 2024 FINDINGS: Hardware: None Heart: Normal size and appearance Lungs: Clear and expanded Bones: No bony process identified. Other: RAD/Chest 1 View (Portable) IMPRESSION: No acute process detected. Reading Location[facility] CC: Dr. Raad Armendariz DO; Dr. Maulik Young DO ~ Drawing Kiln Supervisor: Signed [facility] Discharge summary 09-28-2024 Note Date & Type Note Facility 09-28-2024 Discharge summary Note Date/Time September 28, 2024 10:19pm [facility] Medical Records Department [address] [place] [id number] Emergency Department Summary 09/28/24 MR#: [id number] Acct: [id number] Name: CANDY HEARD Rep #:[id number] : 1970 54 From: Maulik Sutton PCP: Dr. Raad Armendariz DO Status:REG ER Location: ED HPI History of Present Illness Chief Complaint: Chest Pain [facility] Medical History Thyroid nodule Wears glasses Bipolar disorder Alcohol use High cholesterol Easy bruising Restless legs History of diverticulitis History of IBS Gastric reflux Smoker COPD (chronic obstructive pulmonary disease) Shortness of breath on exertion Depression Arthritis History of back problems Epigastric pain Hypercholesterolemia GERD (gastroesophageal reflux disease) History of COPD Tobacco use Asthma Home Medications ?Medication ?Instructions ?Recorded ?Last Taken ?Type albuterol sulfate 90 mcg/actuation 2 puff inhalation Q 6H PRN Sob &/Or 06/14/17 08/22/23 History aerosol inhaler (ProAir HFA) Wheezing famotidine 40 mg tablet (Pepcid) 40 mg PO DAILY 08/21/23 History pravastatin 40 mg tablet 10 mg PO QHS 07/02/21 History zolpidem 10 mg tablet 10 mg PO QHS 07/02/21 History albuterol sulfate 2.5 mg/3 mL 2.5 mg (3 mL) inhalation Q4H PRN 11/02/21 08/21/23 Rx (0.083 %) solution for nebulization #25 vials hydrocodone 7.5 mg-acetaminophen 1 tab PO Q6H 03/12/23 08/19/23 History 325 mg tablet loratadine 10 mg tablet 10 mg PO Q24H 03/12/2308/07 History ipratropium 0.5 mg-albuterol 3 mg 3 ml inhalation Q4H PRN wheezing 03/17/24 Unknown Rx (2.5 mg base)/3 mL nebulization #90 mL soln prednisone 50 mg tablet 50 mg PO DAILY 5 days #5 tab s 03/17/24 Unknown Rx Allergy/AdvReac Type Severity Reaction Status [...] social history: Paul Stoddard Patient works at [employer] EXAM Physical Exam Const Vital Signs: 09/28/24 18:14 09/28/24 18:31 09/28/24 18:50 Temperature 98.5 F Temperature Source Oral Pulse Rate 107 H Respiratory Rate 16 Respiratory Effort Normal Non-Labored Blood Pressure 155/89 H Blood Pressure Mean 111 Pulse Ox 98 97 Oxygen Delivery Method Room Air Room Air 09/28/24 19:19 09/28/24 20:05 Temperature Temperature Source Pulse Rate 94 88 Respiratory Rate 18 Respiratory Effort Blood Pressure 131/88 H 112/68 Blood Pressure Mean 82 Pulse Ox 97 Oxygen Delivery Method Room Air [facility] Narr[place] Medical decision making narrative: HISTORY OF PRESENT ILLNESS: Chief complaint: Chest pain 54-year-old female history of asthma, tobacco use, COPD, GERD, hyperlipidemia presents with chest pain. Has been intermittent for last few weeks however getting more frequent and more intense over the last few days. She further states [close The patient denies recent surgery in the last 4 weeks or immobilization in the last 3 days, denies previous diagnosis of DVT or PE, hemoptysis, unilateral leg swelling or malignancy with treatment the last 6 months or palliative. No estrogen use noted. Patient denies sudden onset of pain, no tearing sensation, no migratory symptoms, no new numbness, weakness or loss of sensation. Patient denies family history or personal history of Connective tissue disorders (Marfan's Syndrome, Didi Danlos etc) REVIEW OF SYSTEMS: Pertinent positives: Chest pain Pertinent negatives: As per HPI PHYSICAL EXAM: Nursing triage notes reviewed, Vital signs reviewed Constitutional: please see [facility] HENT: MMM Eyes: Pupils equal round and reactive to light, Extraocular muscles intact Neck: No stridor, no JVD, full neck ROM Lungs: Slight wheezing throughout but no or rales. No increased work of breathing, no conversational dyspnea, no accessory muscle use, no nasal flaring. No respiratory distress noted Heart: Regular rate and rhythm, No murmurs, No rubs and No gallops, 2+ distal pulses (radial, femoral, posterior tibial) in all extremities Abdomen: Soft, there is no tenderness, rigidity, rebound or guarding, no obvious peritoneal signs, no palpable pulsatile abdominal masses, no auscultated abdominal bruit : No CVAT Extremities: No edema Neuro: No new focal neurological deficits, cranial nerves II through XII intact, 5/5 strength in all present extremities. Intact sensation to light touch in all present extremities, 2+ reflexes bilateral patella tendons. Skin: No rash or lesions noted MEDICAL DECISION MAKING: Chief Complaint: please see HPI External records reviewed: Reviewed prior cardiovascular testing: No recent cardiac catheterizations, cardiograms noted in the chart Factors affecting care: as per HPI Social determinants of health: none History obtained from others: none Consults: none MDM Narrative: The patient was initially hemodynamically stable, afebrile and nontoxic-appearing. Exam with slight wheezing but no obvious cardiopulmonary abnormalities. No stigmata of VTE, CHF or dissection. I considered the following differential diagnosis: ACS, anemia, arrhythmia, electrolyte disturbance, pneumothorax, pericarditis, PE, aortic dissection I obtained broad lab and imaging to further determine if the patient was suffering from a life-threatening etiology. While I considered PE the patient's Wells score is low risk and as such I did not pursue CTA or D-dimer at this time. The patient history and clinical exam not consistent with aortic dissection. ALL IMAGES (IF OBTAINED) HAVE BEEN PERSONALLY REVIEWED AND INTERPRETED BY MYSELF. EKG with normal sinus rhythm rate of 99, normal axis, normal intervals, no STEMI High-sensitivity troponin is negative, no evidence of myocardial ischemiax2 CBC with leukocytosis suggestive of systemic inflammation (no evidence of pneumonia or other pulmonary infection, likely not clinically significant), no anemia or thrombocytopenia BMP with no significant electrode abnormalities, noted marginal elevation anion gap (likely not clinically significant), no MATHEUS I have personally reviewed the patient's chest x-ray. Chest x-ray is unremarkable for pulmonary edema, pneumothorax, pneumonia or focal cardiopulmonary abnormality. The synthesis of the patient's history, physical exam, labs images suggest no acute life or limb threatening etiology. Unclear recommended outpatient stress testing confirmatory testing per PCP guidance. The patient and/or family, caregivers express understanding. The patient and/or family, caregivers agrees with the plan. Shared decision making: I will have a discussion with the patient and or visitors regarding risk/benefits of further testing or admission. They will be made aware of of the risk/benefits inherent in this decision they will be given the opportunity to voice understanding. Total critical care time today provided was at least 0 minutes. This excludes separately billable procedures. Critical care time (if documented) is secondary to the patient having high probability of clinically significant/life threatening deterioration in the patient's condition which required my urgent intervention. Impression: 1. Chest pain 2. History of COPD 3. Leukocytosis Dispo: Discharge home This note was generated with [employer] dictation software. It may contain incorrect words, spelling, and punctuation that were not noted in review of the chart prior to signing. Lab Data Labs: Laboratory Results - last 24 hr 09/28/24 09/28/24 18:30 20:30 WBC 14.4 H RBC 4.57 Hgb 13.8 Hct 40.6 MCV 88.8 MCH 30.2 MCHC 34.0 RDW Std Deviation 42.7 RDW Coeff of [place] 13.2 Plt Count 392 MPV 9.0 Immature Gran % (Auto) 0.500 Neut % (Auto) 70.6 H Lymph % (Auto) 21.8 [place] % (Auto) 5.9 Eos % (Auto) 0.6 Baso % (Auto) 0.6 Absolute Neuts (auto) 10.2 H Absolute Lymphs (auto) 3.14 Nucleated RBC % 0 Sodium 139 Potassium 3.6 Chloride 99 Carbon Dioxide 23.7 Anion Gap 16 H BUN 13 Creatinine 0.65 L Estim Creat Clear Calc 95.29 Est GFR (MDRD) Non-Af 106 BUN/Creatinine Ratio 19.6 Glucose 106 H Calcium 8.9 Troponin T High Sens < 6 Troponin T Hi Sens 2 Hr < 6 Radiography Diagnostic Testing: Clinical Impression(s) from Imaging Studies Chest X-Ray 09/28/24 18:50 IMPRESSION: No acute process detected. Reading Location: [facility] Discharge Plan Triage Chief Complaint: Chest Pain ED Provider: Maulik Young Dx/Rx/DC Orders Instructions: ED Chest Pain, Noncardiac Prescriptions: No Action albuterol sulfate [ProAir HFA] 90 [...] Use q4 hours and PRN for wheezing hydrocodone-acetaminophen 7.5-325 mg tablet 1 tab PO Q6H Rx Instructions: FOR CHRONIC INTRACTABLE PAIN loratadine 10 mg tablet 10 mg PO Q24H ipratropium-albuterol 0.5 mg-3 mg(2.5 mg base)/3 mL solution for nebulization 3 ml inhalation Q4H PRN (Reason: wheezing) Qty: 90 0RF prednisone 50 mg tablet 50 mg PO DAILY 5 Days Qty: 5 0RF Primary Care Provider: Raad Armendariz Referrals: Laureano Wesley MD [Med Staff - Active Staff] - Raad Armendariz DO [Primary Care Provider] - Activity Restrictions/Additional Instructions: Thank you for trusting us with your care today! Your labs images are reassuring. No signs of damage to your heart or heart attacks. Please return to the emergency department if your symptoms change or worsen. Please follow with your primary care physician for further outpatient evaluationand management. Specifically for echocardiogram and stress test as your PCP directs. He can also follow with cardiology for further outpatient evaluation. Print Language: Pashto Disposition Disposition: Home, Self Care What to do if you have Problems For any increased pain, shortness of breath, bleeding, nausea or vomiting, chestpain, or any unexpected problems, contact your Primary Care Provider. Call [facility] ([phone]) or report to the closest Emergency Room. Call 911 if necessary. 09/28/242218 <Electronically signed by Maulik Young DO> Cosigner Signature (if applicable): CC: Dr. Raad Armendariz DO ~ Signed [facility] Work Phone: Discharge summary Note Date & Type Note Facility Discharge summary Note Date/Time February 15, 2023 12:19pm [facility] Medical Records Department [address] [place] [id number] Emergency Department Summary 02/15/23 MR#: [id number] Acct: [id number] Name: CANDY HEARD Rep #:[id number] : 1970 52 From: Olegario Basilio MD PCP: Dr. Raad Armendariz DO Status:PRE ER Location: ED HPI History of Present Illness Chief Complaint: Abscess Narrative Narrative: Presents with a lesion on her nose for about 3 days. No fevers chills. No drainage. No known trauma. She states it started crusty and yellow. Now it seems more red and discomfort. No nausea vomiting. PFSH PFSH Medical History Abdominal pain Alcohol use Arthritis [...] [History Last Taken Unknown] hydrocodone-acetaminophen 5-325mg 5mg-325mg ([place]) 1 tab PO TID 07/02/21 [History Last [...] social history: Paul Stoddard Patient works at [employer] ROS ROS ED Constitutional Constitutional [...] mg tablet 10 mg PO QHS hydrocodone-acetaminophen [[place]] 5-325 mg tablet 1 tab PO TID [...] Primary Care Provider: Raad Armendariz Referrals: Raad Armendariz, DO [Primary Care Provider] - 3-5 Days if not improving Disposition Disposition: Home, Self Care What to do if you have Problems For any increased pain, shortness of breath, bleeding, nausea or vomiting, chestpain, or any unexpected problems, contact your Primary Care Provider. Call [facility] ([phone]) or report to the closest Emergency Room. Call 911 if necessary. 02/15/23 1226 <Electronically signed by Olegario Basilio MD> Cosigner Signature (if applicable): CC: Dr. Raad Armendariz, DO ~ Signed [facility] Work Phone: Evaluation note Note Date & Type Note Facility Evaluation note No assessment information availa ble [facility] Work Phone: Evaluation note Note Date & Type Note Facility Evaluation note Diagnosis Onset Date Thyroid nodule acute [facility] Work Phone: Hospital Discharge instructions Note Date & Type Note Facility Hospital Discharge instructions Additional Instructions Please take prednisone until finished. Use your inhalers. Return for any worsening symptoms [facility] Work Phone: Hospital Discharge instructions Note Date & Type Note Facility Hospital Discharge instructions Additional Instructions Please return for any worsening of your symptoms. Follow-up with your PCP. [facility] Work Phone: Hospital Discharge instructions Note Date & Type Note Facility Hospital Discharge instructions Additional Instructions Thank you for trusting us with your care today! Your labs images are reassuring. No signs of damage to your heart or heart attacks. Please return to the emergency department if your symptoms change or worsen. Please follow with your primary care physician for further outpatient evaluation and management. Specifically for echocardiogram and stress test as your PCP directs. He can also follow with cardiology for further outpatient evaluation. [facility] Work Phone: Reason for referral (narrative) Note Date & Type Note Facility Reason for referral (narrative) No reason for referral information available [facility] Work Phone: Summary Purpose Family History [...] No October 16, 2020 9:00am Power of Database Management System Specialist No October 9:00am Advance Directive Response Recorded Date/ Time Living Will No June 14, 2021 11 :40am Power of Database Management System Specialist No June 14, 2021 11:40am Advance Directive Response Recorded Date/ Time Living Will No April 03, 2 023 12:48pm Power of Database Management System Specialist No April 03, 2022 12:48pm Advance Directive Response Recorded Date/ Time Living Will No April 03, 2 023 1:48pm Power of Database Management System Specialist No April 03, 2022 1:48pm Advance Directive Response Recorded Date/ Time Living Will No February 15 12:33pm Power of Database Management System Specialist No February 15, 2023 12:33pm Advance Directive Response Recorded Date/ Time Living Will No March 12 1:51pm Power of Database Management System Specialist No March 12, 2023 1:51pm Advance Directive Response Recorded Date/ Time Living Will No March 12 2:51pm Power of Database Management System Specialist No March 12, 2023 2:51pm Advance Directive Response Recorded Date/ Time Living Will No May 29, 2023 10:30am Power of Database Management System Specialist No May 28 10:30am Advance Directive Response Recorded Date/ Time Living Will No March 17 10:58am Do you have a Healthcare Power of Database Management System Specialist? No March 17, 2024 10:58am Do you have a Healthcare Power of Database Management System Specialist? No June 22, 2024 3:53pm Advance Directive Response Recorded Date/ Time Do you have a Healthcare Power of Database Management System Specialist? No June 22, 2024 3:53pm Advance Directive Response Recorded Date/ Time Do you have a Healthcare Power of Database Management System Specialist? No June 22, 2024 3:53pm Do you have a Healthcare Power of Database Management System Specialist? No September 28, 2024 6:31pm Chief Complaint and Reason for Visit Chief Complaint abd Chief Complaint sob Chief Complaint ABSCESS Chief Complaint ABSCESS SOB Chief Complaint ABSCESS SOB SORE THROAT Chief Complaint SOB SORE THROAT THYROID MASS, [facility] ER FU Reason for Visit Thyroid nodule Chief Complaint Admit Date SOB March 17, 2024 8 :47am SOB June 22, 2024 3:53p m Chief Complaint Admit Date SOB June 22, 2024 3:53p m Chief Complaint Admit Date SOB June 22, 2024 3:53p m cp September 28, 2024 6: 13pm Additional Source Comments INFORMATION SOURCE (unrecogn ized section and content) DATE CREATED AUTHOR 08/27/2019 [facility] DATE CREATED AUTHOR AUTHOR'S ORGANIZ ATION 05/28/2020 [facility] ([place]) DATE CREATED AUTHOR AUTHOR'S ORGANIZ ATION [facility]20[facility] Goals (unrecognized section and content) Goals may [...] Role Status Dates Dr. Raad Armendariz DO Family Provider Active Dr. Raad Armendariz DO Primary Care Provider Active Team Status: Inactive Member Role Status Dates Dr. Raad Armendariz DO Primary Care Provider Active Dr. Humberto Castro DO Emergency Provider Active Team Status: Inactive Member Role Status Dates Dr. Raad Armendariz DO Primary Care Prov ider, Attending Provider, [...] Primary Care Provider Active Dr. Maulik Young , DO Emergency Provider Active Team Status: Inactive Member Role Status Dates Dr. Raad Armendariz DO Primary Care Provider Active Dr. Maulik Young DO Attending Provider, Emergency P yarelis Active Team Status: Inactive Member Role Status Dates Dr. Raad Armendariz DO Primary Care Provider, Attendin g Provider Active Team Status: Inactive Member Role Status Dates Dr. Raad Armendariz DO Primary Care Provider Active Dr. Geo Donaldson , DO Emergency Provider Active Team Status: Inactive [...] June 22, 2024 Dr. Tyler Marsh , Attending Provider Active Start: June 22, 2024 End: June 22, 2024 Dr. Tyler Marsh , Referring Provider Active Start: June 22, 2024 End: June 22, 2024 Dr. Tyler Marsh , Emergency Provider Active Start: June 22, 2024 End: June 22, 2024 Team Status: Inactive Member Role/Relationship Status Dates Dr. Raad Kala , DO Primary Care Provider Active Start: July 30, 2024 End: July 30, 2024 Dr. Raad Armendariz , DO Attending Provider Active Start: July 30, 2024 End: July 30, 2024 Team Status: Inactive Member Role/Relationship Status Dates Dr. Raad Armendariz , DO Primary Care Provider Active Start: September 28, 2024 End: September 28, 2024 Dr. Maulik Young , DO Emergency Provider Active Start: September 28, 2024 End: September 28, 2024 FOR RECORDS PERTAINING TO PATIENTS WHO [...] BE BASED ON THE PRIMARY CLINICAL RECORDS. [facility] [employer] provides no warranty or guarantee of the accuracy or completeness of information in this document.
--- NOTE | 2024-10-27 18:44 | CM.ED ---
Social Work Date of referral: 10/27/24 Reason for referral: Resources Referred by: Social Work identification Patient provided consent for social work visit. Buttonhole Maker provided support and talked with patient about a resource for a dog horn; a safer way for animals and humans when interventions are necessary which patient expressed appreciation for. Patient stated her dogs are sisters and were playing with each other and she thinks one accidentally bit the others lip. She stated after she intervened, the dogs were fine and acted like nothing happened. Patient stated she was getting ready to leave for work when it happened. Bryanna Miguel, CERTIFIED LOW VISION THERAPIST, TOLL TEST WORKER
--- NOTE | 2024-10-27 18:55 | RAD_ITS ---
PROCEDURE: FOREARM 2 VIEWS 10/27/2024 REASON FOR EXAM: TRAUMA, DOG BITE TECHNIQUE: Procedure Code: RADFA Modality: DX Procedure: FOREARM 2 VIEWS Laterality: Left COMPARISON: None FINDINGS: Osseous: Proximal and distal radioulnar congruency is maintained. There may be slight negative ulnar variance. No acute fracture or malalignment seen. No bone lesion or periosteal reaction is seen. If there are symptoms related to the wrist, hand or elbow, dedicated joint views are advised. Soft tissue: Soft tissue injury is not reliably assessed by this technique. No radiopaque soft tissue foreign body is seen overlying the forearm. RAD/Forearm 2 Views IMPRESSION: No radiographic evidence of an acute osseous injury at the left forearm. - Findings and recommendations discussed above. Reading Location: [id number]
[2024-10-27 19:45] VITALS: BP 153/103; PULSE 89; RESP 16; TEMP 37; O2SAT 98
[2024-10-27 21:00] VITALS: BP 170/100; PULSE 83; RESP 16; O2SAT 99
--- NOTE | 2024-10-27 21:23 | EX.ED.GENINJ ---
HPI History of Present Illness Chief Complaint: Bite Informant: patient Narrative Narrative: Patient is a 54-year-old female, [id number], presenting with dog bite to her left forearm. Patient states her 2 pet dogs were initially plated and started fighting. She tried to break them up and then she was bit in the left forearm. She denies any other injuries and does not think she fell or had anything else happened to her. She is her doctor otherwise been acting normally and up-to-date on her immunizations/rabies. Is having tingling in her hand and is having significant pain at her distal forearm/wrist area. Does have some associated lacerations. Came in for further evaluation. Did not take any for pain prior to arrival. No other injuries reported Tetanus Immunization: <5 years [facility] Medical History Thyroid nodule Wears glasses Bipolar disorder Alcohol use High cholesterol Easy bruising Restless legs History of diverticulitis History of IBS Gastric reflux Smoker COPD (chronic obstructive pulmonary disease) Shortness of breath on exertion Depression Arthritis History of back problems Epigastric pain Hypercholesterolemia GERD (gastroesophageal reflux disease) History of COPD Tobacco use Asthma Home Medications ?Medication ?Instructions ?Recorded ?Last Taken ?Type albuterol sulfate 90 mcg/actuation 2 puff inhalation Q6H PRN Sob &/Or 06/14/17 08/22/23 History aerosol inhaler (ProAir HFA) Wheezing famotidine 40 mg tablet (Pepcid) 40 mg PO DAILY 07/02/21 08/21/23 History pravastatin 40 mg tablet 10 mg PO QHS 07/02/21 08/21/23 History zolpidem 10 mg tablet 10 mg PO QHS 07/02/21 08/19/23 History albuterol sulfate 2.5 mg/3 mL 2.5 mg (3 mL) inhalation Q4H PRN 11/02/21 08/21/23 Rx (0.083 %) solution for nebulization #25 vials hydrocodone 7.5 mg-acetaminophen 1 tab PO Q6H 03/12/23 08/19/23 History 325 mg tablet loratadine 10 mg tablet 10 mg PO Q24H 03/12/23 08/08/23 History ipratropium 0.5 mg-albuterol 3 mg 3 ml inhalation Q4H PRN wheezing 03/17/24 Unknown Rx (2.5 mg base)/3 mL nebulization #90 mL soln prednisone 50 mg tablet 50 mg PO DAILY 5 days #5 tabs 03/17/24 Unknown Rx amoxicillin 875 mg-potassium 1 tab PO BID #10 tabs 10/27/24 Unknown Rx clavulanate 125 mg tablet Allergy/AdvReac Type Severity Reaction Status Date / Time amitriptyline AdvReac Other Verified 10/27/24 17:43 diphenhydramine HCl (From AdvReac Other Verified 10/27/24 17:43 Benadryl) Family History Mother Cancer lung Father Cancer lung Brother Cancer lung Diabetes Heart disease Sister Breast cancer Brother Heart disease Hypertension High cholesterol Surgical History History of brain surgery History of excision of mass History of dermoid cyst excision History of tonsillectomy Hx of appendectomy brain tumor removed delivery delivered Social History Smoking Status: Current some day smoker tobacco type: cigarettes alcohol intake: current details: social substance use type: does not use caffeine: Yes what type of physical activity do you participate in: walking seatbelt use: always do you feel safe at home: Yes additional social history: Paul Stoddard Patient works at [employer] ROS ROS ED Constitutional Constitutional ED: Denies chills or fever(s) Gastrointestinal Gastrointestinal: Denies nausea or vomiting Musculoskeletal Musculoskeletal: Reports other Details: left forearm pain Integumentary Reports other Details: wound to forearm from dog bite- left Neurologic Neurologic: Reports paresthesias; Denies weakness Psychiatric Psychiatric: Reports anxiety Hematologic/Lymphatic Hematologic/Lymphatic: Denies easy bleeding or easy bruising EXAM Physical Exam Const Vital Signs: 10/27/24 17:43 10/27/24 19:45 10/27/24 21:00 Temperature 97.3 F L 98.6 F Temperature Source Temporal Oral Pulse Rate 112 H 89 83 Respiratory Rate 22 H 16 16 Blood Pressure 197/107 H 153/103 H 170/100 H Blood Pressure Mean 137 119 123 Pulse Ox 100 98 99 Oxygen Delivery Method Room Air Room Air Room Air 10/27/24 21:58 Temperature 98.1 F Temperature Source Pulse Rate 84 Respiratory Rate 16 Blood Pressure 168/100 H Blood Pressure Mean 122 Pulse Ox 97 Oxygen Delivery Method Positive well nourished and well developed General Appearance ED: well developed and NAD HEENT atraumatic Chest Wall inspection of chest normal Resp normal respiratory effort and clear to auscultation bilaterally Cardio regular rhythm Cardio Narrative: 2+ radial pulses Rate: regular rate Extremity Extremity Narrative: The left upper extremity there are puncture wounds on the distal forearm (both dorsal and ventral) consistent with a dog bite. She has some associated soft tissue swelling and bruising. No obvious deformity of the extremity however she has decreased range of motion of the wrist especially with extension stated to painful. No pinpoint bony tenderness. Compartments of the forearm are soft and not consistent with compartment syndrome. She has normal movements of the hand and is able to make a fist, okay sign, cross her fingers, abduct and adduct the fingers. Neuro oriented x3, moves all extremities, no focal motor deficits and no sensory deficits noted Neuro Narrative: Report subjective paresthesias to the palm of her hand Psych Mood & Affect: anxious and tearful Skin Skin Narrative: 2 full-thickness 1 cm linear lacerations to the ventral distal forearm, 1 that is bleeding. On the dorsal aspect there are a couple scattered partial-thickness abrasion/laceration with no active bleeding that are approximately 3 mm in length. There is some surrounding erythema to the site consistent with skin irritation and some developing ecchymosis. These are consistent with dog bite. No foreign bodies appreciated. Wounds: wounds noted MDM MDM MDM Narrative Medical decision making narrative: Patient Biba for dog bite to her left forearm. Differential includes is not limited to soft tissue injury, open fracture and retained foreign body. While she has a lot of pain she is neurovascularly intact. Physical exam not consistent with compartment syndrome and her compartments and cells are soft. Patient initially quite tachycardic and hypertensive upon arrival but blood pressure and vital signs overall do improve with pain control emergency room. Localized wound care performed by nursing. There is 1 wound that is slightly larger however it still only a centimeter in size. It is Steri-Stripped. Discussed how I do not want to close it because of increased risk infection. Patient is agreeable this plan of care. Dressings applied. X-ray obtained which is reviewed by myself as well as radiology. There is no foreign body or associated fracture. Patient has pain with range of motion of her hand and is given a Velcro splint for comfort. The ring on her left hand is removed as I suspect she will have more swelling and so that way does not become stuck on. Patient is initially given morphine and then redosed with Toradol and Dilaudid for pain control. Patient has a prescription for Derby at home and sees regularly receives this from her primary care physician per her [facility] report. Counseled on taking this as well as ibuprofen for further pain control. She believes her tetanus is updated so it is not given at this time. Patient is given return precautions. Discharged home in stable and improved condition. Counseled on wound care. Started empirically on Augmentin and given first dose in the emergency room Radiography Diagnostic Testing: Clinical Impression(s) from Imaging Studies Forearm X-Ray 10/27/24 18:55 IMPRESSION: No radiographic evidence of an acute osseous injury at the left forearm. - Findings and recommendations discussed above. Reading Location: [id number] Discharge Plan Triage Chief Complaint: Bite ED Provider: Bell Hanley Dx/Rx/DC Orders Clinical Impression: Dog bite of extremity, Laceration of left forearm, Left arm pain Instructions: ED Animal Bite (General) Prescriptions: New amoxicillin-pot clavulanate 875-125 mg tablet 1 tab PO BID Qty: 10 0RF No Action albuterol sulfate [ProAir HFA] 90 mcg/actuation HFA aerosol inhaler 2 puff INHALATION Q6H PRN (Reason: Sob &/Or Wheezing) famotidine [Pepcid] 40 mg tablet 40 mg PO DAILY pravastatin 40 mg tablet 10 mg PO QHS zolpidem 10 mg tablet 10 mg PO QHS Patient Comments: TAKE 1 TABLET BY MOUTH EVERYDAY AT BEDTIME albuterol sulfate 2.5 mg /3 mL (0.083 %) solution for nebulization 2.5 mg inhalation Q4H PRN Qty: 25 0RF Rx Instructions: Use q4 hours and PRN for wheezing hydrocodone-acetaminophen 7.5-325 mg tablet 1 tab PO Q6H Rx Instructions: FOR CHRONIC INTRACTABLE PAIN loratadine 10 mg tablet 10 mg PO Q24H ipratropium-albuterol 0.5 mg-3 mg(2.5 mg base)/3 mL solution for nebulization 3 ml inhalation Q4H PRN (Reason: wheezing) Qty: 90 0RF prednisone 50 mg tablet 50 mg PO DAILY 5 Days Qty: 5 0RF Stand Alone Forms: ED Work / School Excuse Primary Care Provider: Raad Armendariz Referrals: Raad Armendariz DO [Primary Care Provider, Family Practice] Activity Restrictions/Additional Instructions: Please follow-up with your family doctor to ensure your tetanus is up-to-date. They can updated if it is not. Take ibuprofen up to 600 mg (3 [id number] tablets) every 6 hours as needed for pain in addition to your home Derby. Ice the area and keep it elevated to help with swelling. If you have worsening pain, redness streaking up the arm, fevers or chills please be return to the emergency room. Otherwise please follow-up with your family doctor. Print Language: Kazakh Disposition Disposition: Home, Self Care Discharge Date/Time: 10/27/24 22:04
[2024-10-27] MEDS: HYDROmorphone 0.5 MG/0.5 ML SYRINGE IV (21:42)
[2024-10-27 21:58] VITALS: BP 168/100; PULSE 84; RESP 16; TEMP 36.7; O2SAT 97
== END 2024-10-27 22:04 | disposition home or self-care (01) ==
PROVIDERS: Emergency Provider Emergency Medicine; PCP Family Medicine; Visit Provider Emergency Medicine
DX: S51.852A Open bite of left forearm, initial encounter (principal); J44.9 Chronic obstructive pulmonary disease, unspecified; E78.00 Pure hypercholesterolemia, unspecified; K21.9 Gastro-esophageal reflux disease without esophagitis; F17.210 Nicotine dependence, cigarettes, uncomplicated; R20.2 Paresthesia of skin; W54.0XXA Bitten by dog, initial encounter
CPT/HCPCS: 73090; 96374; 96375; 99285; A4216